=== PATIENT | male | born 1945 | race Two or more races ===

== ENCOUNTER → 2016-09-20 | Outpatient (CLI) | payer MEDICARE | END | disposition home or self-care (01) | LOC: Rad HDHVI 13:23 | PROVIDERS: ATTEND Internal Medicine Cardiovascular Disease | DX: I11.0 Hypertensive heart disease with heart failure (principal); I25.10 Atherosclerotic heart disease of native coronary artery without angina pectoris; E78.00 Pure hypercholesterolemia, unspecified; L97.929 Non-pressure chronic ulcer of unspecified part of left lower leg with unspecified severity | CPT/HCPCS: 93306 ==

== ENCOUNTER → 2016-10-19 | Outpatient (CLI) | payer MEDICARE | END | disposition home or self-care (01) | LOC: Rad HDHVI 11:44 | PROVIDERS: ATTEND Internal Medicine Cardiovascular Disease | DX: I51.7 Cardiomegaly (principal); E11.40 Type 2 diabetes mellitus with diabetic neuropathy, unspecified; L97.929 Non-pressure chronic ulcer of unspecified part of left lower leg with unspecified severity | CPT/HCPCS: 93926 ==

== ENCOUNTER → 2016-12-02 | Outpatient (CLI) | payer MEDICARE ==
[2016-12-02 10:45] VITALS: BP 122/74
[2016-12-02 11:15] VITALS: BP 126/76
[2016-12-02 12:49] LABS: Albumin 3.3 g/dL (3.4-5.0); BUN/Creatinine Ratio 17.9; Bilirubin, Total 0.3 mg/dL (0.2-1.0); Calcium 8.5 mg/dL (8.5-10.1); Potassium 3.8 mmol/L (3.5-5.1); Total Protein 7.1 g/dL (6.4-8.2)
== END | disposition home or self-care (01) ==
LOC: LAB 10:34
PROVIDERS: ATTEND Internal Medicine Cardiovascular Disease
DX: E78.00 Pure hypercholesterolemia, unspecified (principal); I10 Essential (primary) hypertension; E11.9 Type 2 diabetes mellitus without complications; R97.20 Elevated prostate specific antigen [PSA]
CPT/HCPCS: 36415; 80053; 80061; 83036; 84153; G0463

== ENCOUNTER → 2017-04-17 | Outpatient (CLI) | payer MEDICARE | END | disposition home or self-care (01) | LOC: Rad HDHVI 13:53 | PROVIDERS: ATTEND Internal Medicine Cardiovascular Disease | DX: E78.00 Pure hypercholesterolemia, unspecified (principal); R07.9 Chest pain, unspecified; J44.9 Chronic obstructive pulmonary disease, unspecified; Z95.5 Presence of coronary angioplasty implant and graft; Z87.891 Personal history of nicotine dependence | CPT/HCPCS: 93306 ==

== ENCOUNTER → 2017-07-13 | Outpatient (CLI) | payer MEDICARE ==
[2017-07-13 12:28] LABS: Basophils # (auto) 0.1 uL; Basophils % (auto) 1.2 % (0.0-2.0); Hemoglobin 11.4 g/dL (13.5-17.5); Lymphocytes # (auto) 1.8 uL; Mean Corpuscular Hgb Conc. 31.8 g/dL (32.0-36.0); Monocytes # (auto) 0.9 uL; Nucleated Red Blood Cells % 0.1 %; Red Cell Distribution Width 19.1 % (11.8-14.3)
[2017-07-13 12:30] LABS: Eosinophils # (auto) 0.6 uL; Eosinophils % (auto) 6.3 % (0.0-7.0); Lymphocytes % (auto) 20.2 % (10.0-50.0); Mean Corpuscular Hemoglobin 23.6 pg (28.0-32.0); Mean Corpuscular Volume 74.2 fL (80.0-100.0); Monocytes % (auto) 10.3 % (0.0-12.0); Neutrophils # (auto) 5.5 uL; Platelet Count (auto) 271 10^3/uL (140-450); Red Blood Cells 4.85 10^6/uL (4.5-5.90); White Blood Cell 8.9 10^3/uL (4.4-10.8)
[2017-07-13 12:39] LABS: Albumin 3.4 g/dL (3.4-5.0); BUN/Creatinine Ratio 16.2; Bilirubin, Direct 0.1 mg/dL (0-0.2); Bilirubin, Total 0.3 mg/dL (0.2-1.0); Calcium 8.8 mg/dL (8.5-10.1); Potassium 4.5 mmol/L (3.5-5.1); Total Protein 7.5 g/dL (6.4-8.2)
== END | disposition home or self-care (01) ==
LOC: LAB 09:54
PROVIDERS: ATTEND Internal Medicine Cardiovascular Disease
DX: I10 Essential (primary) hypertension (principal); E78.00 Pure hypercholesterolemia, unspecified; K74.1 Hepatic sclerosis; E11.9 Type 2 diabetes mellitus without complications; R97.20 Elevated prostate specific antigen [PSA]; E03.9 Hypothyroidism, unspecified; D64.9 Anemia, unspecified; E55.9 Vitamin D deficiency, unspecified; N39.0 Urinary tract infection, site not specified; J44.9 Chronic obstructive pulmonary disease, unspecified; Z95.1 Presence of aortocoronary bypass graft
CPT/HCPCS: 36415; 80048; 80061; 80076; 82306; 83036; 84153; 84443; 85025

== ENCOUNTER → 2017-10-25 | Outpatient (CLI) | payer MEDICARE | END | disposition home or self-care (01) | LOC: LAB 14:57 | PROVIDERS: ATTEND Internal Medicine Cardiovascular Disease | DX: I10 Essential (primary) hypertension (principal); I20.9 Angina pectoris, unspecified | CPT/HCPCS: 93306 ==

== ENCOUNTER → 2017-10-27 | Outpatient (CLI) | payer MEDICARE ==
[~2017-10-27] MED LIST: ADENOSINE 90 MG/30 ML INJ IV ONE; ADENOSINE 99 MG in GIVE UN-DILUTED 0 ML IV ONE
== END | disposition home or self-care (01) ==
LOC: Rad HDHVI 09:21
PROVIDERS: ATTEND Internal Medicine Cardiovascular Disease
DX: Z01.810 Encounter for preprocedural cardiovascular examination (principal); I10 Essential (primary) hypertension; E78.00 Pure hypercholesterolemia, unspecified; E11.9 Type 2 diabetes mellitus without complications; F17.200 Nicotine dependence, unspecified, uncomplicated; J44.9 Chronic obstructive pulmonary disease, unspecified; E66.9 Obesity, unspecified; I20.9 Angina pectoris, unspecified
CPT/HCPCS: 78452; 93005; 96374; 96375; A9500; J0153

== ENCOUNTER → 2018-03-05 | Outpatient (CLI) | payer MEDICARE ==
[~2018-03-05] MED LIST changes: -ADENOSINE 90 MG/30 ML INJ IV ONE; -ADENOSINE 99 MG in GIVE UN-DILUTED 0 ML IV ONE; +ASPI81TA27 PO; +CLIN1CAP4 PO; +CLOP75TA41 PO; +FLUT100I IN; +FURO40TA4 PO; +GABA100C9 PO; +GLIP-116 PO; +HYDR-531 PO; +INSU1.2I SC; +LEV50T PO; +LISI-646 PO; +METF-370 PO; +METO25TA4 PO; +PRE5T PO; +SIMV-8 PO; +TORS1TAB10 PO
[2018-03-05 09:55] VITALS: BP 126/69
[2018-03-05 10:19] VITALS: BP 146/69
[2018-03-05 12:51] LABS: Basophils # (auto) 0.1 uL; Eosinophils # (auto) 0.4 uL; Hemoglobin 11.5 g/dL (13.5-17.5); Monocytes # (auto) 0.8 uL; Nucleated Red Blood Cells % 0.1 %
[2018-03-05 12:55] LABS: Eosinophils % (auto) 5.2 % (0.0-7.0); Hematocrit 35.1 % (41.0-53.0); Lymphocytes # (auto) 2.1 uL; Lymphocytes % (auto) 27.5 % (10.0-50.0); Mean Corpuscular Hemoglobin 25.4 pg (28.0-32.0); Mean Corpuscular Hgb Conc. 32.9 g/dL (32.0-36.0); Mean Corpuscular Volume 77.2 fL (80.0-100.0); Monocytes % (auto) 10.2 % (0.0-12.0); Neutrophils # (auto) 4.4 uL; Neutrophils % (auto) 56.1 % (37.0-80.0); Platelet Count (auto) 241 10^3/uL (140-450); Red Blood Cells 4.54 10^6/uL (4.5-5.90); White Blood Cell 7.8 10^3/uL (4.4-10.8)
[2018-03-05 13:03] LABS: BUN/Creatinine Ratio 14.7; Calcium 8.5 mg/dL (8.5-10.1); INR 0.97 (0.9-1.15); Partial Thromboplastin Time 26.9 sec (23.78-33.04); Potassium 3.7 mmol/L (3.5-5.1); Prothrombin Time 10.4 sec (9.27-12.13)
== END | disposition home or self-care (01) ==
LOC: Rad HDHVI 09:46
PROVIDERS: ATTEND Internal Medicine Cardiovascular Disease
DX: Z01.812 Encounter for preprocedural laboratory examination (principal); I11.0 Hypertensive heart disease with heart failure; E11.21 Type 2 diabetes mellitus with diabetic nephropathy; I50.9 Heart failure, unspecified; R79.1 Abnormal coagulation profile; J44.9 Chronic obstructive pulmonary disease, unspecified; E78.00 Pure hypercholesterolemia, unspecified; E03.9 Hypothyroidism, unspecified; J98.11 Atelectasis; R91.8 Other nonspecific abnormal finding of lung field; D64.9 Anemia, unspecified; Z79.899 Other long term (current) drug therapy
CPT/HCPCS: 36415; 71046; 80048; 85025; 85610; 85730; 93005; G0463

== ENCOUNTER → 2018-03-22 | Outpatient (CLI) | payer MEDICARE ==
[2018-03-22] VITALS (8 sets, daily range): BP systolic 92–137; BP diastolic 58–72
[~2018-03-22] VITALS: Ht 1 cm; Wt 0.5 kg
[~2018-03-22] MED LIST changes: +FUROSEMIDE INJECTION 10 ML ONE; +FUROSEMIDE INJECTION 100 MG in SODIUM CHL 0.9% 100 ML IV SCH; -LISI-646 PO; +POTASSIUM CHL 20 Meq TABLET PO ONE
[2018-03-22 16:10] LABS: Potassium 4.2 mmol/L (3.5-5.1)
== END | disposition home or self-care (01) ==
LOC: CHF HDHVI 11:36
PROVIDERS: ATTEND Internal Medicine Cardiovascular Disease
DX: E87.6 Hypokalemia (principal); E87.70 Fluid overload, unspecified; E83.40 Disorders of magnesium metabolism, unspecified; R94.4 Abnormal results of kidney function studies; I11.0 Hypertensive heart disease with heart failure; I50.9 Heart failure, unspecified; I25.10 Atherosclerotic heart disease of native coronary artery without angina pectoris; J44.9 Chronic obstructive pulmonary disease, unspecified; E78.5 Hyperlipidemia, unspecified; E03.9 Hypothyroidism, unspecified; E78.00 Pure hypercholesterolemia, unspecified; E11.21 Type 2 diabetes mellitus with diabetic nephropathy; Z68.41 Body mass index [BMI] 40.0-44.9, adult; Z79.899 Other long term (current) drug therapy; Z87.891 Personal history of nicotine dependence
CPT/HCPCS: 36415; 82565; 83735; 84132; 84520; 96365; 96366; G0463; J1940

== ENCOUNTER → 2018-03-27 | Outpatient (CLI) | payer MEDICARE ==
[~2018-03-27] VITALS: Ht 30.5 cm; Wt 0.5 kg
[~2018-03-27] MED LIST changes: +FUROSEMIDE 100 MG/10ML VIAL IV ONE; -FUROSEMIDE INJECTION 100 MG in SODIUM CHL 0.9% 100 ML IV SCH; -POTASSIUM CHL 20 Meq TABLET PO ONE; +SODIUM CHLORIDE 0.9% 100 ML IV SCH
[2018-03-27 12:00] VITALS: BP 110/57
[2018-03-27 15:59] LABS: Basophils # (auto) 0.1 uL; Basophils % (auto) 0.9 % (0.0-2.0); Eosinophils # (auto) 0.4 uL; Lymphocytes # (auto) 1.9 uL; Neutrophils # (auto) 4.8 uL; Nucleated Red Blood Cells % 0.1 %
[2018-03-27 16:01] LABS: Eosinophils % (auto) 5.3 % (0.0-7.0); Hematocrit 36.2 % (41.0-53.0); Lymphocytes % (auto) 24.2 % (10.0-50.0); Mean Corpuscular Hgb Conc. 33.1 g/dL (32.0-36.0); Mean Corpuscular Volume 78.7 fL (80.0-100.0); Monocytes # (auto) 0.8 uL; Monocytes % (auto) 10.2 % (0.0-12.0); Neutrophils % (auto) 59.4 % (37.0-80.0); Platelet Count (auto) 281 10^3/uL (140-450); Red Cell Distribution Width 18.4 % (11.8-14.3); White Blood Cell 8.1 10^3/uL (4.4-10.8)
[2018-03-27 16:05] LABS: Potassium 4.5 mmol/L (3.5-5.1)
== END | disposition home or self-care (01) ==
LOC: Rad HDHVI 11:58
PROVIDERS: ATTEND Internal Medicine Cardiovascular Disease
DX: R06.02 Shortness of breath (principal); E11.65 Type 2 diabetes mellitus with hyperglycemia; D64.9 Anemia, unspecified; E87.6 Hypokalemia; R94.4 Abnormal results of kidney function studies; I11.0 Hypertensive heart disease with heart failure; I50.9 Heart failure, unspecified; I25.10 Atherosclerotic heart disease of native coronary artery without angina pectoris; E11.21 Type 2 diabetes mellitus with diabetic nephropathy; J44.9 Chronic obstructive pulmonary disease, unspecified; E78.5 Hyperlipidemia, unspecified; E03.9 Hypothyroidism, unspecified; E66.9 Obesity, unspecified; Z68.41 Body mass index [BMI] 40.0-44.9, adult; Z79.899 Other long term (current) drug therapy; Z87.891 Personal history of nicotine dependence; Z85.46 Personal history of malignant neoplasm of prostate
CPT/HCPCS: 36415; 82565; 84132; 84520; 85025; 93926; 96365; 96366; G0463; J1940

== ENCOUNTER → 2018-03-29 | Outpatient (CLI) | payer MEDICARE ==
[~2018-03-29] MED LIST changes: -FUROSEMIDE 100 MG/10ML VIAL IV ONE; -FUROSEMIDE INJECTION 10 ML ONE; +LIDOCAINE 1% (LOCAL ANESTH.) PF 5ml SDV ID ONE; +SODIUM CHLOR 0.9% PF (SALINE LOCK) 10ML VIAL/SYR IV SCH; -SODIUM CHLORIDE 0.9% 100 ML IV SCH
== END | disposition home or self-care (01) ==
LOC: XYW 14:40
PROVIDERS: ATTEND Internal Medicine Cardiovascular Disease
DX: Z45.2 Encounter for adjustment and management of vascular access device (principal); J44.9 Chronic obstructive pulmonary disease, unspecified; G47.30 Sleep apnea, unspecified; E11.65 Type 2 diabetes mellitus with hyperglycemia; F17.210 Nicotine dependence, cigarettes, uncomplicated; Z82.49 Family history of ischemic heart disease and other diseases of the circulatory system; Z82.5 Family history of asthma and other chronic lower respiratory diseases; Z80.0 Family history of malignant neoplasm of digestive organs; Z82.61 Family history of arthritis; Z88.0 Allergy status to penicillin; Z84.1 Family history of disorders of kidney and ureter; Z85.46 Personal history of malignant neoplasm of prostate
CPT/HCPCS: 36415; 36569; 71045; 80048; 82962; 83735; 85610; 96365; 96366; C1751; G0463; J1940; J7050

== ENCOUNTER → 2018-03-29 | Outpatient (CLI) | payer MEDICARE ==
[~2018-03-29] MED LIST changes: +FUROSEMIDE 100 MG/10ML VIAL IV ONE; +FUROSEMIDE INJECTION 10 ML ONE; -LIDOCAINE 1% (LOCAL ANESTH.) PF 5ml SDV ID ONE; -SODIUM CHLOR 0.9% PF (SALINE LOCK) 10ML VIAL/SYR IV SCH; +SODIUM CHLORIDE 0.9% 100 ML IV SCH
[2018-03-29 12:11] LABS: Calcium 8.9 mg/dL (8.5-10.1); Magnesium 2.1 mg/dL (1.6-2.6); Potassium 3.9 mmol/L (3.5-5.1)
[2018-03-29 13:10] VITALS: BP 118/57
== END | disposition home or self-care (01) ==
LOC: CHF HDHVI 09:27
PROVIDERS: ATTEND Internal Medicine Cardiovascular Disease
DX: E83.40 Disorders of magnesium metabolism, unspecified (principal); I11.0 Hypertensive heart disease with heart failure; I50.9 Heart failure, unspecified; I25.10 Atherosclerotic heart disease of native coronary artery without angina pectoris; J44.9 Chronic obstructive pulmonary disease, unspecified; E11.40 Type 2 diabetes mellitus with diabetic neuropathy, unspecified; E78.5 Hyperlipidemia, unspecified; E03.9 Hypothyroidism, unspecified; E66.01 Morbid (severe) obesity due to excess calories; Z68.41 Body mass index [BMI] 40.0-44.9, adult; Z87.891 Personal history of nicotine dependence
CPT/HCPCS: 36415; 80048; 82962; 83735; 85610; 96365; 96366; G0463

== ENCOUNTER → 2018-04-03 | Outpatient (CLI) | payer MEDICARE ==
[~2018-04-03] MED LIST changes: +FUROSEMIDE 20 MG/2 ML VIAL IV ONE; +FUROSEMIDE 20 MG/2 ML VIAL ONE; +SODIUM CHLORIDE 0.9% 1,000 ML IV SCH; -SODIUM CHLORIDE 0.9% 100 ML IV SCH
[2018-04-03 13:00] VITALS: BP 132/63
[2018-04-03 13:30] VITALS: BP 145/71
[2018-04-03 15:45] VITALS: BP 140/60
== END | disposition home or self-care (01) ==
LOC: CHF HDHVI 13:34
PROVIDERS: ATTEND Internal Medicine Cardiovascular Disease
DX: I11.0 Hypertensive heart disease with heart failure (principal); I50.9 Heart failure, unspecified; I25.10 Atherosclerotic heart disease of native coronary artery without angina pectoris; J44.9 Chronic obstructive pulmonary disease, unspecified; E78.5 Hyperlipidemia, unspecified; E11.65 Type 2 diabetes mellitus with hyperglycemia; E11.21 Type 2 diabetes mellitus with diabetic nephropathy; E03.9 Hypothyroidism, unspecified; G47.30 Sleep apnea, unspecified; E66.9 Obesity, unspecified; E78.00 Pure hypercholesterolemia, unspecified; E83.40 Disorders of magnesium metabolism, unspecified; Z87.891 Personal history of nicotine dependence; Z85.46 Personal history of malignant neoplasm of prostate; Z79.899 Other long term (current) drug therapy
CPT/HCPCS: 96365; 96366; 96375; G0463; J1642; J1940; 96376

== ENCOUNTER → 2018-04-05 | Outpatient (CLI) | payer MEDICARE ==
[~2018-04-05] VITALS: Ht 30.5 cm; Wt 117.0 kg
[~2018-04-05] MED LIST changes: -FUROSEMIDE 20 MG/2 ML VIAL IV ONE; -FUROSEMIDE 20 MG/2 ML VIAL ONE; -FUROSEMIDE INJECTION 10 ML ONE; -SODIUM CHLORIDE 0.9% 1,000 ML IV SCH; +SODIUM CHLORIDE 0.9% 100 ML IV ONE
[2018-04-05 11:00] VITALS: BP 123/59
[2018-04-05 11:30] VITALS: BP 129/59
[2018-04-05 12:00] VITALS: BP 114/69
[2018-04-05 12:03] LABS: Basophils # (auto) 0.1 uL; Hemoglobin 11.4 g/dL (13.5-17.5); Monocytes # (auto) 0.7 uL; Neutrophils # (auto) 4.6 uL; Nucleated Red Blood Cells % 0.1 %
[2018-04-05 12:07] LABS: Eosinophils # (auto) 0.4 uL; Eosinophils % (auto) 5.6 % (0.0-7.0); Lymphocytes # (auto) 1.9 uL; Lymphocytes % (auto) 24.8 % (10.0-50.0); Mean Corpuscular Hemoglobin 25.8 pg (28.0-32.0); Mean Corpuscular Hgb Conc. 32.7 g/dL (32.0-36.0); Mean Corpuscular Volume 78.7 fL (80.0-100.0); Monocytes % (auto) 8.7 % (0.0-12.0); Neutrophils % (auto) 59.9 % (37.0-80.0); Platelet Count (auto) 223 10^3/uL (140-450); Red Blood Cells 4.44 10^6/uL (4.5-5.90); Red Cell Distribution Width 18.3 % (11.8-14.3); White Blood Cell 7.7 10^3/uL (4.4-10.8)
[2018-04-05 12:30] VITALS: BP 129/65
[2018-04-05 12:59] LABS: BUN/Creatinine Ratio 27.1; Calcium 8.4 mg/dL (8.5-10.1); Potassium 4.1 mmol/L (3.5-5.1)
[2018-04-05 13:15] VITALS: BP 129/65
== END | disposition home or self-care (01) ==
LOC: CHF HDHVI 10:17
PROVIDERS: ATTEND Internal Medicine Cardiovascular Disease
DX: I11.0 Hypertensive heart disease with heart failure (principal); I50.9 Heart failure, unspecified; D64.9 Anemia, unspecified; E11.9 Type 2 diabetes mellitus without complications; J44.9 Chronic obstructive pulmonary disease, unspecified; E66.9 Obesity, unspecified; I25.10 Atherosclerotic heart disease of native coronary artery without angina pectoris; E78.5 Hyperlipidemia, unspecified; E03.9 Hypothyroidism, unspecified; E78.00 Pure hypercholesterolemia, unspecified; Z79.899 Other long term (current) drug therapy; Z68.41 Body mass index [BMI] 40.0-44.9, adult; Z87.891 Personal history of nicotine dependence; Z85.46 Personal history of malignant neoplasm of prostate
CPT/HCPCS: 36415; 80048; 83880; 85025; 96365; 96366; G0463; J1642; J1940

== ENCOUNTER → 2018-04-10 | Outpatient (CLI) | payer MEDICARE ==
[~2018-04-10] VITALS: Ht 30.5 cm; Wt 0.5 kg
[~2018-04-10] MED LIST changes: -FUROSEMIDE 100 MG/10ML VIAL IV ONE; +FUROSEMIDE INJECTION 10 ML ONE; +FUROSEMIDE INJECTION 100 MG in SODIUM CHL 0.9% 100 ML IV SCH; +POTASSIUM CHL 20 Meq TABLET PO ONE; -SODIUM CHLORIDE 0.9% 100 ML IV ONE
[2018-04-10 10:45] VITALS: BP 119/59
[2018-04-10 11:15] VITALS: BP 132/69
[2018-04-10 11:45] VITALS: BP 126/60
[2018-04-10 12:30] VITALS: BP 122/60
[2018-04-10 13:10] VITALS: BP 118/55
[2018-04-10 14:05] VITALS: BP 142/68
== END | disposition home or self-care (01) ==
LOC: CHF HDHVI 10:14
PROVIDERS: ATTEND Internal Medicine Cardiovascular Disease
DX: I11.0 Hypertensive heart disease with heart failure (principal); I50.9 Heart failure, unspecified; I25.10 Atherosclerotic heart disease of native coronary artery without angina pectoris; E87.70 Fluid overload, unspecified; E11.9 Type 2 diabetes mellitus without complications; J44.9 Chronic obstructive pulmonary disease, unspecified; E78.5 Hyperlipidemia, unspecified; Z79.899 Other long term (current) drug therapy; F17.200 Nicotine dependence, unspecified, uncomplicated; E78.00 Pure hypercholesterolemia, unspecified
CPT/HCPCS: 96365; 96366; G0463; J1642; J1940; J7040

== ENCOUNTER → 2018-04-12 | Outpatient (CLI) | payer MEDICARE ==
[~2018-04-12] MED LIST changes: +POTASSIUM CHL 10 Meq TABLET PO ONE
[2018-04-12 15:33] VITALS: BP 127/65
== END | disposition home or self-care (01) ==
LOC: CHF HDHVI 10:01
PROVIDERS: ATTEND Internal Medicine Cardiovascular Disease
DX: I11.0 Hypertensive heart disease with heart failure (principal); I50.9 Heart failure, unspecified; I25.10 Atherosclerotic heart disease of native coronary artery without angina pectoris; J44.9 Chronic obstructive pulmonary disease, unspecified; F17.200 Nicotine dependence, unspecified, uncomplicated; E78.00 Pure hypercholesterolemia, unspecified; E11.9 Type 2 diabetes mellitus without complications; E03.9 Hypothyroidism, unspecified; Z79.899 Other long term (current) drug therapy; Z68.41 Body mass index [BMI] 40.0-44.9, adult
CPT/HCPCS: 96365; 96366; G0463; J1642; J1940; J7040

== ENCOUNTER → 2018-04-17 | Outpatient (CLI) | payer MEDICARE ==
[2018-04-17 14:28] VITALS: BP 127/79
== END | disposition home or self-care (01) ==
LOC: CHF HDHVI 10:15
PROVIDERS: ATTEND Internal Medicine Cardiovascular Disease
DX: I11.0 Hypertensive heart disease with heart failure (principal); I50.9 Heart failure, unspecified; E87.70 Fluid overload, unspecified; E11.9 Type 2 diabetes mellitus without complications; I25.10 Atherosclerotic heart disease of native coronary artery without angina pectoris; J44.9 Chronic obstructive pulmonary disease, unspecified; E03.9 Hypothyroidism, unspecified; E78.00 Pure hypercholesterolemia, unspecified; E78.5 Hyperlipidemia, unspecified; Z68.41 Body mass index [BMI] 40.0-44.9, adult; Z87.891 Personal history of nicotine dependence; Z79.899 Other long term (current) drug therapy; Z85.46 Personal history of malignant neoplasm of prostate
CPT/HCPCS: 96365; 96366; G0463; J1642; J1940; J7040

== ENCOUNTER → 2018-04-19 | Outpatient (CLI) | payer MEDICARE ==
[~2018-04-19] MED LIST changes: +FUROSEMIDE 100 MG/10ML VIAL IV ONE; +FUROSEMIDE 40 MG/4 ML VIAL IV ONE; +FUROSEMIDE 40 MG/4 ML VIAL ONE; -FUROSEMIDE INJECTION 100 MG in SODIUM CHL 0.9% 100 ML IV SCH; -POTASSIUM CHL 10 Meq TABLET PO ONE; +SODIUM CHLORIDE 0.9% 1,000 ML IV SCH
[2018-04-19 10:20] VITALS: BP 115/68
[2018-04-19 10:50] VITALS: BP 132/69
[2018-04-19 11:15] VITALS: BP 128/74
[2018-04-19 12:21] LABS: Basophils # (auto) 0.1 uL; Eosinophils # (auto) 0.5 uL; Monocytes # (auto) 0.8 uL
[2018-04-19 12:25] LABS: Basophils % (auto) 0.9 % (0.0-2.0); Eosinophils % (auto) 4.6 % (0.0-7.0); Lymphocytes # (auto) 2.3 uL; Lymphocytes % (auto) 23.5 % (10.0-50.0); Mean Corpuscular Hgb Conc. 32.5 g/dL (32.0-36.0); Monocytes % (auto) 8.4 % (0.0-12.0); Neutrophils # (auto) 6.1 uL; Neutrophils % (auto) 62.6 % (37.0-80.0); Nucleated Red Blood Cells % 0.2 %; Platelet Count (auto) 239 10^3/uL (140-450); Red Blood Cells 4.62 10^6/uL (4.5-5.90); Red Cell Distribution Width 18.4 % (11.8-14.3); White Blood Cell 9.8 10^3/uL (4.4-10.8)
[2018-04-19 12:37] LABS: BUN/Creatinine Ratio 27.4; Calcium 8.7 mg/dL (8.5-10.1); Magnesium 2.1 mg/dL (1.6-2.6); Potassium 4.3 mmol/L (3.5-5.1)
[2018-04-19 12:45] VITALS: BP 119/67
[2018-04-19 14:15] VITALS: BP 125/65
== END | disposition home or self-care (01) ==
LOC: CHF HDHVI 10:22
PROVIDERS: ATTEND Internal Medicine Cardiovascular Disease
DX: I11.0 Hypertensive heart disease with heart failure (principal); I50.9 Heart failure, unspecified; D64.9 Anemia, unspecified; E83.40 Disorders of magnesium metabolism, unspecified; I25.10 Atherosclerotic heart disease of native coronary artery without angina pectoris; J44.9 Chronic obstructive pulmonary disease, unspecified; E78.5 Hyperlipidemia, unspecified; E03.9 Hypothyroidism, unspecified; I48.91 Unspecified atrial fibrillation; E78.00 Pure hypercholesterolemia, unspecified; E66.09 Other obesity due to excess calories; Z79.899 Other long term (current) drug therapy; Z68.41 Body mass index [BMI] 40.0-44.9, adult; Z85.46 Personal history of malignant neoplasm of prostate; Z87.891 Personal history of nicotine dependence
CPT/HCPCS: 36415; 80048; 82962; 83735; 85025; 96365; 96366; G0463; J1642; J1940; J7030

== ENCOUNTER → 2018-04-24 | Outpatient (CLI) | payer MEDICARE ==
[~2018-04-24] VITALS: Ht 30.5 cm; Wt 0.5 kg
[~2018-04-24] MED LIST changes: -FUROSEMIDE 100 MG/10ML VIAL IV ONE; -FUROSEMIDE 40 MG/4 ML VIAL IV ONE; +FUROSEMIDE IV SCH; -POTASSIUM CHL 20 Meq TABLET PO ONE; +SODIUM CHL 0.9% IV SCH; -SODIUM CHLORIDE 0.9% 1,000 ML IV SCH
[2018-04-24 11:00] VITALS: BP 142/70
[2018-04-24 11:30] VITALS: BP 155/69
[2018-04-24 12:26] LABS: Potassium 4.3 mmol/L (3.5-5.1)
[2018-04-24 13:30] VITALS: BP 98/55
== END | disposition home or self-care (01) ==
LOC: CHF HDHVI 10:21
PROVIDERS: ATTEND Internal Medicine Cardiovascular Disease
DX: I11.0 Hypertensive heart disease with heart failure (principal); I50.9 Heart failure, unspecified; E87.70 Fluid overload, unspecified; R53.83 Other fatigue; R94.4 Abnormal results of kidney function studies; E87.6 Hypokalemia; I25.10 Atherosclerotic heart disease of native coronary artery without angina pectoris; J44.9 Chronic obstructive pulmonary disease, unspecified; E78.5 Hyperlipidemia, unspecified; E03.9 Hypothyroidism, unspecified; E66.09 Other obesity due to excess calories; E78.00 Pure hypercholesterolemia, unspecified; E11.9 Type 2 diabetes mellitus without complications; I48.91 Unspecified atrial fibrillation; Z79.899 Other long term (current) drug therapy; Z85.46 Personal history of malignant neoplasm of prostate; Z87.891 Personal history of nicotine dependence
CPT/HCPCS: 36415; 82565; 84132; 84520; 96365; 96366; G0463; J1642; J1940; J7050

== ENCOUNTER → 2018-04-26 | Outpatient (CLI) | payer MEDICARE ==
[2018-04-26] VITALS (8 sets, daily range): BP systolic 107–136; BP diastolic 56–76
[~2018-04-26] MED LIST changes: +FUROSEMIDE 100 MG/10ML VIAL IV ONE; -FUROSEMIDE IV SCH; +POTASSIUM CHL 10 Meq TABLET PO ONE; +POTASSIUM CHL 20 Meq TABLET PO ONE; -SODIUM CHL 0.9% IV SCH; +SODIUM CHLORIDE 0.9% 250 ML IV ONE
== END | disposition home or self-care (01) ==
LOC: CHF HDHVI 10:03
PROVIDERS: ATTEND Internal Medicine Cardiovascular Disease
DX: E87.70 Fluid overload, unspecified (principal); R53.83 Other fatigue; I11.0 Hypertensive heart disease with heart failure; I50.9 Heart failure, unspecified; E11.21 Type 2 diabetes mellitus with diabetic nephropathy; E11.65 Type 2 diabetes mellitus with hyperglycemia; I25.10 Atherosclerotic heart disease of native coronary artery without angina pectoris; J44.9 Chronic obstructive pulmonary disease, unspecified; I48.91 Unspecified atrial fibrillation; E03.9 Hypothyroidism, unspecified; E78.5 Hyperlipidemia, unspecified; E78.00 Pure hypercholesterolemia, unspecified; E66.01 Morbid (severe) obesity due to excess calories; Z68.41 Body mass index [BMI] 40.0-44.9, adult; Z85.46 Personal history of malignant neoplasm of prostate; Z79.899 Other long term (current) drug therapy; Z87.891 Personal history of nicotine dependence
CPT/HCPCS: 96365; 96366; G0463; J1642; J1940; J7050

== ENCOUNTER → 2018-05-01 | Outpatient (CLI) | payer MEDICARE ==
[~2018-05-01] MED LIST changes: -FUROSEMIDE 100 MG/10ML VIAL IV ONE; -FUROSEMIDE 40 MG/4 ML VIAL ONE; +FUROSEMIDE INJECTION 100 MG in SODIUM CHL 0.9% 100 ML IV SCH; -SODIUM CHLORIDE 0.9% 250 ML IV ONE
[2018-05-01 10:30] VITALS: BP 110/56
[2018-05-01 11:00] VITALS: BP 122/62
[2018-05-01 11:30] VITALS: BP 112/56
[2018-05-01 12:00] VITALS: BP 114/58
[2018-05-01 12:30] VITALS: BP 103/58
[2018-05-01 13:00] VITALS: BP 102/55
== END | disposition home or self-care (01) ==
LOC: CHF HDHVI 10:00
PROVIDERS: ATTEND Internal Medicine Cardiovascular Disease
DX: R60.0 Localized edema (principal); E87.70 Fluid overload, unspecified; I11.0 Hypertensive heart disease with heart failure; I50.9 Heart failure, unspecified; E11.65 Type 2 diabetes mellitus with hyperglycemia; I25.10 Atherosclerotic heart disease of native coronary artery without angina pectoris; J44.9 Chronic obstructive pulmonary disease, unspecified; E78.00 Pure hypercholesterolemia, unspecified; E78.5 Hyperlipidemia, unspecified; E03.9 Hypothyroidism, unspecified; E66.9 Obesity, unspecified; Z68.41 Body mass index [BMI] 40.0-44.9, adult; Z79.899 Other long term (current) drug therapy; Z87.891 Personal history of nicotine dependence
CPT/HCPCS: 96365; 96366; G0463; J1642; J1940

== ENCOUNTER → 2018-05-03 | Outpatient (CLI) | payer MEDICARE ==
[2018-05-03 12:18] LABS: Mean Corpuscular Volume 80.6 fL (80.0-100.0); Red Cell Distribution Width 18.3 % (11.8-14.3)
[2018-05-03 12:35] LABS: BUN/Creatinine Ratio 23.9; Calcium 8.1 mg/dL (8.5-10.1); Potassium 3.8 mmol/L (3.5-5.1)
[2018-05-03 12:42] LABS: Basophils # (auto) 0.3 uL; Basophils % (auto) 3.9 % (0.0-2.0); Eosinophils # (auto) 0.4 uL; Eosinophils % (auto) 4.6 % (0.0-7.0); Hemoglobin 11.5 g/dL (13.5-17.5); Lymphocytes # (auto) 2.2 uL; Lymphocytes % (auto) 27.7 % (10.0-50.0); Mean Corpuscular Hemoglobin 25.8 pg (28.0-32.0); Mean Corpuscular Hgb Conc. 31.9 g/dL (32.0-36.0); Monocytes # (auto) 0.7 uL; Monocytes % (auto) 9.4 % (0.0-12.0); Neutrophils # (auto) 4.3 uL; Neutrophils % (auto) 54.4 % (37.0-80.0); Nucleated Red Blood Cells % 0.3 %; Platelet Count (auto) 215 10^3/uL (140-450); Red Blood Cells 4.47 10^6/uL (4.5-5.90); White Blood Cell 7.8 10^3/uL (4.4-10.8)
[2018-05-03 13:40] VITALS: BP 124/63
== END | disposition home or self-care (01) ==
LOC: CHF HDHVI 10:03
PROVIDERS: ATTEND Internal Medicine Cardiovascular Disease
DX: E87.70 Fluid overload, unspecified (principal); D64.9 Anemia, unspecified; R53.83 Other fatigue; C61 Malignant neoplasm of prostate; I11.0 Hypertensive heart disease with heart failure; I50.9 Heart failure, unspecified; I25.10 Atherosclerotic heart disease of native coronary artery without angina pectoris; J44.9 Chronic obstructive pulmonary disease, unspecified; E11.65 Type 2 diabetes mellitus with hyperglycemia; E11.40 Type 2 diabetes mellitus with diabetic neuropathy, unspecified; E11.21 Type 2 diabetes mellitus with diabetic nephropathy; E78.00 Pure hypercholesterolemia, unspecified; E78.5 Hyperlipidemia, unspecified; E03.9 Hypothyroidism, unspecified; E66.01 Morbid (severe) obesity due to excess calories; Z68.41 Body mass index [BMI] 40.0-44.9, adult; Z87.891 Personal history of nicotine dependence
CPT/HCPCS: 36415; 80048; 85025; 93701; 96365; 96366; G0463; J1642; J1940

== ENCOUNTER → 2018-05-08 | Outpatient (CLI) | payer MEDICARE ==
[2018-05-08] VITALS (7 sets, daily range): BP systolic 111–138; BP diastolic 58–88
== END | disposition home or self-care (01) ==
LOC: CHF HDHVI 10:18
PROVIDERS: ATTEND Internal Medicine Cardiovascular Disease
DX: E87.70 Fluid overload, unspecified (principal); I11.0 Hypertensive heart disease with heart failure; I50.9 Heart failure, unspecified; I25.10 Atherosclerotic heart disease of native coronary artery without angina pectoris; J44.9 Chronic obstructive pulmonary disease, unspecified; I48.91 Unspecified atrial fibrillation; E11.65 Type 2 diabetes mellitus with hyperglycemia; E11.21 Type 2 diabetes mellitus with diabetic nephropathy; E78.5 Hyperlipidemia, unspecified; E03.9 Hypothyroidism, unspecified; E78.00 Pure hypercholesterolemia, unspecified; E66.01 Morbid (severe) obesity due to excess calories; Z68.41 Body mass index [BMI] 40.0-44.9, adult; Z79.899 Other long term (current) drug therapy; Z87.891 Personal history of nicotine dependence; Z85.46 Personal history of malignant neoplasm of prostate
CPT/HCPCS: 96365; 96366; G0463; J1642; J1940

== ENCOUNTER → 2018-05-10 | Outpatient (CLI) | payer MEDICARE ==
[2018-05-10 10:30] VITALS: BP 111/66
[2018-05-10 11:00] VITALS: BP 109/58
[2018-05-10 11:30] VITALS: BP 132/69
[2018-05-10 12:00] VITALS: BP 124/70
[2018-05-10 12:30] VITALS: BP 110/69
[2018-05-10 13:30] VITALS: BP 126/84
== END | disposition home or self-care (01) ==
LOC: CHF HDHVI 09:59
PROVIDERS: ATTEND Internal Medicine Cardiovascular Disease
DX: I11.0 Hypertensive heart disease with heart failure (principal); I50.9 Heart failure, unspecified; E11.9 Type 2 diabetes mellitus without complications; I25.10 Atherosclerotic heart disease of native coronary artery without angina pectoris; J44.9 Chronic obstructive pulmonary disease, unspecified; E78.5 Hyperlipidemia, unspecified; E03.9 Hypothyroidism, unspecified; E78.00 Pure hypercholesterolemia, unspecified; E66.9 Obesity, unspecified; Z68.41 Body mass index [BMI] 40.0-44.9, adult; E11.40 Type 2 diabetes mellitus with diabetic neuropathy, unspecified; D64.9 Anemia, unspecified
CPT/HCPCS: 82962; 96365; 96366; G0463; J1642; J1940

== ENCOUNTER → 2018-05-15 | Outpatient (CLI) | payer MEDICARE ==
[~2018-05-15] MED LIST changes: -POTASSIUM CHL 10 Meq TABLET PO ONE
[2018-05-15 11:00] VITALS: BP 106/58
[2018-05-15 12:49] LABS: Basophils # (auto) 0.1 uL; Eosinophils # (auto) 0.5 uL; Mean Corpuscular Hemoglobin 26.8 pg (28.0-32.0); Monocytes # (auto) 0.8 uL
[2018-05-15 12:52] LABS: Basophils % (auto) 0.8 % (0.0-2.0); Eosinophils % (auto) 5.5 % (0.0-7.0); Hematocrit 37.5 % (41.0-53.0); Hemoglobin 12.5 g/dL (13.5-17.5); Lymphocytes # (auto) 2.2 uL; Lymphocytes % (auto) 24.4 % (10.0-50.0); Mean Corpuscular Hgb Conc. 33.3 g/dL (32.0-36.0); Mean Corpuscular Volume 80.4 fL (80.0-100.0); Monocytes % (auto) 9.3 % (0.0-12.0); Neutrophils # (auto) 5.3 uL; Nucleated Red Blood Cells % 0.1 %; Platelet Count (auto) 255 10^3/uL (140-450); Red Blood Cells 4.66 10^6/uL (4.5-5.90); Red Cell Distribution Width 17.4 % (11.8-14.3); White Blood Cell 8.9 10^3/uL (4.4-10.8)
[2018-05-15 13:26] LABS: BUN/Creatinine Ratio 21.4; Calcium 8.7 mg/dL (8.5-10.1); Magnesium 2.3 mg/dL (1.6-2.6); Potassium 4.4 mmol/L (3.5-5.1)
[2018-05-15 16:03] VITALS: BP 126/84
== END | disposition home or self-care (01) ==
LOC: CHF HDHVI 10:01
PROVIDERS: ATTEND Internal Medicine Cardiovascular Disease
DX: E87.70 Fluid overload, unspecified (principal); I11.0 Hypertensive heart disease with heart failure; I50.9 Heart failure, unspecified; I27.21 Secondary pulmonary arterial hypertension; D64.9 Anemia, unspecified; E83.40 Disorders of magnesium metabolism, unspecified; I48.91 Unspecified atrial fibrillation; I25.10 Atherosclerotic heart disease of native coronary artery without angina pectoris; E11.40 Type 2 diabetes mellitus with diabetic neuropathy, unspecified; E78.5 Hyperlipidemia, unspecified; E03.9 Hypothyroidism, unspecified; E66.01 Morbid (severe) obesity due to excess calories; E78.00 Pure hypercholesterolemia, unspecified; G47.30 Sleep apnea, unspecified; J44.9 Chronic obstructive pulmonary disease, unspecified; Z68.41 Body mass index [BMI] 40.0-44.9, adult; Z85.46 Personal history of malignant neoplasm of prostate; Z87.891 Personal history of nicotine dependence; Z79.899 Other long term (current) drug therapy
CPT/HCPCS: 36415; 80048; 83735; 85025; 96365; 96366; G0463; J1642; J1940

== ENCOUNTER → 2018-05-17 | Outpatient (CLI) | payer MEDICARE ==
[2018-05-17 13:25] VITALS: BP 125/69
== END | disposition home or self-care (01) ==
LOC: CHF HDHVI 09:49
PROVIDERS: ATTEND Internal Medicine Cardiovascular Disease
DX: I11.0 Hypertensive heart disease with heart failure (principal); I50.9 Heart failure, unspecified; I25.10 Atherosclerotic heart disease of native coronary artery without angina pectoris; R53.83 Other fatigue; E66.09 Other obesity due to excess calories; E78.5 Hyperlipidemia, unspecified; E03.9 Hypothyroidism, unspecified; E78.00 Pure hypercholesterolemia, unspecified; E66.9 Obesity, unspecified; E11.40 Type 2 diabetes mellitus with diabetic neuropathy, unspecified; E11.21 Type 2 diabetes mellitus with diabetic nephropathy; I48.91 Unspecified atrial fibrillation; G47.30 Sleep apnea, unspecified; J44.9 Chronic obstructive pulmonary disease, unspecified; Z85.46 Personal history of malignant neoplasm of prostate; Z79.899 Other long term (current) drug therapy; Z87.891 Personal history of nicotine dependence; Z68.41 Body mass index [BMI] 40.0-44.9, adult
CPT/HCPCS: 82962; 96365; 96366; G0463; J1642; J1940; J7040

== ENCOUNTER → 2018-05-22 | Outpatient (CLI) | payer MEDICARE ==
[~2018-05-22] MED LIST changes: +POTASSIUM CHL 10 Meq TABLET PO ONE
[2018-05-22 10:30] VITALS: BP 104/56
[2018-05-22 11:00] VITALS: BP 114/61
[2018-05-22 11:30] VITALS: BP 134/69
[2018-05-22 12:30] VITALS: BP 103/62
[2018-05-22 13:35] VITALS: BP 109/58
== END | disposition home or self-care (01) ==
LOC: CHF HDHVI 09:54
PROVIDERS: ATTEND Internal Medicine Cardiovascular Disease
DX: E87.70 Fluid overload, unspecified (principal); I11.0 Hypertensive heart disease with heart failure; I50.9 Heart failure, unspecified; I25.10 Atherosclerotic heart disease of native coronary artery without angina pectoris; J44.9 Chronic obstructive pulmonary disease, unspecified; E78.5 Hyperlipidemia, unspecified; E78.00 Pure hypercholesterolemia, unspecified; E03.9 Hypothyroidism, unspecified; E11.40 Type 2 diabetes mellitus with diabetic neuropathy, unspecified; E66.01 Morbid (severe) obesity due to excess calories; Z68.41 Body mass index [BMI] 40.0-44.9, adult; Z79.899 Other long term (current) drug therapy; Z87.891 Personal history of nicotine dependence
CPT/HCPCS: 36415; 82565; 84132; 84520; 96365; 96366; G0463; J1642; J1940

== ENCOUNTER → 2018-05-24 | Outpatient (CLI) | payer MEDICARE ==
[~2018-05-24] MED LIST changes: +FUROSEMIDE 20 MG/2 ML VIAL ONE; +FUROSEMIDE 40 MG/4 ML VIAL IV ONE
[2018-05-24 10:30] VITALS: BP 119/62
[2018-05-24 11:00] VITALS: BP 145/76
[2018-05-24 11:30] VITALS: BP 106/61
[2018-05-24 12:00] VITALS: BP 108/64
[2018-05-24 14:35] VITALS: BP 139/72
[2018-06-20 09:43] VITALS: BP 132/63
== END | disposition home or self-care (01) ==
LOC: CHF HDHVI 10:03
PROVIDERS: ATTEND Internal Medicine Cardiovascular Disease
DX: I11.0 Hypertensive heart disease with heart failure (principal); I50.9 Heart failure, unspecified; I25.10 Atherosclerotic heart disease of native coronary artery without angina pectoris; J44.9 Chronic obstructive pulmonary disease, unspecified; E78.5 Hyperlipidemia, unspecified; E03.9 Hypothyroidism, unspecified; E66.01 Morbid (severe) obesity due to excess calories; Z68.41 Body mass index [BMI] 40.0-44.9, adult; E78.00 Pure hypercholesterolemia, unspecified; E11.40 Type 2 diabetes mellitus with diabetic neuropathy, unspecified; I48.91 Unspecified atrial fibrillation; D64.9 Anemia, unspecified; E87.70 Fluid overload, unspecified; Z85.46 Personal history of malignant neoplasm of prostate; Z87.891 Personal history of nicotine dependence
CPT/HCPCS: 96365; 96366; G0463; J1642; J1940

== ENCOUNTER → 2018-05-29 | Outpatient (CLI) | payer MEDICARE ==
[~2018-05-29] MED LIST changes: +FUROSEMIDE 100 MG/10ML VIAL IV ONE; -FUROSEMIDE 20 MG/2 ML VIAL ONE; +FUROSEMIDE 40 MG/4 ML VIAL ONE; -FUROSEMIDE INJECTION 100 MG in SODIUM CHL 0.9% 100 ML IV SCH; -POTASSIUM CHL 10 Meq TABLET PO ONE; +SODIUM CHLORIDE 0.9% 1,000 ML IV SCH
[2018-05-29 11:00] VITALS: BP 107/55
[2018-05-29 11:30] VITALS: BP 105/45
[2018-05-29 13:50] VITALS: BP 106/51
== END | disposition home or self-care (01) ==
LOC: CHF HDHVI 10:29
PROVIDERS: ATTEND Internal Medicine Cardiovascular Disease
DX: E87.70 Fluid overload, unspecified (principal); D64.9 Anemia, unspecified; I25.10 Atherosclerotic heart disease of native coronary artery without angina pectoris; J44.9 Chronic obstructive pulmonary disease, unspecified; I11.0 Hypertensive heart disease with heart failure; I50.9 Heart failure, unspecified; E03.9 Hypothyroidism, unspecified; E78.5 Hyperlipidemia, unspecified; E11.40 Type 2 diabetes mellitus with diabetic neuropathy, unspecified; E78.00 Pure hypercholesterolemia, unspecified; I48.91 Unspecified atrial fibrillation; Z85.46 Personal history of malignant neoplasm of prostate; Z87.891 Personal history of nicotine dependence; E66.01 Morbid (severe) obesity due to excess calories; Z68.41 Body mass index [BMI] 40.0-44.9, adult
CPT/HCPCS: 96365; 96366; 96375; G0463; J1642; J1940

== ENCOUNTER → 2018-05-31 | Outpatient (CLI) | payer MEDICARE ==
[2018-05-31] VITALS (7 sets, daily range): BP systolic 102–153; BP diastolic 53–79
[~2018-05-31] MED LIST changes: -FUROSEMIDE 100 MG/10ML VIAL IV ONE; +FUROSEMIDE INJECTION 100 MG in SODIUM CHL 0.9% 100 ML IV SCH; -POTASSIUM CHL 20 Meq TABLET PO ONE; -SODIUM CHLORIDE 0.9% 1,000 ML IV SCH
== END | disposition home or self-care (01) ==
LOC: CHF HDHVI 10:09
PROVIDERS: ATTEND Internal Medicine Cardiovascular Disease
DX: E87.70 Fluid overload, unspecified (principal); E11.40 Type 2 diabetes mellitus with diabetic neuropathy, unspecified; E11.21 Type 2 diabetes mellitus with diabetic nephropathy; E11.65 Type 2 diabetes mellitus with hyperglycemia; I11.0 Hypertensive heart disease with heart failure; I50.9 Heart failure, unspecified; I25.10 Atherosclerotic heart disease of native coronary artery without angina pectoris; J44.9 Chronic obstructive pulmonary disease, unspecified; E78.5 Hyperlipidemia, unspecified; E03.9 Hypothyroidism, unspecified; E78.00 Pure hypercholesterolemia, unspecified; I48.91 Unspecified atrial fibrillation; E66.01 Morbid (severe) obesity due to excess calories; Z68.41 Body mass index [BMI] 40.0-44.9, adult; Z79.899 Other long term (current) drug therapy; Z87.891 Personal history of nicotine dependence
CPT/HCPCS: 96365; 96366; 96376; G0463; J1642; J1940; J7040

== ENCOUNTER → 2018-06-05 | Outpatient (CLI) | payer MEDICARE ==
[~2018-06-05] MED LIST changes: +POTASSIUM CHL 10 Meq TABLET PO ONE; +POTASSIUM CHL 20 Meq TABLET PO ONE
[2018-06-05 10:15] VITALS: BP 119/61
[2018-06-05 10:45] VITALS: BP 123/69
[2018-06-05 11:15] VITALS: BP 130/68
[2018-06-05 13:05] VITALS: BP 128/70
== END | disposition home or self-care (01) ==
LOC: CHF HDHVI 10:10
PROVIDERS: ATTEND Internal Medicine Cardiovascular Disease
DX: I25.10 Atherosclerotic heart disease of native coronary artery without angina pectoris (principal); C61 Malignant neoplasm of prostate; D64.9 Anemia, unspecified; I11.0 Hypertensive heart disease with heart failure; I50.9 Heart failure, unspecified; E11.40 Type 2 diabetes mellitus with diabetic neuropathy, unspecified; E11.21 Type 2 diabetes mellitus with diabetic nephropathy; E11.65 Type 2 diabetes mellitus with hyperglycemia; J44.9 Chronic obstructive pulmonary disease, unspecified; E87.70 Fluid overload, unspecified; E78.5 Hyperlipidemia, unspecified; E03.9 Hypothyroidism, unspecified; I48.91 Unspecified atrial fibrillation; E78.00 Pure hypercholesterolemia, unspecified; E66.01 Morbid (severe) obesity due to excess calories; Z68.41 Body mass index [BMI] 40.0-44.9, adult; Z79.899 Other long term (current) drug therapy; Z87.891 Personal history of nicotine dependence
CPT/HCPCS: 96365; 96366; 96376; G0463; J1642; J1940

== ENCOUNTER → 2018-06-07 | Outpatient (CLI) | payer MEDICARE ==
[~2018-06-07] MED LIST changes: -FUROSEMIDE 40 MG/4 ML VIAL IV ONE; -FUROSEMIDE 40 MG/4 ML VIAL ONE; -POTASSIUM CHL 10 Meq TABLET PO ONE
[2018-06-07 10:50] VITALS: BP 126/65
[2018-06-07 11:00] VITALS: BP 141/76
[2018-06-07 11:30] VITALS: BP 117/65
[2018-06-07 12:00] VITALS: BP 136/71
[2018-06-07 13:20] VITALS: BP 135/81
== END | disposition home or self-care (01) ==
LOC: CHF HDHVI 10:07
PROVIDERS: ATTEND Internal Medicine Cardiovascular Disease
DX: I11.0 Hypertensive heart disease with heart failure (principal); I50.9 Heart failure, unspecified; I25.10 Atherosclerotic heart disease of native coronary artery without angina pectoris; J44.9 Chronic obstructive pulmonary disease, unspecified; E87.70 Fluid overload, unspecified; D64.9 Anemia, unspecified; E11.40 Type 2 diabetes mellitus with diabetic neuropathy, unspecified; E78.5 Hyperlipidemia, unspecified; E03.9 Hypothyroidism, unspecified; E78.00 Pure hypercholesterolemia, unspecified; E66.01 Morbid (severe) obesity due to excess calories; Z68.41 Body mass index [BMI] 40.0-44.9, adult; Z87.891 Personal history of nicotine dependence
CPT/HCPCS: 96365; 96366; G0463; J1642; J1940

== ENCOUNTER → 2018-06-12 | Outpatient (CLI) | payer MEDICARE ==
[~2018-06-12] VITALS: Ht 30.5 cm; Wt 113.9 kg
[~2018-06-12] MED LIST changes: +CYANOCOBALAMIN (B-12) 1000 MCG/1 ML VIAL IM ONE; +CYANOCOBALAMIN (B-12) 1000 MCG/1 ML VIAL ONE; +POTASSIUM CHL 10 Meq TABLET PO ONE
[2018-06-12 10:30] VITALS: BP 125/55
[2018-06-12 11:00] VITALS: BP 120/67
[2018-06-12 11:30] VITALS: BP 125/65
[2018-06-12 12:00] VITALS: BP 116/53
[2018-06-12 12:10] LABS: Basophils # (auto) 0.1 uL; Eosinophils # (auto) 0.5 uL; Hematocrit 36.7 % (41.0-53.0); Hemoglobin 12.1 g/dL (13.5-17.5); Lymphocytes % (auto) 26.9 % (10.0-50.0); Mean Corpuscular Hemoglobin 27.9 pg (28.0-32.0); Mean Corpuscular Hgb Conc. 32.9 g/dL (32.0-36.0); Mean Corpuscular Volume 84.6 fL (80.0-100.0); Monocytes # (auto) 0.5 uL; Monocytes % (auto) 6.9 % (0.0-12.0); Neutrophils # (auto) 4.4 uL; Neutrophils % (auto) 58.2 % (37.0-80.0); Nucleated Red Blood Cells % 0.1 %; Platelet Count (auto) 207 10^3/uL (140-450); Red Blood Cells 4.34 10^6/uL (4.5-5.90); Red Cell Distribution Width 16.7 % (11.8-14.3); White Blood Cell 7.5 10^3/uL (4.4-10.8)
[2018-06-12 12:19] LABS: Magnesium 1.9 mg/dL (1.6-2.6); Potassium 3.9 mmol/L (3.5-5.1)
[2018-06-12 12:23] LABS: BUN/Creatinine Ratio 19.8; Calcium 8.8 mg/dL (8.5-10.1)
[2018-06-12 12:30] VITALS: BP 119/69
[2018-06-12 12:55] VITALS: BP 119/68
== END | disposition home or self-care (01) ==
LOC: CHF HDHVI 09:46
PROVIDERS: ATTEND Internal Medicine Cardiovascular Disease
DX: E83.40 Disorders of magnesium metabolism, unspecified (principal); I11.0 Hypertensive heart disease with heart failure; I50.9 Heart failure, unspecified; D64.9 Anemia, unspecified; I25.10 Atherosclerotic heart disease of native coronary artery without angina pectoris; J44.9 Chronic obstructive pulmonary disease, unspecified; E87.70 Fluid overload, unspecified; E78.5 Hyperlipidemia, unspecified; E03.9 Hypothyroidism, unspecified; E66.01 Morbid (severe) obesity due to excess calories; Z68.41 Body mass index [BMI] 40.0-44.9, adult; E78.00 Pure hypercholesterolemia, unspecified; E11.40 Type 2 diabetes mellitus with diabetic neuropathy, unspecified; I48.91 Unspecified atrial fibrillation; Z87.891 Personal history of nicotine dependence; Z85.46 Personal history of malignant neoplasm of prostate
CPT/HCPCS: 36415; 80048; 83735; 85025; 96365; 96366; 96372; G0463; J1642; J1940; J3420

== ENCOUNTER → 2018-06-14 | Outpatient (CLI) | payer MEDICARE ==
[2018-06-14] VITALS (7 sets, daily range): BP systolic 110–131; BP diastolic 49–75
[~2018-06-14] MED LIST changes: -CYANOCOBALAMIN (B-12) 1000 MCG/1 ML VIAL IM ONE; -CYANOCOBALAMIN (B-12) 1000 MCG/1 ML VIAL ONE
== END | disposition home or self-care (01) ==
LOC: CHF HDHVI 09:54
PROVIDERS: ATTEND Internal Medicine Cardiovascular Disease
DX: D64.9 Anemia, unspecified (principal); I11.0 Hypertensive heart disease with heart failure; I50.9 Heart failure, unspecified; I25.10 Atherosclerotic heart disease of native coronary artery without angina pectoris; J44.9 Chronic obstructive pulmonary disease, unspecified; E87.70 Fluid overload, unspecified; E78.5 Hyperlipidemia, unspecified; E03.9 Hypothyroidism, unspecified; E66.01 Morbid (severe) obesity due to excess calories; Z68.41 Body mass index [BMI] 40.0-44.9, adult; I89.1 Lymphangitis; E11.40 Type 2 diabetes mellitus with diabetic neuropathy, unspecified; Z87.891 Personal history of nicotine dependence; Z85.46 Personal history of malignant neoplasm of prostate; Z79.899 Other long term (current) drug therapy
CPT/HCPCS: 96365; 96366; G0463; J1642; J1940; J7040

== ENCOUNTER → 2018-06-19 | Outpatient (CLI) | payer MEDICARE ==
[~2018-06-19] VITALS: Ht 30.5 cm; Wt 0.5 kg
[~2018-06-19] MED LIST changes: -FUROSEMIDE INJECTION 100 MG in SODIUM CHL 0.9% 100 ML IV SCH; +FUROSEMIDE IV SCH; +KETOROLAC TROMETH 60MG/2ML VIAL IM ONE; +MAGNESIUM SULFATE 1GM/100ML 100 ML IV ONE; -POTASSIUM CHL 10 Meq TABLET PO ONE; +SODIUM CHL 0.9% IV SCH
[2018-06-19 12:03] LABS: Basophils # (auto) 0.1 uL; Eosinophils # (auto) 0.5 uL; Red Cell Distribution Width 16.4 % (11.8-14.3)
[2018-06-19 12:07] LABS: Basophils % (auto) 0.7 % (0.0-2.0); Eosinophils % (auto) 5.3 % (0.0-7.0); Hemoglobin 12.2 g/dL (13.5-17.5); Lymphocytes # (auto) 2.8 uL; Lymphocytes % (auto) 30.1 % (10.0-50.0); Mean Corpuscular Hemoglobin 26.7 pg (28.0-32.0); Mean Corpuscular Hgb Conc. 32.2 g/dL (32.0-36.0); Mean Corpuscular Volume 82.7 fL (80.0-100.0); Monocytes # (auto) 0.7 uL; Neutrophils # (auto) 5.2 uL; Neutrophils % (auto) 55.9 % (37.0-80.0); Platelet Count (auto) 201 10^3/uL (140-450); Red Blood Cells 4.59 10^6/uL (4.5-5.90); White Blood Cell 9.3 10^3/uL (4.4-10.8)
[2018-06-19 12:25] LABS: Potassium 4.3 mmol/L (3.5-5.1)
[2018-06-19 12:40] LABS: BUN/Creatinine Ratio 22.5; Calcium 8.9 mg/dL (8.5-10.1); Magnesium 2.1 mg/dL (1.6-2.6)
[2018-06-19 13:30] VITALS: BP 111/64
== END | disposition home or self-care (01) ==
LOC: CHF HDHVI 10:12
PROVIDERS: ATTEND Internal Medicine Cardiovascular Disease
DX: D64.9 Anemia, unspecified (principal); I10 Essential (primary) hypertension; R94.4 Abnormal results of kidney function studies; E87.6 Hypokalemia; E03.9 Hypothyroidism, unspecified; I25.10 Atherosclerotic heart disease of native coronary artery without angina pectoris; J44.9 Chronic obstructive pulmonary disease, unspecified; I50.9 Heart failure, unspecified; E11.40 Type 2 diabetes mellitus with diabetic neuropathy, unspecified; E11.65 Type 2 diabetes mellitus with hyperglycemia; E11.21 Type 2 diabetes mellitus with diabetic nephropathy; I27.21 Secondary pulmonary arterial hypertension; E66.01 Morbid (severe) obesity due to excess calories; Z68.41 Body mass index [BMI] 40.0-44.9, adult; Z85.46 Personal history of malignant neoplasm of prostate; Z87.891 Personal history of nicotine dependence; Z79.899 Other long term (current) drug therapy
CPT/HCPCS: 36415; 80048; 83735; 85025; 96365; 96366; 96368; 96372; G0463; J1642; J1885; J1940; J3475

== ENCOUNTER → 2018-06-21 | Outpatient (CLI) | payer MEDICARE ==
[~2018-06-21] VITALS: Ht 30.5 cm; Wt 113.4 kg
[2018-06-21] VITALS (7 sets, daily range): BP systolic 104–145; BP diastolic 54–75
[~2018-06-21] MED LIST changes: +FUROSEMIDE INJECTION 100 MG in SODIUM CHL 0.9% 100 ML IV SCH; -FUROSEMIDE IV SCH; -KETOROLAC TROMETH 60MG/2ML VIAL IM ONE; -MAGNESIUM SULFATE 1GM/100ML 100 ML IV ONE; +POTASSIUM CHL 10 Meq TABLET PO ONE; -SODIUM CHL 0.9% IV SCH
== END | disposition home or self-care (01) ==
LOC: CHF HDHVI 10:38
PROVIDERS: ATTEND Internal Medicine Cardiovascular Disease
DX: I11.0 Hypertensive heart disease with heart failure (principal); I50.9 Heart failure, unspecified; E87.70 Fluid overload, unspecified; E11.40 Type 2 diabetes mellitus with diabetic neuropathy, unspecified; E11.65 Type 2 diabetes mellitus with hyperglycemia; E11.21 Type 2 diabetes mellitus with diabetic nephropathy; E78.00 Pure hypercholesterolemia, unspecified; D51.3 Other dietary vitamin B12 deficiency anemia; E78.5 Hyperlipidemia, unspecified; I25.10 Atherosclerotic heart disease of native coronary artery without angina pectoris; I48.91 Unspecified atrial fibrillation; J44.9 Chronic obstructive pulmonary disease, unspecified; E83.40 Disorders of magnesium metabolism, unspecified; E03.9 Hypothyroidism, unspecified; I89.1 Lymphangitis; E66.01 Morbid (severe) obesity due to excess calories; G47.30 Sleep apnea, unspecified; Z85.46 Personal history of malignant neoplasm of prostate; Z68.41 Body mass index [BMI] 40.0-44.9, adult; Z87.891 Personal history of nicotine dependence; Z79.899 Other long term (current) drug therapy
CPT/HCPCS: 96365; 96366; G0463; J1642; J1940

== ENCOUNTER → 2018-06-26 | Outpatient (CLI) | payer MEDICARE ==
[~2018-06-26] MED LIST changes: +BUMETANIDE (0.25MG/ML) 4 ML VIAL ONE; +BUMETANIDE INJECTION 12.5 MG in GIVE UN-DILUTED 0 ML IV SCH; -FUROSEMIDE INJECTION 10 ML ONE; -FUROSEMIDE INJECTION 100 MG in SODIUM CHL 0.9% 100 ML IV SCH
[2018-06-26 10:15] VITALS: BP 110/54
[2018-06-26 13:25] VITALS: BP 125/53
[2018-06-28 10:45] VITALS: BP 105/54
[2018-06-28 11:15] VITALS: BP 121/58
== END | disposition home or self-care (01) ==
LOC: CHF HDHVI 10:09
PROVIDERS: ATTEND Internal Medicine Cardiovascular Disease
DX: I11.0 Hypertensive heart disease with heart failure (principal); I50.9 Heart failure, unspecified; E11.21 Type 2 diabetes mellitus with diabetic nephropathy; E11.40 Type 2 diabetes mellitus with diabetic neuropathy, unspecified; E87.70 Fluid overload, unspecified; D51.3 Other dietary vitamin B12 deficiency anemia; I48.91 Unspecified atrial fibrillation; I25.10 Atherosclerotic heart disease of native coronary artery without angina pectoris; E78.00 Pure hypercholesterolemia, unspecified; I27.29 Other secondary pulmonary hypertension; J44.9 Chronic obstructive pulmonary disease, unspecified; E78.5 Hyperlipidemia, unspecified; E03.9 Hypothyroidism, unspecified; E55.9 Vitamin D deficiency, unspecified; R94.4 Abnormal results of kidney function studies; I89.1 Lymphangitis; E83.40 Disorders of magnesium metabolism, unspecified; G47.30 Sleep apnea, unspecified; E66.01 Morbid (severe) obesity due to excess calories; Z68.41 Body mass index [BMI] 40.0-44.9, adult; Z85.46 Personal history of malignant neoplasm of prostate; Z79.899 Other long term (current) drug therapy; Z87.891 Personal history of nicotine dependence
CPT/HCPCS: 96365; 96366; G0463; J1642; J3490

== ENCOUNTER → 2018-06-28 | Outpatient (CLI) | payer MEDICARE ==
[2018-06-28] VITALS (7 sets, daily range): BP systolic 100–121; BP diastolic 50–62
[~2018-06-28] MED LIST changes: -POTASSIUM CHL 20 Meq TABLET PO ONE; +POTASSIUM CHL 20 Meq TABLET PO SCH
[2018-06-28 12:11] LABS: Potassium 3.7 mmol/L (3.5-5.1)
== END | disposition home or self-care (01) ==
LOC: CHF HDHVI 09:59
PROVIDERS: ATTEND Internal Medicine Cardiovascular Disease
DX: D51.9 Vitamin B12 deficiency anemia, unspecified (principal); E55.9 Vitamin D deficiency, unspecified; E87.6 Hypokalemia; E03.9 Hypothyroidism, unspecified; R94.4 Abnormal results of kidney function studies; E11.21 Type 2 diabetes mellitus with diabetic nephropathy; E11.40 Type 2 diabetes mellitus with diabetic neuropathy, unspecified; E11.65 Type 2 diabetes mellitus with hyperglycemia; E78.00 Pure hypercholesterolemia, unspecified; I11.0 Hypertensive heart disease with heart failure; I50.9 Heart failure, unspecified; D51.3 Other dietary vitamin B12 deficiency anemia; I25.10 Atherosclerotic heart disease of native coronary artery without angina pectoris; J44.9 Chronic obstructive pulmonary disease, unspecified; E83.40 Disorders of magnesium metabolism, unspecified; I89.1 Lymphangitis; I48.91 Unspecified atrial fibrillation; G47.30 Sleep apnea, unspecified; E66.01 Morbid (severe) obesity due to excess calories; Z79.899 Other long term (current) drug therapy; Z85.46 Personal history of malignant neoplasm of prostate; Z68.41 Body mass index [BMI] 40.0-44.9, adult; Z87.891 Personal history of nicotine dependence
CPT/HCPCS: 36415; 82306; 82565; 82607; 83036; 84132; 84443; 84520; 93701; 96365; 96366; G0463; J1642; J3490

== ENCOUNTER → 2018-07-03 | Outpatient (CLI) | payer MEDICARE ==
[2018-07-03] VITALS (8 sets, daily range): BP systolic 107–131; BP diastolic 49–62
[~2018-07-03] MED LIST changes: +CYANOCOBALAMIN (B-12) 1000 MCG/1 ML VIAL IM ONE; +CYANOCOBALAMIN (B-12) 1000 MCG/1 ML VIAL ONE; +POTASSIUM CHL 20 Meq TABLET PO ONE; -POTASSIUM CHL 20 Meq TABLET PO SCH
== END | disposition home or self-care (01) ==
LOC: CHF HDHVI 10:13
PROVIDERS: ATTEND Internal Medicine Cardiovascular Disease
DX: I11.0 Hypertensive heart disease with heart failure (principal); I50.9 Heart failure, unspecified; J44.9 Chronic obstructive pulmonary disease, unspecified; E11.21 Type 2 diabetes mellitus with diabetic nephropathy; E11.40 Type 2 diabetes mellitus with diabetic neuropathy, unspecified; I25.10 Atherosclerotic heart disease of native coronary artery without angina pectoris; E83.40 Disorders of magnesium metabolism, unspecified; I48.91 Unspecified atrial fibrillation; E03.9 Hypothyroidism, unspecified; E11.65 Type 2 diabetes mellitus with hyperglycemia; D51.9 Vitamin B12 deficiency anemia, unspecified; E78.00 Pure hypercholesterolemia, unspecified; E87.6 Hypokalemia; R94.4 Abnormal results of kidney function studies; E55.9 Vitamin D deficiency, unspecified; E78.5 Hyperlipidemia, unspecified; G47.30 Sleep apnea, unspecified; E66.01 Morbid (severe) obesity due to excess calories; Z68.41 Body mass index [BMI] 40.0-44.9, adult; Z85.46 Personal history of malignant neoplasm of prostate; Z87.891 Personal history of nicotine dependence; Z79.899 Other long term (current) drug therapy
CPT/HCPCS: 96365; 96366; 96372; G0463; J1642; J3420; J3490

== ENCOUNTER → 2018-07-05 | Outpatient (CLI) | payer MEDICARE ==
[2018-07-05] VITALS (8 sets, daily range): BP systolic 103–129; BP diastolic 45–65
[~2018-07-05] VITALS: Ht 30.5 cm; Wt 112.5 kg
[~2018-07-05] MED LIST changes: -BUMETANIDE (0.25MG/ML) 4 ML VIAL ONE; +BUMETANIDE INJECTION 10 ML ONE; -BUMETANIDE INJECTION 12.5 MG in GIVE UN-DILUTED 0 ML IV SCH; +BUMETANIDE IV SCH; -CYANOCOBALAMIN (B-12) 1000 MCG/1 ML VIAL IM ONE; -CYANOCOBALAMIN (B-12) 1000 MCG/1 ML VIAL ONE; +GIVE UN DILUTED IV SCH
== END | disposition home or self-care (01) ==
LOC: CHF HDHVI 10:08
PROVIDERS: ATTEND Internal Medicine Cardiovascular Disease
DX: I11.0 Hypertensive heart disease with heart failure (principal); I50.9 Heart failure, unspecified; E11.21 Type 2 diabetes mellitus with diabetic nephropathy; E11.40 Type 2 diabetes mellitus with diabetic neuropathy, unspecified; E66.01 Morbid (severe) obesity due to excess calories; R94.4 Abnormal results of kidney function studies; R53.83 Other fatigue; E03.9 Hypothyroidism, unspecified; I48.91 Unspecified atrial fibrillation; I25.10 Atherosclerotic heart disease of native coronary artery without angina pectoris; J44.9 Chronic obstructive pulmonary disease, unspecified; I27.21 Secondary pulmonary arterial hypertension; F32.9 Major depressive disorder, single episode, unspecified; E78.00 Pure hypercholesterolemia, unspecified; E78.5 Hyperlipidemia, unspecified; Z85.46 Personal history of malignant neoplasm of prostate; Z87.891 Personal history of nicotine dependence; Z79.899 Other long term (current) drug therapy; Z95.1 Presence of aortocoronary bypass graft; Z86.73 Personal history of transient ischemic attack (TIA), and cerebral infarction without residual deficits; Z68.41 Body mass index [BMI] 40.0-44.9, adult
CPT/HCPCS: 96365; 96366; G0463; J1642

== ENCOUNTER → 2018-07-10 | Outpatient (CLI) | payer MEDICARE ==
[~2018-07-10] MED LIST changes: -POTASSIUM CHL 20 Meq TABLET PO ONE; +POTASSIUM CHL 20 Meq TABLET PO SCH
[2018-07-10 10:30] VITALS: BP 109/54
[2018-07-10 11:00] VITALS: BP 115/58
[2018-07-10 11:30] VITALS: BP 113/56
[2018-07-10 12:00] VITALS: BP 107/50
[2018-07-10 12:08] LABS: Basophils # (auto) 0.1 uL; Basophils % (auto) 0.9 % (0.0-2.0); Eosinophils # (auto) 0.6 uL; Hemoglobin 11.7 g/dL (13.5-17.5); Mean Corpuscular Volume 82.4 fL (80.0-100.0); Nucleated Red Blood Cells % 0.1 %
[2018-07-10 12:10] LABS: Eosinophils % (auto) 6.2 % (0.0-7.0); Hematocrit 36.1 % (41.0-53.0); Lymphocytes # (auto) 2.4 uL; Lymphocytes % (auto) 26.5 % (10.0-50.0); Mean Corpuscular Hemoglobin 26.7 pg (28.0-32.0); Mean Corpuscular Hgb Conc. 32.4 g/dL (32.0-36.0); Monocytes # (auto) 0.7 uL; Monocytes % (auto) 7.8 % (0.0-12.0); Neutrophils # (auto) 5.3 uL; Neutrophils % (auto) 58.6 % (37.0-80.0); Platelet Count (auto) 206 10^3/uL (140-450); Red Blood Cells 4.38 10^6/uL (4.5-5.90)
[2018-07-10 12:18] LABS: BUN/Creatinine Ratio 21.7; Calcium 8.8 mg/dL (8.5-10.1); Magnesium 2.2 mg/dL (1.6-2.6); Potassium 4.4 mmol/L (3.5-5.1)
[2018-07-10 13:00] VITALS: BP 133/58
[2018-07-10 13:45] VITALS: BP 109/52
== END | disposition home or self-care (01) ==
LOC: CHF HDHVI 10:08
PROVIDERS: ATTEND Internal Medicine Cardiovascular Disease
DX: I11.0 Hypertensive heart disease with heart failure (principal); I50.9 Heart failure, unspecified; R53.83 Other fatigue; D64.9 Anemia, unspecified; F32.9 Major depressive disorder, single episode, unspecified; E11.21 Type 2 diabetes mellitus with diabetic nephropathy; E11.40 Type 2 diabetes mellitus with diabetic neuropathy, unspecified; R94.4 Abnormal results of kidney function studies; I48.91 Unspecified atrial fibrillation; E78.00 Pure hypercholesterolemia, unspecified; I25.10 Atherosclerotic heart disease of native coronary artery without angina pectoris; G47.30 Sleep apnea, unspecified; I27.21 Secondary pulmonary arterial hypertension; J44.9 Chronic obstructive pulmonary disease, unspecified; E03.9 Hypothyroidism, unspecified; E66.01 Morbid (severe) obesity due to excess calories; Z85.46 Personal history of malignant neoplasm of prostate; Z68.41 Body mass index [BMI] 40.0-44.9, adult; Z79.899 Other long term (current) drug therapy; Z87.891 Personal history of nicotine dependence; Z95.1 Presence of aortocoronary bypass graft; Z95.5 Presence of coronary angioplasty implant and graft; Z86.73 Personal history of transient ischemic attack (TIA), and cerebral infarction without residual deficits
CPT/HCPCS: 36415; 80048; 83735; 85025; 96365; 96366; G0463; J1642

== ENCOUNTER → 2018-07-12 | Outpatient (CLI) | payer MEDICARE ==
[~2018-07-12] VITALS: Ht 165.1 cm; Wt 112.5 kg
[~2018-07-12] MED LIST changes: -BUMETANIDE IV SCH; -GIVE UN DILUTED IV SCH; -POTASSIUM CHL 10 Meq TABLET PO ONE; +POTASSIUM CHL 20 Meq TABLET PO ONE; -POTASSIUM CHL 20 Meq TABLET PO SCH
[2018-07-12 10:15] VITALS: BP 120/53
[2018-07-12] MEDS: BUMETANIDE IV SCH (10:15)
[2018-07-12] MEDS: GIVE UN DILUTED IV SCH (10:15)
[2018-07-12 10:45] VITALS: BP 100/53
[2018-07-12 11:15] VITALS: BP 108/52
[2018-07-12 11:45] VITALS: BP 106/54
[2018-07-12 12:15] VITALS: BP 102/50
[2018-07-12 13:20] VITALS: BP 115/61
== END | disposition home or self-care (01) ==
LOC: CHF HDHVI 10:15
PROVIDERS: ATTEND Internal Medicine Cardiovascular Disease
DX: I11.0 Hypertensive heart disease with heart failure (principal); I50.9 Heart failure, unspecified; E66.01 Morbid (severe) obesity due to excess calories; E11.21 Type 2 diabetes mellitus with diabetic nephropathy; E11.40 Type 2 diabetes mellitus with diabetic neuropathy, unspecified; D64.9 Anemia, unspecified; J44.9 Chronic obstructive pulmonary disease, unspecified; I25.10 Atherosclerotic heart disease of native coronary artery without angina pectoris; I48.91 Unspecified atrial fibrillation; E03.9 Hypothyroidism, unspecified; F32.9 Major depressive disorder, single episode, unspecified; E78.00 Pure hypercholesterolemia, unspecified; G47.30 Sleep apnea, unspecified; I27.21 Secondary pulmonary arterial hypertension; E55.9 Vitamin D deficiency, unspecified; E78.5 Hyperlipidemia, unspecified; Z85.46 Personal history of malignant neoplasm of prostate; Z79.899 Other long term (current) drug therapy; Z87.891 Personal history of nicotine dependence; Z86.73 Personal history of transient ischemic attack (TIA), and cerebral infarction without residual deficits; Z95.5 Presence of coronary angioplasty implant and graft; Z95.1 Presence of aortocoronary bypass graft; Z68.41 Body mass index [BMI] 40.0-44.9, adult
CPT/HCPCS: 96365; 96366; G0463; J1642

== ENCOUNTER → 2018-07-19 | Outpatient (CLI) | payer MEDICARE ==
[2018-07-19] VITALS (9 sets, daily range): BP systolic 92–124; BP diastolic 45–93
[~2018-07-19] MED LIST changes: +BUMETANIDE (0.25MG/ML) 4 ML VIAL ONE; +BUMETANIDE IV SCH; +GIVE UN DILUTED IV SCH; +POTASSIUM CHL 10 Meq TABLET PO ONE
== END | disposition home or self-care (01) ==
LOC: CHF HDHVI 09:56
PROVIDERS: ATTEND Internal Medicine Cardiovascular Disease
DX: I11.0 Hypertensive heart disease with heart failure (principal); I50.9 Heart failure, unspecified; E66.01 Morbid (severe) obesity due to excess calories; D64.9 Anemia, unspecified; F32.9 Major depressive disorder, single episode, unspecified; E11.40 Type 2 diabetes mellitus with diabetic neuropathy, unspecified; E11.21 Type 2 diabetes mellitus with diabetic nephropathy; I25.10 Atherosclerotic heart disease of native coronary artery without angina pectoris; J44.9 Chronic obstructive pulmonary disease, unspecified; E78.5 Hyperlipidemia, unspecified; E03.9 Hypothyroidism, unspecified; I27.21 Secondary pulmonary arterial hypertension; E78.00 Pure hypercholesterolemia, unspecified; I48.91 Unspecified atrial fibrillation; Z85.46 Personal history of malignant neoplasm of prostate; G47.30 Sleep apnea, unspecified; Z79.899 Other long term (current) drug therapy; Z68.41 Body mass index [BMI] 40.0-44.9, adult; Z87.891 Personal history of nicotine dependence; Z86.73 Personal history of transient ischemic attack (TIA), and cerebral infarction without residual deficits; Z95.1 Presence of aortocoronary bypass graft; Z95.5 Presence of coronary angioplasty implant and graft
CPT/HCPCS: 96365; 96366; G0463; J1642; J3490

== ENCOUNTER → 2018-07-24 | Outpatient (CLI) | payer MEDICARE ==
[2018-07-24] VITALS (7 sets, daily range): BP systolic 104–129; BP diastolic 51–83
[~2018-07-24] MED LIST changes: +BUMETANIDE INJECTION 25 MG in GIVE UN-DILUTED 0 ML IV ONE; -BUMETANIDE IV SCH; -GIVE UN DILUTED IV SCH; -POTASSIUM CHL 10 Meq TABLET PO ONE
[2018-07-24 12:36] LABS: Basophils # (auto) 0.1 uL; Basophils % (auto) 0.6 % (0.0-2.0); Eosinophils # (auto) 0.5 uL; Eosinophils % (auto) 5.4 % (0.0-7.0); Hematocrit 36.8 % (41.0-53.0); Lymphocytes # (auto) 2.4 uL; Lymphocytes % (auto) 25.1 % (10.0-50.0); Mean Corpuscular Hemoglobin 27.3 pg (28.0-32.0); Mean Corpuscular Hgb Conc. 32.8 g/dL (32.0-36.0); Mean Corpuscular Volume 83.5 fL (80.0-100.0); Monocytes # (auto) 0.6 uL; Monocytes % (auto) 6.1 % (0.0-12.0); Neutrophils # (auto) 5.9 uL; Neutrophils % (auto) 62.8 % (37.0-80.0); Nucleated Red Blood Cells % 0.1 %; Platelet Count (auto) 177 10^3/uL (140-450); Red Cell Distribution Width 15.7 % (11.8-14.3); White Blood Cell 9.4 10^3/uL (4.4-10.8)
[2018-07-24 12:45] LABS: BUN/Creatinine Ratio 22.9; Calcium 8.7 mg/dL (8.5-10.1)
== END | disposition home or self-care (01) ==
LOC: CHF HDHVI 10:21
PROVIDERS: ATTEND Internal Medicine Cardiovascular Disease
DX: I11.0 Hypertensive heart disease with heart failure (principal); I50.9 Heart failure, unspecified; D64.9 Anemia, unspecified; I25.10 Atherosclerotic heart disease of native coronary artery without angina pectoris; E11.21 Type 2 diabetes mellitus with diabetic nephropathy; E11.40 Type 2 diabetes mellitus with diabetic neuropathy, unspecified; E11.65 Type 2 diabetes mellitus with hyperglycemia; J44.9 Chronic obstructive pulmonary disease, unspecified; E78.5 Hyperlipidemia, unspecified; F32.9 Major depressive disorder, single episode, unspecified; E03.9 Hypothyroidism, unspecified; E78.00 Pure hypercholesterolemia, unspecified; G47.30 Sleep apnea, unspecified; I27.21 Secondary pulmonary arterial hypertension; I48.91 Unspecified atrial fibrillation; E66.01 Morbid (severe) obesity due to excess calories; Z87.440 Personal history of urinary (tract) infections; Z86.73 Personal history of transient ischemic attack (TIA), and cerebral infarction without residual deficits; Z95.1 Presence of aortocoronary bypass graft; Z79.899 Other long term (current) drug therapy; Z87.891 Personal history of nicotine dependence; Z88.0 Allergy status to penicillin; Z95.5 Presence of coronary angioplasty implant and graft; Z85.46 Personal history of malignant neoplasm of prostate
CPT/HCPCS: 36415; 80048; 85025; 96365; 96366; G0463; J1642; J3490

== ENCOUNTER → 2018-07-31 | Outpatient (CLI) | payer MEDICARE ==
[2018-07-31] VITALS (7 sets, daily range): BP systolic 98–155; BP diastolic 53–77
[~2018-07-31] MED LIST changes: -BUMETANIDE INJECTION 25 MG in GIVE UN-DILUTED 0 ML IV ONE; +BUMETANIDE IV SCH; +GIVE UN DILUTED IV SCH
== END | disposition home or self-care (01) ==
LOC: CHF HDHVI 11:59
PROVIDERS: ATTEND Internal Medicine Cardiovascular Disease
DX: I11.0 Hypertensive heart disease with heart failure (principal); I50.9 Heart failure, unspecified; E66.01 Morbid (severe) obesity due to excess calories; E11.21 Type 2 diabetes mellitus with diabetic nephropathy; E11.40 Type 2 diabetes mellitus with diabetic neuropathy, unspecified; J44.9 Chronic obstructive pulmonary disease, unspecified; E78.5 Hyperlipidemia, unspecified; E03.9 Hypothyroidism, unspecified; F32.9 Major depressive disorder, single episode, unspecified; E78.00 Pure hypercholesterolemia, unspecified; I48.91 Unspecified atrial fibrillation; I27.21 Secondary pulmonary arterial hypertension; I51.7 Cardiomegaly; K74.1 Hepatic sclerosis; E66.9 Obesity, unspecified; G47.30 Sleep apnea, unspecified; I25.10 Atherosclerotic heart disease of native coronary artery without angina pectoris; Z86.73 Personal history of transient ischemic attack (TIA), and cerebral infarction without residual deficits; Z95.5 Presence of coronary angioplasty implant and graft; Z88.0 Allergy status to penicillin; Z79.899 Other long term (current) drug therapy; Z85.46 Personal history of malignant neoplasm of prostate; Z87.891 Personal history of nicotine dependence; Z87.440 Personal history of urinary (tract) infections; Z95.1 Presence of aortocoronary bypass graft; Z68.41 Body mass index [BMI] 40.0-44.9, adult; Z95.810 Presence of automatic (implantable) cardiac defibrillator
CPT/HCPCS: 96365; 96366; G0463; J1642; J3490

== ENCOUNTER → 2018-08-02 | Outpatient (CLI) | payer MEDICARE ==
[~2018-08-02] MED LIST changes: +BUMETANIDE (0.25MG/ML) 4 ML VIAL IV ONE; -BUMETANIDE IV SCH; -GIVE UN DILUTED IV SCH; +POTASSIUM CHL 10 Meq TABLET PO ONE; +SODIUM CHLORIDE 0.9% 100 ML IV SCH
[2018-08-02 10:20] VITALS: BP 103/53
[2018-08-02 11:00] VITALS: BP 112/54
[2018-08-02 11:30] VITALS: BP 134/59
[2018-08-02 12:00] VITALS: BP 117/50
[2018-08-02 12:30] VITALS: BP 121/59
[2018-08-02 13:45] VITALS: BP 106/65
== END | disposition home or self-care (01) ==
LOC: CHF HDHVI 10:22
PROVIDERS: ATTEND Internal Medicine Cardiovascular Disease
DX: I11.0 Hypertensive heart disease with heart failure (principal); I50.32 Chronic diastolic (congestive) heart failure; E78.5 Hyperlipidemia, unspecified; E11.40 Type 2 diabetes mellitus with diabetic neuropathy, unspecified; E11.21 Type 2 diabetes mellitus with diabetic nephropathy; I25.10 Atherosclerotic heart disease of native coronary artery without angina pectoris; I48.91 Unspecified atrial fibrillation; J44.9 Chronic obstructive pulmonary disease, unspecified; E03.9 Hypothyroidism, unspecified; E78.00 Pure hypercholesterolemia, unspecified; F32.9 Major depressive disorder, single episode, unspecified; E66.01 Morbid (severe) obesity due to excess calories; Z68.41 Body mass index [BMI] 40.0-44.9, adult; Z87.891 Personal history of nicotine dependence; Z79.899 Other long term (current) drug therapy; Z95.1 Presence of aortocoronary bypass graft; Z95.810 Presence of automatic (implantable) cardiac defibrillator; Z86.73 Personal history of transient ischemic attack (TIA), and cerebral infarction without residual deficits; Z85.46 Personal history of malignant neoplasm of prostate
CPT/HCPCS: 96365; 96366; G0463; J1642; J3490

== ENCOUNTER → 2018-08-06 | Outpatient (CLI) | payer MEDICARE ==
[~2018-08-06] MED LIST changes: -BUMETANIDE (0.25MG/ML) 4 ML VIAL IV ONE; -BUMETANIDE (0.25MG/ML) 4 ML VIAL ONE; -BUMETANIDE INJECTION 10 ML ONE; -POTASSIUM CHL 10 Meq TABLET PO ONE; -POTASSIUM CHL 20 Meq TABLET PO ONE; -SODIUM CHLORIDE 0.9% 100 ML IV SCH
[2018-08-06 16:06] LABS: Urine Blood Negative /uL (Negative)
== END | disposition home or self-care (01) ==
LOC: LAB 15:32
PROVIDERS: ATTEND Internal Medicine Cardiovascular Disease
DX: N39.0 Urinary tract infection, site not specified (principal)
CPT/HCPCS: 81003; 87086

== ENCOUNTER → 2018-08-07 | Outpatient (CLI) | payer MEDICARE ==
[~2018-08-07] MED LIST changes: +BUMETANIDE (0.25MG/ML) 4 ML VIAL ONE; +BUMETANIDE INJECTION 10 ML ONE; +BUMETANIDE IV ONE; +GIVE UN DILUTED IV ONE; +POTASSIUM CHL 10 Meq TABLET PO ONE
[2018-08-07 10:10] VITALS: BP 156/75
[2018-08-07 10:45] VITALS: BP 137/65
[2018-08-07 11:45] VITALS: BP 133/61
[2018-08-07 12:45] VITALS: BP 107/65
[2018-08-07 13:15] VITALS: BP 123/55
[2018-08-07 13:30] VITALS: BP 130/58
== END | disposition home or self-care (01) ==
LOC: CHF HDHVI 09:54
PROVIDERS: ATTEND Internal Medicine Cardiovascular Disease
DX: I11.0 Hypertensive heart disease with heart failure (principal); I50.9 Heart failure, unspecified; J44.9 Chronic obstructive pulmonary disease, unspecified; E11.21 Type 2 diabetes mellitus with diabetic nephropathy; E11.40 Type 2 diabetes mellitus with diabetic neuropathy, unspecified; I25.10 Atherosclerotic heart disease of native coronary artery without angina pectoris; I48.91 Unspecified atrial fibrillation; I27.21 Secondary pulmonary arterial hypertension; E03.9 Hypothyroidism, unspecified; E78.5 Hyperlipidemia, unspecified; E78.00 Pure hypercholesterolemia, unspecified; K74.1 Hepatic sclerosis; G47.30 Sleep apnea, unspecified; E66.01 Morbid (severe) obesity due to excess calories; F32.9 Major depressive disorder, single episode, unspecified; Z85.46 Personal history of malignant neoplasm of prostate; Z86.73 Personal history of transient ischemic attack (TIA), and cerebral infarction without residual deficits; Z95.810 Presence of automatic (implantable) cardiac defibrillator; Z95.1 Presence of aortocoronary bypass graft; Z95.5 Presence of coronary angioplasty implant and graft; Z79.899 Other long term (current) drug therapy; Z87.891 Personal history of nicotine dependence
CPT/HCPCS: 96365; 96366; G0463; J1642; J3490

== ENCOUNTER → 2018-08-09 | Outpatient (CLI) | payer MEDICARE ==
[~2018-08-09] VITALS: Ht 30.5 cm; Wt 114.1 kg
[2018-08-09] VITALS (8 sets, daily range): BP systolic 102–138; BP diastolic 52–64
[~2018-08-09] MED LIST changes: -GIVE UN DILUTED IV ONE; +SODIUM CHL 0.9% IV ONE
== END | disposition home or self-care (01) ==
LOC: CHF HDHVI 10:00
PROVIDERS: ATTEND Internal Medicine Cardiovascular Disease
DX: I11.0 Hypertensive heart disease with heart failure (principal); I50.9 Heart failure, unspecified; J44.9 Chronic obstructive pulmonary disease, unspecified; E11.40 Type 2 diabetes mellitus with diabetic neuropathy, unspecified; E11.21 Type 2 diabetes mellitus with diabetic nephropathy; I25.10 Atherosclerotic heart disease of native coronary artery without angina pectoris; E66.01 Morbid (severe) obesity due to excess calories; I27.21 Secondary pulmonary arterial hypertension; E03.9 Hypothyroidism, unspecified; E78.5 Hyperlipidemia, unspecified; E78.00 Pure hypercholesterolemia, unspecified; I48.91 Unspecified atrial fibrillation; G47.30 Sleep apnea, unspecified; F32.9 Major depressive disorder, single episode, unspecified; Z85.46 Personal history of malignant neoplasm of prostate; Z86.73 Personal history of transient ischemic attack (TIA), and cerebral infarction without residual deficits; Z95.1 Presence of aortocoronary bypass graft; Z87.891 Personal history of nicotine dependence
CPT/HCPCS: 96365; 96366; G0463; J1642; J3490

== ENCOUNTER → 2018-08-14 | Outpatient (CLI) | payer MEDICARE ==
[~2018-08-14] MED LIST changes: +BUMETANIDE INJECTION 12.5 MG in GIVE UN-DILUTED 0 ML IV SCH; -BUMETANIDE IV ONE; +POTASSIUM CHL 20 Meq TABLET PO ONE; -SODIUM CHL 0.9% IV ONE
[2018-08-14 10:30] VITALS: BP 113/52
[2018-08-14 11:00] VITALS: BP 110/50
[2018-08-14 12:06] LABS: Basophils # (auto) 0.1 uL; Eosinophils # (auto) 0.2 uL; Hemoglobin 11.8 g/dL (13.5-17.5); Mean Corpuscular Hgb Conc. 32.6 g/dL (32.0-36.0); Monocytes # (auto) 0.8 uL; Nucleated Red Blood Cells % 0.1 %; Red Cell Distribution Width 16.2 % (11.8-14.3)
[2018-08-14 12:08] LABS: Eosinophils % (auto) 2.4 % (0.0-7.0); Hematocrit 36.3 % (41.0-53.0); Lymphocytes % (auto) 29.3 % (10.0-50.0); Mean Corpuscular Hemoglobin 26.8 pg (28.0-32.0); Mean Corpuscular Volume 82.2 fL (80.0-100.0); Monocytes % (auto) 8.2 % (0.0-12.0); Neutrophils % (auto) 59.1 % (37.0-80.0); Platelet Count (auto) 272 10^3/uL (140-450); Red Blood Cells 4.41 10^6/uL (4.5-5.90); White Blood Cell 10.2 10^3/uL (4.4-10.8)
[2018-08-14 12:42] LABS: BUN/Creatinine Ratio 26.9; Calcium 8.7 mg/dL (8.5-10.1); Potassium 3.7 mmol/L (3.5-5.1)
[2018-08-14 13:05] VITALS: BP 116/53
== END | disposition home or self-care (01) ==
LOC: CHF HDHVI 10:34
PROVIDERS: ATTEND Internal Medicine Cardiovascular Disease
DX: D64.9 Anemia, unspecified (principal); E66.9 Obesity, unspecified; I11.0 Hypertensive heart disease with heart failure; I50.9 Heart failure, unspecified; E78.5 Hyperlipidemia, unspecified; I25.10 Atherosclerotic heart disease of native coronary artery without angina pectoris; J44.9 Chronic obstructive pulmonary disease, unspecified; E03.9 Hypothyroidism, unspecified; F32.9 Major depressive disorder, single episode, unspecified; E66.01 Morbid (severe) obesity due to excess calories; E78.00 Pure hypercholesterolemia, unspecified; E11.40 Type 2 diabetes mellitus with diabetic neuropathy, unspecified; E11.21 Type 2 diabetes mellitus with diabetic nephropathy; I48.91 Unspecified atrial fibrillation; Z85.46 Personal history of malignant neoplasm of prostate; Z79.899 Other long term (current) drug therapy; Z95.810 Presence of automatic (implantable) cardiac defibrillator; Z98.61 Coronary angioplasty status; Z87.440 Personal history of urinary (tract) infections; Z68.41 Body mass index [BMI] 40.0-44.9, adult; Z87.891 Personal history of nicotine dependence; Z95.1 Presence of aortocoronary bypass graft; Z86.73 Personal history of transient ischemic attack (TIA), and cerebral infarction without residual deficits
CPT/HCPCS: 36415; 80048; 85025; 96365; 96366; G0463; J1642

== ENCOUNTER → 2018-08-16 | Outpatient (CLI) | payer MEDICARE ==
[2018-08-16] VITALS (8 sets, daily range): BP systolic 104–129; BP diastolic 46–59
[~2018-08-16] MED LIST changes: -BUMETANIDE (0.25MG/ML) 4 ML VIAL ONE; -BUMETANIDE INJECTION 10 ML ONE; -BUMETANIDE INJECTION 12.5 MG in GIVE UN-DILUTED 0 ML IV SCH; +BUMETANIDE INJECTION 20 ML ONE; +BUMETANIDE INJECTION 25 MG in GIVE UN-DILUTED 0 ML IV ONE; -POTASSIUM CHL 20 Meq TABLET PO ONE
== END | disposition home or self-care (01) ==
LOC: CHF HDHVI 09:50
PROVIDERS: ATTEND Internal Medicine Cardiovascular Disease
DX: I11.0 Hypertensive heart disease with heart failure (principal); I50.32 Chronic diastolic (congestive) heart failure; E87.70 Fluid overload, unspecified; E11.9 Type 2 diabetes mellitus without complications; J44.9 Chronic obstructive pulmonary disease, unspecified; I25.10 Atherosclerotic heart disease of native coronary artery without angina pectoris; E78.5 Hyperlipidemia, unspecified; E03.9 Hypothyroidism, unspecified; F32.9 Major depressive disorder, single episode, unspecified; E66.01 Morbid (severe) obesity due to excess calories; I48.91 Unspecified atrial fibrillation; E78.00 Pure hypercholesterolemia, unspecified; E11.40 Type 2 diabetes mellitus with diabetic neuropathy, unspecified; E11.21 Type 2 diabetes mellitus with diabetic nephropathy; Z68.41 Body mass index [BMI] 40.0-44.9, adult; Z98.61 Coronary angioplasty status; Z79.899 Other long term (current) drug therapy; Z87.891 Personal history of nicotine dependence; Z95.1 Presence of aortocoronary bypass graft; Z85.46 Personal history of malignant neoplasm of prostate; Z87.440 Personal history of urinary (tract) infections; Z86.73 Personal history of transient ischemic attack (TIA), and cerebral infarction without residual deficits; Z95.810 Presence of automatic (implantable) cardiac defibrillator
CPT/HCPCS: 96365; 96366; G0463; J1642

== ENCOUNTER → 2018-08-21 | Outpatient (CLI) | payer MEDICARE ==
[~2018-08-21] MED LIST changes: +BUMETANIDE (0.25MG/ML) 4 ML VIAL ONE; +BUMETANIDE INJECTION 10 ML ONE; +BUMETANIDE INJECTION 12.5 MG in GIVE UN-DILUTED 0 ML IV SCH; -BUMETANIDE INJECTION 20 ML ONE; -BUMETANIDE INJECTION 25 MG in GIVE UN-DILUTED 0 ML IV ONE; +POTASSIUM CHL 20 Meq TABLET PO ONE
--- NOTE | 2018-08-21 10:00 | NUR ---
CHF PT TO CHF CLINIC FOR MD MCHUGH ORDERED DIURETIC THERAPY
--- NOTE | 2018-08-21 10:10 | NUR ---
CHF Initial PICC Line PICC line assessed before access for ordered medications per MD. Port accessed per protocol flushed with 10 ml 0.9% NS prior to administration of ordered medication. See e-MAR for medications given during this visit. BUMEX 3.5MG/100ML BAG RUN FIRST HR AT 43ML/HR STARTED AT 1010. THAN AFTER 1 HR DECREASE DOSE TO 21ML/HR FOR 2 MORE HRS.
--- NOTE | 2018-08-21 10:40 | NUR ---
CHF POTASSIUM CHLORIDE 30MEQ PO ADMINISTERED. PT UP TO BATHROOM X 1
--- NOTE | 2018-08-21 13:08 | NUR ---
CHF PT UP TO BATHROOM FOR A TOTAL OF 4 TIMES SINCE START OF THERAPY AT 1010.
[2018-08-21 13:30] VITALS: BP 108/65
--- NOTE | 2018-08-21 13:30 | NUR ---
CHF PICC Line meds Medication completed per MD order. See e-MAR for medications given during this visit. Patient tolerated medication well. PICC line flushed per protocol. Patient tolerated procedure well. Patient D/C'd stable with aftercare and follow up instructions per MD. PT UP TOTAL 5 TIMES TO BATH ROOM
== END | disposition home or self-care (01) ==
LOC: CHF HDHVI 10:16
PROVIDERS: ATTEND Internal Medicine Cardiovascular Disease
DX: I11.0 Hypertensive heart disease with heart failure (principal); I50.32 Chronic diastolic (congestive) heart failure; I25.10 Atherosclerotic heart disease of native coronary artery without angina pectoris; E11.40 Type 2 diabetes mellitus with diabetic neuropathy, unspecified; E11.21 Type 2 diabetes mellitus with diabetic nephropathy; J44.9 Chronic obstructive pulmonary disease, unspecified; E78.5 Hyperlipidemia, unspecified; E03.9 Hypothyroidism, unspecified; F32.9 Major depressive disorder, single episode, unspecified; E78.00 Pure hypercholesterolemia, unspecified; I48.91 Unspecified atrial fibrillation; E66.01 Morbid (severe) obesity due to excess calories; Z68.41 Body mass index [BMI] 40.0-44.9, adult; Z95.810 Presence of automatic (implantable) cardiac defibrillator; Z87.891 Personal history of nicotine dependence; Z98.61 Coronary angioplasty status; Z86.73 Personal history of transient ischemic attack (TIA), and cerebral infarction without residual deficits
CPT/HCPCS: 96365; 96366; G0463; J1642; J3490

== ENCOUNTER → 2018-08-23 | Outpatient (CLI) | payer MEDICARE ==
[~2018-08-23] MED LIST changes: +BUMETANIDE (0.25 MG/ML) INJ 10ML IV ONE; +BUMETANIDE (0.25MG/ML) 4 ML VIAL IV ONE; -BUMETANIDE INJECTION 12.5 MG in GIVE UN-DILUTED 0 ML IV SCH; -POTASSIUM CHL 20 Meq TABLET PO ONE; +POTASSIUM CHL 20 Meq TABLET PO SCH
--- NOTE | 2018-08-23 09:53 | NUR ---
CHF PT TO CHF CLINIC FOR MD MCINTYRE ORDERED LASIX DRIP,USE PICC LINE FOR CHF MANAGEMENT. Addendum: 08/23/18 at 1518 by Kandace Lynch RN [place] CLARIFICATION BUMEX DRIP 0.75MG BOLUS, THAN 0.75MG/HR DRIP. NO LASIX IV.
--- NOTE | 2018-08-23 10:05 | NUR ---
CHF Initial PICC Line PICC line assessed before access for ordered medications per MD. Port accessed per protocol flushed with 10 ml 0.9% NS prior to administration of ordered medication. See e-MAR for medications given during this visit. BUMEX DRIP 0.75MG BOLUS THAN 0.75MG/HR STARTED
[2018-08-23 10:10] VITALS: BP 114/51
--- NOTE | 2018-08-23 10:10 | NUR ---
CHF POTASSIUM CHLORIDE 30MEQ PO ADMINISTERED.
[2018-08-23 10:30] VITALS: BP 123/59
[2018-08-23 11:00] VITALS: BP 129/60
[2018-08-23 12:30] VITALS: BP 114/52
[2018-08-23 14:00] VITALS: BP 137/64
--- NOTE | 2018-08-23 14:00 | NUR ---
CHF IV BUMEX COMPLETE. IV removal IV DC'd with sterile technique, catheter fully intact. Pressure dressing applied to site. Patient tolerated procedure well. Discharged with aftercare instructions per MD. FOLLOW UP MONDAY. NOTE:
== END | disposition home or self-care (01) ==
LOC: CHF HDHVI 10:06
PROVIDERS: ATTEND Internal Medicine Cardiovascular Disease
DX: I11.0 Hypertensive heart disease with heart failure (principal); I50.32 Chronic diastolic (congestive) heart failure; E11.21 Type 2 diabetes mellitus with diabetic nephropathy; E11.40 Type 2 diabetes mellitus with diabetic neuropathy, unspecified; J44.9 Chronic obstructive pulmonary disease, unspecified; I27.21 Secondary pulmonary arterial hypertension; I48.91 Unspecified atrial fibrillation; E78.5 Hyperlipidemia, unspecified; E03.9 Hypothyroidism, unspecified; G89.29 Other chronic pain; E78.00 Pure hypercholesterolemia, unspecified; F32.9 Major depressive disorder, single episode, unspecified; E66.01 Morbid (severe) obesity due to excess calories; Z86.73 Personal history of transient ischemic attack (TIA), and cerebral infarction without residual deficits; I25.10 Atherosclerotic heart disease of native coronary artery without angina pectoris; Z79.899 Other long term (current) drug therapy; Z87.891 Personal history of nicotine dependence; Z85.46 Personal history of malignant neoplasm of prostate; Z95.0 Presence of cardiac pacemaker; Z95.1 Presence of aortocoronary bypass graft; Z68.41 Body mass index [BMI] 40.0-44.9, adult
CPT/HCPCS: 96365; 96366; G0463; J1642; J3490

== ENCOUNTER → 2018-08-27 | Outpatient (CLI) | payer MEDICARE ==
[2018-08-27] VITALS (7 sets, daily range): BP systolic 114–126; BP diastolic 53–82
[~2018-08-27] MED LIST changes: -BUMETANIDE (0.25 MG/ML) INJ 10ML IV ONE; -BUMETANIDE (0.25MG/ML) 4 ML VIAL IV ONE; +KETOROLAC TROMETH 60MG/2ML VIAL IM ONE; -POTASSIUM CHL 20 Meq TABLET PO SCH
== END | disposition home or self-care (01) ==
LOC: CHF HDHVI 08:45
PROVIDERS: ATTEND Internal Medicine Cardiovascular Disease
DX: I11.0 Hypertensive heart disease with heart failure (principal); I50.32 Chronic diastolic (congestive) heart failure; E11.40 Type 2 diabetes mellitus with diabetic neuropathy, unspecified; E11.21 Type 2 diabetes mellitus with diabetic nephropathy; J44.9 Chronic obstructive pulmonary disease, unspecified; I25.10 Atherosclerotic heart disease of native coronary artery without angina pectoris; I27.21 Secondary pulmonary arterial hypertension; E66.01 Morbid (severe) obesity due to excess calories; G89.29 Other chronic pain; E03.9 Hypothyroidism, unspecified; E78.00 Pure hypercholesterolemia, unspecified; E78.5 Hyperlipidemia, unspecified; G47.30 Sleep apnea, unspecified; K74.1 Hepatic sclerosis; I34.0 Nonrheumatic mitral (valve) insufficiency; I48.91 Unspecified atrial fibrillation; F32.9 Major depressive disorder, single episode, unspecified; Z85.46 Personal history of malignant neoplasm of prostate; Z86.73 Personal history of transient ischemic attack (TIA), and cerebral infarction without residual deficits; Z95.810 Presence of automatic (implantable) cardiac defibrillator; Z95.1 Presence of aortocoronary bypass graft; Z95.5 Presence of coronary angioplasty implant and graft; Z79.899 Other long term (current) drug therapy; Z87.891 Personal history of nicotine dependence
CPT/HCPCS: 96365; 96366; 96375; G0463; J1642; J1885; J3490

== ENCOUNTER → 2018-08-30 | Outpatient (CLI) | payer MEDICARE ==
[2018-08-30] VITALS (7 sets, daily range): BP systolic 103–123; BP diastolic 50–62
[~2018-08-30] MED LIST changes: +BUMETANIDE IV SCH; +GIVE UN DILUTED IV SCH; -KETOROLAC TROMETH 60MG/2ML VIAL IM ONE; +POTASSIUM CHL 20 Meq TABLET PO ONE
--- NOTE | 2018-08-30 09:50 | NUR ---
CHF PT TO CHF CLINIC FOR MD MCHUGH ORDERED BUMEX DRIP THERAPY FOR CHF MANAGEMENT. USE PICC FOR ACCESS.
--- NOTE | 2018-08-30 10:14 | NUR ---
CHF Initial PICC Line PICC line assessed before access for ordered medications per MD.Per protocol flushed with 10 ml 0.9% NS prior to administration of ordered medication. See e-MAR for medications given during this visit. BUMEX 0.75MG LOADING DOSE, THAN 0.75MG/HR IV STARTED.
--- NOTE | 2018-08-30 10:15 | NUR ---
CHF POTASSIUM CHLORIDE 30MEQ PO ADMINISTERED.
--- NOTE | 2018-08-30 11:50 | NUR ---
INCONTINENT OF URINE. UP TO RESTROOM AFTER INCONTINECE WITH IN ATTENDANCE.
--- NOTE | 2018-08-30 13:40 | NUR ---
CHF IV BUMEX [id number] PICC Line meds Medication completed per MD order. See e-MAR for medications given during this visit. Patient tolerated medication well. PICC line flushed per protocol. Patient tolerated procedure well. Patient D/C'd stable with aftercare and follow up instructions per MD. FOLLOW UP MONDAY FOR NEXT DIURETIC TX.
== END | disposition home or self-care (01) ==
LOC: CHF HDHVI 09:50
PROVIDERS: ATTEND Internal Medicine Cardiovascular Disease
DX: I50.9 Heart failure, unspecified (principal); E87.70 Fluid overload, unspecified; G89.29 Other chronic pain; I25.10 Atherosclerotic heart disease of native coronary artery without angina pectoris; I50.32 Chronic diastolic (congestive) heart failure; J44.9 Chronic obstructive pulmonary disease, unspecified; E78.5 Hyperlipidemia, unspecified; I11.0 Hypertensive heart disease with heart failure; E66.01 Morbid (severe) obesity due to excess calories; E03.9 Hypothyroidism, unspecified; I34.0 Nonrheumatic mitral (valve) insufficiency; E78.00 Pure hypercholesterolemia, unspecified; I48.91 Unspecified atrial fibrillation; G47.33 Obstructive sleep apnea (adult) (pediatric); E11.21 Type 2 diabetes mellitus with diabetic nephropathy; D51.9 Vitamin B12 deficiency anemia, unspecified; Z79.899 Other long term (current) drug therapy; Z85.46 Personal history of malignant neoplasm of prostate; Z87.891 Personal history of nicotine dependence; Z95.1 Presence of aortocoronary bypass graft; Z95.810 Presence of automatic (implantable) cardiac defibrillator; Z95.5 Presence of coronary angioplasty implant and graft; Z86.73 Personal history of transient ischemic attack (TIA), and cerebral infarction without residual deficits; Z68.41 Body mass index [BMI] 40.0-44.9, adult; Z87.440 Personal history of urinary (tract) infections
CPT/HCPCS: 96365; 96366; G0463; J1642; J3490

== ENCOUNTER → 2018-09-03 | Outpatient (CLI) | payer MEDICARE ==
[2018-09-03] VITALS (8 sets, daily range): BP systolic 105–127; BP diastolic 47–62
[~2018-09-03] MED LIST changes: +BUMETANIDE (0.25 MG/ML) INJ 10ML IV ONE; -BUMETANIDE IV SCH; -GIVE UN DILUTED IV SCH
--- NOTE | 2018-09-03 08:40 | NUR ---
CHF PT TO CHF CLINIC FOR MD MCHUGH ORDERED BUMEX DRIP THERAPY FOR CHF MANAGEMENT.M
--- NOTE | 2018-09-03 09:07 | NUR ---
CHF Initial PICC Line PICC line assessed before access for ordered medications per MD. Port accessed per protocol flushed with 10 ml 0.9% NS prior to administration of ordered medication. See e-MAR for medications given during this visit. BUMEX 0.75MG LOADING DOSE THAN 0.75MG /HR STARTED.
--- NOTE | 2018-09-03 09:11 | NUR ---
CHF POTASSIUM CHLORIDE 30MEQ PO ADMINISTERED.
[2018-09-03 12:10] LABS: Basophils # (auto) 0.1 uL; Eosinophils # (auto) 0.5 uL; Lymphocytes # (auto) 1.8 uL; Monocytes # (auto) 0.6 uL; Nucleated Red Blood Cells % 0.2 %; Red Cell Distribution Width 16.2 % (11.8-14.3)
[2018-09-03 12:12] LABS: Eosinophils % (auto) 5.7 % (0.0-7.0); Hematocrit 34.9 % (41.0-53.0); Hemoglobin 11.4 g/dL (13.5-17.5); Lymphocytes % (auto) 21.4 % (10.0-50.0); Mean Corpuscular Hgb Conc. 32.6 g/dL (32.0-36.0); Mean Corpuscular Volume 82.8 fL (80.0-100.0); Monocytes % (auto) 7.6 % (0.0-12.0); Neutrophils # (auto) 5.3 uL; Neutrophils % (auto) 64.3 % (37.0-80.0); Platelet Count (auto) 209 10^3/uL (140-450); Red Blood Cells 4.21 10^6/uL (4.5-5.90); White Blood Cell 8.2 10^3/uL (4.4-10.8)
--- NOTE | 2018-09-03 13:00 | NUR ---
CHF PICC Line meds Medication completed per MD order. See e-MAR for medications given during this visit. IV BUMEX COMPLETE. Patient tolerated medication well. PICC line flushed per protocol. Patient tolerated procedure well. Patient D/C'd stable with aftercare and follow up instructions per MD. FOLLOW UP MONDAY FOR CONTINUED IV DIURETIC THERAPY.
[2018-09-03 13:10] LABS: Potassium 3.6 mmol/L (3.5-5.1)
[2018-09-03 13:15] LABS: BUN/Creatinine Ratio 18.2; Calcium 8.1 mg/dL (8.5-10.1)
== END | disposition home or self-care (01) ==
LOC: CHF HDHVI 08:43
PROVIDERS: ATTEND Internal Medicine Cardiovascular Disease
DX: I11.0 Hypertensive heart disease with heart failure (principal); I50.32 Chronic diastolic (congestive) heart failure; E83.40 Disorders of magnesium metabolism, unspecified; D64.9 Anemia, unspecified; I25.10 Atherosclerotic heart disease of native coronary artery without angina pectoris; J44.9 Chronic obstructive pulmonary disease, unspecified; E78.5 Hyperlipidemia, unspecified; E03.9 Hypothyroidism, unspecified; F32.9 Major depressive disorder, single episode, unspecified; E66.01 Morbid (severe) obesity due to excess calories; G89.29 Other chronic pain; I27.21 Secondary pulmonary arterial hypertension; E78.00 Pure hypercholesterolemia, unspecified; E11.21 Type 2 diabetes mellitus with diabetic nephropathy; E11.40 Type 2 diabetes mellitus with diabetic neuropathy, unspecified; I48.91 Unspecified atrial fibrillation; G47.33 Obstructive sleep apnea (adult) (pediatric); E66.9 Obesity, unspecified; Z87.891 Personal history of nicotine dependence; Z95.1 Presence of aortocoronary bypass graft; Z95.810 Presence of automatic (implantable) cardiac defibrillator; Z86.73 Personal history of transient ischemic attack (TIA), and cerebral infarction without residual deficits; Z85.46 Personal history of malignant neoplasm of prostate; Z68.41 Body mass index [BMI] 40.0-44.9, adult; Z79.899 Other long term (current) drug therapy; Z87.440 Personal history of urinary (tract) infections; Z95.5 Presence of coronary angioplasty implant and graft
CPT/HCPCS: 36415; 80048; 83735; 85025; 96365; 96366; G0463; J1642; J3490

== ENCOUNTER → 2018-09-06 | Outpatient (CLI) | payer MEDICARE ==
[2018-09-06] VITALS (7 sets, daily range): BP systolic 114–134; BP diastolic 55–78
[~2018-09-06] MED LIST changes: -BUMETANIDE (0.25 MG/ML) INJ 10ML IV ONE; +BUMETANIDE (0.25MG/ML) 4 ML VIAL IV ONE
--- NOTE | 2018-09-06 13:20 | NUR ---
IN TO CLINIC WITH IN ATTENDANCE. RIGHT ARM PICC LINE INTACT AND USED FOR SCHEDULED DIURETIC INFUSION. FLUSHED AND MEDICATION ADMINISTERED AND TOLERATED WELL. SEE FREQUENT VITAL SIGNS. UP TO VOID APPROXIMATELY 5 TIMES. PT VOICED FRUSTRATION WITH NEEDING TO VOID OFTEN, BUT REMAINS COMPLIANT WITH REGIMEN. MEDICATION ADMINISTRATION BUMEX GTT AT 0.75MG/HR X 3 HOURS WITH LOAD OF 0.75 MG THE FIRST HOUR POTASSIUM 40 MEQ PO AT 1005 POTASSIUM 20 MEQ PO AT 1315 HEPARIN 150 UNITS IVP TO PICC LINE AT 1315 ALL CARE ADMINISTERED BY GILL ELLIS. Discharge Instructions See e-MAR for any mediations given with this visit. Patient education given on disease process. Patient verbalized understanding. Previous labs reviewed. Patient discharged in stable condition with after care instructions and follow up appointment.
== END | disposition home or self-care (01) ==
LOC: CHF HDHVI 09:55
PROVIDERS: ATTEND Internal Medicine Cardiovascular Disease
DX: I11.0 Hypertensive heart disease with heart failure (principal); I50.32 Chronic diastolic (congestive) heart failure; E11.40 Type 2 diabetes mellitus with diabetic neuropathy, unspecified; E11.21 Type 2 diabetes mellitus with diabetic nephropathy; E66.01 Morbid (severe) obesity due to excess calories; I25.10 Atherosclerotic heart disease of native coronary artery without angina pectoris; I48.91 Unspecified atrial fibrillation; J44.9 Chronic obstructive pulmonary disease, unspecified; E78.5 Hyperlipidemia, unspecified; E03.9 Hypothyroidism, unspecified; E78.00 Pure hypercholesterolemia, unspecified; G89.29 Other chronic pain; F32.9 Major depressive disorder, single episode, unspecified; Z68.41 Body mass index [BMI] 40.0-44.9, adult; Z87.891 Personal history of nicotine dependence; Z85.46 Personal history of malignant neoplasm of prostate; Z95.1 Presence of aortocoronary bypass graft; Z86.73 Personal history of transient ischemic attack (TIA), and cerebral infarction without residual deficits; Z95.810 Presence of automatic (implantable) cardiac defibrillator
CPT/HCPCS: 96365; 96366; G0463; J1642; J3490

== ENCOUNTER → 2018-09-13 | Outpatient (CLI) | payer MEDICARE ==
[~2018-09-13] MED LIST changes: -BUMETANIDE (0.25MG/ML) 4 ML VIAL IV ONE; +BUMETANIDE IV SCH; +GIVE UN DILUTED IV SCH
[2018-09-13 10:15] VITALS: BP 103/48
[2018-09-13 10:45] VITALS: BP 129/56
[2018-09-13 11:00] VITALS: BP 112/53
[2018-09-13 11:15] VITALS: BP 119/60
[2018-09-13 11:45] VITALS: BP 127/59
--- NOTE | 2018-09-13 13:00 | NUR ---
CHF MEDICATION ADMINISTRATION BUMEX 0.75MG/HR X 3 HOURS AND 0.75 MG LOAD START AT 1000/STOP AT 1305 (TOTAL GIVEN 3 MG) POTASSIUM 30 MEQ PO AT 1000 HEPARIN 150 UNITS IVP AT 1310
[2018-09-13 13:10] VITALS: BP 136/84
--- NOTE | 2018-09-13 13:10 | NUR ---
IN TO CLINIC FOR BUMEX INFUSION. RIGHT ARM PICC LINE INTACT AND USED FOR INFUSION. ATTEMPTED LAB DRAW FROM RED PORT PICC LINE, UNABLE TO DRAW DESPITE EXTENSIVE SALINE FLUSHING. VS WNL. TOLERATED WELL. SEE FREQUENT VITAL SIGNS. IN ATTENDANCE. REFUSES OXYGEN, SPO2 REMAINS AT 90-92 %.UP TO VOID 4 TIMES DURING INFUSION TOLERATED WELL. Discharge Instructions See e-MAR for any mediations given with this visit. Patient education given on disease process. Patient verbalized understanding. Previous labs reviewed. Patient discharged in stable condition with after care instructions and follow up appointment FOR Monday09/18/18
== END | disposition home or self-care (01) ==
LOC: CHF HDHVI 10:54
PROVIDERS: ATTEND Internal Medicine Cardiovascular Disease
DX: E87.70 Fluid overload, unspecified (principal); I11.0 Hypertensive heart disease with heart failure; I50.32 Chronic diastolic (congestive) heart failure; D64.9 Anemia, unspecified; I25.10 Atherosclerotic heart disease of native coronary artery without angina pectoris; J44.9 Chronic obstructive pulmonary disease, unspecified; E78.5 Hyperlipidemia, unspecified; F32.9 Major depressive disorder, single episode, unspecified; G89.29 Other chronic pain; E78.00 Pure hypercholesterolemia, unspecified; E11.40 Type 2 diabetes mellitus with diabetic neuropathy, unspecified; E11.21 Type 2 diabetes mellitus with diabetic nephropathy; I48.91 Unspecified atrial fibrillation; E03.9 Hypothyroidism, unspecified; E66.01 Morbid (severe) obesity due to excess calories; Z68.41 Body mass index [BMI] 40.0-44.9, adult; Z86.73 Personal history of transient ischemic attack (TIA), and cerebral infarction without residual deficits; Z98.61 Coronary angioplasty status; Z79.899 Other long term (current) drug therapy; Z85.46 Personal history of malignant neoplasm of prostate; Z87.891 Personal history of nicotine dependence; Z95.1 Presence of aortocoronary bypass graft; Z95.810 Presence of automatic (implantable) cardiac defibrillator
CPT/HCPCS: 96365; 96366; G0463; J1642; J3490

== ENCOUNTER → 2018-09-20 | Outpatient (CLI) | payer MEDICARE ==
[2018-09-20] VITALS (8 sets, daily range): BP systolic 99–138; BP diastolic 45–65
[~2018-09-20] VITALS: Ht 30.5 cm; Wt 114.4 kg
[~2018-09-20] MED LIST changes: +ALBUTEROL SULF 2.5 MG/0.5ML(0.5%) NEB SOLN ONE
--- NOTE | 2018-09-20 09:55 | NUR ---
CHF PT TO CHF CLINIC FOR MD MCHUGH ORDERED BUMEX 0.75MH LOADING DOSE, THAN 0.75MG HOURLY FOR THE NEXT 3 HOURS. CHF MANAGEMENT. SOB COMPLAINT AND COPD HX.
--- NOTE | 2018-09-20 10:05 | NUR ---
CHF Clinic Provider Clinic Provider DR. MCHUGH pt with new orders received and carried out. BUMEX 0.75MG LOADING DOSE , THAN CONTINUE 0.75MG /HR X 3 HRS. POTASSIUM CHLORIDE 30MEQ PO. MED NEB TX WITH ALBUTEROL per MD order.
--- NOTE | 2018-09-20 10:05 | NUR ---
CHF Initial PICC Line PICC line assessed before access for ordered medications per MD. Port accessed per protocol flushed with 10 ml 0.9% NS prior to administration of ordered medication. See e-MAR for medications given during this visit. BUMEX 0.75MG LOADING DOSE STARTED.
--- NOTE | 2018-09-20 10:10 | NUR ---
CHF POTASSIUM 30 MEQ PO ADMINISTERED.
--- NOTE | 2018-09-20 10:14 | NUR ---
CHF MED NEB TX WITH ALBUTEROL STARTED.
--- NOTE | 2018-09-20 10:25 | NUR ---
CHF MED NEB COMPLETE. PT STATES BREATHING BETTER SPO2 91%
--- NOTE | 2018-09-20 13:15 | NUR ---
CHF IV BUMEX COMPLETE. PICC Line meds Medication completed per MD order. See e-MAR for medications given during this visit. Patient tolerated medication well. PICC line flushed per protocol. Patient tolerated procedure well. Patient D/C'd stable with aftercare and follow up instructions per MD. FOLLOW UP NEXT MONDAY FOR CONTINUED IV THERAPY .
== END | disposition home or self-care (01) ==
LOC: CHF HDHVI 10:03
PROVIDERS: ATTEND Internal Medicine Cardiovascular Disease
DX: I11.0 Hypertensive heart disease with heart failure (principal); I50.42 Chronic combined systolic (congestive) and diastolic (congestive) heart failure; J44.9 Chronic obstructive pulmonary disease, unspecified; C61 Malignant neoplasm of prostate; E11.21 Type 2 diabetes mellitus with diabetic nephropathy; E11.41 Type 2 diabetes mellitus with diabetic mononeuropathy; I25.10 Atherosclerotic heart disease of native coronary artery without angina pectoris; E03.9 Hypothyroidism, unspecified; E78.5 Hyperlipidemia, unspecified; I27.21 Secondary pulmonary arterial hypertension; E78.00 Pure hypercholesterolemia, unspecified; E66.01 Morbid (severe) obesity due to excess calories; G47.33 Obstructive sleep apnea (adult) (pediatric); I48.91 Unspecified atrial fibrillation; G89.29 Other chronic pain; F32.9 Major depressive disorder, single episode, unspecified; Z86.73 Personal history of transient ischemic attack (TIA), and cerebral infarction without residual deficits; Z95.5 Presence of coronary angioplasty implant and graft; Z95.810 Presence of automatic (implantable) cardiac defibrillator; Z95.1 Presence of aortocoronary bypass graft; Z79.899 Other long term (current) drug therapy; Z79.891 Long term (current) use of opiate analgesic; Z68.41 Body mass index [BMI] 40.0-44.9, adult; Z87.891 Personal history of nicotine dependence
CPT/HCPCS: 94640; 96365; 96366; G0463; J1642; J3490; J7611

== ENCOUNTER → 2018-09-25 | Outpatient (CLI) | payer MEDICARE ==
[2018-09-25] VITALS (7 sets, daily range): BP systolic 113–131; BP diastolic 51–64
[~2018-09-25] MED LIST changes: -ALBUTEROL SULF 2.5 MG/0.5ML(0.5%) NEB SOLN ONE; +BUMETANIDE (0.25MG/ML) 4 ML VIAL IV ONE; -BUMETANIDE IV SCH; -GIVE UN DILUTED IV SCH
--- NOTE | 2018-09-25 10:00 | NUR ---
IN TO CLINIC FOR SCHEDULED INFUSION. IN ATTENDANCE. RIGHT ARM PICC SITE BENIGN. DRESSING INTACT. LAST CHANGED ON 09/19/18.
[2018-09-25] MEDS: SODIUM CHLORIDE 0.9% 100 ML IV SCH (10:08)
--- NOTE | 2018-09-25 10:08 | NUR ---
CHF Clinic Provider Clinic Provider DR. MCHUGH pt with new orders received and carried out. POTASSIUM CHLORIDE 30MEQ PO AND BUMEX 0.75MG LOADING DOSE, THAN BUMEX 0.75MG /HR X 3 HR started per MD order. USE PICC LINE.
--- NOTE | 2018-09-25 11:00 | NUR ---
CHF PT UP TO BATHROOM X 2
--- NOTE | 2018-09-25 12:00 | NUR ---
CHF PT HAS USED THE BATHROOM 2 MORE TIMES THIS HR.
--- NOTE | 2018-09-25 13:20 | NUR ---
CHF IV BUMEX COMPLETE. PICC Line meds Medication completed per MD order. See e-MAR for medications given during this visit. Patient tolerated medication well. PICC line flushed per protocol. Patient tolerated procedure well. Patient D/C'd stable with aftercare and follow up instructions per MD. FOLLOW UP MONDAY FOR MD ORDERED BUMEX DRIP THERAPY. PT VERB UNDERSTANDING.
== END | disposition home or self-care (01) ==
LOC: CHF HDHVI 10:10
PROVIDERS: ATTEND Internal Medicine Cardiovascular Disease
DX: I11.0 Hypertensive heart disease with heart failure (principal); I50.42 Chronic combined systolic (congestive) and diastolic (congestive) heart failure; I25.10 Atherosclerotic heart disease of native coronary artery without angina pectoris; R06.00 Dyspnea, unspecified; J44.9 Chronic obstructive pulmonary disease, unspecified; I27.21 Secondary pulmonary arterial hypertension; E11.621 Type 2 diabetes mellitus with foot ulcer; L97.921 Non-pressure chronic ulcer of unspecified part of left lower leg limited to breakdown of skin; G47.33 Obstructive sleep apnea (adult) (pediatric); G89.29 Other chronic pain; E78.00 Pure hypercholesterolemia, unspecified; E11.40 Type 2 diabetes mellitus with diabetic neuropathy, unspecified; E78.5 Hyperlipidemia, unspecified; E66.01 Morbid (severe) obesity due to excess calories; E03.9 Hypothyroidism, unspecified; F32.9 Major depressive disorder, single episode, unspecified; Z86.73 Personal history of transient ischemic attack (TIA), and cerebral infarction without residual deficits; Z87.891 Personal history of nicotine dependence; Z79.899 Other long term (current) drug therapy; Z85.46 Personal history of malignant neoplasm of prostate; Z87.440 Personal history of urinary (tract) infections; Z68.41 Body mass index [BMI] 40.0-44.9, adult; Z95.810 Presence of automatic (implantable) cardiac defibrillator
CPT/HCPCS: 96365; 96366; G0463; J1642; J3490

== ENCOUNTER → 2018-09-27 | Outpatient (CLI) | payer MEDICARE ==
[2018-09-27] VITALS (7 sets, daily range): BP systolic 108–130; BP diastolic 52–70
[~2018-09-27] VITALS: Ht 165.1 cm; Wt 115.2 kg
[~2018-09-27] MED LIST changes: -BUMETANIDE (0.25MG/ML) 4 ML VIAL IV ONE; +BUMETANIDE INJECTION 12.5 MG in GIVE UN-DILUTED 0 ML IV SCH; -POTASSIUM CHL 20 Meq TABLET PO ONE
--- NOTE | 2018-09-27 10:10 | NUR ---
IN TO CLINIC FOR SCHEDULED INFUSION. IN ATTENDANCE.LABS DRAWN AND SENT. RIGHT ARM PICC LINE USED FOR INFUSION AND REMAINS BENIGN POST INFUSION. VS WNL. TOLERATED INFUSION WELL. AFFECT BOISTEROUS AND CHEERFUL. UP TO VOID X 5 TIMES DURING INFUSION ADMINISTRATION. Discharge Instructions See e-MAR for any mediations given with this visit. Patient education given on disease process. Patient verbalized understanding. Previous labs reviewed. Patient discharged in stable condition with after care instructions and follow up appointment FOR MONDAY
[2018-09-27 13:05] LABS: Potassium 4.2 mmol/L (3.5-5.1)
[2018-09-27 13:10] LABS: Blood Urea Nitrogen 22 mg/dL (7-18); GFR African American > 60 mL/min; GFR Non-African American > 60 mL/min
== END | disposition home or self-care (01) ==
LOC: CHF HDHVI 10:08
PROVIDERS: ATTEND Internal Medicine Cardiovascular Disease
DX: I11.0 Hypertensive heart disease with heart failure (principal); I50.23 Acute on chronic systolic (congestive) heart failure; I50.32 Chronic diastolic (congestive) heart failure; R94.4 Abnormal results of kidney function studies; E87.6 Hypokalemia; E11.21 Type 2 diabetes mellitus with diabetic nephropathy; I25.10 Atherosclerotic heart disease of native coronary artery without angina pectoris; I48.91 Unspecified atrial fibrillation; J44.9 Chronic obstructive pulmonary disease, unspecified; E78.5 Hyperlipidemia, unspecified; E03.9 Hypothyroidism, unspecified; E11.40 Type 2 diabetes mellitus with diabetic neuropathy, unspecified; E78.00 Pure hypercholesterolemia, unspecified; E66.01 Morbid (severe) obesity due to excess calories; F32.9 Major depressive disorder, single episode, unspecified; G89.29 Other chronic pain; Z79.899 Other long term (current) drug therapy; Z87.891 Personal history of nicotine dependence; Z68.41 Body mass index [BMI] 40.0-44.9, adult; Z95.810 Presence of automatic (implantable) cardiac defibrillator; Z95.5 Presence of coronary angioplasty implant and graft; Z86.73 Personal history of transient ischemic attack (TIA), and cerebral infarction without residual deficits; Z85.46 Personal history of malignant neoplasm of prostate
CPT/HCPCS: 36415; 82565; 83880; 84132; 84520; 96365; 96366; G0463; J1642; J3490

== ENCOUNTER → 2018-10-02 | Outpatient (CLI) | payer MEDICARE ==
[2018-10-02] VITALS (7 sets, daily range): BP systolic 94–138; BP diastolic 51–62
[~2018-10-02] MED LIST changes: +BUMETANIDE (0.25 MG/ML) INJ 10ML IV ONE; -BUMETANIDE INJECTION 12.5 MG in GIVE UN-DILUTED 0 ML IV SCH; +POTASSIUM CHL 20 Meq TABLET PO ONE
--- NOTE | 2018-10-02 09:47 | NUR ---
CHF PT TO CHF CLINIC FOR MD MCHUGH ORDERED LASIX DRIP THERAPY FOR CHF MANAGEMENT. Addendum: 10/02/18 at 1552 by Kandace Lynch RN [place] CLARIFICATION MD MCHUGH ORDERED BUMEX DRIP.
[2018-10-02] MEDS: SODIUM CHLORIDE 0.9% 100 ML IV SCH (10:00)
--- NOTE | 2018-10-02 10:00 | NUR ---
CHF Initial PICC Line PICC line assessed before access for ordered medications per MD. Port accessed per protocol flushed with 10 ml 0.9% NS prior to administration of ordered medication. See e-MAR for medications given during this visit. LASIX 1;1 AT 30ML/HR STARTED. Addendum: 10/02/18 at 1552 by Kandace Lynch RN [place] CLARIFICATION BUMEX DRFAVIAN STARTED NOT LASIX DRIP.
--- NOTE | 2018-10-02 10:30 | NUR ---
CHF PT UP TO BATHROOM, STATES MEDICATION WORKING FAST TODAY.
--- NOTE | 2018-10-02 11:00 | NUR ---
CHF PT UP TO BATHROOM AGAIN
--- NOTE | 2018-10-02 11:40 | NUR ---
CHF PT UP TO BATHROOM FOR THE THIRD TIME.
--- NOTE | 2018-10-02 12:30 | NUR ---
CHF PT UP TO BATHROOM AGAIN.
--- NOTE | 2018-10-02 13:55 | NUR ---
CHF IV BUMEX COMPLETE . PICC Line meds Medication completed per MD order. See e-MAR for medications given during this visit. Patient tolerated medication well. PICC line flushed per protocol. Patient tolerated procedure well. Patient D/C'd stable with aftercare and follow up instructions per MD. Addendum: 10/02/18 at 1552 by Kandace Lynch RN [place] PT UP TO BATHROOM 2 MORE TIMES BEFORE LEAVING.
== END | disposition home or self-care (01) ==
LOC: CHF HDHVI 09:52
PROVIDERS: ATTEND Internal Medicine Cardiovascular Disease
DX: I50.9 Heart failure, unspecified (principal); I11.0 Hypertensive heart disease with heart failure; J44.9 Chronic obstructive pulmonary disease, unspecified; I25.10 Atherosclerotic heart disease of native coronary artery without angina pectoris; E03.9 Hypothyroidism, unspecified; E66.01 Morbid (severe) obesity due to excess calories; F32.9 Major depressive disorder, single episode, unspecified; E11.21 Type 2 diabetes mellitus with diabetic nephropathy; E11.40 Type 2 diabetes mellitus with diabetic neuropathy, unspecified; I27.21 Secondary pulmonary arterial hypertension; G47.33 Obstructive sleep apnea (adult) (pediatric); K74.1 Hepatic sclerosis; L97.821 Non-pressure chronic ulcer of other part of left lower leg limited to breakdown of skin; E78.00 Pure hypercholesterolemia, unspecified; Z68.41 Body mass index [BMI] 40.0-44.9, adult; Z79.899 Other long term (current) drug therapy; Z87.891 Personal history of nicotine dependence; Z95.810 Presence of automatic (implantable) cardiac defibrillator; Z85.46 Personal history of malignant neoplasm of prostate; Z86.73 Personal history of transient ischemic attack (TIA), and cerebral infarction without residual deficits; Z95.1 Presence of aortocoronary bypass graft
CPT/HCPCS: 96365; 96366; G0463; J1642; J3490

== ENCOUNTER → 2018-10-04 | Outpatient (CLI) | payer MEDICARE ==
[2018-10-04] VITALS (7 sets, daily range): BP systolic 123–151; BP diastolic 50–63
[~2018-10-04] MED LIST changes: +SODIUM CHLORIDE 0.9% 100 ML IV SCH
--- NOTE | 2018-10-04 09:45 | NUR ---
CHF PT TO CHF CLINIC FOR MD MCINTYRE ORDERED BUMEX DRIP THERAPY 0.75MG LOADING DOSE THAN HRLY X 3 HRS FOR CHF, MANAGEMENT.
--- NOTE | 2018-10-04 10:03 | NUR ---
CHF Initial PICC Line PICC line assessed before access for ordered medications per MD. Port accessed per protocol flushed with 10 ml 0.9% NS prior to administration of ordered medication. See e-MAR for medications given during this visit. BUMEX STARTED ORDERED.
--- NOTE | 2018-10-04 10:16 | NUR ---
CHF POTASSIUM ADMINISTERED ORDERED. PT TOLERATED WELL.
--- NOTE | 2018-10-04 13:40 | NUR ---
CHF IV BUMEX COMPLETE 1337 PICC Line meds Medication completed per MD order. See e-MAR for medications given during this visit. Patient tolerated medication well. PICC line flushed per protocol. Patient tolerated procedure well. Patient D/C'd stable with aftercare and follow up instructions per MD. FOLLOW UP NEXT WEEK SCHEDULED.
== END | disposition home or self-care (01) ==
LOC: CHF HDHVI 10:09
PROVIDERS: ATTEND Internal Medicine Cardiovascular Disease
DX: I11.0 Hypertensive heart disease with heart failure (principal); I50.9 Heart failure, unspecified; I25.10 Atherosclerotic heart disease of native coronary artery without angina pectoris; J44.9 Chronic obstructive pulmonary disease, unspecified; C61 Malignant neoplasm of prostate; E11.9 Type 2 diabetes mellitus without complications; I50.42 Chronic combined systolic (congestive) and diastolic (congestive) heart failure; E78.5 Hyperlipidemia, unspecified; E03.9 Hypothyroidism, unspecified; F32.9 Major depressive disorder, single episode, unspecified; E66.09 Other obesity due to excess calories; G89.29 Other chronic pain; E11.41 Type 2 diabetes mellitus with diabetic mononeuropathy; E11.621 Type 2 diabetes mellitus with foot ulcer; E11.40 Type 2 diabetes mellitus with diabetic neuropathy, unspecified; E11.21 Type 2 diabetes mellitus with diabetic nephropathy; G47.33 Obstructive sleep apnea (adult) (pediatric); Z79.899 Other long term (current) drug therapy; Z86.73 Personal history of transient ischemic attack (TIA), and cerebral infarction without residual deficits; Z87.891 Personal history of nicotine dependence; Z95.1 Presence of aortocoronary bypass graft; Z95.810 Presence of automatic (implantable) cardiac defibrillator
CPT/HCPCS: 96365; 96366; G0463; J1642; J3490

== ENCOUNTER → 2018-10-09 | Outpatient (CLI) | payer MEDICARE ==
[~2018-10-09] MED LIST changes: -BUMETANIDE (0.25 MG/ML) INJ 10ML IV ONE; +BUMETANIDE IV SCH; +GIVE UN DILUTED IV SCH; +SODIUM CHLORIDE 0.9% 1,000 ML IV SCH; -SODIUM CHLORIDE 0.9% 100 ML IV SCH
--- NOTE | 2018-10-09 09:50 | NUR ---
CHF PT TO CHF CLINIC FOR MD MCINTYRE ORDERED DIURETIC THERAPY USING BUMEX 0.75MG LOADING DOSE AND THAN HOURLY X 3 HRS.
--- NOTE | 2018-10-09 10:12 | NUR ---
CHF Initial PICC Line PICC line assessed before access for ordered medications per MD. Port accessed per protocol flushed with 10 ml 0.9% NS prior to administration of ordered medication. See e-MAR for medications given during this visit. Clinic Provider Clinic Provider DR. TRACY pt with new orders received and carried out. BUMEX gtt started at {0.75}mg LOADING DOSE, THAN HOURLY per MD order.
[2018-10-09 10:30] VITALS: BP 111/44
[2018-10-09 11:00] VITALS: BP 105/50
[2018-10-09 11:30] VITALS: BP 103/46
[2018-10-09 12:00] VITALS: BP 111/47
[2018-10-09 12:30] VITALS: BP 108/58
[2018-10-09 13:15] VITALS: BP 115/59
--- NOTE | 2018-10-09 13:15 | NUR ---
CHF PICC Line meds BUMEX COMPLETE. Medication completed per MD order. See e-MAR for medications given during this visit. Patient tolerated medication well. PICC line flushed per protocol. Patient tolerated procedure well. Patient D/C'd stable with aftercare and follow up instructions per MD. FOLLOW UP 10/11/18 CHF CLINIC.
== END | disposition home or self-care (01) ==
LOC: CHF HDHVI 10:01
PROVIDERS: ATTEND Internal Medicine Cardiovascular Disease
DX: I11.0 Hypertensive heart disease with heart failure (principal); I50.42 Chronic combined systolic (congestive) and diastolic (congestive) heart failure; J44.9 Chronic obstructive pulmonary disease, unspecified; I25.10 Atherosclerotic heart disease of native coronary artery without angina pectoris; E03.9 Hypothyroidism, unspecified; F32.9 Major depressive disorder, single episode, unspecified; E66.01 Morbid (severe) obesity due to excess calories; G47.33 Obstructive sleep apnea (adult) (pediatric); E11.21 Type 2 diabetes mellitus with diabetic nephropathy; E11.40 Type 2 diabetes mellitus with diabetic neuropathy, unspecified; E78.5 Hyperlipidemia, unspecified; G89.29 Other chronic pain; I48.91 Unspecified atrial fibrillation; Z95.5 Presence of coronary angioplasty implant and graft; Z87.440 Personal history of urinary (tract) infections; Z79.899 Other long term (current) drug therapy; Z87.891 Personal history of nicotine dependence; Z95.1 Presence of aortocoronary bypass graft; Z95.810 Presence of automatic (implantable) cardiac defibrillator; Z85.46 Personal history of malignant neoplasm of prostate
CPT/HCPCS: 96365; 96366; G0463; J1642; J7030

== ENCOUNTER → 2018-10-11 | Outpatient (CLI) | payer MEDICARE ==
[~2018-10-11] VITALS: Ht 165.1 cm; Wt 115.1 kg
[~2018-10-11] MED LIST changes: +BUMETANIDE INJECTION 25 MG in GIVE UN-DILUTED 0 ML IV ONE; -BUMETANIDE IV SCH; -GIVE UN DILUTED IV SCH; -POTASSIUM CHL 20 Meq TABLET PO ONE; -SODIUM CHLORIDE 0.9% 1,000 ML IV SCH
--- NOTE | 2018-10-11 09:45 | NUR ---
PATIENT IN CLINIC FOR BUMEX INFUSION, VERBAL ORDERS RECEIVED ENTERED.
[2018-10-11 10:05] VITALS: BP 131/63
[2018-10-11 10:45] VITALS: BP 130/67
[2018-10-11 11:45] VITALS: BP 128/63
[2018-10-11 12:15] VITALS: BP 123/62
[2018-10-11 14:00] VITALS: BP 131/68
--- NOTE | 2018-10-11 14:00 | NUR ---
CHF CLINIC Discharge Instructions See e-MAR for any mediations given with this visit. Patient education given on disease process. Patient verbalized understanding. Previous labs reviewed. Patient discharged in stable condition with after care instructions and follow up appointment MONDAY. NOTE BUMEX INFUSION [id number] ADMIN BY PELON ELLIS. POTASSIUM ADMIN BY BOOM ELLIS. HEPARIN ADMIN BY BOOM ELLIS.
== END | disposition home or self-care (01) ==
LOC: CHF HDHVI 09:53
PROVIDERS: ATTEND Internal Medicine Cardiovascular Disease
DX: I11.0 Hypertensive heart disease with heart failure (principal); I50.42 Chronic combined systolic (congestive) and diastolic (congestive) heart failure; I25.10 Atherosclerotic heart disease of native coronary artery without angina pectoris; I27.21 Secondary pulmonary arterial hypertension; J44.9 Chronic obstructive pulmonary disease, unspecified; I48.91 Unspecified atrial fibrillation; E11.40 Type 2 diabetes mellitus with diabetic neuropathy, unspecified; E11.21 Type 2 diabetes mellitus with diabetic nephropathy; E11.621 Type 2 diabetes mellitus with foot ulcer; L97.821 Non-pressure chronic ulcer of other part of left lower leg limited to breakdown of skin; G47.33 Obstructive sleep apnea (adult) (pediatric); G89.29 Other chronic pain; E78.00 Pure hypercholesterolemia, unspecified; E66.01 Morbid (severe) obesity due to excess calories; F32.9 Major depressive disorder, single episode, unspecified; Z79.899 Other long term (current) drug therapy; Z87.891 Personal history of nicotine dependence; Z95.1 Presence of aortocoronary bypass graft; Z95.810 Presence of automatic (implantable) cardiac defibrillator; Z68.41 Body mass index [BMI] 40.0-44.9, adult; Z86.73 Personal history of transient ischemic attack (TIA), and cerebral infarction without residual deficits; Z98.61 Coronary angioplasty status; Z85.46 Personal history of malignant neoplasm of prostate; Z87.440 Personal history of urinary (tract) infections
CPT/HCPCS: 96365; 96366; G0463; J1642; J3490

== ENCOUNTER → 2018-10-16 | Outpatient (CLI) | payer MEDICARE ==
[~2018-10-16] VITALS: Ht 30.5 cm; Wt 116.1 kg
[2018-10-16 10:30] VITALS: BP 111/40
[2018-10-16 11:00] VITALS: BP 128/59
[2018-10-16 11:30] VITALS: BP 128/59
[2018-10-16 12:06] LABS: Eosinophils % (auto) 5.7 % (0.0-7.0); Monocytes % (auto) 8.3 % (0.0-12.0); Neutrophils % (auto) 57.8 % (37.0-80.0); White Blood Cell 7.5 10^3/uL (4.4-10.8)
[2018-10-16 12:07] LABS: Basophils # (auto) 0.1 uL; Basophils % (auto) 1.2 % (0.0-2.0); Eosinophils # (auto) 0.4 uL; Hematocrit 35.3 % (41.0-53.0); Hemoglobin 11.4 g/dL (13.5-17.5); Magnesium 2.2 mg/dL (1.6-2.6); Mean Corpuscular Hgb Conc. 32.5 g/dL (32.0-36.0); Mean Corpuscular Volume 80.1 fL (80.0-100.0); Monocytes # (auto) 0.6 uL; Neutrophils # (auto) 4.4 uL; Nucleated Red Blood Cells % 0.2 %; Potassium 4.1 mmol/L (3.5-5.1); Red Cell Distribution Width 15.6 % (11.8-14.3)
[2018-10-16 12:08] LABS: Platelet Count (auto) 210 10^3/uL (140-450)
--- NOTE | 2018-10-16 13:18 | NUR ---
CHF CLINIC VISIT PT ALERT AND ORIENTED INITIAL ASSESSMENT COMPLETE PICC LINE SITE BENIGN DRESSING CLEAN DRY AND INTACT . PATIENT TOLERATED TREATMENT WELL. Clinic Provider into see pt with new orders received and carried out. Lasix gtt started at {30}mg/hr per MD order. up to bathroom 5x Discharge Instructions See e-MAR for any mediations given with this visit. Patient education given on disease process. Patient verbalized understanding. Previous labs reviewed. Patient discharged in stable condition with after care instructions and follow up appointment on 10/18/18 MEDICATION ADMINISTRATION BUMEX 3.5MG IN 114 ML (TOTAL 3 MG GIVEN) START AT 1010/STOP AT 1310 POTASSIUM 30 MEQ PO AT 1022 HEPARIN 150 UNITS IVP X2 TO PICC AT 1315
[2018-10-16 13:35] VITALS: BP 118/67
== END | disposition home or self-care (01) ==
LOC: CHF HDHVI 10:06
PROVIDERS: ATTEND Internal Medicine Cardiovascular Disease
DX: I11.0 Hypertensive heart disease with heart failure (principal); I50.9 Heart failure, unspecified; J44.9 Chronic obstructive pulmonary disease, unspecified; I50.42 Chronic combined systolic (congestive) and diastolic (congestive) heart failure; E83.40 Disorders of magnesium metabolism, unspecified; R94.4 Abnormal results of kidney function studies; E87.6 Hypokalemia; D64.9 Anemia, unspecified; I25.10 Atherosclerotic heart disease of native coronary artery without angina pectoris; E78.5 Hyperlipidemia, unspecified; E03.9 Hypothyroidism, unspecified; F32.9 Major depressive disorder, single episode, unspecified; E66.01 Morbid (severe) obesity due to excess calories; E11.21 Type 2 diabetes mellitus with diabetic nephropathy; E11.41 Type 2 diabetes mellitus with diabetic mononeuropathy; E11.40 Type 2 diabetes mellitus with diabetic neuropathy, unspecified; E11.22 Type 2 diabetes mellitus with diabetic chronic kidney disease; E11.621 Type 2 diabetes mellitus with foot ulcer; I48.91 Unspecified atrial fibrillation; G47.33 Obstructive sleep apnea (adult) (pediatric); Z79.891 Long term (current) use of opiate analgesic; Z79.899 Other long term (current) drug therapy; Z85.46 Personal history of malignant neoplasm of prostate; Z87.891 Personal history of nicotine dependence; Z95.1 Presence of aortocoronary bypass graft; Z95.810 Presence of automatic (implantable) cardiac defibrillator; Z86.73 Personal history of transient ischemic attack (TIA), and cerebral infarction without residual deficits
CPT/HCPCS: 36415; 82565; 83036; 83735; 84132; 84520; 85025; 96365; 96366; G0463; J1642; J3490

== ENCOUNTER → 2018-10-18 | Outpatient (CLI) | payer MEDICARE ==
[~2018-10-18] VITALS: Ht 165.1 cm; Wt 115.2 kg
[~2018-10-18] MED LIST changes: -BUMETANIDE INJECTION 25 MG in GIVE UN-DILUTED 0 ML IV ONE; +BUMETANIDE IV SCH; +GIVE UN DILUTED IV SCH; +POTASSIUM CHL 20 Meq TABLET PO ONE
--- NOTE | 2018-10-18 09:52 | NUR ---
in to clinic for SCHEDULED INFUSION. IN ATTENDANCE. AFFECT BOISTEROUS AND TALKATIVE. NO OXYGEN IN USE.
--- NOTE | 2018-10-18 10:19 | NUR ---
RIGHT ARM PICC LINE LABS DRAWN AND SENT. Clinic Provider Clinic Provider into see pt with new orders received and carried out. Lasix gtt started at {30}mg/hr per MD order. START INFUSION TO RIGHT ARM PICC LINE.
[2018-10-18 10:30] VITALS: BP 117/52
[2018-10-18 11:00] VITALS: BP 137/62
--- NOTE | 2018-10-18 11:30 | NUR ---
UP TO VOID PERIODICALLY. TOLERATING WELL. VISITING WITH OTHER PATIENTS.
[2018-10-18 12:00] VITALS: BP 115/75
[2018-10-18 12:30] VITALS: BP 126/54
[2018-10-18 13:00] VITALS: BP 102/56
[2018-10-18 13:40] VITALS: BP 117/61
--- NOTE | 2018-10-18 13:40 | NUR ---
TOLERATED WELL. VS WNL. UP TO VOID X MULTIPLE TIMES. IN ATTENDANCE. Discharge Instructions See e-MAR for any mediations given with this visit. Patient education given on disease process. Patient verbalized understanding. Previous labs reviewed. Patient discharged in stable condition with after care instructions and follow up appointment FOR 10/23/18 MEDICATION ADMINISTRATION BUMEX 3.5 MG IN 100 ML AT 0.75 MG/HR X 3 HOURS WITH LOAD OF 0.75 MG INITIAL HOUR K DUR 30 MEQ PO AT 1020 HEPARIN 150 UNITS IVP X 2 PICC LINE PORTS
== END | disposition home or self-care (01) ==
LOC: CHF HDHVI 10:03
PROVIDERS: ATTEND Internal Medicine Cardiovascular Disease
DX: I11.0 Hypertensive heart disease with heart failure (principal); I50.42 Chronic combined systolic (congestive) and diastolic (congestive) heart failure; I25.10 Atherosclerotic heart disease of native coronary artery without angina pectoris; J44.9 Chronic obstructive pulmonary disease, unspecified; E03.9 Hypothyroidism, unspecified; G89.29 Other chronic pain; E78.00 Pure hypercholesterolemia, unspecified; E78.5 Hyperlipidemia, unspecified; E11.41 Type 2 diabetes mellitus with diabetic mononeuropathy; F32.9 Major depressive disorder, single episode, unspecified; E66.01 Morbid (severe) obesity due to excess calories; Z68.41 Body mass index [BMI] 40.0-44.9, adult; Z87.891 Personal history of nicotine dependence; Z95.5 Presence of coronary angioplasty implant and graft; Z79.899 Other long term (current) drug therapy; Z95.810 Presence of automatic (implantable) cardiac defibrillator; Z85.46 Personal history of malignant neoplasm of prostate; Z95.1 Presence of aortocoronary bypass graft
CPT/HCPCS: 82306; 96365; 96366; G0463; J1642; J3490

== ENCOUNTER → 2018-10-23 | Outpatient (CLI) | payer MEDICARE ==
[~2018-10-23] MED LIST changes: +BUMETANIDE INJECTION 12.5 MG in GIVE UN-DILUTED 0 ML IV SCH; -BUMETANIDE IV SCH; -GIVE UN DILUTED IV SCH
--- NOTE | 2018-10-23 09:45 | NUR ---
IN TO CLINIC FOR SCHEDULED INFUSION. IN ATTENDANCE.
--- NOTE | 2018-10-23 10:16 | NUR ---
Clinic Provider Clinic Provider into see pt with new orders received and carried out. BUMEX GTT STARTED PER ORDER TO DUAL LUMEN PICC LINE IN RIGHT UPPER ARM. DRESSING DRY AND INTACT. SITE BENIGN.
[2018-10-23 10:30] VITALS: BP 116/52
--- NOTE | 2018-10-23 10:45 | NUR ---
AWAKE AND ALERT WITHOUT DISTRESS TOLERATING INFUSION WELL. VS WNL.
[2018-10-23 11:15] VITALS: BP 138/64
--- NOTE | 2018-10-23 11:15 | NUR ---
INFUSION ONGOING. UP TO VOID.
[2018-10-23 11:45] VITALS: BP 117/58
[2018-10-23 12:15] VITALS: BP 128/65
[2018-10-23 12:45] VITALS: BP 162/69
--- NOTE | 2018-10-23 12:55 | NUR ---
INFUSION COMPLETED. VS WNL. UP TO VOID X 4 TIMES DURING INFUSION.
[2018-10-23 13:03] VITALS: BP 128/62
--- NOTE | 2018-10-23 13:03 | NUR ---
CHF PICC Line meds Medication completed per MD order.. Patient tolerated procedure well. PICC LINE FLUSHED AND HEPARINIZED PER PROTOCOL. Patient D/C'd stable with aftercare and follow up APPOINTMENT FOR 10/25/18. MEDICATION ADMINISTRATION BUMEX GTT AT 0.75 MG/HR X 3 HOURS WITH LOADING DOSE FIRST HOUR OF 0.75 MG (TOTAL DOSE 3 MG OVER 3 HOURS) START 1016/STOP 1255 POTASSIUM 30 MEQ PO AT 1017 HEPARIN 150 UNITS IVP TO PICC LINE PORTS X 2
== END | disposition home or self-care (01) ==
LOC: CHF HDHVI 10:51
PROVIDERS: ATTEND Internal Medicine Cardiovascular Disease
DX: I11.0 Hypertensive heart disease with heart failure (principal); I50.42 Chronic combined systolic (congestive) and diastolic (congestive) heart failure; I25.10 Atherosclerotic heart disease of native coronary artery without angina pectoris; J44.9 Chronic obstructive pulmonary disease, unspecified; E66.01 Morbid (severe) obesity due to excess calories; E11.21 Type 2 diabetes mellitus with diabetic nephropathy; E11.40 Type 2 diabetes mellitus with diabetic neuropathy, unspecified; E78.5 Hyperlipidemia, unspecified; E03.9 Hypothyroidism, unspecified; I48.91 Unspecified atrial fibrillation; G89.29 Other chronic pain; F32.9 Major depressive disorder, single episode, unspecified; E78.00 Pure hypercholesterolemia, unspecified; Z95.810 Presence of automatic (implantable) cardiac defibrillator; Z68.41 Body mass index [BMI] 40.0-44.9, adult; Z85.46 Personal history of malignant neoplasm of prostate; Z87.891 Personal history of nicotine dependence; Z95.5 Presence of coronary angioplasty implant and graft; Z79.899 Other long term (current) drug therapy; Z95.1 Presence of aortocoronary bypass graft
CPT/HCPCS: 96365; 96366; J1642; J3490

== ENCOUNTER → 2018-10-25 | Outpatient (CLI) | payer MEDICARE ==
[2018-10-25] VITALS (7 sets, daily range): BP systolic 128–138; BP diastolic 59–79
[~2018-10-25] VITALS: Ht 30.5 cm; Wt 116.1 kg
[~2018-10-25] MED LIST changes: -BUMETANIDE INJECTION 12.5 MG in GIVE UN-DILUTED 0 ML IV SCH
[2018-10-25] MEDS: GIVE UN DILUTED IV SCH ×2 (10:00→14:10)
[2018-10-25] MEDS: BUMETANIDE IV SCH ×2 (10:00→14:10)
--- NOTE | 2018-10-25 11:00 | NUR ---
INFUSION ONGOING. VS WNL. VISITING. WITHOUT DISTRESS.
--- NOTE | 2018-10-25 14:00 | NUR ---
CHF INFUSION COMPLETED. PICC Line meds Medication completed per MD order. See e-MAR for medications given during this visit. Patient tolerated medication well. PICC line flushed per protocol. Dressing DRY AND INTACT AND SITE BENIGN. Patient tolerated procedure well. Patient D/C'd stable with IN ATTENDANCE and follow up APPOINTMENT FOR 10/30/18 MEDICATION ADMINISTRATION BUMEX GTT AT 1 MG/HR X 3 HOURS START AT 1019/STOP AT 1350 (TOTAL DOSE 3 MG) POTASSIUM 30 MEQ PO AT 1030 HEPARIN 150 UNITS IVP AT X 2 TO PICC LINE AT 1350
== END | disposition home or self-care (01) ==
LOC: CHF HDHVI 10:06
PROVIDERS: ATTEND Internal Medicine Cardiovascular Disease
DX: I11.0 Hypertensive heart disease with heart failure (principal); I50.42 Chronic combined systolic (congestive) and diastolic (congestive) heart failure; I25.10 Atherosclerotic heart disease of native coronary artery without angina pectoris; J44.9 Chronic obstructive pulmonary disease, unspecified; E78.5 Hyperlipidemia, unspecified; E03.9 Hypothyroidism, unspecified; E11.21 Type 2 diabetes mellitus with diabetic nephropathy; E11.40 Type 2 diabetes mellitus with diabetic neuropathy, unspecified; I48.91 Unspecified atrial fibrillation; G89.29 Other chronic pain; E78.00 Pure hypercholesterolemia, unspecified; F32.9 Major depressive disorder, single episode, unspecified; E66.01 Morbid (severe) obesity due to excess calories; Z79.899 Other long term (current) drug therapy; Z85.46 Personal history of malignant neoplasm of prostate; Z87.891 Personal history of nicotine dependence; Z95.1 Presence of aortocoronary bypass graft; Z86.73 Personal history of transient ischemic attack (TIA), and cerebral infarction without residual deficits; Z68.41 Body mass index [BMI] 40.0-44.9, adult; Z95.810 Presence of automatic (implantable) cardiac defibrillator
CPT/HCPCS: 96365; 96366; G0463; J1642; J3490

== ENCOUNTER → 2018-10-30 | Outpatient (CLI) | payer MEDICARE ==
[2018-10-30] VITALS (7 sets, daily range): BP systolic 110–127; BP diastolic 53–64
[~2018-10-30] MED LIST changes: +BUMETANIDE (0.25MG/ML) 4 ML VIAL IV ONE; -BUMETANIDE INJECTION 10 ML ONE; +BUMETANIDE ONE
[2018-10-30 11:48] LABS: Basophils # (auto) 0.1 uL; Basophils % (auto) 0.8 % (0.0-2.0); Eosinophils # (auto) 0.4 uL; Monocytes # (auto) 0.7 uL; White Blood Cell 7.3 10^3/uL (4.4-10.8)
[2018-10-30 11:56] LABS: Eosinophils % (auto) 5.8 % (0.0-7.0); Hematocrit 34.9 % (41.0-53.0); Hemoglobin 11.3 g/dL (13.5-17.5); Lymphocytes # (auto) 1.8 uL; Lymphocytes % (auto) 24.3 % (10.0-50.0); Mean Corpuscular Hgb Conc. 32.5 g/dL (32.0-36.0); Mean Corpuscular Volume 79.9 fL (80.0-100.0); Monocytes % (auto) 10.2 % (0.0-12.0); Neutrophils # (auto) 4.3 uL; Neutrophils % (auto) 58.9 % (37.0-80.0); Nucleated Red Blood Cells % 0.1 %; Platelet Count (auto) 189 10^3/uL (140-450); Red Blood Cells 4.37 10^6/uL (4.5-5.90); Red Cell Distribution Width 15.5 % (11.8-14.3)
[2018-10-30 12:09] LABS: Chloride 107 mmol/L (98-107); Potassium 4.4 mmol/L (3.5-5.1); Sodium 137 mmol/L (136-145)
[2018-10-30 12:17] LABS: Alanine Aminotransferase 18 U/L (16-61); Alkaline Phosphatase 63 U/L (45-117); Anion Gap 7 (5-15); Aspartate Aminotransferase 16 U/L (15-37); BUN/Creatinine Ratio 13.1; Bilirubin, Total 0.4 mg/dL (0.2-1.0); Blood Urea Nitrogen 11 mg/dL (7-18); Calcium 8.2 mg/dL (8.5-10.1); Carbon Dioxide 23 mmol/L (21-32); GFR African American 115 mL/min; GFR Non-African American 95 mL/min; Glucose 236 mg/dL (74-106); Total Protein 6.6 g/dL (6.4-8.2)
--- NOTE | 2018-10-30 13:45 | NUR ---
in to clinic for scheduled inFUSION. RIGHT ARM PICC LINE USED FOR INFUSION. LABS DRAWN AND SENT. PT REPORTS FEELING NAUSEATED AND FEELING POORLY SINCE LAST TREATMENT. VS WNL DURING TREATMENT WITH NO ABNORMALITY NOTED. PT DOZED AND VISITED WITH OTHER PATIENTS. AFFECT CHEERFUL AND COOPERATIVE. SEE FREQUENT VITAL SIGNS. Discharge Instructions See e-MAR for any mediations given with this visit. Patient education given on disease process. Patient verbalized understanding. Previous labs reviewed. Patient discharged in stable condition with after care instructions and follow up appointment. MEDICATION ADMINISTRATION BUMEX GTT AT 1 MG/HR X 3 HOURS START AT 1000/STOP AT 1340 (28.57 ML/HR) POTASSIUM 30 MEQ PO AT 1030 HEPARIN 150 UNITS IVP TO PICC LINE X 2
== END | disposition home or self-care (01) ==
LOC: CHF HDHVI 10:15
PROVIDERS: ATTEND Internal Medicine Cardiovascular Disease
DX: I11.0 Hypertensive heart disease with heart failure (principal); I50.9 Heart failure, unspecified; D64.9 Anemia, unspecified; R70.0 Elevated erythrocyte sedimentation rate; I25.10 Atherosclerotic heart disease of native coronary artery without angina pectoris; I50.42 Chronic combined systolic (congestive) and diastolic (congestive) heart failure; E78.5 Hyperlipidemia, unspecified; J44.9 Chronic obstructive pulmonary disease, unspecified; E03.9 Hypothyroidism, unspecified; F32.9 Major depressive disorder, single episode, unspecified; E66.01 Morbid (severe) obesity due to excess calories; E11.21 Type 2 diabetes mellitus with diabetic nephropathy; E11.621 Type 2 diabetes mellitus with foot ulcer; G47.33 Obstructive sleep apnea (adult) (pediatric); G89.29 Other chronic pain; E11.41 Type 2 diabetes mellitus with diabetic mononeuropathy; I48.91 Unspecified atrial fibrillation; Z87.891 Personal history of nicotine dependence; Z95.1 Presence of aortocoronary bypass graft; Z86.73 Personal history of transient ischemic attack (TIA), and cerebral infarction without residual deficits; Z79.891 Long term (current) use of opiate analgesic; Z95.810 Presence of automatic (implantable) cardiac defibrillator; Z85.46 Personal history of malignant neoplasm of prostate
CPT/HCPCS: 36415; 80053; 85025; 85652; 96365; 96366; G0463; J1642; J3490

== ENCOUNTER → 2018-11-01 | Outpatient (CLI) | payer MEDICARE ==
[2018-11-01] VITALS (7 sets, daily range): BP systolic 105–123; BP diastolic 49–62
[~2018-11-01] MED LIST changes: -BUMETANIDE (0.25MG/ML) 4 ML VIAL IV ONE; +BUMETANIDE INJECTION 10 ML ONE; +BUMETANIDE IV ONE; -BUMETANIDE ONE; -POTASSIUM CHL 20 Meq TABLET PO ONE; +SODIUM CHL 0.9% IV ONE
--- NOTE | 2018-11-01 09:35 | NUR ---
CHF PT ARRIVED AT CLINIC ALERT AND ORIENTED 0 DISTRESS FOR BUMEX DRIP THERAPY. DISCUSSED PLAN OF CARE VERBAL;IZED UNDERSTANDING
--- NOTE | 2018-11-01 10:01 | NUR ---
PICC Line meds Medication completed per MD order. See e-MAR for medications given during this visit. Patient tolerated medication well. PICC line flushed per protocol. Patient tolerated procedure well. Patient D/C'd stable with aftercare and follow up instructions per MD.
--- NOTE | 2018-11-01 13:45 | NUR ---
Discharge Instructions See e-MAR for any mediations given with this visit. Patient education given on disease process. Patient verbalized understanding. Previous labs reviewed. Patient discharged in stable condition with after care instructions and follow up appointment. PICC LINE FLUSHED WITH 100 UNITS PER PORT MEDICATIONS 1001 START TIME BUMEX DRIP 1335 STOP TIME BUMEX DRIP 1004 POTASSIUM 30 MEQ PO X 1 1340 HEPARIN 100 UNITS IVP PER PICC LINE PORT X 2 Addendum: 11/01/18 at 1606 by BERTA FERNANDEZ RN RN [place] 1001 start time bumex drip 3.5 mg/100ml NS, total dose 3mg ran over 3 hrs 1335 stop time bumex drip
== END | disposition home or self-care (01) ==
LOC: CHF HDHVI 09:53
PROVIDERS: ATTEND Internal Medicine Cardiovascular Disease
DX: I11.0 Hypertensive heart disease with heart failure (principal); I50.9 Heart failure, unspecified; J44.9 Chronic obstructive pulmonary disease, unspecified; C61 Malignant neoplasm of prostate; I25.10 Atherosclerotic heart disease of native coronary artery without angina pectoris; E03.9 Hypothyroidism, unspecified; E78.5 Hyperlipidemia, unspecified; F32.9 Major depressive disorder, single episode, unspecified; G89.29 Other chronic pain; E11.621 Type 2 diabetes mellitus with foot ulcer; E11.40 Type 2 diabetes mellitus with diabetic neuropathy, unspecified; E11.21 Type 2 diabetes mellitus with diabetic nephropathy; I50.42 Chronic combined systolic (congestive) and diastolic (congestive) heart failure; E11.41 Type 2 diabetes mellitus with diabetic mononeuropathy; I48.91 Unspecified atrial fibrillation; E66.01 Morbid (severe) obesity due to excess calories; Z68.41 Body mass index [BMI] 40.0-44.9, adult; Z79.899 Other long term (current) drug therapy; Z79.891 Long term (current) use of opiate analgesic; Z87.891 Personal history of nicotine dependence; Z95.1 Presence of aortocoronary bypass graft; Z86.73 Personal history of transient ischemic attack (TIA), and cerebral infarction without residual deficits
CPT/HCPCS: 96365; 96366; G0463; J1642; J3490

== ENCOUNTER → 2018-11-06 | Outpatient (CLI) | payer MEDICARE ==
[~2018-11-06] MED LIST changes: +BUMETANIDE (0.25 MG/ML) INJ 10ML IV ONE; -BUMETANIDE IV ONE; +POTASSIUM CHL 20 Meq TABLET PO ONE; -SODIUM CHL 0.9% IV ONE
--- NOTE | 2018-11-06 10:00 | NUR ---
PT ARRIVED AT CLINIC FOR BUMEX DRIP THERAPY. WIEGHED IN, V/S OBTAINED. PT ALERT ORIENTED 0 DISTRESS.
[2018-11-06 12:29] LABS: Potassium 4.1 mmol/L (3.5-5.1)
[2018-11-06 12:55] LABS: BUN/Creatinine Ratio 15.2; Bilirubin, Total 0.3 mg/dL (0.2-1.0); Calcium 8.4 mg/dL (8.5-10.1); Total Protein 6.9 g/dL (6.4-8.2)
[2018-11-06 13:27] VITALS: BP 121/75
--- NOTE | 2018-11-06 13:28 | NUR ---
Discharge Instructions See e-MAR for any mediations given with this visit. Patient education given on disease process. Patient verbalized understanding. Previous labs reviewed. Patient discharged in stable condition with after care instructions and follow up appointment. MEDICATIONS START TIME 1000 BUMEX DRIP STOP TIME 1318 POTASSIUM 30 MEQ PO X 3
== END | disposition home or self-care (01) ==
LOC: CHF HDHVI 09:58
PROVIDERS: ATTEND Internal Medicine Cardiovascular Disease
DX: D51.9 Vitamin B12 deficiency anemia, unspecified (principal); I11.0 Hypertensive heart disease with heart failure; I50.42 Chronic combined systolic (congestive) and diastolic (congestive) heart failure; J44.9 Chronic obstructive pulmonary disease, unspecified; I25.10 Atherosclerotic heart disease of native coronary artery without angina pectoris; I48.91 Unspecified atrial fibrillation; I27.21 Secondary pulmonary arterial hypertension; G89.29 Other chronic pain; E11.40 Type 2 diabetes mellitus with diabetic neuropathy, unspecified; E11.621 Type 2 diabetes mellitus with foot ulcer; L97.921 Non-pressure chronic ulcer of unspecified part of left lower leg limited to breakdown of skin; E78.5 Hyperlipidemia, unspecified; E03.9 Hypothyroidism, unspecified; F32.9 Major depressive disorder, single episode, unspecified; E66.01 Morbid (severe) obesity due to excess calories; G47.30 Sleep apnea, unspecified; Z87.440 Personal history of urinary (tract) infections; Z79.899 Other long term (current) drug therapy; Z87.891 Personal history of nicotine dependence; Z95.1 Presence of aortocoronary bypass graft; Z86.73 Personal history of transient ischemic attack (TIA), and cerebral infarction without residual deficits; Z68.41 Body mass index [BMI] 40.0-44.9, adult; Z95.810 Presence of automatic (implantable) cardiac defibrillator
CPT/HCPCS: 36415; 80053; 82607; 96365; 96366; G0463; J1642; J3490

== ENCOUNTER → 2018-11-08 | Outpatient (CLI) | payer MEDICARE ==
[~2018-11-08] MED LIST changes: -BUMETANIDE (0.25 MG/ML) INJ 10ML IV ONE; -POTASSIUM CHL 20 Meq TABLET PO ONE
[2018-11-08 10:05] VITALS: BP 143/58
[2018-11-08] MEDS: GIVE UN DILUTED IV SCH (10:05)
[2018-11-08] MEDS: POTASSIUM CHL 20 Meq TABLET PO SCH ×2 (10:05→14:52)
[2018-11-08] MEDS: BUMETANIDE IV SCH (10:05)
[2018-11-08 10:15] VITALS: BP 133/82
[2018-11-08 11:00] VITALS: BP 118/58
[2018-11-08 11:30] VITALS: BP 130/67
[2018-11-08 13:40] VITALS: BP 128/68
--- NOTE | 2018-11-08 13:40 | NUR ---
CHF RIGHT ARM PICC LINE FOR INFUSION. SITE BENIGN. CLINIC PROVIDER WITH ORDERS RECEIVED. BUMEX DRIP ADMINISTERED. TOLERATED INFUSION WELL . SEE FREQUENT VITAL SIGNS. IN ATTENDANCE. EDUCATION REGARDING MEDICATION AND DISEASE PROCESS AND LIFESTYLE WITH ARON RN WITH BOTH PATIENT AND . REPEAT BACK INSTRUCTIONS OBTAINED. PT TOLERATED INFUSION WELL. UP TO VOID EVERY 30 MINUTES DURING INFUSION. WEIGHT LOSS OF 5.4 POUNDS WITH IV DIURETIC THERAPY. PT TO SWITCH HOME MEDICATION TO LASIX TO ATTEMPT BETTER COMPLIANCE AND TOLERANCE. Discharge Instructions See e-MAR for any mediations given with this visit. Patient education given on disease process. Patient verbalized understanding. Previous labs reviewed. Patient discharged in stable condition with after care instructions and follow up appointment. MEDICATION ADMINISTRATION BUMEX GTT 3.5 MG IN 100 ML TO RUN AT 1 MG/HR X 3 HOURS (TOTAL 3 MG/86 ML) START AT 1005/STOP AT 1330 POTASSIUM 30 MEQ PO AT 1005 HEPARIN 150 UNITS IVP X 2 TO PICC LINE
== END | disposition home or self-care (01) ==
LOC: CHF HDHVI 09:55
PROVIDERS: ATTEND Internal Medicine Cardiovascular Disease
DX: I11.0 Hypertensive heart disease with heart failure (principal); I50.9 Heart failure, unspecified; I25.10 Atherosclerotic heart disease of native coronary artery without angina pectoris; E78.5 Hyperlipidemia, unspecified; I50.42 Chronic combined systolic (congestive) and diastolic (congestive) heart failure; J44.9 Chronic obstructive pulmonary disease, unspecified; E03.9 Hypothyroidism, unspecified; F32.9 Major depressive disorder, single episode, unspecified; E11.41 Type 2 diabetes mellitus with diabetic mononeuropathy; E11.21 Type 2 diabetes mellitus with diabetic nephropathy; E11.621 Type 2 diabetes mellitus with foot ulcer; E87.70 Fluid overload, unspecified; E66.01 Morbid (severe) obesity due to excess calories; E11.40 Type 2 diabetes mellitus with diabetic neuropathy, unspecified; I48.91 Unspecified atrial fibrillation; G89.29 Other chronic pain; G47.33 Obstructive sleep apnea (adult) (pediatric); Z68.41 Body mass index [BMI] 40.0-44.9, adult; Z79.891 Long term (current) use of opiate analgesic; Z79.899 Other long term (current) drug therapy; Z85.46 Personal history of malignant neoplasm of prostate; Z86.73 Personal history of transient ischemic attack (TIA), and cerebral infarction without residual deficits; Z95.1 Presence of aortocoronary bypass graft
CPT/HCPCS: 93701; 96365; 96366; G0463; J1642; J3490

== ENCOUNTER → 2018-11-13 | Outpatient (CLI) | payer MEDICARE ==
[2018-11-13] VITALS (7 sets, daily range): BP systolic 109–136; BP diastolic 60–75
[~2018-11-13] MED LIST changes: +POTASSIUM CHL 20 Meq TABLET PO ONE
[2018-11-13] MEDS: BUMETANIDE IV SCH ×2 (10:00→14:04)
[2018-11-13] MEDS: GIVE UN DILUTED IV SCH ×2 (10:00→14:04)
--- NOTE | 2018-11-13 13:45 | NUR ---
CHF IN TO CLINIC WITH IN ATTENDANCE. PICC LINE TO RIGHT ARM USED AND SITE BENIGN POST INFUSION. BUMEX INFUSION ADMINISTERED OVER 3 HOURS AND TOLERATED WELL. SEE FREQUENT VITAL SIGNS. UP TO VOID APPROXIMATELY EVERY 1/2 HOUR. PT USES INCONTINENCE PADS AND REPORTS GOOD RESULTS FROM DIURETIC THERAPY. Discharge Instructions See e-MAR for any mediations given with this visit. Patient education given on disease process. Patient verbalized understanding. Previous labs reviewed. Patient discharged in stable condition with after care instructions and follow up appointment FOR 11/15/18 MEDICATION ADMINISTRATION BUMEX GTT 3.5 MG IN 100 ML OVER 3 HOURS (TOTAL 86 ML ADMINISTERED = 3MG TOTAL) POTASSIUM 30 MEQ PO AT 1010 HEPARIN 150 UNITS IVP X 2 TO PICC LINE PORTS AT 1345
== END | disposition home or self-care (01) ==
LOC: CHF HDHVI 10:05
PROVIDERS: ATTEND Internal Medicine Cardiovascular Disease
DX: I11.0 Hypertensive heart disease with heart failure (principal); I50.42 Chronic combined systolic (congestive) and diastolic (congestive) heart failure; I25.10 Atherosclerotic heart disease of native coronary artery without angina pectoris; E78.5 Hyperlipidemia, unspecified; E03.9 Hypothyroidism, unspecified; F32.9 Major depressive disorder, single episode, unspecified; E66.01 Morbid (severe) obesity due to excess calories; G89.29 Other chronic pain; I27.21 Secondary pulmonary arterial hypertension; E11.40 Type 2 diabetes mellitus with diabetic neuropathy, unspecified; E11.621 Type 2 diabetes mellitus with foot ulcer; L97.921 Non-pressure chronic ulcer of unspecified part of left lower leg limited to breakdown of skin; G47.33 Obstructive sleep apnea (adult) (pediatric); Z85.46 Personal history of malignant neoplasm of prostate; Z68.41 Body mass index [BMI] 40.0-44.9, adult; Z79.899 Other long term (current) drug therapy; Z87.891 Personal history of nicotine dependence; Z87.440 Personal history of urinary (tract) infections; Z95.1 Presence of aortocoronary bypass graft; Z95.810 Presence of automatic (implantable) cardiac defibrillator; Z86.73 Personal history of transient ischemic attack (TIA), and cerebral infarction without residual deficits
CPT/HCPCS: 96365; 96366; G0463; J1642; J3490

== ENCOUNTER → 2018-11-15 | Outpatient (CLI) | payer MEDICARE ==
[~2018-11-15] MED LIST changes: +BUMETANIDE INJECTION 25 MG in GIVE UN-DILUTED 0 ML IV SCH; -POTASSIUM CHL 20 Meq TABLET PO ONE
--- NOTE | 2018-11-15 09:14 | NUR ---
CHF PT ARRIVAL TO CHF CLINIC O DISTRESS V/S OBTAINED
--- NOTE | 2018-11-15 10:10 | NUR ---
Darling Cath Insertion 20 gauge Darling Cath inserted using sterile technique in the upper chest with occlusive dressing over saucedo needle. Patient tolerated procedure well. Ordered labs drawn and sent. See e-MAR for medications given during this visit. Addendum: 11/15/18 at 1847 by BERTA FERNANDEZ RN RN [place] WRONG PATIENT PT HAS PICC LINE
[2018-11-15 14:00] VITALS: BP 130/63
--- NOTE | 2018-11-15 14:00 | NUR ---
Darling Cath Removal Quinn needle D/C'd after Heparin flush per protocol. See e-MAR for medications given during this visit. Sterile occlusive dressing to site. Patient tolerated procedure well. Site benign post infusion. Addendum: 11/15/18 at 1847 by BERTA FERNANDEZ RN RN [place] WRONG PATIENT PATIENT HAS PICC LINE CB
--- NOTE | 2018-11-15 14:16 | NUR ---
Discharge Instructions See e-MAR for any mediations given with this visit. Patient education given on disease process. Patient verbalized understanding. Previous labs reviewed. Patient discharged in stable condition with after care instructions and follow up appointment. MEDICATIONS 1020 START TIME BUMEX DRIP OVER 3 HRS 1410 STOP TIME BUMEX 1020 POTASSIUM 30 MEQ IVPB X 1 1475 HEPARIN 150 IV X 1
== END | disposition home or self-care (01) ==
LOC: CHF HDHVI 09:50
PROVIDERS: ATTEND Internal Medicine Cardiovascular Disease
DX: I11.0 Hypertensive heart disease with heart failure (principal); I50.42 Chronic combined systolic (congestive) and diastolic (congestive) heart failure; C61 Malignant neoplasm of prostate; I25.10 Atherosclerotic heart disease of native coronary artery without angina pectoris; I48.91 Unspecified atrial fibrillation; E78.5 Hyperlipidemia, unspecified; E11.621 Type 2 diabetes mellitus with foot ulcer; L97.921 Non-pressure chronic ulcer of unspecified part of left lower leg limited to breakdown of skin; E11.41 Type 2 diabetes mellitus with diabetic mononeuropathy; J44.9 Chronic obstructive pulmonary disease, unspecified; G47.33 Obstructive sleep apnea (adult) (pediatric); I27.21 Secondary pulmonary arterial hypertension; E03.9 Hypothyroidism, unspecified; E66.01 Morbid (severe) obesity due to excess calories; G89.29 Other chronic pain; E78.00 Pure hypercholesterolemia, unspecified; F32.9 Major depressive disorder, single episode, unspecified; Z95.5 Presence of coronary angioplasty implant and graft; Z87.891 Personal history of nicotine dependence; Z87.440 Personal history of urinary (tract) infections; Z79.899 Other long term (current) drug therapy; Z68.41 Body mass index [BMI] 40.0-44.9, adult; Z95.810 Presence of automatic (implantable) cardiac defibrillator; Z86.73 Personal history of transient ischemic attack (TIA), and cerebral infarction without residual deficits; Z95.1 Presence of aortocoronary bypass graft
CPT/HCPCS: 96365; 96366; G0463; J1642; J3490

== ENCOUNTER → 2018-11-20 | Outpatient (CLI) | payer MEDICARE ==
[2018-11-20] VITALS (7 sets, daily range): BP systolic 110–126; BP diastolic 46–82
[~2018-11-20] MED LIST changes: -BUMETANIDE INJECTION 25 MG in GIVE UN-DILUTED 0 ML IV SCH; +BUMETANIDE IV SCH; +GIVE UN DILUTED IV SCH; +POTASSIUM CHL 20 Meq TABLET PO ONE
--- NOTE | 2018-11-20 09:55 | NUR ---
Initial PICC Line PICC line [CB] assessed before access for ordered medications per MD. Port accessed per protocol flushed with 10 ml 0.9% NS prior to administration of ordered medication. See e-MAR for medications given during this visit. BY BERTA ELLIS
--- NOTE | 2018-11-20 09:55 | NUR ---
ARRIVAL NOTE PATIENT ARRIVED TO CHF CLINIC ALERT ORIENTED X4, NO DISTRESS NOTED, PT HAS RT UPPER ARM PICC LINE 2 LUMEN, PATENT WITH DRY CLEAN DRESSING, PATIENT AWARE OF PLAN OF CARE
--- NOTE | 2018-11-20 10:03 | NUR ---
BUMEX DRIP INITIATED VITAL SIGNS ARE TAKEN PER PROTOCOL
--- NOTE | 2018-11-20 10:05 | NUR ---
POTASSIUM PO GIVEN TO PT
[2018-11-20 12:00] LABS: Basophils # (auto) 0.1 uL; Eosinophils # (auto) 0.5 uL; Hematocrit 35.6 % (41.0-53.0); Hemoglobin 11.4 g/dL (13.5-17.5); Nucleated Red Blood Cells % 0.1 %
[2018-11-20 12:04] LABS: Basophils % (auto) 1.3 % (0.0-2.0); Eosinophils % (auto) 6.2 % (0.0-7.0); Lymphocytes # (auto) 2.1 uL; Lymphocytes % (auto) 27.1 % (10.0-50.0); Mean Corpuscular Hemoglobin 24.8 pg (28.0-32.0); Mean Corpuscular Hgb Conc. 31.9 g/dL (32.0-36.0); Mean Corpuscular Volume 77.5 fL (80.0-100.0); Monocytes # (auto) 0.8 uL; Monocytes % (auto) 10.2 % (0.0-12.0); Neutrophils # (auto) 4.2 uL; Neutrophils % (auto) 55.2 % (37.0-80.0); Platelet Count (auto) 234 10^3/uL (140-450); Red Cell Distribution Width 15.9 % (11.8-14.3); White Blood Cell 7.6 10^3/uL (4.4-10.8)
[2018-11-20 12:14] LABS: Potassium 3.9 mmol/L (3.5-5.1)
--- NOTE | 2018-11-20 14:29 | NUR ---
Discharge Instructions See e-MAR for any mediations given with this visit. Patient education given on disease process. Patient verbalized understanding. Previous labs reviewed. Patient discharged in stable condition with after care instructions and follow up appointment. START TIME OF BUMEX 3.5 MG /100ML/3HR STOP TIME OF BUMEX 1405 1005 POTASSIUM 30 MEQ PO GIVEN HEPARIN 150 UNITS X2 AT 1415
== END | disposition home or self-care (01) ==
LOC: CHF HDHVI 09:50
PROVIDERS: ATTEND Internal Medicine Cardiovascular Disease
DX: I11.0 Hypertensive heart disease with heart failure (principal); I50.42 Chronic combined systolic (congestive) and diastolic (congestive) heart failure; D64.9 Anemia, unspecified; R94.4 Abnormal results of kidney function studies; E87.6 Hypokalemia; I25.10 Atherosclerotic heart disease of native coronary artery without angina pectoris; I48.91 Unspecified atrial fibrillation; I27.21 Secondary pulmonary arterial hypertension; J44.9 Chronic obstructive pulmonary disease, unspecified; E11.41 Type 2 diabetes mellitus with diabetic mononeuropathy; E11.621 Type 2 diabetes mellitus with foot ulcer; L97.921 Non-pressure chronic ulcer of unspecified part of left lower leg limited to breakdown of skin; G47.33 Obstructive sleep apnea (adult) (pediatric); G89.29 Other chronic pain; E78.5 Hyperlipidemia, unspecified; E03.9 Hypothyroidism, unspecified; F32.9 Major depressive disorder, single episode, unspecified; E66.01 Morbid (severe) obesity due to excess calories; E78.00 Pure hypercholesterolemia, unspecified; Z95.810 Presence of automatic (implantable) cardiac defibrillator; Z87.891 Personal history of nicotine dependence; Z79.899 Other long term (current) drug therapy; Z68.41 Body mass index [BMI] 40.0-44.9, adult; Z86.73 Personal history of transient ischemic attack (TIA), and cerebral infarction without residual deficits; Z87.440 Personal history of urinary (tract) infections; Z95.1 Presence of aortocoronary bypass graft; Z95.5 Presence of coronary angioplasty implant and graft; Z85.46 Personal history of malignant neoplasm of prostate
CPT/HCPCS: 36415; 82565; 84132; 84520; 85025; 96365; 96366; G0463; J1642; J3490

== ENCOUNTER → 2018-11-22 | Outpatient (CLI) | payer MEDICARE ==
[~2018-11-22] VITALS: Ht 30.5 cm; Wt 113.0 kg
[~2018-11-22] MED LIST changes: -BUMETANIDE IV SCH; -GIVE UN DILUTED IV SCH
--- NOTE | 2018-11-22 09:50 | NUR ---
CHF PT ARRIVED TO CHF CLINIC FOR BUMEX THERAPY ALERT AND ORIENTED X 4 O DISTRESS, VITAL SIGNS STABLE 0 DISTRESS
--- NOTE | 2018-11-22 09:55 | NUR ---
Initial PICC Line PICC line [CB] assessed before access for ordered medications per MD. Port accessed per protocol flushed with 10 ml 0.9% NS prior to administration of ordered medication. See e-MAR for medications given during this visit.
[2018-11-22] MEDS: GIVE UN DILUTED IV SCH ×2 (10:00→13:59)
[2018-11-22] MEDS: BUMETANIDE IV SCH ×2 (10:00→13:59)
[2018-11-22 10:15] VITALS: BP 116/51
--- NOTE | 2018-11-22 10:20 | NUR ---
Clinic Provider Clinic Provider into see pt with new orders received and carried out. BUMEX gtt started at {1}mg/hr per MD order.
[2018-11-22 10:45] VITALS: BP 125/62
[2018-11-22 11:00] VITALS: BP 126/73
[2018-11-22 11:30] VITALS: BP 119/61
[2018-11-22 12:00] VITALS: BP 123/64
[2018-11-22 14:00] VITALS: BP 105/57
--- NOTE | 2018-11-22 14:00 | NUR ---
PICC Line meds Medication completed per MD order. See e-MAR for medications given during this visit. Patient tolerated medication well. PICC line flushed per protocol. Dressing chagned PRN via aseptic technique. Patient tolerated procedure well. Patient D/C'd stable with aftercare and follow up instructions per MD.
--- NOTE | 2018-11-22 14:07 | NUR ---
Discharge Instructions See e-MAR for any mediations given with this visit. Patient education given on disease process. Patient verbalized understanding. Previous labs reviewed. Patient discharged in stable condition with after care instructions and follow up appointment. MEDICATIONS BUMEX DRIP 1MG/HR X 3 HR START TIME 1000 BUMEX DRIP STOP TIME 1400
[2018-11-22 15:53] LABS: Urine Blood Negative /uL (Negative); Urine Specific Gravity 1.009 (1.001-1.035)
== END | disposition home or self-care (01) ==
LOC: CHF HDHVI 10:00
PROVIDERS: ATTEND Internal Medicine Cardiovascular Disease
DX: I11.0 Hypertensive heart disease with heart failure (principal); I50.42 Chronic combined systolic (congestive) and diastolic (congestive) heart failure; N39.0 Urinary tract infection, site not specified; I25.10 Atherosclerotic heart disease of native coronary artery without angina pectoris; J44.9 Chronic obstructive pulmonary disease, unspecified; E66.01 Morbid (severe) obesity due to excess calories; G89.29 Other chronic pain; E78.5 Hyperlipidemia, unspecified; G47.33 Obstructive sleep apnea (adult) (pediatric); E78.00 Pure hypercholesterolemia, unspecified; I27.21 Secondary pulmonary arterial hypertension; E11.40 Type 2 diabetes mellitus with diabetic neuropathy, unspecified; E11.41 Type 2 diabetes mellitus with diabetic mononeuropathy; E11.621 Type 2 diabetes mellitus with foot ulcer; L97.501 Non-pressure chronic ulcer of other part of unspecified foot limited to breakdown of skin; G47.30 Sleep apnea, unspecified; E03.9 Hypothyroidism, unspecified; Z68.41 Body mass index [BMI] 40.0-44.9, adult; Z85.46 Personal history of malignant neoplasm of prostate; Z79.899 Other long term (current) drug therapy; Z95.810 Presence of automatic (implantable) cardiac defibrillator; Z95.1 Presence of aortocoronary bypass graft; Z95.5 Presence of coronary angioplasty implant and graft; Z79.891 Long term (current) use of opiate analgesic
CPT/HCPCS: 81003; 87086; 96365; 96366; G0463; J1642; J3490

== ENCOUNTER → 2018-11-27 | Outpatient (CLI) | payer MEDICARE ==
[~2018-11-27] MED LIST changes: +BUMETANIDE IV SCH; +GIVE UN DILUTED IV SCH; -POTASSIUM CHL 20 Meq TABLET PO ONE
--- NOTE | 2018-11-27 09:55 | NUR ---
CHF PT ARRIVED TO CHF CLINIC FOR BUMEX THERAPY. PT ALERT ORIENTED 0 DISTRESS. V/S OBTAINED. EXPLAINED PLAN OF CARE PT VERBALIZED UNDERSTANDING
--- NOTE | 2018-11-27 09:55 | NUR ---
PICC Line meds Medication STARTED per MD order. See e-MAR for medications given during this visit. . PICC line ACCESSED PER PROTOCOL
[2018-11-27 10:15] VITALS: BP 126/55
[2018-11-27 10:45] VITALS: BP 115/64
[2018-11-27 11:15] VITALS: BP 112/52
[2018-11-27 11:45] VITALS: BP 113/52
[2018-11-27 11:52] LABS: Basophils # (auto) 0.1 uL; Eosinophils # (auto) 0.4 uL; Eosinophils % (auto) 5.3 % (0.0-7.0); Hemoglobin 11.3 g/dL (13.5-17.5); Nucleated Red Blood Cells % 0.1 %; White Blood Cell 8.1 10^3/uL (4.4-10.8)
[2018-11-27 11:54] LABS: Hematocrit 35.1 % (41.0-53.0); Lymphocytes # (auto) 1.8 uL; Mean Corpuscular Hgb Conc. 32.3 g/dL (32.0-36.0); Mean Corpuscular Volume 77.4 fL (80.0-100.0); Monocytes # (auto) 0.7 uL; Monocytes % (auto) 8.7 % (0.0-12.0); Neutrophils # (auto) 5.1 uL; Platelet Count (auto) 221 10^3/uL (140-450); Red Blood Cells 4.53 10^6/uL (4.5-5.90); Red Cell Distribution Width 16.2 % (11.8-14.3)
--- NOTE | 2018-11-27 12:00 | NUR ---
DOZING INTERMITTENTLY. DENIES PAIN. NO DISTRESS NOTED. UP TO VOID FREQUENTLY.
[2018-11-27 12:34] LABS: Potassium 4.1 mmol/L (3.5-5.1)
[2018-11-27 12:49] LABS: BUN/Creatinine Ratio 17.2; Calcium 8.7 mg/dL (8.5-10.1); Magnesium 1.9 mg/dL (1.6-2.6)
--- NOTE | 2018-11-27 13:08 | NUR ---
PICC LINE FLUSHED PICC LINE PER PROTOCOL, PACKED WITH HEPARIN, ALCOHOL IMPREGNATED CAPS APPLIED
[2018-11-27 13:15] VITALS: BP 120/71
--- NOTE | 2018-11-27 13:15 | NUR ---
Discharge Instructions See e-MAR for any mediations given with this visit. Patient education given on disease process. Patient verbalized understanding. Previous labs reviewed. Patient discharged in stable condition with after care instructions and follow up appointment. MEDICATIONS 1000 START TIME BUMEX DRIP 1MG/HR X 3HR 1305 STOP TIME LASIX DRIP 1142 POTASSIUM 30 MEQ PO X 1 1310 HEPARIN 150 UNITS IVP X 2
== END | disposition home or self-care (01) ==
LOC: CHF HDHVI 09:55
PROVIDERS: ATTEND Internal Medicine Cardiovascular Disease
DX: I11.0 Hypertensive heart disease with heart failure (principal); I50.23 Acute on chronic systolic (congestive) heart failure; I50.32 Chronic diastolic (congestive) heart failure; D64.9 Anemia, unspecified; E83.40 Disorders of magnesium metabolism, unspecified; I25.10 Atherosclerotic heart disease of native coronary artery without angina pectoris; I27.21 Secondary pulmonary arterial hypertension; I48.91 Unspecified atrial fibrillation; E11.41 Type 2 diabetes mellitus with diabetic mononeuropathy; E11.621 Type 2 diabetes mellitus with foot ulcer; L97.921 Non-pressure chronic ulcer of unspecified part of left lower leg limited to breakdown of skin; E78.00 Pure hypercholesterolemia, unspecified; F32.9 Major depressive disorder, single episode, unspecified; G89.29 Other chronic pain; G47.33 Obstructive sleep apnea (adult) (pediatric); E03.9 Hypothyroidism, unspecified; E66.01 Morbid (severe) obesity due to excess calories; E78.5 Hyperlipidemia, unspecified; Z95.5 Presence of coronary angioplasty implant and graft; Z79.899 Other long term (current) drug therapy; Z95.810 Presence of automatic (implantable) cardiac defibrillator; Z86.73 Personal history of transient ischemic attack (TIA), and cerebral infarction without residual deficits; Z87.891 Personal history of nicotine dependence; Z87.440 Personal history of urinary (tract) infections; Z68.41 Body mass index [BMI] 40.0-44.9, adult; Z95.1 Presence of aortocoronary bypass graft; Z85.46 Personal history of malignant neoplasm of prostate
CPT/HCPCS: 36415; 80048; 83735; 83880; 85025; 96365; 96366; G0463; J1642; J3490

== ENCOUNTER → 2018-11-29 | Outpatient (CLI) | payer MEDICARE ==
[~2018-11-29] MED LIST changes: -BUMETANIDE IV SCH; -GIVE UN DILUTED IV SCH
[2018-11-29 09:49] VITALS: BP 122/60
--- NOTE | 2018-11-29 09:49 | NUR ---
IN TO CLINIC FOR SCHEDULED INFUSION WITH IN ATTENDANCE. AFFECT COOPERATIVE. RIGHT ARM PICC USED FOR LAB DRAW. Initial PICC Line PICC line RIGHT ARM assessed before access for ordered medications per MD. Port accessed per protocol flushed with 10 ml 0.9% NS prior to administration of ordered medication. See e-MAR for medications given during this visit.
--- NOTE | 2018-11-29 10:15 | NUR ---
Clinic Provider Clinic Provider into see pt with new orders received and carried out. START BUMEX GTT AT 1 MG/HR X 3 HOURS
[2018-11-29 10:30] VITALS: BP 118/58
--- NOTE | 2018-11-29 11:30 | NUR ---
UP TO VOID PERIODICALLY. AFFECT COOPERATIVE. ASKING QUESTIONS ABOUT LABS AND OVERALL STATUS. QUESTIONS ANSWERED AND OFFERED DIABETIC TEACHING. REPETIITVE WITH QUESTIONS.
--- NOTE | 2018-11-29 12:30 | NUR ---
TOLERATING INFUSION WELL. AFFECT COOPERATIVE. VOICES COMPLAINTS OFTEN REGARDING PERCIEVED LIMITATIONS.
--- NOTE | 2018-11-29 13:45 | NUR ---
CHF INFUSION COMPLETED. UP TO VOID X 4 TIMES TOTAL. TOLERATED WELL. NO INCONTINENCE TODAY BUT URGENCY WAS EXPERIENCED. PICC Line meds Medication completed per MD order. See e-MAR for medications given during this visit. Patient tolerated medication well. PICC line flushed per protocol. Dressing chagned PRN via aseptic technique. Patient tolerated procedure well. Patient D/C'd stable with aftercare and follow up instructions per MD AND FOLLOW UP APPOINTMENT FOR 12/04/18 MEDICATION ADMINISTRATION BUMEX DRIP 1 MG/HR X 3 HOURS START AT 1015/STOP AT 1345 (TOTAL 3 MG DELIVERED) AT 28.67 ML/HR K DUR 30 MEQ PO AT 1015 HEPARIN 150 UNITS IVP TO PICC LINE X 2 AT 1345
== END | disposition home or self-care (01) ==
LOC: CHF HDHVI 09:50
PROVIDERS: ATTEND Internal Medicine Cardiovascular Disease
DX: I11.0 Hypertensive heart disease with heart failure (principal); I50.42 Chronic combined systolic (congestive) and diastolic (congestive) heart failure; E11.40 Type 2 diabetes mellitus with diabetic neuropathy, unspecified; I25.10 Atherosclerotic heart disease of native coronary artery without angina pectoris; I48.91 Unspecified atrial fibrillation; I27.21 Secondary pulmonary arterial hypertension; J44.9 Chronic obstructive pulmonary disease, unspecified; E78.5 Hyperlipidemia, unspecified; E03.9 Hypothyroidism, unspecified; F32.9 Major depressive disorder, single episode, unspecified; E66.01 Morbid (severe) obesity due to excess calories; E78.00 Pure hypercholesterolemia, unspecified; E11.621 Type 2 diabetes mellitus with foot ulcer; L97.901 Non-pressure chronic ulcer of unspecified part of unspecified lower leg limited to breakdown of skin; G47.33 Obstructive sleep apnea (adult) (pediatric); G89.29 Other chronic pain; Z85.46 Personal history of malignant neoplasm of prostate; Z95.5 Presence of coronary angioplasty implant and graft; Z87.440 Personal history of urinary (tract) infections; Z95.1 Presence of aortocoronary bypass graft; Z95.810 Presence of automatic (implantable) cardiac defibrillator; Z86.73 Personal history of transient ischemic attack (TIA), and cerebral infarction without residual deficits; Z87.891 Personal history of nicotine dependence; Z79.899 Other long term (current) drug therapy; Z68.41 Body mass index [BMI] 40.0-44.9, adult
CPT/HCPCS: 36415; 83036; 96365; 96366; G0463; J1642; J3490

== ENCOUNTER → 2018-12-04 | Outpatient (CLI) | payer MEDICARE ==
[~2018-12-04] MED LIST changes: +BUMETANIDE IV ONE; +GIVE UN DILUTED IV ONE
[2018-12-04 10:20] VITALS: BP 101/45
[2018-12-04 10:35] VITALS: BP 114/54
[2018-12-04 11:35] VITALS: BP 125/55
[2018-12-04 12:20] VITALS: BP 110/70
[2018-12-04 13:15] VITALS: BP 106/50
--- NOTE | 2018-12-04 13:15 | NUR ---
CHF CLINIC Discharge Instructions See e-MAR for any mediations given with this visit. Patient education given on disease process. Patient verbalized understanding. Previous labs reviewed. Patient discharged in stable condition with after care instructions and follow up appointment. NOTE BUMEX INFUSION [id number] ADMIN BY GILL ELLIS POTASSIUM PO ADMIN BY GILL ELLIS HEPARIN ADMIN BY PELON ELLIS
== END | disposition home or self-care (01) ==
LOC: CHF HDHVI 10:20
PROVIDERS: ATTEND Internal Medicine Cardiovascular Disease
DX: I11.0 Hypertensive heart disease with heart failure (principal); I50.42 Chronic combined systolic (congestive) and diastolic (congestive) heart failure; J44.9 Chronic obstructive pulmonary disease, unspecified; E11.621 Type 2 diabetes mellitus with foot ulcer; E11.41 Type 2 diabetes mellitus with diabetic mononeuropathy; E11.21 Type 2 diabetes mellitus with diabetic nephropathy; I25.10 Atherosclerotic heart disease of native coronary artery without angina pectoris; E78.5 Hyperlipidemia, unspecified; E03.9 Hypothyroidism, unspecified; F32.9 Major depressive disorder, single episode, unspecified; E66.01 Morbid (severe) obesity due to excess calories; G89.29 Other chronic pain; E78.00 Pure hypercholesterolemia, unspecified; I48.91 Unspecified atrial fibrillation; Z79.899 Other long term (current) drug therapy; Z87.891 Personal history of nicotine dependence; Z95.1 Presence of aortocoronary bypass graft; Z87.440 Personal history of urinary (tract) infections; Z85.46 Personal history of malignant neoplasm of prostate; Z95.810 Presence of automatic (implantable) cardiac defibrillator; Z95.5 Presence of coronary angioplasty implant and graft; Z86.73 Personal history of transient ischemic attack (TIA), and cerebral infarction without residual deficits
CPT/HCPCS: 96365; 96366; G0463; J1642; J3490

== ENCOUNTER → 2018-12-06 | Outpatient (CLI) | payer MEDICARE ==
[~2018-12-06] MED LIST changes: +BUMETANIDE INJECTION 25 MG in GIVE UN-DILUTED 0 ML IV SCH; -BUMETANIDE IV ONE; -GIVE UN DILUTED IV ONE; +POTASSIUM CHL 20 Meq TABLET PO SCH
--- NOTE | 2018-12-06 10:00 | NUR ---
IN TO CLINIC FOR SCHEDULED INFUSION. VS WNL. WITHOUT DISTRESS OR DISCOMFORT. RIGHT ARM PICC LINE TO BE USED FOR INFUSION. ACCESSED AND RED PORT USED FOR BUMEX GTT.
[2018-12-06 13:43] VITALS: BP 130/56
--- NOTE | 2018-12-06 13:43 | NUR ---
CHF CLINIC Discharge Instructions See e-MAR for any mediations given with this visit. Patient education given on disease process. Patient verbalized understanding. Previous labs reviewed. Patient discharged in stable condition with after care instructions and follow up appointment NEXT MONDAY. NOTE BUMEX [id number] ADMIN BY GILL ELLIS POTASSIUM PO ADMIN BY GILL ELLIS HEPARIN ADMIN BY GILL ELLIS
== END | disposition home or self-care (01) ==
LOC: CHF HDHVI 09:57
PROVIDERS: ATTEND Internal Medicine Cardiovascular Disease
DX: I11.0 Hypertensive heart disease with heart failure (principal); I50.42 Chronic combined systolic (congestive) and diastolic (congestive) heart failure; E11.41 Type 2 diabetes mellitus with diabetic mononeuropathy; E11.21 Type 2 diabetes mellitus with diabetic nephropathy; E11.621 Type 2 diabetes mellitus with foot ulcer; L97.501 Non-pressure chronic ulcer of other part of unspecified foot limited to breakdown of skin; J44.9 Chronic obstructive pulmonary disease, unspecified; I25.10 Atherosclerotic heart disease of native coronary artery without angina pectoris; E78.5 Hyperlipidemia, unspecified; E03.9 Hypothyroidism, unspecified; F32.9 Major depressive disorder, single episode, unspecified; E66.01 Morbid (severe) obesity due to excess calories; G89.29 Other chronic pain; E78.00 Pure hypercholesterolemia, unspecified; I48.91 Unspecified atrial fibrillation; Z79.899 Other long term (current) drug therapy; Z87.891 Personal history of nicotine dependence; Z87.440 Personal history of urinary (tract) infections; Z95.1 Presence of aortocoronary bypass graft; Z95.810 Presence of automatic (implantable) cardiac defibrillator; Z95.5 Presence of coronary angioplasty implant and graft; Z86.73 Personal history of transient ischemic attack (TIA), and cerebral infarction without residual deficits; Z85.46 Personal history of malignant neoplasm of prostate
CPT/HCPCS: 96365; 96366; G0463; J1642; J3490

== ENCOUNTER → 2018-12-11 | Outpatient (CLI) | payer MEDICARE ==
[~2018-12-11] MED LIST changes: -BUMETANIDE INJECTION 25 MG in GIVE UN-DILUTED 0 ML IV SCH; +BUMETANIDE IV ONE; +GIVE UN DILUTED IV ONE; -POTASSIUM CHL 20 Meq TABLET PO SCH
--- NOTE | 2018-12-11 09:45 | NUR ---
IN TO CLINIC FOR SCHEDULED INFUSION. BROUGHT IN ReceptorYLE SKIN SENSOR KIT AND ASKED FOR IT TO BE APPLIED. REVIEWED APPLICATION PROCESS WITH AND PATIENT. APPLIED TO RIGHT POSTERIOR ARM, SAME ARM ANTERIOR PICC LINE. TOLERATED WELL.
[2018-12-11 09:58] VITALS: BP 137/60
[2018-12-11 10:30] VITALS: BP 119/62
[2018-12-11 11:00] VITALS: BP 107/46
[2018-12-11 11:30] VITALS: BP 112/51
[2018-12-11 13:20] VITALS: BP 112/50
--- NOTE | 2018-12-11 13:20 | NUR ---
CHF CLINIC Discharge Instructions See e-MAR for any mediations given with this visit. Patient education given on disease process. Patient verbalized understanding. Previous labs reviewed. Patient discharged in stable condition with after care instructions and follow up appointment. NOTE BUMEX [id number] ADMIN BY PELON ELLIS. POTASSIUM PO ADMIN BY GILL ELLIS. HEPARIN ADMIN GILL ELLIS.
== END | disposition home or self-care (01) ==
LOC: CHF HDHVI 09:59
PROVIDERS: ATTEND Internal Medicine Cardiovascular Disease
DX: I11.0 Hypertensive heart disease with heart failure (principal); I50.42 Chronic combined systolic (congestive) and diastolic (congestive) heart failure; I25.10 Atherosclerotic heart disease of native coronary artery without angina pectoris; E78.5 Hyperlipidemia, unspecified; J44.9 Chronic obstructive pulmonary disease, unspecified; E03.9 Hypothyroidism, unspecified; F32.9 Major depressive disorder, single episode, unspecified; E66.01 Morbid (severe) obesity due to excess calories; G89.29 Other chronic pain; E11.41 Type 2 diabetes mellitus with diabetic mononeuropathy; E11.21 Type 2 diabetes mellitus with diabetic nephropathy; E11.621 Type 2 diabetes mellitus with foot ulcer; I48.91 Unspecified atrial fibrillation; G47.33 Obstructive sleep apnea (adult) (pediatric); Z79.899 Other long term (current) drug therapy; Z85.46 Personal history of malignant neoplasm of prostate; Z95.810 Presence of automatic (implantable) cardiac defibrillator; Z86.73 Personal history of transient ischemic attack (TIA), and cerebral infarction without residual deficits; Z87.891 Personal history of nicotine dependence; Z95.1 Presence of aortocoronary bypass graft; Z79.891 Long term (current) use of opiate analgesic
CPT/HCPCS: 93701; 96365; 96366; G0463; J1642; J3490

== ENCOUNTER → 2018-12-18 | Outpatient (CLI) | payer MEDICARE ==
[2018-12-18] VITALS (7 sets, daily range): BP systolic 101–122; BP diastolic 49–70
[~2018-12-18] MED LIST changes: +BUMETANIDE INJECTION 25 MG in GIVE UN-DILUTED 0 ML IV SCH; -BUMETANIDE IV ONE; -GIVE UN DILUTED IV ONE; +POTASSIUM CHL 20 Meq TABLET PO ONE
[2018-12-18 12:03] LABS: BUN/Creatinine Ratio 15.9; Calcium 8.5 mg/dL (8.5-10.1); Magnesium 2.1 mg/dL (1.6-2.6)
--- NOTE | 2018-12-18 13:23 | NUR ---
CHF IN TO CLINIC FOR FOR SCHEDULED INFUSION. IN ATTENDANCE. RIGHT ARM DOUBLE LUMEN PICC LINE IN PLACE. USED FOR INFUSION AND SITE BENIGN POST INFUSION. TOLERATED INFUSION WELL. WITHOUT DISTRESS AND WITHOUT COMPLAINT. VS WNL. UP TO VOID X 2 ONLY, OTHERWISE PT SLEPT DURING INFUSION. Discharge Instructions See e-MAR for any mediations given with this visit. Patient education given on disease process. Patient verbalized understanding. Previous labs reviewed. Patient discharged in stable condition with after care instructions and follow up appointment IN 2 DAYS. MEDICATION ADMINISTRATION BUMEX 1 MG /HR X 3 HOURS (TOTAL 3 MG) POTASSIUM 30 MEQ PO AT 0959 HEPARIN 150 UNITS IVP TO
== END | disposition home or self-care (01) ==
LOC: CHF HDHVI 09:43
PROVIDERS: ATTEND Internal Medicine Cardiovascular Disease
DX: I25.10 Atherosclerotic heart disease of native coronary artery without angina pectoris (principal); I11.0 Hypertensive heart disease with heart failure; I50.42 Chronic combined systolic (congestive) and diastolic (congestive) heart failure; E78.5 Hyperlipidemia, unspecified; D64.9 Anemia, unspecified; J44.9 Chronic obstructive pulmonary disease, unspecified; I48.91 Unspecified atrial fibrillation; E03.9 Hypothyroidism, unspecified; E78.00 Pure hypercholesterolemia, unspecified; E11.41 Type 2 diabetes mellitus with diabetic mononeuropathy; E11.21 Type 2 diabetes mellitus with diabetic nephropathy; F32.9 Major depressive disorder, single episode, unspecified; E66.01 Morbid (severe) obesity due to excess calories; G89.29 Other chronic pain; Z87.891 Personal history of nicotine dependence; Z95.1 Presence of aortocoronary bypass graft; Z95.5 Presence of coronary angioplasty implant and graft; Z79.891 Long term (current) use of opiate analgesic; Z79.899 Other long term (current) drug therapy; Z85.46 Personal history of malignant neoplasm of prostate; Z95.810 Presence of automatic (implantable) cardiac defibrillator; Z86.73 Personal history of transient ischemic attack (TIA), and cerebral infarction without residual deficits
CPT/HCPCS: 36415; 80048; 83735; 85025; 96365; 96366; G0463; J1642; J3490

== ENCOUNTER → 2018-12-25 | Outpatient (CLI) | payer MEDICARE ==
[~2018-12-25] MED LIST changes: +BUMETANIDE (0.25 MG/ML) INJ 10ML IV ONE; -BUMETANIDE INJECTION 25 MG in GIVE UN-DILUTED 0 ML IV SCH
--- NOTE | 2018-12-25 09:55 | NUR ---
CHF PT ARRIVED TO CHF CLINIC O DISTRESS O PAIN. V/S OBTAINED PT UPDATED ON PLAN OF CARE VERBALIZED UNDERSTANDING
--- NOTE | 2018-12-25 10:00 | NUR ---
Clinic Provider Clinic Provider updated on pt status pt with new orders received and carried out. Bumex gtt started at {1}mg/hr per MD order.
[2018-12-25 10:30] VITALS: BP 119/55
[2018-12-25 11:00] VITALS: BP 116/53
[2018-12-25 11:30] VITALS: BP 119/54
[2018-12-25 12:00] VITALS: BP 127/59
[2018-12-25 13:21] VITALS: BP 128/57
--- NOTE | 2018-12-25 13:21 | NUR ---
Discharge Instructions See e-MAR for any mediations given with this visit. Patient education given on disease process. Patient verbalized understanding. Previous labs reviewed. Patient discharged in stable condition with after care instructions and follow up appointment. MEDICATIONS 1012 START TIME BUMEX DRIP 1MG/HR X 3 HRS 1320 STOP TIME BUMEX DRIP 1321 POTASSIUM 30 MEQ PO X 1 1321 HEPARIN 150 UNITS IVP X 2 TO PICC LINE
== END | disposition home or self-care (01) ==
LOC: CHF HDHVI 11:11
PROVIDERS: ATTEND Internal Medicine Cardiovascular Disease
DX: I11.0 Hypertensive heart disease with heart failure (principal); I50.9 Heart failure, unspecified; E87.6 Hypokalemia; I25.10 Atherosclerotic heart disease of native coronary artery without angina pectoris; I50.42 Chronic combined systolic (congestive) and diastolic (congestive) heart failure; J44.9 Chronic obstructive pulmonary disease, unspecified; E78.5 Hyperlipidemia, unspecified; F32.9 Major depressive disorder, single episode, unspecified; E66.01 Morbid (severe) obesity due to excess calories; E03.9 Hypothyroidism, unspecified; G47.33 Obstructive sleep apnea (adult) (pediatric); E11.41 Type 2 diabetes mellitus with diabetic mononeuropathy; E11.21 Type 2 diabetes mellitus with diabetic nephropathy; E11.40 Type 2 diabetes mellitus with diabetic neuropathy, unspecified; E11.621 Type 2 diabetes mellitus with foot ulcer; I48.91 Unspecified atrial fibrillation; Z68.41 Body mass index [BMI] 40.0-44.9, adult; G89.29 Other chronic pain; Z79.899 Other long term (current) drug therapy; Z79.891 Long term (current) use of opiate analgesic; Z85.46 Personal history of malignant neoplasm of prostate; Z87.891 Personal history of nicotine dependence; Z95.810 Presence of automatic (implantable) cardiac defibrillator; Z86.73 Personal history of transient ischemic attack (TIA), and cerebral infarction without residual deficits
CPT/HCPCS: 96365; 96366; G0463; J1642; J3490

== ENCOUNTER → 2018-12-27 | Outpatient (CLI) | payer MEDICARE ==
[2018-12-27] VITALS (8 sets, daily range): BP systolic 112–140; BP diastolic 53–72
[~2018-12-27] MED LIST changes: +POTASSIUM CHL 10 Meq TABLET PO SCH; -POTASSIUM CHL 20 Meq TABLET PO ONE
--- NOTE | 2018-12-27 09:52 | NUR ---
CHF PT ARRIVED TO CHF CLINIC 0 DISTRESS, V/S OBTAINED . PT A/0 X 3.
--- NOTE | 2018-12-27 10:05 | NUR ---
Initial PICC Line PICC line assessed before access for ordered medications per MD. Port accessed per protocol flushed with 10 ml 0.9% NS prior to administration of ordered medication. See e-MAR for medications given during this visit.
--- NOTE | 2018-12-27 13:18 | NUR ---
Discharge Instructions See e-MAR for any mediations given with this visit. Patient education given on disease process. Patient verbalized understanding. Previous labs reviewed. Patient discharged in stable condition with after care instructions and follow up appointment. MEDICATIONS 1012 START TIME BUMEX DRIP 1MG/HR X 3 HR 1308 STOP TIME BUMEX DRIP 1309 POTASSIUM 30 meq PO X 1 1310 HEPARIN 150 UNITS IVP X 2 TO RENETTA CATH
== END | disposition home or self-care (01) ==
LOC: CHF HDHVI 09:53
PROVIDERS: ATTEND Internal Medicine Cardiovascular Disease
DX: I11.0 Hypertensive heart disease with heart failure (principal); I50.9 Heart failure, unspecified; J44.9 Chronic obstructive pulmonary disease, unspecified; I25.10 Atherosclerotic heart disease of native coronary artery without angina pectoris; I50.42 Chronic combined systolic (congestive) and diastolic (congestive) heart failure; E78.5 Hyperlipidemia, unspecified; E03.9 Hypothyroidism, unspecified; F32.9 Major depressive disorder, single episode, unspecified; E66.01 Morbid (severe) obesity due to excess calories; E11.41 Type 2 diabetes mellitus with diabetic mononeuropathy; E11.21 Type 2 diabetes mellitus with diabetic nephropathy; E11.40 Type 2 diabetes mellitus with diabetic neuropathy, unspecified; E11.621 Type 2 diabetes mellitus with foot ulcer; I48.91 Unspecified atrial fibrillation; Z68.41 Body mass index [BMI] 40.0-44.9, adult; G89.29 Other chronic pain; Z79.899 Other long term (current) drug therapy; Z87.891 Personal history of nicotine dependence; Z95.810 Presence of automatic (implantable) cardiac defibrillator; Z86.73 Personal history of transient ischemic attack (TIA), and cerebral infarction without residual deficits; Z95.1 Presence of aortocoronary bypass graft; Z85.46 Personal history of malignant neoplasm of prostate
CPT/HCPCS: 96365; 96366; G0463; J1642; J3490

== ENCOUNTER → 2019-01-01 | Outpatient (CLI) | payer MEDICARE ==
[2019-01-01] VITALS (8 sets, daily range): BP systolic 110–132; BP diastolic 48–65
[~2019-01-01] MED LIST changes: -POTASSIUM CHL 10 Meq TABLET PO SCH; +POTASSIUM CHL 20 Meq TABLET PO ONE; +SODIUM CHLORIDE 0.9% 100 ML IV ONE
--- NOTE | 2019-01-01 09:42 | NUR ---
CHF PT ARRIVED AT THE CHF CLINIC FOR DIURETIC THERAPY , ALERT AND ORIENTED , 0 DISTRESS, V/S OBTAINED
--- NOTE | 2019-01-01 09:42 | NUR ---
CHF PT ARRIVED AT THE CHF CLINIC IN 0 DISTRESS, V/S OBTAINED PT A/O X 3/ DISCUSSED PLAN OF CARE PT VERBALIZED UNDERSTANDING Addendum: 01/01/19 at 1252 by FAUSTO REYES MA CHARTED BY BERTA FERNANDEZ RN
--- NOTE | 2019-01-01 09:50 | NUR ---
Clinic Provider Clinic Provider UPDATED new orders received and carried out. BUMEX gtt started at {1}mg/hr per MD order.
--- NOTE | 2019-01-01 10:00 | NUR ---
Clinic Provider Clinic Provider UPDATED ABOUT pt new orders received and carried out. BUMEX gtt started at {1}MG/HR per MD order. Addendum: 01/01/19 at 1251 by FAUSTO REYES MA CHARTED BY BERTA FERNANDEZ RN
--- NOTE | 2019-01-01 10:00 | NUR ---
Initial PICC Line PICC line assessed before access for ordered medications per . Port accessed per protocol flushed with 10 ml 0.9% NS prior to administration of ordered medication. See e-MAR for medications given during this visit. Addendum: 01/01/19 at 1251 by FAUSTO REYES MA CHARTED BY BERTA FERNANDEZ RN
[2019-01-01 12:31] LABS: Basophils # (auto) 0.1 uL; Eosinophils # (auto) 0.5 uL; Hematocrit 34.4 % (41.0-53.0); Lymphocytes # (auto) 2.1 uL; Nucleated Red Blood Cells % 0.1 %
[2019-01-01 12:34] LABS: Basophils % (auto) 1.1 % (0.0-2.0); Eosinophils % (auto) 6.1 % (0.0-7.0); Hemoglobin 11.1 g/dL (13.5-17.5); Lymphocytes % (auto) 26.3 % (10.0-50.0); Mean Corpuscular Hgb Conc. 32.3 g/dL (32.0-36.0); Mean Corpuscular Volume 77.5 fL (80.0-100.0); Monocytes # (auto) 0.7 uL; Monocytes % (auto) 8.7 % (0.0-12.0); Neutrophils # (auto) 4.5 uL; Neutrophils % (auto) 57.8 % (37.0-80.0); Platelet Count (auto) 263 10^3/uL (140-450); Red Blood Cells 4.43 10^6/uL (4.5-5.90); White Blood Cell 7.8 10^3/uL (4.4-10.8)
[2019-01-01 12:55] LABS: Albumin 2.8 g/dL (3.4-5.0); BUN/Creatinine Ratio 17.9; Bilirubin, Total 0.2 mg/dL (0.2-1.0); Calcium 8.9 mg/dL (8.5-10.1); Magnesium 1.8 mg/dL (1.6-2.6); Total Protein 6.7 g/dL (6.4-8.2)
--- NOTE | 2019-01-01 13:40 | NUR ---
Discharge Instructions See e-MAR for any mediations given with this visit. Patient education given on disease process. Patient verbalized understanding. Previous labs reviewed. Patient discharged in stable condition with after care instructions and follow up appointment. MEDICATIONS 1006 START TIME BUMEX 1MG/HR X 3 HR 1315 STOP TIME BUMEX 1MG/HR 1007 POTASSIUM 30 MEQ PO X 1 1332 HEPARIN 300 UNITS
== END | disposition home or self-care (01) ==
LOC: CHF HDHVI 09:54
PROVIDERS: ATTEND Internal Medicine Cardiovascular Disease
DX: I11.0 Hypertensive heart disease with heart failure (principal); I50.23 Acute on chronic systolic (congestive) heart failure; I50.32 Chronic diastolic (congestive) heart failure; E83.40 Disorders of magnesium metabolism, unspecified; D64.9 Anemia, unspecified; E03.9 Hypothyroidism, unspecified; I25.10 Atherosclerotic heart disease of native coronary artery without angina pectoris; I48.91 Unspecified atrial fibrillation; F32.9 Major depressive disorder, single episode, unspecified; E66.01 Morbid (severe) obesity due to excess calories; E11.40 Type 2 diabetes mellitus with diabetic neuropathy, unspecified; E11.621 Type 2 diabetes mellitus with foot ulcer; L97.921 Non-pressure chronic ulcer of unspecified part of left lower leg limited to breakdown of skin; E78.00 Pure hypercholesterolemia, unspecified; G47.30 Sleep apnea, unspecified; G89.29 Other chronic pain; E78.5 Hyperlipidemia, unspecified; I27.21 Secondary pulmonary arterial hypertension; Z87.440 Personal history of urinary (tract) infections; Z68.41 Body mass index [BMI] 40.0-44.9, adult; Z79.899 Other long term (current) drug therapy; Z85.46 Personal history of malignant neoplasm of prostate; Z87.891 Personal history of nicotine dependence; Z95.1 Presence of aortocoronary bypass graft; Z86.73 Personal history of transient ischemic attack (TIA), and cerebral infarction without residual deficits; Z95.810 Presence of automatic (implantable) cardiac defibrillator
CPT/HCPCS: 36415; 80053; 83735; 83880; 84443; 85025; 96365; 96366; G0463; J1642; J3490

== ENCOUNTER → 2019-01-03 | Outpatient (CLI) | payer MEDICARE ==
[~2019-01-03] MED LIST changes: -BUMETANIDE (0.25 MG/ML) INJ 10ML IV ONE; +BUMETANIDE INJECTION 25 MG in GIVE UN-DILUTED 0 ML IV ONE; -POTASSIUM CHL 20 Meq TABLET PO ONE; -SODIUM CHLORIDE 0.9% 100 ML IV ONE
[2019-01-03 10:15] VITALS: BP 116/49
[2019-01-03 10:45] VITALS: BP 120/59
[2019-01-03 12:15] VITALS: BP 120/57
[2019-01-03 12:45] VITALS: BP 123/61
[2019-01-03 13:57] VITALS: BP 120/60
--- NOTE | 2019-01-03 13:57 | NUR ---
CHF IN TO CLINIC FOR SCHEDULED INFUSION. IN ATTENDANCE. RIGHT ARM DOUBLE LUMEN PICC LINE DRESSING INTACT AND USED FOR INFUSION. SITE BENIGN POST INFUSION. LINES FLUSHED AND HEPARINIZED POST INFUSION. UP TO VOID X 5 TIMES DURING 3 HOUR INFUSION TIME. VISITING WITH OTHER PATIENTS. VS WNL. FREESTYLE MARCIA SENSOR APPLIED TO LEFT ARM PER PT REQUEST. SKIN PREP COMPLETED WITH SOAP AND WATER, ALCOHOL AND THEN SKIN PREP , ONCE ALMOST DRY SENSOR APPLIED AND REINFORCED ON SKIN. ATTEMPTED DIABETIC TEACHING WITH CANDACE BUT PT RESPONDS WITH A RATIONALE FOR EATING SUGARY THINGS. "MY MADE ME EAT 2 PIECES OF CAKE", "ITS ONLY ONE LOLLIPOP". PT VERBALLY STATES THAT HE FOLLOWS HIS DIET AND RARELY EATS. TOLERATED DIURETIC THERAPY WELL. Discharge Instructions See e-MAR for any mediations given with this visit. Patient education given on disease process. Patient verbalized understanding. Previous labs reviewed. Patient discharged in stable condition with after care instructions and follow up appointment FOR Monday01/08/19. MEDICATION ADMINISTRATION BUMEX 3.5 MG IN 100 ML AT 1 MG/HR X 3 HOURS START AT 1011/STOP AT 1345 POTASSIUM 30 MEQ PO AT 1012 HEPARIN 150 UNITS IVP AT 1345 FOR PICC X 2
== END | disposition home or self-care (01) ==
LOC: CHF HDHVI 09:57
PROVIDERS: ATTEND Internal Medicine Cardiovascular Disease
DX: I11.0 Hypertensive heart disease with heart failure (principal); I50.42 Chronic combined systolic (congestive) and diastolic (congestive) heart failure; I25.10 Atherosclerotic heart disease of native coronary artery without angina pectoris; J44.9 Chronic obstructive pulmonary disease, unspecified; E78.5 Hyperlipidemia, unspecified; E03.9 Hypothyroidism, unspecified; F32.9 Major depressive disorder, single episode, unspecified; G47.33 Obstructive sleep apnea (adult) (pediatric); G89.29 Other chronic pain; E11.41 Type 2 diabetes mellitus with diabetic mononeuropathy; E11.21 Type 2 diabetes mellitus with diabetic nephropathy; E11.621 Type 2 diabetes mellitus with foot ulcer; E66.01 Morbid (severe) obesity due to excess calories; Z79.891 Long term (current) use of opiate analgesic; Z68.41 Body mass index [BMI] 40.0-44.9, adult; Z79.899 Other long term (current) drug therapy; Z85.46 Personal history of malignant neoplasm of prostate; Z87.891 Personal history of nicotine dependence; Z95.1 Presence of aortocoronary bypass graft; Z95.810 Presence of automatic (implantable) cardiac defibrillator; Z86.73 Personal history of transient ischemic attack (TIA), and cerebral infarction without residual deficits; Z95.5 Presence of coronary angioplasty implant and graft
CPT/HCPCS: 96365; 96366; G0463; J1642; J3490

== ENCOUNTER → 2019-01-08 | Outpatient (CLI) | payer MEDICARE ==
[2019-01-08] VITALS (7 sets, daily range): BP systolic 101–123; BP diastolic 49–82
[~2019-01-08] MED LIST changes: +BUMETANIDE (0.25MG/ML) 4 ML VIAL IV ONE; -BUMETANIDE INJECTION 25 MG in GIVE UN-DILUTED 0 ML IV ONE; +POTASSIUM CHL 20 Meq TABLET PO ONE
--- NOTE | 2019-01-08 09:44 | NUR ---
CHF PT ARRIVED TO THE CHF CLINIC 0 DISTRESS, V/S OBTAINED MD UPDATED ORDERS RECEIVED AND NOTED .
--- NOTE | 2019-01-08 11:00 | NUR ---
PT TOLERATING THERAPR WELL, UTILIZING THE BATHROOM FREQUENTLY 0 DISTRESS
--- NOTE | 2019-01-08 13:20 | NUR ---
Discharge Instructions See e-MAR for any mediations given with this visit. Patient education given on disease process. Patient verbalized understanding. Previous labs reviewed. Patient discharged in stable condition with after care instructions and follow up appointment. MEDICATIONS 1003 START TIME BUMEX DRIP 1MG/HR X 3 HR 1315 STOP TIME BUMEX DRIP 1003 POTASSIUM 30 MEQ PO X 1 1320 HEPARIN 300 UNITS IVP X 1
== END | disposition home or self-care (01) ==
LOC: CHF HDHVI 09:52
PROVIDERS: ATTEND Internal Medicine Cardiovascular Disease
DX: I11.0 Hypertensive heart disease with heart failure (principal); I50.42 Chronic combined systolic (congestive) and diastolic (congestive) heart failure; J44.9 Chronic obstructive pulmonary disease, unspecified; G89.29 Other chronic pain; I25.10 Atherosclerotic heart disease of native coronary artery without angina pectoris; E78.5 Hyperlipidemia, unspecified; E03.9 Hypothyroidism, unspecified; F32.9 Major depressive disorder, single episode, unspecified; E66.01 Morbid (severe) obesity due to excess calories; E11.41 Type 2 diabetes mellitus with diabetic mononeuropathy; E11.621 Type 2 diabetes mellitus with foot ulcer; E11.21 Type 2 diabetes mellitus with diabetic nephropathy; G47.33 Obstructive sleep apnea (adult) (pediatric); Z68.41 Body mass index [BMI] 40.0-44.9, adult; Z85.46 Personal history of malignant neoplasm of prostate; Z79.899 Other long term (current) drug therapy; Z87.891 Personal history of nicotine dependence; Z95.1 Presence of aortocoronary bypass graft; Z95.810 Presence of automatic (implantable) cardiac defibrillator; Z86.73 Personal history of transient ischemic attack (TIA), and cerebral infarction without residual deficits; Z79.891 Long term (current) use of opiate analgesic
CPT/HCPCS: 96365; 96366; G0463; J1642; J3490

== ENCOUNTER → 2019-01-10 | Outpatient (CLI) | payer MEDICARE ==
[2019-01-10] VITALS (8 sets, daily range): BP systolic 111–133; BP diastolic 47–86
[~2019-01-10] MED LIST changes: -BUMETANIDE (0.25MG/ML) 4 ML VIAL IV ONE; -BUMETANIDE (0.25MG/ML) 4 ML VIAL ONE; +BUMETANIDE 1mg/4ml VIAL (0.25mg/ml) ONE; +BUMETANIDE 2.5mg/10ml (0.25 mg/ml) INJ IV ONE; -POTASSIUM CHL 20 Meq TABLET PO ONE; +SODIUM CHLORIDE 0.9% 100 ML IV ONE
--- NOTE | 2019-01-10 09:48 | NUR ---
CHF PT ALERT AND ORIENTED ARRIVED AT CHF CLINIC FOR WEEKLY THERAPY. PT A/O X 3 0 DISTRESS V/S OBTAINED ORDERS RECEIVED AND NOTED
--- NOTE | 2019-01-10 13:30 | NUR ---
Discharge Instructions See e-MAR for any mediations given with this visit. Patient education given on disease process. Patient verbalized understanding. Previous labs reviewed. Patient discharged in stable condition with after care instructions and follow up appointment. MEDICATIONS 1000 START TIME BUMEX DRIP 1MG/HR 1315 STOP TIME BUMEX DRIP 1000 POTASSIUM 30 MEQ PO X 1 1320 HEPARIN 300 UNITS IVP DIVED BETWEEN 2 PICC LINE PORTS
== END | disposition home or self-care (01) ==
LOC: CHF HDHVI 09:59
PROVIDERS: ATTEND Internal Medicine Cardiovascular Disease
DX: I11.0 Hypertensive heart disease with heart failure (principal); I50.42 Chronic combined systolic (congestive) and diastolic (congestive) heart failure; C61 Malignant neoplasm of prostate; J44.9 Chronic obstructive pulmonary disease, unspecified; I25.10 Atherosclerotic heart disease of native coronary artery without angina pectoris; G89.4 Chronic pain syndrome; E78.5 Hyperlipidemia, unspecified; E03.9 Hypothyroidism, unspecified; F32.9 Major depressive disorder, single episode, unspecified; E66.01 Morbid (severe) obesity due to excess calories; E78.00 Pure hypercholesterolemia, unspecified; E11.41 Type 2 diabetes mellitus with diabetic mononeuropathy; E11.21 Type 2 diabetes mellitus with diabetic nephropathy; I48.91 Unspecified atrial fibrillation; G47.33 Obstructive sleep apnea (adult) (pediatric); E11.621 Type 2 diabetes mellitus with foot ulcer; Z79.891 Long term (current) use of opiate analgesic; Z79.899 Other long term (current) drug therapy; Z95.1 Presence of aortocoronary bypass graft; Z87.891 Personal history of nicotine dependence; Z95.810 Presence of automatic (implantable) cardiac defibrillator; Z95.5 Presence of coronary angioplasty implant and graft; Z86.73 Personal history of transient ischemic attack (TIA), and cerebral infarction without residual deficits
CPT/HCPCS: 96365; 96366; G0463; J1642; J3490

== ENCOUNTER → 2019-01-15 | Outpatient (CLI) | payer MEDICARE ==
[2019-01-15] VITALS (7 sets, daily range): BP systolic 108–130; BP diastolic 54–80
[~2019-01-15] MED LIST changes: +BUMETANIDE 1mg/4ml VIAL (0.25mg/ml) IV ONE; -BUMETANIDE 2.5mg/10ml (0.25 mg/ml) INJ IV ONE; +MAGNESIUM OXIDE 400 MG TAB ONE; +MAGNESIUM OXIDE 400 MG TAB PO ONE
--- NOTE | 2019-01-15 09:44 | NUR ---
CHF PT ALERT AND ORIENTED ARRIVED AT CHF CLINIC FOR WEEKLY THERAPY. V/S OBTAINED
--- NOTE | 2019-01-15 09:45 | NUR ---
Clinic Provider Clinic Provider into see pt with new orders received and carried out. BUMEX gtt started at {1}mg/hr per MD order.
--- NOTE | 2019-01-15 11:41 | NUR ---
PT TOLERATING THERAPY UP AND DOWN TO THE BATHROOM MULTIPLE TIMES
--- NOTE | 2019-01-15 13:18 | NUR ---
Discharge Instructions See e-MAR for any mediations given with this visit. Patient education given on disease process. Patient verbalized understanding. Previous labs reviewed. Patient discharged in stable condition with after care instructions and follow up appointment. medications 1015 START TIME BUMEX DRIP 1 MG/HR X 3 HR///STOP TIME 1255 1300 HEPARIN 300 UNTIS IVP TOTAL TO PICC LINE PORTS 1137 POTASSIUM 30MEQ PO X 1 1137 MAG OXIDE 400 MG PO X 1
== END | disposition home or self-care (01) ==
LOC: CHF HDHVI 10:02
PROVIDERS: ATTEND Internal Medicine Cardiovascular Disease
DX: I11.0 Hypertensive heart disease with heart failure (principal); I50.42 Chronic combined systolic (congestive) and diastolic (congestive) heart failure; E87.8 Other disorders of electrolyte and fluid balance, not elsewhere classified; E11.621 Type 2 diabetes mellitus with foot ulcer; L97.921 Non-pressure chronic ulcer of unspecified part of left lower leg limited to breakdown of skin; E11.40 Type 2 diabetes mellitus with diabetic neuropathy, unspecified; I48.91 Unspecified atrial fibrillation; I25.10 Atherosclerotic heart disease of native coronary artery without angina pectoris; I27.21 Secondary pulmonary arterial hypertension; J44.9 Chronic obstructive pulmonary disease, unspecified; E78.5 Hyperlipidemia, unspecified; E03.9 Hypothyroidism, unspecified; F32.9 Major depressive disorder, single episode, unspecified; E66.01 Morbid (severe) obesity due to excess calories; G47.33 Obstructive sleep apnea (adult) (pediatric); G89.4 Chronic pain syndrome; E78.00 Pure hypercholesterolemia, unspecified; Z68.41 Body mass index [BMI] 40.0-44.9, adult; Z95.5 Presence of coronary angioplasty implant and graft; Z79.899 Other long term (current) drug therapy; Z85.46 Personal history of malignant neoplasm of prostate; Z87.440 Personal history of urinary (tract) infections; Z87.891 Personal history of nicotine dependence; Z79.891 Long term (current) use of opiate analgesic; Z95.1 Presence of aortocoronary bypass graft; Z95.810 Presence of automatic (implantable) cardiac defibrillator; Z86.73 Personal history of transient ischemic attack (TIA), and cerebral infarction without residual deficits
CPT/HCPCS: 96365; 96366; G0463; J1642; J3490

== ENCOUNTER → 2019-01-17 | Outpatient (CLI) | payer MEDICARE ==
[~2019-01-17] MED LIST changes: -MAGNESIUM OXIDE 400 MG TAB ONE; -MAGNESIUM OXIDE 400 MG TAB PO ONE; +POTASSIUM CHL 20 Meq TABLET PO ONE; -SODIUM CHLORIDE 0.9% 100 ML IV ONE; +SODIUM CHLORIDE 0.9% 250 ML IV ONE
--- NOTE | 2019-01-17 09:47 | NUR ---
CHF PT ARRIVAED AT CHF CLINIC FOR WEEKLY BUMEX THERAPY. PT ALERT AND ORIENTED 0 DISTRESS. V/S OBTAINED LABS DRAWN
--- NOTE | 2019-01-17 09:50 | NUR ---
Clinic Provider Clinic Provider updated on pt with new orders received and carried out. Bumex gtt started at {1}mg/hr per MD order.
[2019-01-17 10:15] VITALS: BP 118/55
[2019-01-17 10:45] VITALS: BP 130/56
[2019-01-17 11:15] VITALS: BP 122/55
[2019-01-17 11:45] VITALS: BP 105/54
[2019-01-17 12:28] LABS: Basophils # (auto) 0.1 uL; Eosinophils # (auto) 0.6 uL; Neutrophils # (auto) 4.9 uL; Nucleated Red Blood Cells % 0.1 %
[2019-01-17 12:32] LABS: Basophils % (auto) 0.9 % (0.0-2.0); Eosinophils % (auto) 7.1 % (0.0-7.0); Hematocrit 33.9 % (41.0-53.0); Lymphocytes % (auto) 24.6 % (10.0-50.0); Mean Corpuscular Hemoglobin 24.8 pg (28.0-32.0); Mean Corpuscular Hgb Conc. 32.5 g/dL (32.0-36.0); Mean Corpuscular Volume 76.4 fL (80.0-100.0); Monocytes # (auto) 0.7 uL; Monocytes % (auto) 8.6 % (0.0-12.0); Neutrophils % (auto) 58.8 % (37.0-80.0); Platelet Count (auto) 239 10^3/uL (140-450); Red Blood Cells 4.43 10^6/uL (4.5-5.90); Red Cell Distribution Width 17.5 % (11.8-14.3); White Blood Cell 8.3 10^3/uL (4.4-10.8)
[2019-01-17 12:42] LABS: BUN/Creatinine Ratio 19.1; Calcium 9.1 mg/dL (8.5-10.1); Magnesium 2.3 mg/dL (1.6-2.6)
[2019-01-17 13:30] VITALS: BP 110/60
--- NOTE | 2019-01-17 13:40 | NUR ---
Discharge Instructions See e-MAR for any mediations given with this visit. Patient education given on disease process. Patient verbalized understanding. Previous labs reviewed. Patient discharged in stable condition with after care instructions and follow up appointment. MEDICATIONS 1010 BUMEX DRIP 1MG/HR STOP TIME 1330 1013 POTASSIUM 30 MEQ PO X 1 1330 HEAPRIN 300 UNITS IVP X 1
== END | disposition home or self-care (01) ==
LOC: CHF HDHVI 09:48
PROVIDERS: ATTEND Internal Medicine Cardiovascular Disease
DX: I11.0 Hypertensive heart disease with heart failure (principal); I50.42 Chronic combined systolic (congestive) and diastolic (congestive) heart failure; D64.9 Anemia, unspecified; E83.40 Disorders of magnesium metabolism, unspecified; R53.83 Other fatigue; R42 Dizziness and giddiness; I25.10 Atherosclerotic heart disease of native coronary artery without angina pectoris; J44.9 Chronic obstructive pulmonary disease, unspecified; I27.21 Secondary pulmonary arterial hypertension; I48.91 Unspecified atrial fibrillation; E78.5 Hyperlipidemia, unspecified; E03.9 Hypothyroidism, unspecified; E66.01 Morbid (severe) obesity due to excess calories; F32.9 Major depressive disorder, single episode, unspecified; G47.33 Obstructive sleep apnea (adult) (pediatric); G89.29 Other chronic pain; E11.41 Type 2 diabetes mellitus with diabetic mononeuropathy; E11.621 Type 2 diabetes mellitus with foot ulcer; L97.821 Non-pressure chronic ulcer of other part of left lower leg limited to breakdown of skin; E78.00 Pure hypercholesterolemia, unspecified; Z68.41 Body mass index [BMI] 40.0-44.9, adult; Z95.810 Presence of automatic (implantable) cardiac defibrillator; Z79.899 Other long term (current) drug therapy; Z85.46 Personal history of malignant neoplasm of prostate; Z95.1 Presence of aortocoronary bypass graft; Z87.891 Personal history of nicotine dependence; Z87.440 Personal history of urinary (tract) infections; Z79.891 Long term (current) use of opiate analgesic; Z86.73 Personal history of transient ischemic attack (TIA), and cerebral infarction without residual deficits
CPT/HCPCS: 36415; 80048; 83735; 85025; 96365; 96366; G0463; J1642; J3490; J7050

== ENCOUNTER → 2019-01-22 | Outpatient (CLI) | payer MEDICARE ==
[~2019-01-22] MED LIST changes: -SODIUM CHLORIDE 0.9% 250 ML IV ONE
--- NOTE | 2019-01-22 09:55 | NUR ---
CHF PT ARRIVED TO THE CHF CLINIC FOR BUMEX THERAPY. PT A/O X 3 0 DISTRESS. VITALS SIGNS OBTAINED 0 DISTRESS
[2019-01-22 10:00] VITALS: BP 103/50
[2019-01-22 10:30] VITALS: BP 116/48
[2019-01-22 11:00] VITALS: BP 132/60
[2019-01-22 11:30] VITALS: BP 121/60
--- NOTE | 2019-01-22 11:50 | NUR ---
FREESTYLE SENSOR CHANGE PATIENTS FREESTYLE SENSOR. REMOVED PTS OLD SENSORON LEFT ARM, POSTIONED NEW SENSOR IN NEW SPOT ON LEFT ARM. CLEANSED AESPETICALLY, PT TOLERATED WELL. MEDICATION INSULIN CHANGE PER MD ORDER. TOUJEO INSULIN 20 UNITS SQ 0830 AM. LANTUS CHANGED TO 24 UNITS SQ AT NOON. PT STAYS UP ALL NIGHT LONG AND NEEDED TIME CHANGE FOR MAXIMUM INSULIN AFFECT. DISCUSSED MEDICATION CHNAGE WITH PATIENT AND , THEY VERBALIZED UNDERSTANDING.
[2019-01-22 12:00] VITALS: BP 123/67
[2019-01-22 12:28] LABS: Basophils # (auto) 0.1 uL; Basophils % (auto) 0.9 % (0.0-2.0); Eosinophils # (auto) 0.4 uL; Monocytes # (auto) 0.7 uL; Neutrophils # (auto) 4.7 uL; White Blood Cell 7.9 10^3/uL (4.4-10.8)
[2019-01-22 12:30] LABS: Eosinophils % (auto) 5.5 % (0.0-7.0); Hematocrit 34.4 % (41.0-53.0); Hemoglobin 11.1 g/dL (13.5-17.5); Lymphocytes % (auto) 25.6 % (10.0-50.0); Mean Corpuscular Hemoglobin 24.9 pg (28.0-32.0); Mean Corpuscular Hgb Conc. 32.2 g/dL (32.0-36.0); Mean Corpuscular Volume 77.3 fL (80.0-100.0); Monocytes % (auto) 8.3 % (0.0-12.0); Neutrophils % (auto) 59.7 % (37.0-80.0); Platelet Count (auto) 241 10^3/uL (140-450); Red Blood Cells 4.45 10^6/uL (4.5-5.90); Red Cell Distribution Width 17.1 % (11.8-14.3)
[2019-01-22 12:37] LABS: Potassium 3.9 mmol/L (3.5-5.1)
[2019-01-22 13:00] VITALS: BP 130/60
--- NOTE | 2019-01-22 13:00 | NUR ---
Discharge Instructions See e-MAR for any mediations given with this visit. Patient education given on disease process. Patient verbalized understanding. Previous labs reviewed. Patient discharged in stable condition with after care instructions and follow up appointment. MEDICATIONS 1000 START TIME BUMEX DRIP 1MG/HR X 3 HR 1300 STOP TIME BUMEX DRIP 1300 HEPARIN 300 UNTIS IVP X 1
== END | disposition home or self-care (01) ==
LOC: CHF HDHVI 09:57
PROVIDERS: ATTEND Internal Medicine Cardiovascular Disease
DX: I11.0 Hypertensive heart disease with heart failure (principal); I50.42 Chronic combined systolic (congestive) and diastolic (congestive) heart failure; D64.9 Anemia, unspecified; E87.6 Hypokalemia; R94.4 Abnormal results of kidney function studies; I25.10 Atherosclerotic heart disease of native coronary artery without angina pectoris; J44.9 Chronic obstructive pulmonary disease, unspecified; G89.4 Chronic pain syndrome; E78.5 Hyperlipidemia, unspecified; E03.9 Hypothyroidism, unspecified; F32.9 Major depressive disorder, single episode, unspecified; E66.01 Morbid (severe) obesity due to excess calories; E78.00 Pure hypercholesterolemia, unspecified; I27.21 Secondary pulmonary arterial hypertension; E11.41 Type 2 diabetes mellitus with diabetic mononeuropathy; E11.21 Type 2 diabetes mellitus with diabetic nephropathy; G47.33 Obstructive sleep apnea (adult) (pediatric); E11.621 Type 2 diabetes mellitus with foot ulcer; Z68.41 Body mass index [BMI] 40.0-44.9, adult; Z79.891 Long term (current) use of opiate analgesic; Z85.46 Personal history of malignant neoplasm of prostate; Z87.891 Personal history of nicotine dependence; Z95.1 Presence of aortocoronary bypass graft; Z95.810 Presence of automatic (implantable) cardiac defibrillator; Z95.5 Presence of coronary angioplasty implant and graft; Z86.73 Personal history of transient ischemic attack (TIA), and cerebral infarction without residual deficits
CPT/HCPCS: 36415; 82565; 84132; 84520; 85025; 96365; 96366; G0463; J1642; J3490

== ENCOUNTER → 2019-01-24 | Outpatient (CLI) | payer MEDICARE ==
[~2019-01-24] VITALS: Ht 30.5 cm; Wt 0.5 kg
[2019-01-24] VITALS (7 sets, daily range): BP systolic 108–150; BP diastolic 56–68
[~2019-01-24] MED LIST changes: -BUMETANIDE 1mg/4ml VIAL (0.25mg/ml) IV ONE; +BUMETANIDE 2.5mg/10ml (0.25 mg/ml) INJ IV ONE; +InsuLIN REG 1unit/0.01ml Soln (100units/ml) IV ONE; +InsuLIN REG 1unit/0.01ml Soln (100units/ml) ONE; +SODIUM CHLORIDE 0.9% 100 ML IV ONE
--- NOTE | 2019-01-24 09:43 | NUR ---
CHF PT ARRIVED TO THE CHF CLINIC A/O X 3 0 DISTRESS. V/S OBTAINED . PT DID NOT FEEL WELL LAST TIME AFTER THERAPY, BLOOD SUGARS REPORTED TO BE BETTER. WILL CONTINUE TO MONITOR.
--- NOTE | 2019-01-24 13:40 | NUR ---
Discharge Instructions See e-MAR for any mediations given with this visit. Patient education given on disease process. Patient verbalized understanding. Previous labs reviewed. Patient discharged in stable condition with after care instructions and follow up appointment. MEDICATIONS 1010 START TIME BUMEX DRIP 1 MG /HR X 3 HR 1330 STOP TIME BUMEX DRIP 1010 POTASSIUM 30 MEQ PO X 1 1210 INSULIN 6 UNITS SUB Q X 1 1339 HEPARIN 300 UNITS IVP X 1 TO PICC LINE
== END | disposition home or self-care (01) ==
LOC: CHF HDHVI 09:53
PROVIDERS: ATTEND Internal Medicine Cardiovascular Disease
DX: I11.0 Hypertensive heart disease with heart failure (principal); I50.42 Chronic combined systolic (congestive) and diastolic (congestive) heart failure; E83.40 Disorders of magnesium metabolism, unspecified; D64.9 Anemia, unspecified; I25.10 Atherosclerotic heart disease of native coronary artery without angina pectoris; J44.9 Chronic obstructive pulmonary disease, unspecified; G89.4 Chronic pain syndrome; E78.5 Hyperlipidemia, unspecified; E03.9 Hypothyroidism, unspecified; F32.9 Major depressive disorder, single episode, unspecified; E66.01 Morbid (severe) obesity due to excess calories; E78.00 Pure hypercholesterolemia, unspecified; I27.21 Secondary pulmonary arterial hypertension; E11.41 Type 2 diabetes mellitus with diabetic mononeuropathy; E11.21 Type 2 diabetes mellitus with diabetic nephropathy; I48.91 Unspecified atrial fibrillation; G47.33 Obstructive sleep apnea (adult) (pediatric); E11.621 Type 2 diabetes mellitus with foot ulcer; Z79.891 Long term (current) use of opiate analgesic; Z79.899 Other long term (current) drug therapy; Z87.891 Personal history of nicotine dependence; Z95.1 Presence of aortocoronary bypass graft; Z95.810 Presence of automatic (implantable) cardiac defibrillator; Z95.5 Presence of coronary angioplasty implant and graft; Z86.73 Personal history of transient ischemic attack (TIA), and cerebral infarction without residual deficits; Z85.46 Personal history of malignant neoplasm of prostate; Z68.41 Body mass index [BMI] 40.0-44.9, adult
CPT/HCPCS: 96365; 96366; 96372; G0463; J1642; J1815; J3490

== ENCOUNTER → 2019-01-29 | Outpatient (CLI) | payer MEDICARE ==
[2019-01-29] VITALS (8 sets, daily range): BP systolic 103–125; BP diastolic 44–75
[~2019-01-29] MED LIST changes: +BUMETANIDE 1mg/4ml VIAL (0.25mg/ml) IV ONE; -BUMETANIDE 2.5mg/10ml (0.25 mg/ml) INJ IV ONE; -InsuLIN REG 1unit/0.01ml Soln (100units/ml) IV ONE; -InsuLIN REG 1unit/0.01ml Soln (100units/ml) ONE
--- NOTE | 2019-01-29 09:55 | NUR ---
CHF PT ARRIVED TO CHF CLINIC FOR WEEKLY THERAPY. PT ALERT AND ORIENTED X 3 , 0 DISTRESS. V/S OBTAINED
--- NOTE | 2019-01-29 10:00 | NUR ---
Clinic Provider Clinic Provider into see pt with new orders received and carried out. BUMEX gtt started at {1}MG/hr per MD order.
--- NOTE | 2019-01-29 11:55 | NUR ---
CHF PT TOLERATING THERAPY WELL MULTIPLE TRIPS TO THE BATHROOM, 0 PAIN
[2019-01-29 12:03] LABS: Basophils # (auto) 0.1 uL; Eosinophils # (auto) 0.5 uL; Hemoglobin 10.6 g/dL (13.5-17.5); Mean Corpuscular Hemoglobin 24.9 pg (28.0-32.0); Monocytes # (auto) 0.7 uL; Nucleated Red Blood Cells % 0.1 %
[2019-01-29 12:08] LABS: Eosinophils % (auto) 5.7 % (0.0-7.0); Hematocrit 33.2 % (41.0-53.0); Mean Corpuscular Hgb Conc. 31.9 g/dL (32.0-36.0); Mean Corpuscular Volume 78.1 fL (80.0-100.0); Monocytes % (auto) 7.8 % (0.0-12.0); Neutrophils # (auto) 5.7 uL; Neutrophils % (auto) 63.5 % (37.0-80.0); Platelet Count (auto) 186 10^3/uL (140-450); Red Blood Cells 4.25 10^6/uL (4.5-5.90); Red Cell Distribution Width 17.5 % (11.8-14.3)
[2019-01-29 12:35] LABS: BUN/Creatinine Ratio 17.2
--- NOTE | 2019-01-29 13:38 | NUR ---
Discharge Instructions See e-MAR for any mediations given with this visit. Patient education given on disease process. Patient verbalized understanding. Previous labs reviewed. Patient discharged in stable condition with after care instructions and follow up appointment. MEDICATIONS 1015 START TIME BUMEX DRIP 1MG/HR X 3 HR 1320 STOP TIME BUMEX DRIP 1335 POTASSIUM 30 MEQ PO X 1 1020 HEPARIN 150 UNITS IVP X 1 1335 HEPARIN 150 UNITS IVP X 1
== END | disposition home or self-care (01) ==
LOC: CHF HDHVI 10:31
PROVIDERS: ATTEND Internal Medicine Cardiovascular Disease
DX: I11.0 Hypertensive heart disease with heart failure (principal); I50.23 Acute on chronic systolic (congestive) heart failure; I50.32 Chronic diastolic (congestive) heart failure; E83.40 Disorders of magnesium metabolism, unspecified; D64.9 Anemia, unspecified; I25.10 Atherosclerotic heart disease of native coronary artery without angina pectoris; E11.621 Type 2 diabetes mellitus with foot ulcer; L97.929 Non-pressure chronic ulcer of unspecified part of left lower leg with unspecified severity; E11.40 Type 2 diabetes mellitus with diabetic neuropathy, unspecified; I48.91 Unspecified atrial fibrillation; J44.9 Chronic obstructive pulmonary disease, unspecified; G47.33 Obstructive sleep apnea (adult) (pediatric); G89.4 Chronic pain syndrome; E78.5 Hyperlipidemia, unspecified; E03.9 Hypothyroidism, unspecified; F32.9 Major depressive disorder, single episode, unspecified; E66.01 Morbid (severe) obesity due to excess calories; E78.00 Pure hypercholesterolemia, unspecified; I27.21 Secondary pulmonary arterial hypertension; Z68.41 Body mass index [BMI] 40.0-44.9, adult; Z79.899 Other long term (current) drug therapy; Z85.46 Personal history of malignant neoplasm of prostate; Z87.891 Personal history of nicotine dependence; Z79.891 Long term (current) use of opiate analgesic; Z95.810 Presence of automatic (implantable) cardiac defibrillator; Z95.1 Presence of aortocoronary bypass graft; Z86.73 Personal history of transient ischemic attack (TIA), and cerebral infarction without residual deficits
CPT/HCPCS: 36415; 80048; 83735; 85025; 96365; 96366; G0463; J1642; J3490

== ENCOUNTER → 2019-01-31 | Outpatient (CLI) | payer MEDICARE ==
[2019-01-31] VITALS (7 sets, daily range): BP systolic 100–126; BP diastolic 47–71
[~2019-01-31] MED LIST changes: -BUMETANIDE 1mg/4ml VIAL (0.25mg/ml) IV ONE; +BUMETANIDE 2.5mg/10ml (0.25 mg/ml) INJ IV ONE
--- NOTE | 2019-01-31 09:50 | NUR ---
CHF PT ARRIVED TO THE CHF CLINIC FOR WEEKLY DIURETIC THERAPY, A/O X 3 0 DISTRESS. V/S OBTAINED MD RIOS
--- NOTE | 2019-01-31 09:55 | NUR ---
Clinic Provider Clinic Provider into see pt with new orders BUMEX gtt started at {1}mg/hr per MD order.
--- NOTE | 2019-01-31 13:15 | NUR ---
Discharge Instructions See e-MAR for any mediations given with this visit. Patient education given on disease process. Patient verbalized understanding. Previous labs reviewed. Patient discharged in stable condition with after care instructions and follow up appointment. MEDICATION 1002 START TIME BUMEX DRIP 1MG/HR X 3 HR 1310 STOP TIME BUMEX DRIP 1228 POTASSIUM 30 MEQ PO X 1 1312 HEPARIN 300 UNITS IVP X 1
== END | disposition home or self-care (01) ==
LOC: CHF HDHVI 09:59
PROVIDERS: ATTEND Internal Medicine Cardiovascular Disease
DX: I11.0 Hypertensive heart disease with heart failure (principal); I50.42 Chronic combined systolic (congestive) and diastolic (congestive) heart failure; I25.10 Atherosclerotic heart disease of native coronary artery without angina pectoris; I48.91 Unspecified atrial fibrillation; J44.9 Chronic obstructive pulmonary disease, unspecified; E11.41 Type 2 diabetes mellitus with diabetic mononeuropathy; E11.21 Type 2 diabetes mellitus with diabetic nephropathy; E78.5 Hyperlipidemia, unspecified; E03.9 Hypothyroidism, unspecified; E78.00 Pure hypercholesterolemia, unspecified; G89.4 Chronic pain syndrome; F17.210 Nicotine dependence, cigarettes, uncomplicated; F32.9 Major depressive disorder, single episode, unspecified; E66.01 Morbid (severe) obesity due to excess calories; Z68.41 Body mass index [BMI] 40.0-44.9, adult; Z95.1 Presence of aortocoronary bypass graft; Z79.891 Long term (current) use of opiate analgesic; Z79.899 Other long term (current) drug therapy; Z95.810 Presence of automatic (implantable) cardiac defibrillator; Z86.73 Personal history of transient ischemic attack (TIA), and cerebral infarction without residual deficits
CPT/HCPCS: 96365; 96366; G0463; J1642; J3490

== ENCOUNTER → 2019-02-05 | Outpatient (CLI) | payer MEDICARE ==
[~2019-02-05] MED LIST changes: +SODIUM CHLORIDE 0.9% 1,000 ML IV SCH; -SODIUM CHLORIDE 0.9% 100 ML IV ONE
[2019-02-05 10:15] VITALS: BP 90/51
[2019-02-05 10:45] VITALS: BP 121/60
[2019-02-05 12:15] VITALS: BP 118/63
[2019-02-05 12:45] VITALS: BP 111/52
[2019-02-05 13:45] VITALS: BP 116/59
--- NOTE | 2019-02-05 13:45 | NUR ---
IN TO CLINIC FOR SCHEDULED INFUSION. WITHOUT DISTRESS OR DISCOMFORT. TOLERATED WELL. RIGHT ARM PICC LINE USED AND TOLERATED WELL, . UP TO VOID MANY TIMES AND TOLERATED WELL. Discharge Instructions See e-MAR for any mediations given with this visit. Patient education given on disease process. Patient verbalized understanding. Previous labs reviewed. Patient discharged in stable condition with after care instructions and follow up appointment FOR Monday02/07/19 MEDICATION ADMINISTRATION BUMEX GTT AT 1 MG/HR X 3 HOURS K DUR 30 MEQ PO AT 1005 HEPARIN 150 UNITS IVP TO RIGHT ARM PICC LINE
== END | disposition home or self-care (01) ==
LOC: CHF HDHVI 10:15
PROVIDERS: ATTEND Internal Medicine Cardiovascular Disease
DX: I11.0 Hypertensive heart disease with heart failure (principal); I50.42 Chronic combined systolic (congestive) and diastolic (congestive) heart failure; I25.10 Atherosclerotic heart disease of native coronary artery without angina pectoris; I48.91 Unspecified atrial fibrillation; J44.9 Chronic obstructive pulmonary disease, unspecified; E78.5 Hyperlipidemia, unspecified; E03.9 Hypothyroidism, unspecified; E11.21 Type 2 diabetes mellitus with diabetic nephropathy; E11.42 Type 2 diabetes mellitus with diabetic polyneuropathy; E78.00 Pure hypercholesterolemia, unspecified; E66.01 Morbid (severe) obesity due to excess calories; F32.9 Major depressive disorder, single episode, unspecified; G89.4 Chronic pain syndrome; Z79.899 Other long term (current) drug therapy; Z87.891 Personal history of nicotine dependence; Z95.5 Presence of coronary angioplasty implant and graft; Z95.810 Presence of automatic (implantable) cardiac defibrillator; Z86.73 Personal history of transient ischemic attack (TIA), and cerebral infarction without residual deficits; Z68.41 Body mass index [BMI] 40.0-44.9, adult; Z79.891 Long term (current) use of opiate analgesic; Z85.46 Personal history of malignant neoplasm of prostate
CPT/HCPCS: 96365; 96366; G0463; J1642; J3490; J7030

== ENCOUNTER → 2019-02-07 | Outpatient (CLI) | payer MEDICARE ==
[~2019-02-07] VITALS: Ht 30.5 cm; Wt 112.1 kg
[~2019-02-07] MED LIST changes: -POTASSIUM CHL 20 Meq TABLET PO ONE; -SODIUM CHLORIDE 0.9% 1,000 ML IV SCH; +SODIUM CHLORIDE 0.9% 100 ML IV ONE
--- NOTE | 2019-02-07 09:55 | NUR ---
CHF PT ARRIVED TO THE CHF CLINIC A/O X 3 O DISTRESS. V/S OBTAINED UPDATED
--- NOTE | 2019-02-07 10:05 | NUR ---
Clinic Provider Clinic Provider updated new orders received and carried out. Bumex gtt started at {1}mg/hr per MD order.
[2019-02-07 10:15] VITALS: BP 112/51
[2019-02-07 10:45] VITALS: BP 114/57
[2019-02-07 11:15] VITALS: BP 133/57
[2019-02-07 11:45] VITALS: BP 106/60
[2019-02-07 12:15] VITALS: BP 108/63
--- NOTE | 2019-02-07 13:51 | NUR ---
Discharge Instructions See e-MAR for any mediations given with this visit. Patient education given on disease process. Patient verbalized understanding. Previous labs reviewed. Patient discharged in stable condition with after care instructions and follow up appointment. MEDICATIONS 1015 START TIME BUMEX DRIP 1MG/HR X 3 HR STOP TIME 1336 1015 POTASSIUM 30 MEQ PO X 1 1342 HEPARIN 150 UNITS IVP X 2
[2019-02-07 14:15] VITALS: BP 116/73
== END | disposition home or self-care (01) ==
LOC: CHF HDHVI 10:23
PROVIDERS: ATTEND Internal Medicine Cardiovascular Disease
DX: I11.0 Hypertensive heart disease with heart failure (principal); I50.42 Chronic combined systolic (congestive) and diastolic (congestive) heart failure; E11.40 Type 2 diabetes mellitus with diabetic neuropathy, unspecified; I25.10 Atherosclerotic heart disease of native coronary artery without angina pectoris; I27.21 Secondary pulmonary arterial hypertension; I48.91 Unspecified atrial fibrillation; J44.9 Chronic obstructive pulmonary disease, unspecified; G89.4 Chronic pain syndrome; E78.5 Hyperlipidemia, unspecified; E78.00 Pure hypercholesterolemia, unspecified; E03.9 Hypothyroidism, unspecified; F32.9 Major depressive disorder, single episode, unspecified; E66.01 Morbid (severe) obesity due to excess calories; E11.21 Type 2 diabetes mellitus with diabetic nephropathy; Z68.41 Body mass index [BMI] 40.0-44.9, adult; Z79.899 Other long term (current) drug therapy; Z95.810 Presence of automatic (implantable) cardiac defibrillator; Z79.891 Long term (current) use of opiate analgesic; Z86.73 Personal history of transient ischemic attack (TIA), and cerebral infarction without residual deficits; Z95.1 Presence of aortocoronary bypass graft; Z87.891 Personal history of nicotine dependence; Z95.5 Presence of coronary angioplasty implant and graft; Z85.46 Personal history of malignant neoplasm of prostate
CPT/HCPCS: 93701; 96365; 96366; G0463; J1642; J3490

== ENCOUNTER → 2019-02-12 | Outpatient (CLI) | payer MEDICARE ==
[2019-02-12] VITALS (7 sets, daily range): BP systolic 114–132; BP diastolic 48–60
[~2019-02-12] MED LIST changes: +BUMETANIDE 1mg/4ml VIAL (0.25mg/ml) IV ONE; -BUMETANIDE 2.5mg/10ml (0.25 mg/ml) INJ IV ONE
--- NOTE | 2019-02-12 09:43 | NUR ---
CHF PT ARRIVED TO THE CHF CLINIC FOR WEEKLY THERAPY. PT IS ALERT AND ORIENTED X 3 . V/S OBTAINED MD RIOS
[2019-02-12 12:03] LABS: Basophils # (auto) 0.1 uL; Basophils % (auto) 1.5 % (0.0-2.0); Eosinophils # (auto) 0.6 uL; Hematocrit 34.9 % (41.0-53.0); Hemoglobin 11.2 g/dL (13.5-17.5); Lymphocytes # (auto) 2.2 uL; Lymphocytes % (auto) 27.4 % (10.0-50.0); Mean Corpuscular Hemoglobin 24.4 pg (28.0-32.0); Mean Corpuscular Hgb Conc. 32.1 g/dL (32.0-36.0); Monocytes # (auto) 0.6 uL; Monocytes % (auto) 7.8 % (0.0-12.0); Neutrophils # (auto) 4.5 uL; Neutrophils % (auto) 55.3 % (37.0-80.0); Nucleated Red Blood Cells % 0.1 %; Platelet Count (auto) 247 10^3/uL (140-450); Red Blood Cells 4.59 10^6/uL (4.5-5.90); Red Cell Distribution Width 17.8 % (11.8-14.3); White Blood Cell 8.1 10^3/uL (4.4-10.8)
[2019-02-12 12:20] LABS: Potassium 3.9 mmol/L (3.5-5.1)
[2019-02-12 12:28] LABS: BUN/Creatinine Ratio 15.2; Calcium 8.6 mg/dL (8.5-10.1); Magnesium 2.2 mg/dL (1.6-2.6)
--- NOTE | 2019-02-12 12:59 | NUR ---
PT TOLERATING THERAPY SARAVANAN, MULTIPLE TRIPS TO THE BATHROOM 0 DISTRESS
--- NOTE | 2019-02-12 13:50 | NUR ---
Discharge Instructions See e-MAR for any mediations given with this visit. Patient education given on disease process. Patient verbalized understanding. Previous labs reviewed. Patient discharged in stable condition with after care instructions and follow up appointment. MEDICATIONS 1006 BUMEX 1 MG/HR X 3 HR 1340 BUMEX 1MG/HR 1300 POTASSIUM 30 MEQ PO X1 1345 HEPARIN 150 UNITS 1VP X 2
== END | disposition home or self-care (01) ==
LOC: CHF HDHVI 09:50
PROVIDERS: ATTEND Internal Medicine Cardiovascular Disease
DX: I11.0 Hypertensive heart disease with heart failure (principal); I50.42 Chronic combined systolic (congestive) and diastolic (congestive) heart failure; D64.9 Anemia, unspecified; E83.40 Disorders of magnesium metabolism, unspecified; J44.9 Chronic obstructive pulmonary disease, unspecified; G89.4 Chronic pain syndrome; E11.41 Type 2 diabetes mellitus with diabetic mononeuropathy; E11.621 Type 2 diabetes mellitus with foot ulcer; L97.901 Non-pressure chronic ulcer of unspecified part of unspecified lower leg limited to breakdown of skin; I48.91 Unspecified atrial fibrillation; E78.5 Hyperlipidemia, unspecified; F32.9 Major depressive disorder, single episode, unspecified; E66.01 Morbid (severe) obesity due to excess calories; E78.00 Pure hypercholesterolemia, unspecified; I27.21 Secondary pulmonary arterial hypertension; G47.33 Obstructive sleep apnea (adult) (pediatric); Z68.41 Body mass index [BMI] 40.0-44.9, adult; Z79.899 Other long term (current) drug therapy; Z87.891 Personal history of nicotine dependence; Z86.73 Personal history of transient ischemic attack (TIA), and cerebral infarction without residual deficits; Z95.810 Presence of automatic (implantable) cardiac defibrillator; Z95.1 Presence of aortocoronary bypass graft; Z95.5 Presence of coronary angioplasty implant and graft
CPT/HCPCS: 36415; 80048; 83735; 85025; 96365; 96366; G0463; J1642; J3490

== ENCOUNTER → 2019-02-14 | Outpatient (CLI) | payer MEDICARE ==
[2019-02-14] VITALS (7 sets, daily range): BP systolic 107–128; BP diastolic 54–66
[~2019-02-14] VITALS: Ht 30.5 cm; Wt 113.4 kg
[~2019-02-14] MED LIST changes: -BUMETANIDE 1mg/4ml VIAL (0.25mg/ml) IV ONE; +BUMETANIDE 2.5mg/10ml (0.25 mg/ml) INJ IV ONE; +POTASSIUM CHL 10 Meq TABLET PO SCH; -SODIUM CHLORIDE 0.9% 100 ML IV ONE
--- NOTE | 2019-02-14 09:36 | NUR ---
CHF PT ARRIVED AT THE CHF CLINIC FOR ALFREDO ALCARAZ, A/O X 3 NO DISTRESS, V/S OBTAINED
--- NOTE | 2019-02-14 13:10 | NUR ---
INFUSION TOLERATED WELL. COMPLTED POST INFUSION PICC LINE CARE PER PROTOCOL.
--- NOTE | 2019-02-14 13:25 | NUR ---
NEW FREESTYLE SENSOR APPLIED TO LEFT ARM. TOLERATED WELL SKIN PREPPED AND SENSOR DEPLOYED ACCORDING TO TOP PRINTING PRESS OPERATOR INSTRUCTIONS. PT HAS DEMONSTRATED DIFFICULTY IN MAINTAINING A GOOD SEAL AND LASTING ADHESIVE OF THE SENSOR. DISCHARGED TO SELF CARE WITH IN ATTENDANCE. MEDICATION ADMINISTRATION BUMEX GTT 3.5 MG IN 100 0.9NS AT 28.7 ML HR X 3 HOURS (1 MG/HR) START AT 0957/STOP AT 1310 POTASSIUM 30 MEQ PO AT 0957 HEPARIN 150 UNITS IVP X 2 PORTS TO RIGHT ARM PICC LINE
== END | disposition home or self-care (01) ==
LOC: CHF HDHVI 09:48
PROVIDERS: ATTEND Internal Medicine Cardiovascular Disease
DX: I11.0 Hypertensive heart disease with heart failure (principal); I50.42 Chronic combined systolic (congestive) and diastolic (congestive) heart failure; I25.10 Atherosclerotic heart disease of native coronary artery without angina pectoris; I27.21 Secondary pulmonary arterial hypertension; I48.91 Unspecified atrial fibrillation; J44.9 Chronic obstructive pulmonary disease, unspecified; G89.4 Chronic pain syndrome; E78.5 Hyperlipidemia, unspecified; E03.9 Hypothyroidism, unspecified; E11.41 Type 2 diabetes mellitus with diabetic mononeuropathy; E78.00 Pure hypercholesterolemia, unspecified; E66.01 Morbid (severe) obesity due to excess calories; F32.9 Major depressive disorder, single episode, unspecified; Z87.891 Personal history of nicotine dependence; Z95.1 Presence of aortocoronary bypass graft; Z95.810 Presence of automatic (implantable) cardiac defibrillator; Z86.73 Personal history of transient ischemic attack (TIA), and cerebral infarction without residual deficits; Z79.891 Long term (current) use of opiate analgesic; Z95.5 Presence of coronary angioplasty implant and graft; Z79.899 Other long term (current) drug therapy; Z68.41 Body mass index [BMI] 40.0-44.9, adult; Z85.46 Personal history of malignant neoplasm of prostate
CPT/HCPCS: 96365; 96366; G0463; J1642; J3490

== ENCOUNTER → 2019-02-19 | Outpatient (CLI) | payer MEDICARE ==
[~2019-02-19] MED LIST changes: +KETOROLAC TROMETH 60MG/2ML VIAL IM ONE; +KETOROLAC TROMETH 60MG/2ML VIAL ONE; -POTASSIUM CHL 10 Meq TABLET PO SCH
--- NOTE | 2019-02-19 10:00 | NUR ---
CHF PT ARRIVED AT THE CHF CLINIC FOR THERAPY , A/O X3 , GENERALIZED ACHES AND PAINS . V/S OBTAINED
[2019-02-19 11:00] VITALS: BP 117/69
[2019-02-19 11:30] VITALS: BP 129/55
[2019-02-19 12:00] VITALS: BP 129/53
[2019-02-19 12:30] VITALS: BP 115/57
[2019-02-19 13:00] VITALS: BP 119/56
[2019-02-19 13:57] VITALS: BP 122/49
--- NOTE | 2019-02-19 13:57 | NUR ---
Discharge Instructions See e-MAR for any mediations given with this visit. Patient education given on disease process. Patient verbalized understanding. Previous labs reviewed. Patient discharged in stable condition with after care instructions and follow up appointment. MEDICATIONS 1030 START TIME bUMEX 1 GRAM IV X 3 HR 1350 STOP TIME BUMEX DRIP 1030 POTASSIUM 30 MEQ PO 1202 TORADOL 60 MG IM X 1 1353 HEPARIN 300 UNITS IVP X 1
== END | disposition home or self-care (01) ==
LOC: CHF HDHVI 10:39
PROVIDERS: ATTEND Internal Medicine Cardiovascular Disease
DX: I11.0 Hypertensive heart disease with heart failure (principal); I50.42 Chronic combined systolic (congestive) and diastolic (congestive) heart failure; I25.10 Atherosclerotic heart disease of native coronary artery without angina pectoris; I48.91 Unspecified atrial fibrillation; I27.21 Secondary pulmonary arterial hypertension; J44.9 Chronic obstructive pulmonary disease, unspecified; G89.4 Chronic pain syndrome; E78.5 Hyperlipidemia, unspecified; E11.41 Type 2 diabetes mellitus with diabetic mononeuropathy; E03.9 Hypothyroidism, unspecified; F32.9 Major depressive disorder, single episode, unspecified; E78.00 Pure hypercholesterolemia, unspecified; E66.01 Morbid (severe) obesity due to excess calories; Z68.41 Body mass index [BMI] 40.0-44.9, adult; Z79.899 Other long term (current) drug therapy; Z87.891 Personal history of nicotine dependence; Z95.810 Presence of automatic (implantable) cardiac defibrillator; Z95.5 Presence of coronary angioplasty implant and graft; Z79.891 Long term (current) use of opiate analgesic; Z86.73 Personal history of transient ischemic attack (TIA), and cerebral infarction without residual deficits
CPT/HCPCS: 96365; 96366; 96372; G0463; J1642; J1885; J3490

== ENCOUNTER → 2019-02-21 | Outpatient (CLI) | payer MEDICARE ==
[2019-02-21] VITALS (9 sets, daily range): BP systolic 110–129; BP diastolic 55–61
[~2019-02-21] MED LIST changes: +ASPI-404 PO; -ASPI81TA27 PO; +BUMETANIDE 1mg/4ml VIAL (0.25mg/ml) IV ONE; -BUMETANIDE 2.5mg/10ml (0.25 mg/ml) INJ IV ONE; -CLIN1CAP4 PO; +CLIN300C8 PO; +GABA-339 PO; -GLIP-116 PO; +GLIP10TA9 PO; +INSLANTI SC; -KETOROLAC TROMETH 60MG/2ML VIAL IM ONE; -KETOROLAC TROMETH 60MG/2ML VIAL ONE; +LEVO125T7 PO; +METO25TA36 PO; -METO25TA4 PO; +ONDANSETRON HCL 4 MG/2 ML VIAL IV ONE; +ONDANSETRON HCL 4 MG/2 ML VIAL ONE; +POTA10TA51 PO; +POTASSIUM CHL 20 Meq TABLET PO ONE; +SODIUM CHLORIDE 0.9% 100 ML IV SCH; +TEMA15CA PO
--- NOTE | 2019-02-21 09:00 | NUR ---
RIGHT ARM PICC LINE ACCESSED FOR INFUSION USE. SITE BENIGN. DRESSING D/I. CLINIC PROVIDER CONSULTED AND ORDERS RECIEVED. START INFUSION PER PROTOCOL.
--- NOTE | 2019-02-21 13:08 | NUR ---
Discharge Instructions See e-MAR for any mediations given with this visit. Patient education given on disease process. Patient verbalized understanding. Previous labs reviewed. Patient discharged in stable condition with after care instructions and follow up appointment. MEDICATIONS 0940 START TIME BUMEX DRIP 1MG/HR X 3 1259 STOP TIME BUMEX DRIP[ 1000 POTASSIUM 30 MEQ PO X 1 1300 ZOFRAN 4 MG IV X 1 1300 HEPARIN 300 UNITS IVP TO 2 PICC PORTS
== END | disposition home or self-care (01) ==
LOC: CHF HDHVI 09:35
PROVIDERS: ATTEND Internal Medicine Cardiovascular Disease
DX: I11.0 Hypertensive heart disease with heart failure (principal); I50.42 Chronic combined systolic (congestive) and diastolic (congestive) heart failure; I25.10 Atherosclerotic heart disease of native coronary artery without angina pectoris; I48.91 Unspecified atrial fibrillation; I27.21 Secondary pulmonary arterial hypertension; J44.9 Chronic obstructive pulmonary disease, unspecified; F32.9 Major depressive disorder, single episode, unspecified; G89.4 Chronic pain syndrome; E78.5 Hyperlipidemia, unspecified; E03.9 Hypothyroidism, unspecified; E78.00 Pure hypercholesterolemia, unspecified; E11.41 Type 2 diabetes mellitus with diabetic mononeuropathy; E11.21 Type 2 diabetes mellitus with diabetic nephropathy; E11.40 Type 2 diabetes mellitus with diabetic neuropathy, unspecified; E66.01 Morbid (severe) obesity due to excess calories; Z68.41 Body mass index [BMI] 40.0-44.9, adult; Z79.891 Long term (current) use of opiate analgesic; Z95.1 Presence of aortocoronary bypass graft; Z95.810 Presence of automatic (implantable) cardiac defibrillator; Z79.899 Other long term (current) drug therapy; Z95.5 Presence of coronary angioplasty implant and graft; Z86.73 Personal history of transient ischemic attack (TIA), and cerebral infarction without residual deficits; Z87.891 Personal history of nicotine dependence
CPT/HCPCS: 96365; 96366; 96375; G0463; J1642; J2405; J3490

== ENCOUNTER → 2019-02-26 | Outpatient (CLI) | payer MEDICARE ==
[2019-02-26] VITALS (8 sets, daily range): BP systolic 102–135; BP diastolic 54–66
[~2019-02-26] MED LIST changes: -BUMETANIDE 1mg/4ml VIAL (0.25mg/ml) IV ONE; +BUMETANIDE 2.5mg/10ml (0.25 mg/ml) INJ IV ONE; +IOHEXOL 350 MG/ML 100ML IJ ONE; +KETOROLAC TROMETH 60MG/2ML VIAL IM ONE; +KETOROLAC TROMETH 60MG/2ML VIAL ONE; -ONDANSETRON HCL 4 MG/2 ML VIAL IV ONE; -ONDANSETRON HCL 4 MG/2 ML VIAL ONE; +READI-CAT 2 (BARIUM SULF)(VANILLA SMOOTHIE) 450ML ONE; +SODIUM CHLORIDE 0.9% 100 ML IV ONE; -SODIUM CHLORIDE 0.9% 100 ML IV SCH
--- NOTE | 2019-02-26 09:49 | NUR ---
CHF PT ARRIVED TO THE CHF CLINIC FOR WEEKLY THERAPY, PT COMPLAIN OF ABDOMINAL CRAMPING. VS OBTAINED
[2019-02-26 12:12] LABS: Basophils # (auto) 0.1 uL; Lymphocytes # (auto) 2.3 uL; Red Blood Cells 4.81 10^6/uL (4.5-5.90); Red Cell Distribution Width 17.7 % (11.8-14.3)
[2019-02-26 12:15] LABS: Basophils % (auto) 0.8 % (0.0-2.0); Eosinophils # (auto) 0.6 uL; Eosinophils % (auto) 6.2 % (0.0-7.0); Hematocrit 35.9 % (41.0-53.0); Hemoglobin 11.6 g/dL (13.5-17.5); Mean Corpuscular Hgb Conc. 32.2 g/dL (32.0-36.0); Mean Corpuscular Volume 74.8 fL (80.0-100.0); Monocytes # (auto) 0.7 uL; Monocytes % (auto) 7.6 % (0.0-12.0); Neutrophils # (auto) 5.9 uL; Neutrophils % (auto) 61.4 % (37.0-80.0); Platelet Count (auto) 254 10^3/uL (140-450); White Blood Cell 9.7 10^3/uL (4.4-10.8)
--- NOTE | 2019-02-26 12:29 | NUR ---
GI PT COMPLAIN OF ABDOMINAL CRAMPING 5/10 BEEN PRESENT FOR OVER A WEEK. UPDATED MD ORDERS RECEIVED AND NOTED. CT ABD/PELVIS WITH CONTRAST. STAT LABS SENT
[2019-02-26 12:41] LABS: Calcium 9.1 mg/dL (8.5-10.1); Magnesium 2.1 mg/dL (1.6-2.6); Potassium 4.1 mmol/L (3.5-5.1)
--- NOTE | 2019-02-26 13:34 | NUR ---
Discharge Instructions See e-MAR for any mediations given with this visit. Patient education given on disease process. Patient verbalized understanding. Previous labs reviewed. Patient discharged in stable condition with after care instructions and follow up appointment. MEDICATIONS 0954 START TIME BUMEX DRIP 3.5MG/100ML RUN AT 1MG/HR X 3 HR 1310 STOP TIME BUMEX DRIP 1333 POTASSIUM 30 MEQ PO X 1 1333 TORADOL 60 MG IM X 1 LOT # [id number] EXP 10/25 1333 HEPARIN 150 UNITS IVP X 2 TO EACH PICC PORT
== END | disposition home or self-care (01) ==
LOC: CHF HDHVI 10:48
PROVIDERS: ATTEND Internal Medicine Cardiovascular Disease
DX: I11.0 Hypertensive heart disease with heart failure (principal); I50.42 Chronic combined systolic (congestive) and diastolic (congestive) heart failure; I25.10 Atherosclerotic heart disease of native coronary artery without angina pectoris; D64.9 Anemia, unspecified; E83.40 Disorders of magnesium metabolism, unspecified; C61 Malignant neoplasm of prostate; I48.91 Unspecified atrial fibrillation; K63.9 Disease of intestine, unspecified; K42.9 Umbilical hernia without obstruction or gangrene; R91.1 Solitary pulmonary nodule; K57.92 Diverticulitis of intestine, part unspecified, without perforation or abscess without bleeding; E11.51 Type 2 diabetes mellitus with diabetic peripheral angiopathy without gangrene; E11.621 Type 2 diabetes mellitus with foot ulcer; L97.921 Non-pressure chronic ulcer of unspecified part of left lower leg limited to breakdown of skin; J44.9 Chronic obstructive pulmonary disease, unspecified; G89.4 Chronic pain syndrome; E78.5 Hyperlipidemia, unspecified; E03.9 Hypothyroidism, unspecified; E78.00 Pure hypercholesterolemia, unspecified; G47.33 Obstructive sleep apnea (adult) (pediatric); E66.01 Morbid (severe) obesity due to excess calories; F32.9 Major depressive disorder, single episode, unspecified; Z95.5 Presence of coronary angioplasty implant and graft; Z87.891 Personal history of nicotine dependence; Z79.891 Long term (current) use of opiate analgesic; Z95.810 Presence of automatic (implantable) cardiac defibrillator; Z86.73 Personal history of transient ischemic attack (TIA), and cerebral infarction without residual deficits; Z68.41 Body mass index [BMI] 40.0-44.9, adult; Z79.899 Other long term (current) drug therapy
CPT/HCPCS: 36415; 74177; 80048; 83735; 85025; 96365; 96366; 96372; G0463; J1642; J1885; J3490; Q9967

== ENCOUNTER → 2019-02-28 | Outpatient (CLI) | payer MEDICARE ==
[2019-02-28] VITALS (8 sets, daily range): BP systolic 102–123; BP diastolic 48–64
[~2019-02-28] MED LIST changes: +BUMETANIDE 1mg/4ml VIAL (0.25mg/ml) IV ONE; -IOHEXOL 350 MG/ML 100ML IJ ONE; -KETOROLAC TROMETH 60MG/2ML VIAL IM ONE; -KETOROLAC TROMETH 60MG/2ML VIAL ONE; -READI-CAT 2 (BARIUM SULF)(VANILLA SMOOTHIE) 450ML ONE; +SODIUM CHLORIDE 0.9% 1,000 ML IV ONE; -SODIUM CHLORIDE 0.9% 100 ML IV ONE; +cefTRIAXone 1GM/50ML D5W 50 ML IV ONE
--- NOTE | 2019-02-28 09:50 | NUR ---
CHF PT ARRIVED AT THE CHF CLINIC FOR THERAPY, A/O X3 O DISTRESS V/S OBTAINED
--- NOTE | 2019-02-28 10:00 | NUR ---
Clinic Provider Clinic Provider into see pt with new orders received and carried out. BUMEX DRIP started at {1}mg/hr per MD order.
--- NOTE | 2019-02-28 13:50 | NUR ---
Discharge Instructions See e-MAR for any mediations given with this visit. Patient education given on disease process. Patient verbalized understanding. Previous labs reviewed. Patient discharged in stable condition with after care instructions and follow up appointment. MEDICATIONS 1015 BUMEX DRIP 1MG/HR X 3 HR 1315 STOP TIME BUMEX DRIP 1037 POTASSIUM 30 MEQ PO X 1 1345 HEPARIN 150 UNITS X 2 1VP TO PICK 1316 ROCEPHIN I GRAM IVPB 1347 ROCEPHIN 1 GRAM STOP TIME
== END | disposition home or self-care (01) ==
LOC: CHF HDHVI 09:55
PROVIDERS: ATTEND Internal Medicine Cardiovascular Disease
DX: I11.0 Hypertensive heart disease with heart failure (principal); I50.42 Chronic combined systolic (congestive) and diastolic (congestive) heart failure; I48.91 Unspecified atrial fibrillation; I25.10 Atherosclerotic heart disease of native coronary artery without angina pectoris; I27.21 Secondary pulmonary arterial hypertension; G89.4 Chronic pain syndrome; E11.40 Type 2 diabetes mellitus with diabetic neuropathy, unspecified; J44.9 Chronic obstructive pulmonary disease, unspecified; E78.5 Hyperlipidemia, unspecified; E03.9 Hypothyroidism, unspecified; E78.00 Pure hypercholesterolemia, unspecified; F32.9 Major depressive disorder, single episode, unspecified; Z95.5 Presence of coronary angioplasty implant and graft; E66.01 Morbid (severe) obesity due to excess calories; Z68.41 Body mass index [BMI] 40.0-44.9, adult; Z86.73 Personal history of transient ischemic attack (TIA), and cerebral infarction without residual deficits; Z95.1 Presence of aortocoronary bypass graft; Z79.899 Other long term (current) drug therapy; Z87.891 Personal history of nicotine dependence; Z95.810 Presence of automatic (implantable) cardiac defibrillator; Z79.891 Long term (current) use of opiate analgesic; Z85.46 Personal history of malignant neoplasm of prostate
CPT/HCPCS: 94618; 96365; 96366; 96367; G0463; J0696; J1642; J3490

== ENCOUNTER → 2019-03-01 | Outpatient (CLI) | payer MEDICARE ==
[~2019-03-01] MED LIST changes: -ASPI-404 PO; +ASPI81TA27 PO; -BUMETANIDE 1mg/4ml VIAL (0.25mg/ml) IV ONE; -BUMETANIDE 1mg/4ml VIAL (0.25mg/ml) ONE; -BUMETANIDE 2.5mg/10ml (0.25 mg/ml) INJ IV ONE; -BUMETANIDE INJECTION 10 ML ONE; +CLIN1CAP4 PO; -CLIN300C8 PO; -GABA-339 PO; +GLIP-116 PO; -GLIP10TA9 PO; -INSLANTI SC; -LEVO125T7 PO; -METO25TA36 PO; +METO25TA4 PO; -POTA10TA51 PO; -POTASSIUM CHL 10 Meq TABLET PO ONE; -POTASSIUM CHL 20 Meq TABLET PO ONE; -SODIUM CHLORIDE 0.9% 1,000 ML IV ONE; -TEMA15CA PO; -cefTRIAXone 1GM/50ML D5W 50 ML IV ONE
[2019-03-01 11:36] VITALS: BP 107/60
--- NOTE | 2019-03-01 12:00 | NUR ---
CHF IN TO CLINIC WITH IN ATTENDANCE AFTER HAVING RIGHT CHEST PORT PLACED. OCCLUSIVE DRESSING ON ANTERIOR RIGHT CHEST INTACT WITH DRY GAUZE UNDER TEGADERM. RIGHT ARM DOUBLE LUMEN PICC LINE REMOVED WITH SLOW GENTLE PRESSURE. TIP VERIFIED. CATHETER REMOVED WITHOUT INCIDENT. TOLERATED WELL. STERILE 2X2 PLACED OVER INSERTION SITE AND COVERED WITH TEGADERM. AFFECT CHEERFUL AND COOPERATIVE. DISCHERGED TO CARE OF .
== END | disposition home or self-care (01) ==
LOC: CHF HDHVI 11:35
PROVIDERS: ATTEND Internal Medicine Cardiovascular Disease
DX: I11.0 Hypertensive heart disease with heart failure (principal); I50.9 Heart failure, unspecified; E87.70 Fluid overload, unspecified
CPT/HCPCS: G0463

== ENCOUNTER → 2019-03-04 | Outpatient (CLI) | payer MEDICARE ==
[~2019-03-04] VITALS: Ht 30.5 cm; Wt 97.5 kg
[2019-03-04] VITALS (9 sets, daily range): BP systolic 101–134; BP diastolic 50–71
[~2019-03-04] MED LIST changes: +ASPI-404 PO; -ASPI81TA27 PO; +BUMETANIDE 1mg/4ml VIAL (0.25mg/ml) ONE; +BUMETANIDE 2.5mg/10ml (0.25 mg/ml) INJ IV ONE; +BUMETANIDE INJECTION 10 ML ONE; -CLIN1CAP4 PO; +CLIN300C8 PO; +GABA-339 PO; -GLIP-116 PO; +GLIP10TA9 PO; +INSLANTI SC; +LEVO125T7 PO; +METO25TA36 PO; -METO25TA4 PO; +POTA10TA51 PO; +POTASSIUM CHL 10 Meq TABLET PO ONE; +POTASSIUM CHL 20 Meq TABLET PO ONE; +SODIUM CHLORIDE 0.9% 100 ML IV SCH; +TEMA15CA PO
--- NOTE | 2019-03-04 09:35 | NUR ---
in to clinic for scheduled infusion. in attendance. without distress. reports neck soreness OVER WEEKEND POST PROCEDURE. RIGHT NECK SITE DRESSING DRY AND INTACT. RIGHT CHEST DRESSING PARTIALLY PEELED OFF BUT STILL COVERING WOUND SITE. DRESSING SITE CHANGED AND RIGHT CHEST PORT ACCESSED BY ARON ELLIS WITH STERILE TECHNIQUE. GOOD BLOOD RETURN. LABS DRAWN AND SENT.
--- NOTE | 2019-03-04 10:20 | NUR ---
TO BACK OFFICE FOR ECHOCARDIOGRAM.
--- NOTE | 2019-03-04 10:45 | NUR ---
RETURNED FROM ECHOCARDIOGRAM. IV MEDICATION RESUMED.
[2019-03-04 13:07] LABS: Calcium 8.8 mg/dL (8.5-10.1); Potassium 4.2 mmol/L (3.5-5.1)
[2019-03-04 13:12] LABS: BUN/Creatinine Ratio 15.7; Bilirubin, Total 0.2 mg/dL (0.2-1.0); Total Protein 6.8 g/dL (6.4-8.2)
--- NOTE | 2019-03-04 14:15 | NUR ---
CHF INFUSION COMPLETED. TOLERATED WELL. WITHOUT DISTRESS AND WITHOUT DISCOMFORT. RIGHT CHEST PORT [place] REMOVED AND SITE BENIGN POST USE. DISCHARGED TO CARE OF WITHOUT DISTRESS. VS WNL. CLEAN DRY DRESSINGS APPLIED TO RIGHT ANTERIOR CHEST AND TO RIGHT NECK SITE ALSO. MEDICATION ADMINISTRATION BUMEX 3.5 MG IN 100 ML START AT 0950/STOP AT 1400 (INTERRUPTED X 30 MINUTES FOR ECHOCARDIOGRAM) (1MG/HR X 3 HOURS) POTASSIUM 30 MEQ PO AT 1010 HEPARIN 500 UNITS IVP AT 1400 TO RIGHT CHEST PORT
[2019-03-04 22:46] LABS: Basophils # (auto) 0.1 uL; Monocytes # (auto) 0.8 uL
[2019-03-04 22:48] LABS: Basophils % (auto) 1.5 % (0.0-2.0); Eosinophils # (auto) 0.6 uL; Eosinophils % (auto) 6.2 % (0.0-7.0); Hematocrit 31.1 % (41.0-53.0); Hemoglobin 9.9 g/dL (13.5-17.5); Lymphocytes # (auto) 2.4 uL; Mean Corpuscular Hemoglobin 24.2 pg (28.0-32.0); Mean Corpuscular Hgb Conc. 31.8 g/dL (32.0-36.0); Monocytes % (auto) 9.4 % (0.0-12.0); Neutrophils % (auto) 55.9 % (37.0-80.0); Platelet Count (auto) 281 10^3/uL (140-450); Red Blood Cells 4.09 10^6/uL (4.5-5.90); Red Cell Distribution Width 18.2 % (11.8-14.3); White Blood Cell 8.9 10^3/uL (4.4-10.8)
== END | disposition home or self-care (01) ==
LOC: CHF HDHVI 10:03
PROVIDERS: ATTEND Internal Medicine Cardiovascular Disease
DX: I11.0 Hypertensive heart disease with heart failure (principal); I50.42 Chronic combined systolic (congestive) and diastolic (congestive) heart failure; D64.9 Anemia, unspecified; I25.10 Atherosclerotic heart disease of native coronary artery without angina pectoris; I27.21 Secondary pulmonary arterial hypertension; J44.9 Chronic obstructive pulmonary disease, unspecified; I48.91 Unspecified atrial fibrillation; G89.4 Chronic pain syndrome; E78.5 Hyperlipidemia, unspecified; E03.9 Hypothyroidism, unspecified; F32.9 Major depressive disorder, single episode, unspecified; E78.00 Pure hypercholesterolemia, unspecified; E11.40 Type 2 diabetes mellitus with diabetic neuropathy, unspecified; E66.01 Morbid (severe) obesity due to excess calories; Z68.41 Body mass index [BMI] 40.0-44.9, adult; Z79.899 Other long term (current) drug therapy; Z85.46 Personal history of malignant neoplasm of prostate; Z87.891 Personal history of nicotine dependence; Z79.891 Long term (current) use of opiate analgesic; Z95.1 Presence of aortocoronary bypass graft; Z95.810 Presence of automatic (implantable) cardiac defibrillator; Z95.5 Presence of coronary angioplasty implant and graft; Z86.73 Personal history of transient ischemic attack (TIA), and cerebral infarction without residual deficits
CPT/HCPCS: 36415; 80053; 83036; 85025; 93306; 96365; 96366; G0463; J1642; J3490

== ENCOUNTER → 2019-03-12 | Outpatient (CLI) | payer MEDICARE ==
[2019-03-12] VITALS (9 sets, daily range): BP systolic 104–115; BP diastolic 49–55
[~2019-03-12] MED LIST changes: -ASPI-404 PO; +ASPI81TA27 PO; -BUMETANIDE 2.5mg/10ml (0.25 mg/ml) INJ IV ONE; +BUMETANIDE IV ONE; +CLIN1CAP4 PO; -CLIN300C8 PO; -GABA-339 PO; +GIVE UN DILUTED IV ONE; +GLIP-116 PO; -GLIP10TA9 PO; -INSLANTI SC; -LEVO125T7 PO; -METO25TA36 PO; +METO25TA4 PO; -POTA10TA51 PO; -POTASSIUM CHL 20 Meq TABLET PO ONE; -SODIUM CHLORIDE 0.9% 100 ML IV SCH; -TEMA15CA PO
--- NOTE | 2019-03-12 10:00 | NUR ---
Darling Cath Insertion 20 gauge Darling Cath inserted by Bridget ELLIS using sterile technique in the R upper chest with occlusive dressing over saucedo needle. Patient tolerated procedure well. Ordered labs drawn and sent. See e-MAR for medications given during this visit.
--- NOTE | 2019-03-12 10:00 | NUR ---
Initial PICC Line PICC line CB assessed before access by Bridget ELLIS for ordered medications per MD. Port accessed per protocol flushed with 10 ml 0.9% NS prior to administration of ordered medication. See e-MAR for medications given during this visit. Addendum: 03/12/19 at 1210 by Soco Barr RN RN NOTE ON WRONG PATIENT
[2019-03-12 12:16] LABS: Basophils # (auto) 0.1 uL; Eosinophils # (auto) 0.5 uL; Mean Corpuscular Volume 75.1 fL (80.0-100.0)
[2019-03-12 12:18] LABS: Eosinophils % (auto) 5.8 % (0.0-7.0); Hematocrit 33.1 % (41.0-53.0); Hemoglobin 10.5 g/dL (13.5-17.5); Lymphocytes % (auto) 22.9 % (10.0-50.0); Mean Corpuscular Hemoglobin 23.7 pg (28.0-32.0); Mean Corpuscular Hgb Conc. 31.6 g/dL (32.0-36.0); Monocytes # (auto) 0.7 uL; Monocytes % (auto) 7.7 % (0.0-12.0); Neutrophils # (auto) 5.4 uL; Neutrophils % (auto) 62.6 % (37.0-80.0); Platelet Count (auto) 235 10^3/uL (140-450); Red Blood Cells 4.41 10^6/uL (4.5-5.90); Red Cell Distribution Width 17.5 % (11.8-14.3); White Blood Cell 8.6 10^3/uL (4.4-10.8)
[2019-03-12 12:38] LABS: Potassium 3.9 mmol/L (3.5-5.1)
[2019-03-12 12:45] LABS: Calcium 9.2 mg/dL (8.5-10.1); Magnesium 2.1 mg/dL (1.6-2.6)
[2019-03-12 12:50] LABS: BUN/Creatinine Ratio 20.2
--- NOTE | 2019-03-12 13:29 | NUR ---
Darling Cath Removal Quinn needle D/C'd after Heparin flush per protocol. See e-MAR for medications given during this visit. Sterile occlusive dressing to site. Patient tolerated procedure well. Site benign post infusion.
--- NOTE | 2019-03-12 13:43 | NUR ---
Discharge Instructions See e-MAR for any mediations given with this visit. Patient education given on disease process. Patient verbalized understanding. Previous labs reviewed. Patient discharged in stable condition with after care instructions and follow up appointment. MEDICATIONS 1015 START TIME BUMEX DRIP 1MG/HR X 3 HR STOP TIME 1320 POTASSIUM 30 MEQ PO X 1 HEPARIN 500 UNITS IVP X 1
[2019-03-12 16:06] LABS: Anion Gap 20.2 (5-15)
== END | disposition home or self-care (01) ==
LOC: CHF HDHVI 09:57
PROVIDERS: ATTEND Internal Medicine Cardiovascular Disease
DX: I11.0 Hypertensive heart disease with heart failure (principal); I50.42 Chronic combined systolic (congestive) and diastolic (congestive) heart failure; J44.9 Chronic obstructive pulmonary disease, unspecified; E83.40 Disorders of magnesium metabolism, unspecified; I25.10 Atherosclerotic heart disease of native coronary artery without angina pectoris; I48.91 Unspecified atrial fibrillation; I27.21 Secondary pulmonary arterial hypertension; G89.4 Chronic pain syndrome; E78.5 Hyperlipidemia, unspecified; E03.9 Hypothyroidism, unspecified; F32.9 Major depressive disorder, single episode, unspecified; E78.00 Pure hypercholesterolemia, unspecified; E11.40 Type 2 diabetes mellitus with diabetic neuropathy, unspecified; E11.21 Type 2 diabetes mellitus with diabetic nephropathy; E66.01 Morbid (severe) obesity due to excess calories; Z68.41 Body mass index [BMI] 40.0-44.9, adult; Z79.899 Other long term (current) drug therapy; Z87.891 Personal history of nicotine dependence; Z95.1 Presence of aortocoronary bypass graft; Z95.5 Presence of coronary angioplasty implant and graft; Z86.73 Personal history of transient ischemic attack (TIA), and cerebral infarction without residual deficits
CPT/HCPCS: 36415; 80048; 83735; 85025; 96365; 96366; G0463; J1642; J3490

== ENCOUNTER → 2019-03-14 | Outpatient (CLI) | payer MEDICARE ==
[2019-03-14] VITALS (7 sets, daily range): BP systolic 104–118; BP diastolic 36–54
[~2019-03-14] MED LIST changes: +ASPI-404 PO; -ASPI81TA27 PO; +BUMETANIDE 2.5mg/10ml (0.25 mg/ml) INJ IV ONE; -BUMETANIDE IV ONE; -CLIN1CAP4 PO; +CLIN300C8 PO; -GIVE UN DILUTED IV ONE; -GLIP-116 PO; +GLIP10TA9 PO; +METO25TA36 PO; -METO25TA4 PO; +POTASSIUM CHL 20 Meq TABLET PO ONE; +SODIUM CHLORIDE 0.9% 100 ML IV ONE
--- NOTE | 2019-03-14 09:40 | NUR ---
[facility] PT ARRIVED TO THE CHF CLINIC FOR THERAPY. A/O X 3 0 DISTRESS, VITAL SIGNS OBTAINED
--- NOTE | 2019-03-14 09:50 | NUR ---
Darling Cath Insertion 20 gauge Darling Cath inserted using sterile technique in the upper chest with occlusive dressing over saucedo needle. Patient tolerated procedure well. Ordered labs drawn and sent. See e-MAR for medications given during this visit.
--- NOTE | 2019-03-14 10:00 | NUR ---
PT IS PRE-OP FOR GUDELIA FOR 03/29 AND FOR PROCEDURE FOR 04/02.
--- NOTE | 2019-03-14 13:25 | NUR ---
Discharge Instructions See e-MAR for any mediations given with this visit. Patient education given on disease process. Patient verbalized understanding. Previous labs reviewed. Patient discharged in stable condition with after care instructions and follow up appointment. MEDICATIONS 0930 METALAZONE LASIX 60MG IVP X 1 1025 POTASSIUM 20 MEQ PO X 1 Addendum: 03/14/19 at 1329 by BERTA FERNANDEZ RN RN AR WRONG PATIENT
--- NOTE | 2019-03-14 13:29 | NUR ---
Discharge Instructions See e-MAR for any mediations given with this visit. Patient education given on disease process. Patient verbalized understanding. Previous labs reviewed. Patient discharged in stable condition with after care instructions and follow up appointment. MEDICATIONS 1000 START TIME BUMEX DRIP 1MG/HR X 3 1305 STOP TIME BUMEX DRIP POTASSIUM 30 MEQ PO X 1 HEPARIN 500 UNITS IVP X 1 TO RENETTA CATH
== END | disposition home or self-care (01) ==
LOC: CHF HDHVI 09:43
PROVIDERS: ATTEND Internal Medicine Cardiovascular Disease
DX: I11.0 Hypertensive heart disease with heart failure (principal); I50.42 Chronic combined systolic (congestive) and diastolic (congestive) heart failure; I25.10 Atherosclerotic heart disease of native coronary artery without angina pectoris; I48.91 Unspecified atrial fibrillation; I27.21 Secondary pulmonary arterial hypertension; J44.9 Chronic obstructive pulmonary disease, unspecified; G89.4 Chronic pain syndrome; E78.5 Hyperlipidemia, unspecified; E03.9 Hypothyroidism, unspecified; F32.9 Major depressive disorder, single episode, unspecified; E78.00 Pure hypercholesterolemia, unspecified; E11.40 Type 2 diabetes mellitus with diabetic neuropathy, unspecified; E66.01 Morbid (severe) obesity due to excess calories; Z68.41 Body mass index [BMI] 40.0-44.9, adult; Z79.891 Long term (current) use of opiate analgesic; Z85.46 Personal history of malignant neoplasm of prostate; Z87.891 Personal history of nicotine dependence; Z95.810 Presence of automatic (implantable) cardiac defibrillator; Z95.1 Presence of aortocoronary bypass graft; Z79.899 Other long term (current) drug therapy; Z86.73 Personal history of transient ischemic attack (TIA), and cerebral infarction without residual deficits; Z95.5 Presence of coronary angioplasty implant and graft
CPT/HCPCS: 96365; 96366; G0463; J1642; J3490

== ENCOUNTER → 2019-03-19 | Outpatient (CLI) | payer MEDICARE ==
[2019-03-19] VITALS (11 sets, daily range): BP systolic 106–124; BP diastolic 49–64
[~2019-03-19] MED LIST changes: +BUMETANIDE 1mg/4ml VIAL (0.25mg/ml) IV ONE; -BUMETANIDE 2.5mg/10ml (0.25 mg/ml) INJ IV ONE; +GABA-339 PO; +INSLANTI SC; +LEVO125T7 PO; +POTA10TA51 PO; -SODIUM CHLORIDE 0.9% 100 ML IV ONE; +SODIUM CHLORIDE 0.9% 100 ML IV SCH; +TEMA15CA PO
--- NOTE | 2019-03-19 09:54 | NUR ---
CHF PT ARRIVED AT THE CHF CLINIC FOR THERAPY AND ASSESSMENT. PT ALERT A/O X 3 0 DISTRESS. VSS
--- NOTE | 2019-03-19 10:00 | NUR ---
Darling Cath Insertion 20 gauge Darling Cath inserted using sterile technique in the upper chest with occlusive dressing over saucedo needle. Patient tolerated procedure well. Ordered labs drawn and sent. See e-MAR for medications given during this visit. PT HAD SUTURES REMOVED LAST MondayMARCH 15. SITE IS BENIGN NECK INCISION WAS OPEN TO AIR
--- NOTE | 2019-03-19 13:44 | NUR ---
Initial PICC Line PICC line assessed before access for ordered medications per . Port accessed per protocol flushed with 10 ml 0.9% NS prior to administration of ordered medication. See e-MAR for medications given during this visit. Addendum: 03/19/19 at 1422 by BERTA FERNANDEZ RN RN AK WRONG PATIENT
--- NOTE | 2019-03-19 13:47 | NUR ---
Discharge Instructions See e-MAR for any mediations given with this visit. Patient education given on disease process. Patient verbalized understanding. Previous labs reviewed. Patient discharged in stable condition with after care instructions and follow up appointment. MEDICATIONS 1008 START TIME BUMEX 3.5MG/100ML IV X 3 HRS 1345 STOP TIME BUMEX DRIP POTASSIUM 30 MEQ PO X 1 HEPARIN 500 UNITS IVP X 1
== END | disposition home or self-care (01) ==
LOC: CHF HDHVI 10:07
PROVIDERS: ATTEND Internal Medicine Cardiovascular Disease
DX: I11.0 Hypertensive heart disease with heart failure (principal); I50.42 Chronic combined systolic (congestive) and diastolic (congestive) heart failure; I25.10 Atherosclerotic heart disease of native coronary artery without angina pectoris; J44.9 Chronic obstructive pulmonary disease, unspecified; C61 Malignant neoplasm of prostate; I48.91 Unspecified atrial fibrillation; I27.21 Secondary pulmonary arterial hypertension; E11.21 Type 2 diabetes mellitus with diabetic nephropathy; E11.41 Type 2 diabetes mellitus with diabetic mononeuropathy; G89.4 Chronic pain syndrome; E78.5 Hyperlipidemia, unspecified; E03.9 Hypothyroidism, unspecified; F32.9 Major depressive disorder, single episode, unspecified; E78.00 Pure hypercholesterolemia, unspecified; E11.51 Type 2 diabetes mellitus with diabetic peripheral angiopathy without gangrene; E66.01 Morbid (severe) obesity due to excess calories; Z68.41 Body mass index [BMI] 40.0-44.9, adult; Z79.899 Other long term (current) drug therapy; Z95.810 Presence of automatic (implantable) cardiac defibrillator; Z86.73 Personal history of transient ischemic attack (TIA), and cerebral infarction without residual deficits; Z95.5 Presence of coronary angioplasty implant and graft; Z95.1 Presence of aortocoronary bypass graft; Z87.891 Personal history of nicotine dependence; Z79.891 Long term (current) use of opiate analgesic
CPT/HCPCS: 96365; 96366; G0463; J1642; J3490

== ENCOUNTER → 2019-03-21 | Outpatient (CLI) | payer MEDICARE ==
[2019-03-21] VITALS (10 sets, daily range): BP systolic 111–131; BP diastolic 44–61
[~2019-03-21] MED LIST changes: -BUMETANIDE 1mg/4ml VIAL (0.25mg/ml) IV ONE; +SODIUM CHLORIDE 0.9% 100 ML IV ONE; -SODIUM CHLORIDE 0.9% 100 ML IV SCH
--- NOTE | 2019-03-21 09:52 | NUR ---
CHF PT ARRIVED TO THE CHF CLINIC FOR WEEKLY F/U AND TREATMENT. PT A/O X 3 0 DISTRESS. VSS
--- NOTE | 2019-03-21 10:00 | NUR ---
Darling Cath Insertion 22 gauge Darling Cath inserted using sterile technique in the upper chest with occlusive dressing over saucedo needle. Patient tolerated procedure well. Ordered labs drawn and sent. See e-MAR for medications given during this visit. GOOD BLOOD RETURN
--- NOTE | 2019-03-21 12:09 | NUR ---
PT TOLERATING THERAPY WELL, O DISTRESS.
--- NOTE | 2019-03-21 13:06 | NUR ---
Discharge Instructions See e-MAR for any mediations given with this visit. Patient education given on disease process. Patient verbalized understanding. Previous labs reviewed. Patient discharged in stable condition with after care instructions and follow up appointment. MEDICATIONS 1007 START TIME BUMEX DRIP 3.5MG/100ML RUN AT 1 MG/HR X 3 HR 1309 STOP TIME BUMEX DRIP POTASSIUM 30 MEQ PO X 1 HEPARIN 500 UNITS IVP X 1 TO RENETTA CATH Addendum: 03/21/19 at 1346 by BERTA FERNANDEZ RN RN IN TIME PT LEFT [id number]
== END | disposition home or self-care (01) ==
LOC: CHF HDHVI 09:59
PROVIDERS: ATTEND Internal Medicine Cardiovascular Disease
DX: I11.0 Hypertensive heart disease with heart failure (principal); I50.42 Chronic combined systolic (congestive) and diastolic (congestive) heart failure; I25.10 Atherosclerotic heart disease of native coronary artery without angina pectoris; E11.21 Type 2 diabetes mellitus with diabetic nephropathy; J44.9 Chronic obstructive pulmonary disease, unspecified; I48.91 Unspecified atrial fibrillation; I27.21 Secondary pulmonary arterial hypertension; G89.4 Chronic pain syndrome; E78.5 Hyperlipidemia, unspecified; E03.9 Hypothyroidism, unspecified; F32.9 Major depressive disorder, single episode, unspecified; E78.00 Pure hypercholesterolemia, unspecified; E11.51 Type 2 diabetes mellitus with diabetic peripheral angiopathy without gangrene; E11.41 Type 2 diabetes mellitus with diabetic mononeuropathy; E66.01 Morbid (severe) obesity due to excess calories; Z68.41 Body mass index [BMI] 40.0-44.9, adult; Z95.5 Presence of coronary angioplasty implant and graft; Z86.73 Personal history of transient ischemic attack (TIA), and cerebral infarction without residual deficits; Z95.1 Presence of aortocoronary bypass graft; Z79.899 Other long term (current) drug therapy; Z85.46 Personal history of malignant neoplasm of prostate; Z79.891 Long term (current) use of opiate analgesic; Z87.891 Personal history of nicotine dependence; Z95.810 Presence of automatic (implantable) cardiac defibrillator
CPT/HCPCS: 96365; 96366; G0463; J1642; J3490

== ENCOUNTER → 2019-03-26 | Outpatient (CLI) | payer MEDICARE ==
[~2019-03-26] MED LIST changes: +BUMETANIDE 2.5mg/10ml (0.25 mg/ml) INJ IV ONE; -SODIUM CHLORIDE 0.9% 100 ML IV ONE; +SODIUM CHLORIDE 0.9% 100 ML IV SCH
--- NOTE | 2019-03-26 09:44 | NUR ---
CHF PT ARRIVED AT THE CHF CLINIC FOR TX/EVAL. PT IS A/O X 3 0 DISTRESS. V/S STABLE
[2019-03-26 12:05] LABS: Basophils # (auto) 0.1 uL; Hemoglobin 10.2 g/dL (13.5-17.5); Monocytes # (auto) 0.7 uL
[2019-03-26 12:09] LABS: Basophils % (auto) 0.9 % (0.0-2.0); Eosinophils # (auto) 0.4 uL; Eosinophils % (auto) 5.6 % (0.0-7.0); Hematocrit 31.6 % (41.0-53.0); Lymphocytes # (auto) 2.2 uL; Mean Corpuscular Hemoglobin 23.8 pg (28.0-32.0); Mean Corpuscular Hgb Conc. 32.3 g/dL (32.0-36.0); Mean Corpuscular Volume 73.7 fL (80.0-100.0); Monocytes % (auto) 9.1 % (0.0-12.0); Neutrophils # (auto) 4.3 uL; Neutrophils % (auto) 55.4 % (37.0-80.0); Platelet Count (auto) 260 10^3/uL (140-450); Red Blood Cells 4.29 10^6/uL (4.5-5.90); Red Cell Distribution Width 17.4 % (11.8-14.3); White Blood Cell 7.7 10^3/uL (4.4-10.8)
[2019-03-26 13:38] LABS: BUN/Creatinine Ratio 17.1; Calcium 8.2 mg/dL (8.5-10.1)
[2019-03-26 13:45] VITALS: BP 111/57
--- NOTE | 2019-03-26 13:55 | NUR ---
Discharge Instructions See e-MAR for any mediations given with this visit. Patient education given on disease process. Patient verbalized understanding. Previous labs reviewed. Patient discharged in stable condition with after care instructions and follow up appointment. MEDICATIONS 1000 START TIME BUMEX DRIP 1MG/HR X 3 HR 1330 STOP TIME BUMEX DRIP POTASSIUM 30 MEQ PO X 1 HEPARIN 500 UNITS IVP X 1
[2019-03-26 16:56] VITALS: BP 116/48
== END | disposition home or self-care (01) ==
LOC: CHF HDHVI 10:00
PROVIDERS: ATTEND Internal Medicine Cardiovascular Disease
DX: I11.0 Hypertensive heart disease with heart failure (principal); I50.42 Chronic combined systolic (congestive) and diastolic (congestive) heart failure; I25.10 Atherosclerotic heart disease of native coronary artery without angina pectoris; I27.21 Secondary pulmonary arterial hypertension; I48.91 Unspecified atrial fibrillation; J44.9 Chronic obstructive pulmonary disease, unspecified; D64.9 Anemia, unspecified; E03.9 Hypothyroidism, unspecified; F17.210 Nicotine dependence, cigarettes, uncomplicated; E78.00 Pure hypercholesterolemia, unspecified; E11.40 Type 2 diabetes mellitus with diabetic neuropathy, unspecified; E11.21 Type 2 diabetes mellitus with diabetic nephropathy; E11.51 Type 2 diabetes mellitus with diabetic peripheral angiopathy without gangrene; G89.29 Other chronic pain; E78.5 Hyperlipidemia, unspecified; F32.9 Major depressive disorder, single episode, unspecified; E66.01 Morbid (severe) obesity due to excess calories; Z68.41 Body mass index [BMI] 40.0-44.9, adult; Z95.810 Presence of automatic (implantable) cardiac defibrillator; Z95.5 Presence of coronary angioplasty implant and graft; Z79.4 Long term (current) use of insulin; Z79.84 Long term (current) use of oral hypoglycemic drugs; Z79.899 Other long term (current) drug therapy; Z95.1 Presence of aortocoronary bypass graft; Z85.46 Personal history of malignant neoplasm of prostate; Z79.891 Long term (current) use of opiate analgesic; Z86.73 Personal history of transient ischemic attack (TIA), and cerebral infarction without residual deficits
CPT/HCPCS: 36415; 80048; 85025; 96365; 96366; G0463; J1642; J3490

== ENCOUNTER → 2019-03-28 | Outpatient (CLI) | payer MEDICARE ==
[2019-03-28] VITALS (7 sets, daily range): BP systolic 99–126; BP diastolic 57–75
[~2019-03-28] VITALS: Ht 165.1 cm; Wt 117.0 kg
[~2019-03-28] MED LIST changes: +ALBUTEROL SULF 2.5 MG/0.5ML(0.5%) NEB SOLN NEB ONE; +SODIUM CHLORIDE 0.9% 100 ML IV ONE; -SODIUM CHLORIDE 0.9% 100 ML IV SCH
--- NOTE | 2019-03-28 09:33 | NUR ---
CHF PT ARRIVED AT CHF CLINIC FOR TX AND FOLLOW UP VSS A/O X 3
--- NOTE | 2019-03-28 12:55 | NUR ---
Discharge Instructions See e-MAR for any mediations given with this visit. Patient education given on disease process. Patient verbalized understanding. Previous labs reviewed. Patient discharged in stable condition with after care instructions and follow up appointment. MEDICATIONS BUMEX DRIP [id number] MED NEB X 1 POTASSIUM 40 MEQ X 1 HEPARIN 500 UNITS IVP X 1
== END | disposition home or self-care (01) ==
LOC: CHF HDHVI 09:46
PROVIDERS: ATTEND Internal Medicine Cardiovascular Disease
DX: I11.0 Hypertensive heart disease with heart failure (principal); I50.33 Acute on chronic diastolic (congestive) heart failure; J44.9 Chronic obstructive pulmonary disease, unspecified; E03.9 Hypothyroidism, unspecified; E78.00 Pure hypercholesterolemia, unspecified; E11.40 Type 2 diabetes mellitus with diabetic neuropathy, unspecified; I25.10 Atherosclerotic heart disease of native coronary artery without angina pectoris; E11.21 Type 2 diabetes mellitus with diabetic nephropathy; I50.22 Chronic systolic (congestive) heart failure; E78.5 Hyperlipidemia, unspecified; E66.01 Morbid (severe) obesity due to excess calories; E11.51 Type 2 diabetes mellitus with diabetic peripheral angiopathy without gangrene; I48.91 Unspecified atrial fibrillation; E11.621 Type 2 diabetes mellitus with foot ulcer; Z85.46 Personal history of malignant neoplasm of prostate; Z79.4 Long term (current) use of insulin; Z79.84 Long term (current) use of oral hypoglycemic drugs; Z87.891 Personal history of nicotine dependence; Z79.899 Other long term (current) drug therapy; Z95.9 Presence of cardiac and vascular implant and graft, unspecified; Z79.891 Long term (current) use of opiate analgesic; Z95.810 Presence of automatic (implantable) cardiac defibrillator; Z86.73 Personal history of transient ischemic attack (TIA), and cerebral infarction without residual deficits
CPT/HCPCS: 94640; 96365; 96366; G0463; J1642; J3490

== ENCOUNTER → 2019-03-29 | Outpatient (CLI) | payer MEDICARE ==
[~2019-03-29] MED LIST changes: -ALBUTEROL SULF 2.5 MG/0.5ML(0.5%) NEB SOLN NEB ONE; -BUMETANIDE 1mg/4ml VIAL (0.25mg/ml) ONE; -BUMETANIDE 2.5mg/10ml (0.25 mg/ml) INJ IV ONE; -BUMETANIDE INJECTION 10 ML ONE; -POTASSIUM CHL 10 Meq TABLET PO ONE; -POTASSIUM CHL 20 Meq TABLET PO ONE; -SODIUM CHLORIDE 0.9% 100 ML IV ONE
[2019-03-29 10:18] VITALS: BP 120/59
[2019-03-29 10:35] VITALS: BP 124/52
--- NOTE | 2019-03-29 10:35 | NUR ---
PRE-OP FOR GUDELIA FOR 04/02/19 Pre-Op Discharge Summary: See e-MAR for any medications given for this visit. Pre-op orders received and carried out per MD of EKG, LABS and chest xrays. Patient given a copy of EKG with instructions to go to [facility] out patient for further follow up care.
[2019-03-29 12:30] LABS: Basophils # (auto) 0.1 uL; Monocytes # (auto) 0.7 uL; Nucleated Red Blood Cells % 0.1 %
[2019-03-29 12:34] LABS: Basophils % (auto) 1.3 % (0.0-2.0); Eosinophils # (auto) 0.5 uL; Eosinophils % (auto) 5.9 % (0.0-7.0); Hematocrit 34.2 % (41.0-53.0); Hemoglobin 10.8 g/dL (13.5-17.5); Lymphocytes % (auto) 25.1 % (10.0-50.0); Mean Corpuscular Hgb Conc. 31.6 g/dL (32.0-36.0); Mean Corpuscular Volume 75.8 fL (80.0-100.0); Monocytes % (auto) 8.9 % (0.0-12.0); Neutrophils # (auto) 4.6 uL; Neutrophils % (auto) 58.8 % (37.0-80.0); Platelet Count (auto) 253 10^3/uL (140-450); Red Blood Cells 4.52 10^6/uL (4.5-5.90); Red Cell Distribution Width 17.3 % (11.8-14.3); White Blood Cell 7.9 10^3/uL (4.4-10.8)
[2019-03-29 12:41] LABS: Calcium 8.6 mg/dL (8.5-10.1); Potassium 4.2 mmol/L (3.5-5.1)
[2019-03-29 12:43] LABS: BUN/Creatinine Ratio 17.5
[2019-03-29 13:29] LABS: INR 0.95 (0.9-1.15); Partial Thromboplastin Time 25.4 sec (23.64-32.05)
== END | disposition home or self-care (01) ==
LOC: Rad HDHVI 10:01
PROVIDERS: ATTEND Internal Medicine Cardiovascular Disease
DX: Z01.812 Encounter for preprocedural laboratory examination (principal); I70.0 Atherosclerosis of aorta; D64.9 Anemia, unspecified; R79.1 Abnormal coagulation profile; E11.40 Type 2 diabetes mellitus with diabetic neuropathy, unspecified; E11.21 Type 2 diabetes mellitus with diabetic nephropathy; R42 Dizziness and giddiness; R06.02 Shortness of breath; M79.606 Pain in leg, unspecified; I25.10 Atherosclerotic heart disease of native coronary artery without angina pectoris; I73.9 Peripheral vascular disease, unspecified; I11.0 Hypertensive heart disease with heart failure; I50.9 Heart failure, unspecified
CPT/HCPCS: 36415; 71046; 80048; 85025; 85610; 85730; 93005; G0463

== ENCOUNTER 2019-04-02 11:54 | Day surgery (SDC) | payer MEDICARE ==
[~2019-04-02] VITALS: Ht 167.6 cm; Wt 115.7 kg
[~2019-04-02 11:54] MED LIST changes: -ASPI-404 PO; -CLIN300C8 PO; -FLUT100I IN; -FURO40TA4 PO; -GABA100C9 PO; -LEV50T PO; -PRE5T PO
[2019-04-02] MEDS ORDERED: MIDAZOLAM HCL 1MG/1ML-2 ML VIAL IV ONE (12:15)
== END 2019-04-02 15:45 | disposition home or self-care (01) ==
LOC: CATH 11:54
PROVIDERS: ATTEND Internal Medicine Cardiovascular Disease
DX: I08.1 Rheumatic disorders of both mitral and tricuspid valves (principal); I70.0 Atherosclerosis of aorta; E66.8 Other obesity; I11.0 Hypertensive heart disease with heart failure; I50.9 Heart failure, unspecified; E78.00 Pure hypercholesterolemia, unspecified; C61 Malignant neoplasm of prostate; E11.40 Type 2 diabetes mellitus with diabetic neuropathy, unspecified; J44.9 Chronic obstructive pulmonary disease, unspecified; E03.9 Hypothyroidism, unspecified; F17.210 Nicotine dependence, cigarettes, uncomplicated; G47.33 Obstructive sleep apnea (adult) (pediatric); Z88.0 Allergy status to penicillin; Z79.84 Long term (current) use of oral hypoglycemic drugs; Z79.4 Long term (current) use of insulin; Z79.899 Other long term (current) drug therapy; Z95.818 Presence of other cardiac implants and grafts; Z68.41 Body mass index [BMI] 40.0-44.9, adult
CPT/HCPCS: 93312; J1642; J2250; J7030; 99152

== ENCOUNTER → 2019-04-04 | Outpatient (CLI) | payer MEDICARE ==
[2019-04-04] VITALS (7 sets, daily range): BP systolic 101–125; BP diastolic 44–64
[~2019-04-04] MED LIST changes: +BUMETANIDE 1mg/4ml VIAL (0.25mg/ml) ONE; +BUMETANIDE 2.5mg/10ml (0.25 mg/ml) INJ IV ONE; +BUMETANIDE INJECTION 10 ML ONE; +POTASSIUM CHL 10 Meq TABLET PO ONE; +SODIUM CHLORIDE 0.9% 100 ML IV ONE
--- NOTE | 2019-04-04 09:46 | NUR ---
CHF PT AT CHF CLINIC FOPR THERAPY A/0 X 3 VSS, STATES HE FEELS BETTER
[2019-04-04 12:02] LABS: Basophils # (auto) 0.1 uL; Eosinophils # (auto) 0.4 uL; Hematocrit 32.4 % (41.0-53.0); Hemoglobin 10.3 g/dL (13.5-17.5); Monocytes # (auto) 0.8 uL; White Blood Cell 8.5 10^3/uL (4.4-10.8)
[2019-04-04 12:09] LABS: Eosinophils % (auto) 5.1 % (0.0-7.0); Lymphocytes # (auto) 2.1 uL; Lymphocytes % (auto) 24.5 % (10.0-50.0); Mean Corpuscular Hemoglobin 23.3 pg (28.0-32.0); Mean Corpuscular Hgb Conc. 31.7 g/dL (32.0-36.0); Mean Corpuscular Volume 73.4 fL (80.0-100.0); Monocytes % (auto) 9.7 % (0.0-12.0); Neutrophils # (auto) 5.1 uL; Neutrophils % (auto) 59.7 % (37.0-80.0); Platelet Count (auto) 230 10^3/uL (140-450); Red Blood Cells 4.42 10^6/uL (4.5-5.90); Red Cell Distribution Width 17.5 % (11.8-14.3)
[2019-04-04 12:16] LABS: Calcium 8.5 mg/dL (8.5-10.1); Potassium 3.9 mmol/L (3.5-5.1)
[2019-04-04 12:18] LABS: BUN/Creatinine Ratio 20.2
--- NOTE | 2019-04-04 13:20 | NUR ---
Discharge Instructions See e-MAR for any mediations given with this visit. Patient education given on disease process. Patient verbalized understanding. Previous labs reviewed. Patient discharged in stable condition with after care instructions and follow up appointment. MEDICATIONS BUMEX DRIP 1V [id number] POTASSIUM 40 MEQ PO X 1 HEPARIN 500 UNITS IVP X 1
== END | disposition home or self-care (01) ==
LOC: CHF HDHVI 09:51
PROVIDERS: ATTEND Internal Medicine Cardiovascular Disease
DX: I11.0 Hypertensive heart disease with heart failure (principal); I50.42 Chronic combined systolic (congestive) and diastolic (congestive) heart failure; D64.9 Anemia, unspecified; C61 Malignant neoplasm of prostate; I25.10 Atherosclerotic heart disease of native coronary artery without angina pectoris; I48.91 Unspecified atrial fibrillation; J44.9 Chronic obstructive pulmonary disease, unspecified; E11.41 Type 2 diabetes mellitus with diabetic mononeuropathy; E66.01 Morbid (severe) obesity due to excess calories; E11.51 Type 2 diabetes mellitus with diabetic peripheral angiopathy without gangrene; E11.21 Type 2 diabetes mellitus with diabetic nephropathy; E78.00 Pure hypercholesterolemia, unspecified; G89.4 Chronic pain syndrome; E78.5 Hyperlipidemia, unspecified; E03.9 Hypothyroidism, unspecified; F32.9 Major depressive disorder, single episode, unspecified; Z68.41 Body mass index [BMI] 40.0-44.9, adult; Z79.4 Long term (current) use of insulin; Z79.891 Long term (current) use of opiate analgesic; Z79.84 Long term (current) use of oral hypoglycemic drugs; Z79.899 Other long term (current) drug therapy; Z87.891 Personal history of nicotine dependence; Z95.810 Presence of automatic (implantable) cardiac defibrillator; Z95.5 Presence of coronary angioplasty implant and graft
CPT/HCPCS: 36415; 80048; 84153; 85025; 96365; 96366; G0463; J1642; J3490

== ENCOUNTER → 2019-04-09 | Outpatient (CLI) | payer MEDICARE ==
[~2019-04-09] VITALS: Ht 30.5 cm; Wt 118.2 kg
[2019-04-09] VITALS (8 sets, daily range): BP systolic 110–131; BP diastolic 44–61
[~2019-04-09] MED LIST changes: +POTASSIUM CHL 20 Meq TABLET PO ONE
[2019-04-09 12:38] LABS: Basophils # (auto) 0.1 uL; Calcium 8.4 mg/dL (8.5-10.1); Magnesium 2.2 mg/dL (1.6-2.6); Mean Corpuscular Volume 74.3 fL (80.0-100.0); Monocytes # (auto) 0.7 uL; Potassium 3.8 mmol/L (3.5-5.1); Red Cell Distribution Width 17.3 % (11.8-14.3); White Blood Cell 7.4 10^3/uL (4.4-10.8)
[2019-04-09 12:41] LABS: BUN/Creatinine Ratio 14.8; Eosinophils # (auto) 0.6 uL; Eosinophils % (auto) 7.7 % (0.0-7.0); Hemoglobin 10.1 g/dL (13.5-17.5); Lymphocytes % (auto) 27.7 % (10.0-50.0); Mean Corpuscular Hemoglobin 23.5 pg (28.0-32.0); Mean Corpuscular Hgb Conc. 31.6 g/dL (32.0-36.0); Monocytes % (auto) 9.1 % (0.0-12.0); Neutrophils % (auto) 54.5 % (37.0-80.0); Platelet Count (auto) 208 10^3/uL (140-450); Red Blood Cells 4.31 10^6/uL (4.5-5.90)
--- NOTE | 2019-04-09 13:00 | NUR ---
CHF CLINIC Discharge Instructions See e-MAR for any mediations given with this visit. Patient education given on disease process. Patient verbalized understanding. Previous labs reviewed. Patient discharged in stable condition with after care instructions and follow up appointment. NOTE BUMEX [id number] ADMIN BY BERTA ELLIS POTASSIUM ADMIN BY BERTA ELLIS HEPARIN ADMIN BY PELON ELLIS
== END | disposition home or self-care (01) ==
LOC: CHF HDHVI 10:05
PROVIDERS: ATTEND Internal Medicine Cardiovascular Disease
DX: I11.0 Hypertensive heart disease with heart failure (principal); I50.42 Chronic combined systolic (congestive) and diastolic (congestive) heart failure; I25.10 Atherosclerotic heart disease of native coronary artery without angina pectoris; D64.9 Anemia, unspecified; E83.40 Disorders of magnesium metabolism, unspecified; I27.21 Secondary pulmonary arterial hypertension; I48.91 Unspecified atrial fibrillation; R60.9 Edema, unspecified; J44.9 Chronic obstructive pulmonary disease, unspecified; G89.4 Chronic pain syndrome; E78.5 Hyperlipidemia, unspecified; E03.9 Hypothyroidism, unspecified; F32.9 Major depressive disorder, single episode, unspecified; F17.210 Nicotine dependence, cigarettes, uncomplicated; E78.00 Pure hypercholesterolemia, unspecified; E11.41 Type 2 diabetes mellitus with diabetic mononeuropathy; E11.21 Type 2 diabetes mellitus with diabetic nephropathy; E11.51 Type 2 diabetes mellitus with diabetic peripheral angiopathy without gangrene; E66.01 Morbid (severe) obesity due to excess calories; Z68.41 Body mass index [BMI] 40.0-44.9, adult; Z95.5 Presence of coronary angioplasty implant and graft; Z95.810 Presence of automatic (implantable) cardiac defibrillator; Z85.46 Personal history of malignant neoplasm of prostate; Z79.899 Other long term (current) drug therapy; Z95.1 Presence of aortocoronary bypass graft; Z79.84 Long term (current) use of oral hypoglycemic drugs; Z79.891 Long term (current) use of opiate analgesic; Z79.4 Long term (current) use of insulin; Z86.73 Personal history of transient ischemic attack (TIA), and cerebral infarction without residual deficits
CPT/HCPCS: 36415; 80048; 83735; 85025; 96365; 96366; G0463; J1642; J3490

== ENCOUNTER → 2019-04-11 | Outpatient (CLI) | payer MEDICARE ==
[2019-04-11] VITALS (9 sets, daily range): BP systolic 99–137; BP diastolic 47–86
[~2019-04-11] VITALS: Ht 30.5 cm; Wt 116.6 kg
[~2019-04-11] MED LIST changes: +BUMETANIDE 1mg/4ml VIAL (0.25mg/ml) IV ONE; -BUMETANIDE 2.5mg/10ml (0.25 mg/ml) INJ IV ONE; -POTASSIUM CHL 20 Meq TABLET PO ONE; -SODIUM CHLORIDE 0.9% 100 ML IV ONE; +SODIUM CHLORIDE 0.9% 100 ML IV SCH
--- NOTE | 2019-04-11 12:58 | NUR ---
Discharge Instructions See e-MAR for any mediations given with this visit. Patient education given on disease process. Patient verbalized understanding. Previous labs reviewed. Patient discharged in stable condition with after care instructions and follow up appointment. MEDICATIONS BUMEX DRIP [id number] POTASSIUM 40 MEQ PO X 1 NS 100 ML IV [id number] HEPARIN 500 UNITS IVP
== END | disposition home or self-care (01) ==
LOC: CHF HDHVI 09:59
PROVIDERS: ATTEND Internal Medicine Cardiovascular Disease
DX: I11.0 Hypertensive heart disease with heart failure (principal); I50.42 Chronic combined systolic (congestive) and diastolic (congestive) heart failure; I25.10 Atherosclerotic heart disease of native coronary artery without angina pectoris; I48.91 Unspecified atrial fibrillation; I27.21 Secondary pulmonary arterial hypertension; G89.4 Chronic pain syndrome; E03.9 Hypothyroidism, unspecified; F32.9 Major depressive disorder, single episode, unspecified; E78.00 Pure hypercholesterolemia, unspecified; E11.21 Type 2 diabetes mellitus with diabetic nephropathy; E11.51 Type 2 diabetes mellitus with diabetic peripheral angiopathy without gangrene; E11.41 Type 2 diabetes mellitus with diabetic mononeuropathy; J44.9 Chronic obstructive pulmonary disease, unspecified; E66.01 Morbid (severe) obesity due to excess calories; Z68.41 Body mass index [BMI] 40.0-44.9, adult; Z95.810 Presence of automatic (implantable) cardiac defibrillator; Z86.73 Personal history of transient ischemic attack (TIA), and cerebral infarction without residual deficits; Z79.899 Other long term (current) drug therapy; Z85.46 Personal history of malignant neoplasm of prostate; Z79.4 Long term (current) use of insulin; Z79.891 Long term (current) use of opiate analgesic; Z79.84 Long term (current) use of oral hypoglycemic drugs; Z87.891 Personal history of nicotine dependence; Z95.1 Presence of aortocoronary bypass graft; Z95.5 Presence of coronary angioplasty implant and graft
CPT/HCPCS: 96365; 96366; G0463; J1642; J3490

== ENCOUNTER → 2019-04-16 | Outpatient (CLI) | payer MEDICARE ==
[~2019-04-16] MED LIST changes: +POTASSIUM CHL 20 Meq TABLET PO ONE; +SODIUM CHLORIDE 0.9% 100 ML IV ONE; -SODIUM CHLORIDE 0.9% 100 ML IV SCH
[2019-04-16 12:15] LABS: Basophils # (auto) 0.1 uL; Basophils % (auto) 1.1 % (0.0-2.0); Hemoglobin 10.7 g/dL (13.5-17.5); Lymphocytes # (auto) 2.1 uL; Neutrophils # (auto) 4.9 uL; White Blood Cell 8.2 10^3/uL (4.4-10.8)
[2019-04-16 12:20] LABS: Potassium 3.9 mmol/L (3.5-5.1)
[2019-04-16 12:23] LABS: Eosinophils # (auto) 0.4 uL; Eosinophils % (auto) 5.3 % (0.0-7.0); Hematocrit 33.3 % (41.0-53.0); Lymphocytes % (auto) 25.6 % (10.0-50.0); Mean Corpuscular Hemoglobin 23.7 pg (28.0-32.0); Monocytes # (auto) 0.7 uL; Monocytes % (auto) 8.4 % (0.0-12.0); Neutrophils % (auto) 59.6 % (37.0-80.0); Nucleated Red Blood Cells % 0.1 %; Platelet Count (auto) 239 10^3/uL (140-450); Red Cell Distribution Width 17.3 % (11.8-14.3)
[2019-04-16 12:25] VITALS: BP 121/65
[2019-04-16 12:25] LABS: BUN/Creatinine Ratio 21.6; Magnesium 2.1 mg/dL (1.6-2.6)
--- NOTE | 2019-04-16 12:25 | NUR ---
Discharge Instructions See e-MAR for any mediations given with this visit. Patient education given on disease process. Patient verbalized understanding. Previous labs reviewed. Patient discharged in stable condition with after care instructions and follow up appointment. MEDICATIONS BUMEX DRIP 3.5MG/100NS [id number] POTASSIUM 40 MEQ PO X 1 HEPARIN 500 UNITS IVP X 1 NS 100 ML IV X 1 [id number]
== END | disposition home or self-care (01) ==
LOC: CHF HDHVI 09:58
PROVIDERS: ATTEND Internal Medicine Cardiovascular Disease
DX: I11.0 Hypertensive heart disease with heart failure (principal); I50.33 Acute on chronic diastolic (congestive) heart failure; I25.10 Atherosclerotic heart disease of native coronary artery without angina pectoris; K90.9 Intestinal malabsorption, unspecified; I48.91 Unspecified atrial fibrillation; I27.21 Secondary pulmonary arterial hypertension; R60.9 Edema, unspecified; J44.9 Chronic obstructive pulmonary disease, unspecified; E03.9 Hypothyroidism, unspecified; F17.210 Nicotine dependence, cigarettes, uncomplicated; E78.00 Pure hypercholesterolemia, unspecified; E11.21 Type 2 diabetes mellitus with diabetic nephropathy; E78.5 Hyperlipidemia, unspecified; E11.51 Type 2 diabetes mellitus with diabetic peripheral angiopathy without gangrene; F32.9 Major depressive disorder, single episode, unspecified; G89.4 Chronic pain syndrome; E11.41 Type 2 diabetes mellitus with diabetic mononeuropathy; E66.8 Other obesity; Z68.41 Body mass index [BMI] 40.0-44.9, adult; Z85.46 Personal history of malignant neoplasm of prostate; Z79.84 Long term (current) use of oral hypoglycemic drugs; Z79.4 Long term (current) use of insulin; Z79.891 Long term (current) use of opiate analgesic; Z86.73 Personal history of transient ischemic attack (TIA), and cerebral infarction without residual deficits; Z95.5 Presence of coronary angioplasty implant and graft; Z95.810 Presence of automatic (implantable) cardiac defibrillator; Z95.1 Presence of aortocoronary bypass graft; Z79.899 Other long term (current) drug therapy
CPT/HCPCS: 36415; 80048; 82306; 83735; 85025; 96365; 96366; G0463; J1642; J3490

== ENCOUNTER → 2019-04-18 | Outpatient (CLI) | payer MEDICARE ==
[~2019-04-18] VITALS: Ht 30.5 cm; Wt 0.5 kg
[2019-04-18] VITALS (7 sets, daily range): BP systolic 105–124; BP diastolic 49–82
[~2019-04-18] MED LIST changes: +SODIUM CHLORIDE 0.9% 1,000 ML IV ONE; -SODIUM CHLORIDE 0.9% 100 ML IV ONE
--- NOTE | 2019-04-18 12:41 | NUR ---
Discharge Instructions See e-MAR for any mediations given with this visit. Patient education given on disease process. Patient verbalized understanding. Previous labs reviewed. Patient discharged in stable condition with after care instructions and follow up appointment. MEDICATIONS BUMEX 3.5MG IV [id number] NS 100ML IV [id number] POTASSIUM 40 MEQ PO HEPARIN 500 UNITS IVP
== END | disposition home or self-care (01) ==
LOC: CHF HDHVI 09:55
PROVIDERS: ATTEND Internal Medicine Cardiovascular Disease
DX: I11.0 Hypertensive heart disease with heart failure (principal); I50.42 Chronic combined systolic (congestive) and diastolic (congestive) heart failure; R60.9 Edema, unspecified; I25.10 Atherosclerotic heart disease of native coronary artery without angina pectoris; I48.91 Unspecified atrial fibrillation; E78.5 Hyperlipidemia, unspecified; E03.9 Hypothyroidism, unspecified; F32.9 Major depressive disorder, single episode, unspecified; E66.8 Other obesity; E78.00 Pure hypercholesterolemia, unspecified; E11.41 Type 2 diabetes mellitus with diabetic mononeuropathy; E11.51 Type 2 diabetes mellitus with diabetic peripheral angiopathy without gangrene; E66.01 Morbid (severe) obesity due to excess calories; G47.33 Obstructive sleep apnea (adult) (pediatric); G89.4 Chronic pain syndrome; Z79.4 Long term (current) use of insulin; Z79.891 Long term (current) use of opiate analgesic; Z79.84 Long term (current) use of oral hypoglycemic drugs; Z79.899 Other long term (current) drug therapy; Z85.46 Personal history of malignant neoplasm of prostate; Z68.41 Body mass index [BMI] 40.0-44.9, adult; Z95.810 Presence of automatic (implantable) cardiac defibrillator; Z95.5 Presence of coronary angioplasty implant and graft; Z95.1 Presence of aortocoronary bypass graft; Z86.73 Personal history of transient ischemic attack (TIA), and cerebral infarction without residual deficits; Z87.891 Personal history of nicotine dependence
CPT/HCPCS: 96365; 96366; G0463; J1642; J3490

== ENCOUNTER → 2019-04-23 | Outpatient (CLI) | payer MEDICARE ==
[2019-04-23] VITALS (7 sets, daily range): BP systolic 104–124; BP diastolic 48–59
[~2019-04-23] MED LIST changes: -BUMETANIDE 1mg/4ml VIAL (0.25mg/ml) IV ONE; +BUMETANIDE 2.5mg/10ml (0.25 mg/ml) INJ IV ONE
--- NOTE | 2019-04-23 09:58 | NUR ---
CHF PT ARRIVED AT THE CHF CLINIC FOR WEEKLY THERAPY , A/O X 3 0 DISTRESS, VSS Clinic Provider Clinic Provider UPDATED new orders received and carried out. BUMEX gtt started at {1.5}mg/hr per MD order.
--- NOTE | 2019-04-23 10:00 | NUR ---
Darling Cath Insertion [20] gauge Darling Cath inserted using sterile technique in the [R] upper chest with occlusive dressing over saucedo needle. Patient tolerated procedure well. Ordered labs drawn and sent. See e-MAR for medications given during this visit.
[2019-04-23 12:12] LABS: Basophils # (auto) 0.1 uL; Basophils % (auto) 1.1 % (0.0-2.0); Eosinophils # (auto) 0.4 uL; Hematocrit 33.5 % (41.0-53.0); Nucleated Red Blood Cells % 0.1 %
[2019-04-23 12:15] LABS: Eosinophils % (auto) 5.1 % (0.0-7.0); Hemoglobin 10.5 g/dL (13.5-17.5); Lymphocytes % (auto) 23.4 % (10.0-50.0); Mean Corpuscular Hemoglobin 22.8 pg (28.0-32.0); Mean Corpuscular Hgb Conc. 31.3 g/dL (32.0-36.0); Mean Corpuscular Volume 72.7 fL (80.0-100.0); Monocytes # (auto) 0.7 uL; Monocytes % (auto) 8.7 % (0.0-12.0); Neutrophils # (auto) 5.3 uL; Neutrophils % (auto) 61.7 % (37.0-80.0); Platelet Count (auto) 254 10^3/uL (140-450); Red Blood Cells 4.61 10^6/uL (4.5-5.90); Red Cell Distribution Width 17.2 % (11.8-14.3); White Blood Cell 8.6 10^3/uL (4.4-10.8)
[2019-04-23 12:20] LABS: Potassium 3.9 mmol/L (3.5-5.1)
[2019-04-23 12:27] LABS: BUN/Creatinine Ratio 19.3; Calcium 8.6 mg/dL (8.5-10.1); Magnesium 2.3 mg/dL (1.6-2.6)
--- NOTE | 2019-04-23 12:48 | NUR ---
Discharge Instructions See e-MAR for any mediations given with this visit. Patient education given on disease process. Patient verbalized understanding. Previous labs reviewed. Patient discharged in stable condition with after care instructions and follow up appointment. MEDICATIONS BUMEX DRIP [id number] POTASSIUM PO X 1 HEPARIN 500 UNITS IVP Addendum: 04/23/19 at 1309 by BERTA FERNANDEZ RN RN TX PT GIVEN METALAZONE PRESCRIPTION 2.5 MG PO BID INSTRUCTED TO TAKE 2.5MG PO QAM 30 MIN BEFORE LASIX
== END | disposition home or self-care (01) ==
LOC: CHF HDHVI 10:03
PROVIDERS: ATTEND Internal Medicine Cardiovascular Disease
DX: I11.0 Hypertensive heart disease with heart failure (principal); I50.42 Chronic combined systolic (congestive) and diastolic (congestive) heart failure; E83.40 Disorders of magnesium metabolism, unspecified; D64.9 Anemia, unspecified; R60.0 Localized edema; I50.9 Heart failure, unspecified; I25.10 Atherosclerotic heart disease of native coronary artery without angina pectoris; G89.29 Other chronic pain; E78.5 Hyperlipidemia, unspecified; F32.9 Major depressive disorder, single episode, unspecified; E66.01 Morbid (severe) obesity due to excess calories; G47.33 Obstructive sleep apnea (adult) (pediatric); E78.00 Pure hypercholesterolemia, unspecified; E11.40 Type 2 diabetes mellitus with diabetic neuropathy, unspecified; E11.51 Type 2 diabetes mellitus with diabetic peripheral angiopathy without gangrene; I48.91 Unspecified atrial fibrillation; E11.41 Type 2 diabetes mellitus with diabetic mononeuropathy; J44.9 Chronic obstructive pulmonary disease, unspecified; E11.621 Type 2 diabetes mellitus with foot ulcer; Z79.4 Long term (current) use of insulin; Z79.891 Long term (current) use of opiate analgesic; Z79.84 Long term (current) use of oral hypoglycemic drugs; Z79.899 Other long term (current) drug therapy; Z85.46 Personal history of malignant neoplasm of prostate; Z86.73 Personal history of transient ischemic attack (TIA), and cerebral infarction without residual deficits; Z95.5 Presence of coronary angioplasty implant and graft; Z87.891 Personal history of nicotine dependence
CPT/HCPCS: 36415; 80048; 83735; 85025; 96365; 96366; G0463; J1642; J3490; J7030

== ENCOUNTER → 2019-04-25 | Outpatient (CLI) | payer MEDICARE ==
[2019-04-25] VITALS (7 sets, daily range): BP systolic 109–125; BP diastolic 54–79
[~2019-04-25] MED LIST changes: -SODIUM CHLORIDE 0.9% 1,000 ML IV ONE; +SODIUM CHLORIDE 0.9% 100 ML IV ONE
--- NOTE | 2019-04-25 10:00 | NUR ---
Darling Cath Insertion 20 NON CORING gauge Darling Cath inserted using sterile technique in the upper chest with occlusive dressing over saucedo needle. Patient tolerated procedure well. Ordered labs drawn and sent. See e-MAR for medications given during this visit. DONE BY GEORGIE ELLIS
--- NOTE | 2019-04-25 13:15 | NUR ---
Discharge Instructions See e-MAR for any mediations given with this visit. Patient education given on disease process. Patient verbalized understanding. Previous labs reviewed. Patient discharged in stable condition with after care instructions and follow up appointment. MEDS BUMEX DRIP [id number] POTASSIUM PO HEPARIN 500 UNITS IVP
== END | disposition home or self-care (01) ==
LOC: CHF HDHVI 11:05
PROVIDERS: ATTEND Internal Medicine Cardiovascular Disease
DX: I11.0 Hypertensive heart disease with heart failure (principal); I50.42 Chronic combined systolic (congestive) and diastolic (congestive) heart failure; E03.9 Hypothyroidism, unspecified; I25.10 Atherosclerotic heart disease of native coronary artery without angina pectoris; E78.5 Hyperlipidemia, unspecified; F32.9 Major depressive disorder, single episode, unspecified; E66.01 Morbid (severe) obesity due to excess calories; G47.33 Obstructive sleep apnea (adult) (pediatric); E11.40 Type 2 diabetes mellitus with diabetic neuropathy, unspecified; E11.51 Type 2 diabetes mellitus with diabetic peripheral angiopathy without gangrene; I48.91 Unspecified atrial fibrillation; G89.4 Chronic pain syndrome; E66.9 Obesity, unspecified; E78.00 Pure hypercholesterolemia, unspecified; I27.21 Secondary pulmonary arterial hypertension; Z79.899 Other long term (current) drug therapy; Z85.46 Personal history of malignant neoplasm of prostate; Z95.1 Presence of aortocoronary bypass graft; Z87.891 Personal history of nicotine dependence; Z79.4 Long term (current) use of insulin; Z79.891 Long term (current) use of opiate analgesic; Z79.84 Long term (current) use of oral hypoglycemic drugs; Z95.810 Presence of automatic (implantable) cardiac defibrillator; Z68.41 Body mass index [BMI] 40.0-44.9, adult; Z86.73 Personal history of transient ischemic attack (TIA), and cerebral infarction without residual deficits
CPT/HCPCS: 96365; 96366; G0463; J1642; J3490

== ENCOUNTER → 2019-04-30 | Outpatient (CLI) | payer MEDICARE ==
[~2019-04-30] MED LIST changes: +MAGNESIUM SULFATE 1GM/100ML 100 ML IV ONE; +MAGNESIUM SULFATE 1GM/100ML 100 ML IV SCH
[2019-04-30 10:15] VITALS: BP 106/59
--- NOTE | 2019-04-30 11:00 | NUR ---
CARDIAC PT HAVING EPISODES OF INCREASED HEART RATE , VSS EGK DONE SHOWES ATRIAL TACH. MD MCINTYRE UPDATED ORDERS RECIEVED AND NOTED
[2019-04-30 11:15] VITALS: BP 105/61
[2019-04-30 11:43] LABS: Basophils # (auto) 0.1 uL; Neutrophils # (auto) 6.8 uL
[2019-04-30 11:45] VITALS: BP 101/54
[2019-04-30 11:48] LABS: Basophils % (auto) 0.9 % (0.0-2.0); Eosinophils # (auto) 0.3 uL; Hematocrit 36.4 % (41.0-53.0); Hemoglobin 11.8 g/dL (13.5-17.5); Lymphocytes # (auto) 2.4 uL; Lymphocytes % (auto) 22.8 % (10.0-50.0); Mean Corpuscular Hemoglobin 23.1 pg (28.0-32.0); Mean Corpuscular Hgb Conc. 32.3 g/dL (32.0-36.0); Mean Corpuscular Volume 71.5 fL (80.0-100.0); Monocytes % (auto) 9.7 % (0.0-12.0); Neutrophils % (auto) 63.6 % (37.0-80.0); Nucleated Red Blood Cells % 0.1 %; Platelet Count (auto) 260 10^3/uL (140-450); Red Blood Cells 5.09 10^6/uL (4.5-5.90); Red Cell Distribution Width 17.2 % (11.8-14.3); White Blood Cell 10.7 10^3/uL (4.4-10.8)
[2019-04-30 11:54] LABS: Albumin 3.1 g/dL (3.4-5.0); BUN/Creatinine Ratio 27.4; Bilirubin, Total 0.3 mg/dL (0.2-1.0); Total Protein 7.6 g/dL (6.4-8.2)
[2019-04-30 11:58] LABS: Potassium 2.8 mmol/L (3.5-5.1)
--- NOTE | 2019-04-30 12:00 | NUR ---
EXTENSIVE DIABETIC REVIEW OF RECORDED GLUCOSE AND DISCUSSION WITH PATIENT AND . CLINIC PROVIDER CONSULTED AND ORDERS RECIEVED . NEW DIABETIC MANAGEMENT WRITTEN OUT FOR PATIENT AND . INSTRUCTED TO TAKE TOUJEO 24 UNITS DAILY LANTUS 34 UNITS DAILY LOW DOSE SLIDING SCALE OF HUMULIN R 150-200 = 2 UNITS 201-250=4 UNITS 251-300=6 UNITS 301-350=8 UNITS 351 OR MORE =10 UNITS SLIDING SCALE TO BE FOLLOWED 30 MINUTES BEFORE MEALS AND AT BEDTIME. NO MORE THAN 4 TIMES DAILY. REPEAT BACK INSTRUCTION OBTAINED. ADDITIONAL CLARIFICATION GIVEN LATER TO PTS VIA PHONE AND TEXT (AT 5 PM )
--- NOTE | 2019-04-30 12:10 | NUR ---
CARDIAC PT K CAME BACK AT 2.8 POTASSIUM 40 MEQ GIVEN
[2019-04-30 12:15] VITALS: BP 97/59
[2019-04-30 13:06] VITALS: BP 132/81
--- NOTE | 2019-04-30 13:06 | NUR ---
Discharge Instructions See e-MAR for any mediations given with this visit. Patient education given on disease process. Patient verbalized understanding. Previous labs reviewed. Patient discharged in stable condition with after care instructions and follow up appointment. MEDICATIONS BUMEX DRIP [id number] MAGNESIUM [id number] POTASSIUM PO HEPARIN 500 UNITS IVP X 1 Addendum: 04/30/19 at 1347 by BERTA FERNANDEZ RN RN DE PULLED POTASSIUM 80 MEQ IN TOTAL ONLY GAVE 70 MEQ TOTAL
== END | disposition home or self-care (01) ==
LOC: CHF HDHVI 10:25
PROVIDERS: ATTEND Internal Medicine Cardiovascular Disease
DX: I11.0 Hypertensive heart disease with heart failure (principal); I50.42 Chronic combined systolic (congestive) and diastolic (congestive) heart failure; R60.9 Edema, unspecified; D64.9 Anemia, unspecified; R00.0 Tachycardia, unspecified; I25.10 Atherosclerotic heart disease of native coronary artery without angina pectoris; I27.21 Secondary pulmonary arterial hypertension; I48.91 Unspecified atrial fibrillation; J44.9 Chronic obstructive pulmonary disease, unspecified; E78.5 Hyperlipidemia, unspecified; F32.9 Major depressive disorder, single episode, unspecified; E03.9 Hypothyroidism, unspecified; E78.00 Pure hypercholesterolemia, unspecified; E11.41 Type 2 diabetes mellitus with diabetic mononeuropathy; E11.21 Type 2 diabetes mellitus with diabetic nephropathy; E11.51 Type 2 diabetes mellitus with diabetic peripheral angiopathy without gangrene; G89.4 Chronic pain syndrome; E11.40 Type 2 diabetes mellitus with diabetic neuropathy, unspecified; E66.01 Morbid (severe) obesity due to excess calories; Z68.41 Body mass index [BMI] 40.0-44.9, adult; Z79.4 Long term (current) use of insulin; Z79.891 Long term (current) use of opiate analgesic; Z79.84 Long term (current) use of oral hypoglycemic drugs; Z79.899 Other long term (current) drug therapy; Z85.46 Personal history of malignant neoplasm of prostate; Z87.891 Personal history of nicotine dependence; Z95.1 Presence of aortocoronary bypass graft; Z95.5 Presence of coronary angioplasty implant and graft; Z95.810 Presence of automatic (implantable) cardiac defibrillator; Z86.73 Personal history of transient ischemic attack (TIA), and cerebral infarction without residual deficits
CPT/HCPCS: 36415; 80053; 82962; 83880; 85025; 93005; 96365; 96368; G0463; J1642; J3475; J3490; 96366

== ENCOUNTER → 2019-05-02 | Outpatient (CLI) | payer MEDICARE ==
[~2019-05-02] VITALS: Ht 30.5 cm; Wt 113.0 kg
[~2019-05-02] MED LIST changes: -MAGNESIUM SULFATE 1GM/100ML 100 ML IV ONE; -MAGNESIUM SULFATE 1GM/100ML 100 ML IV SCH
--- NOTE | 2019-05-02 09:57 | NUR ---
CHF PT ARRIVED TO THE CHF CLINIC FOR WEEKLY THERAPY A/0 X 3 0 DISTRESS V/S STABLE.
[2019-05-02 10:33] VITALS: BP 117/53
[2019-05-02] MEDS: POTASSIUM CHL 10 Meq TABLET PO SCH ×2 (11:07→12:58)
[2019-05-02 11:15] VITALS: BP 114/58
[2019-05-02 11:45] VITALS: BP 109/57
[2019-05-02 11:55] LABS: Potassium 2.8 mmol/L (3.5-5.1)
[2019-05-02 12:15] VITALS: BP 100/54
[2019-05-02 12:50] VITALS: BP 100/54
--- NOTE | 2019-05-02 12:50 | NUR ---
Discharge Instructions See e-MAR for any mediations given with this visit. Patient education given on disease process. Patient verbalized understanding. Previous labs reviewed. Patient discharged in stable condition with after care instructions and follow up appointment. VICTORINO GODINEZ [id number] POTASSIUM PO HEPARIN IVP Addendum: 05/02/19 at 1327 by BERTA FERNANDEZ RN RN ID PTS INFUSION STOPPED EARLIER DUE TO HYPOKALEMIA RELATED TO HOME DIURETIC THERAPY
== END | disposition home or self-care (01) ==
LOC: CHF HDHVI 10:24
PROVIDERS: ATTEND Internal Medicine Cardiovascular Disease
DX: I11.0 Hypertensive heart disease with heart failure (principal); I50.42 Chronic combined systolic (congestive) and diastolic (congestive) heart failure; E87.6 Hypokalemia; R94.4 Abnormal results of kidney function studies; I25.10 Atherosclerotic heart disease of native coronary artery without angina pectoris; R60.9 Edema, unspecified; E78.00 Pure hypercholesterolemia, unspecified; E11.21 Type 2 diabetes mellitus with diabetic nephropathy; G89.4 Chronic pain syndrome; E03.9 Hypothyroidism, unspecified; E78.5 Hyperlipidemia, unspecified; E66.01 Morbid (severe) obesity due to excess calories; Z68.41 Body mass index [BMI] 40.0-44.9, adult; Z79.4 Long term (current) use of insulin; Z79.891 Long term (current) use of opiate analgesic; Z79.84 Long term (current) use of oral hypoglycemic drugs; F32.9 Major depressive disorder, single episode, unspecified; Z79.899 Other long term (current) drug therapy; Z85.46 Personal history of malignant neoplasm of prostate; Z87.891 Personal history of nicotine dependence; Z95.1 Presence of aortocoronary bypass graft; Z95.810 Presence of automatic (implantable) cardiac defibrillator; Z86.73 Personal history of transient ischemic attack (TIA), and cerebral infarction without residual deficits; Z95.5 Presence of coronary angioplasty implant and graft
CPT/HCPCS: 36415; 82565; 84132; 84520; 96365; G0463; J1642; J3490

== ENCOUNTER → 2019-05-07 | Outpatient (CLI) | payer MEDICARE ==
[~2019-05-07] MED LIST changes: -BUMETANIDE 2.5mg/10ml (0.25 mg/ml) INJ IV ONE; +BUMETANIDE 2.5mg/10ml (0.25 mg/ml) INJ IV SCH; -POTASSIUM CHL 10 Meq TABLET PO ONE
--- NOTE | 2019-05-07 10:00 | NUR ---
CHF PT ARRIVED AT THE CHF CLINIC A/O X 3 VSS. ORDERS RECEIVED AND NOTED
[2019-05-07 10:12] VITALS: BP 114/56
[2019-05-07 10:30] VITALS: BP 100/56
[2019-05-07 11:00] VITALS: BP 128/62
--- NOTE | 2019-05-07 11:00 | NUR ---
BUMEX INFUSION ONGOING. TOLERATING WELL.
[2019-05-07 11:30] VITALS: BP 113/58
[2019-05-07 12:00] VITALS: BP 113/61
[2019-05-07 12:21] LABS: Basophils # (auto) 0.1 uL; Eosinophils # (auto) 0.5 uL; Hemoglobin 11.1 g/dL (13.5-17.5); Lymphocytes # (auto) 2.9 uL; Nucleated Red Blood Cells % 0.1 %; Red Cell Distribution Width 17.6 % (11.8-14.3)
[2019-05-07 12:29] LABS: Basophils % (auto) 0.9 % (0.0-2.0); Eosinophils % (auto) 4.4 % (0.0-7.0); Hematocrit 35.6 % (41.0-53.0); Lymphocytes % (auto) 27.9 % (10.0-50.0); Mean Corpuscular Hemoglobin 22.2 pg (28.0-32.0); Mean Corpuscular Hgb Conc. 31.2 g/dL (32.0-36.0); Mean Corpuscular Volume 71.3 fL (80.0-100.0); Monocytes % (auto) 9.7 % (0.0-12.0); Neutrophils # (auto) 5.9 uL; Neutrophils % (auto) 57.1 % (37.0-80.0); Platelet Count (auto) 265 10^3/uL (140-450); Red Blood Cells 4.99 10^6/uL (4.5-5.90); White Blood Cell 10.3 10^3/uL (4.4-10.8)
[2019-05-07 13:29] LABS: Potassium 3.2 mmol/L (3.5-5.1)
--- NOTE | 2019-05-07 13:30 | NUR ---
INFUSION COMPLETED. TOLERATED WELL. AFFECT CHEERFUL. AWAITING RETURN OF CHEMISTRY BEFORE DISCHARGE.
[2019-05-07 13:55] LABS: BUN/Creatinine Ratio 20.6
--- NOTE | 2019-05-07 14:00 | NUR ---
LABS RETURNED. CLINIC PROVIDER CONSULTED AND ORDERS RECEIVED. MEDICATED PER ORDER.
[2019-05-07 14:06] VITALS: BP 136/63
--- NOTE | 2019-05-07 14:14 | NUR ---
Darling Cath Removal Quinn needle D/C'd after Heparin flush per protocol. See e-MAR for medications given during this visit. Sterile occlusive dressing to site. Patient tolerated procedure well. Site benign post infusion. DISCHARGED TO SELF CARE WITH IN ATTENDANCE. MEDICATION ADMINISTRATION BUMEX GTT START AT 1013/STOP AT 1330 POTASSIUM PO AT 1400 HEPARIN IVP TO PORT AT 1410
== END | disposition home or self-care (01) ==
LOC: CHF HDHVI 10:25
PROVIDERS: ATTEND Internal Medicine Cardiovascular Disease
DX: I11.0 Hypertensive heart disease with heart failure (principal); I50.42 Chronic combined systolic (congestive) and diastolic (congestive) heart failure; I25.10 Atherosclerotic heart disease of native coronary artery without angina pectoris; I27.21 Secondary pulmonary arterial hypertension; D64.9 Anemia, unspecified; E83.40 Disorders of magnesium metabolism, unspecified; G89.4 Chronic pain syndrome; E78.5 Hyperlipidemia, unspecified; E03.9 Hypothyroidism, unspecified; E78.00 Pure hypercholesterolemia, unspecified; E11.21 Type 2 diabetes mellitus with diabetic nephropathy; E11.51 Type 2 diabetes mellitus with diabetic peripheral angiopathy without gangrene; F32.9 Major depressive disorder, single episode, unspecified; J44.9 Chronic obstructive pulmonary disease, unspecified; E11.41 Type 2 diabetes mellitus with diabetic mononeuropathy; E66.01 Morbid (severe) obesity due to excess calories; Z68.41 Body mass index [BMI] 40.0-44.9, adult; Z79.891 Long term (current) use of opiate analgesic; Z79.4 Long term (current) use of insulin; Z79.84 Long term (current) use of oral hypoglycemic drugs; Z79.899 Other long term (current) drug therapy; Z85.46 Personal history of malignant neoplasm of prostate; Z87.891 Personal history of nicotine dependence; Z95.1 Presence of aortocoronary bypass graft; Z95.5 Presence of coronary angioplasty implant and graft; Z95.810 Presence of automatic (implantable) cardiac defibrillator; Z86.73 Personal history of transient ischemic attack (TIA), and cerebral infarction without residual deficits
CPT/HCPCS: 36415; 80048; 83735; 85025; 96365; 96366; G0463; J1642; J3490

== ENCOUNTER → 2019-05-09 | Outpatient (CLI) | payer MEDICARE ==
[2019-05-09] VITALS (7 sets, daily range): BP systolic 103–127; BP diastolic 56–60
[~2019-05-09] MED LIST changes: -BUMETANIDE 1mg/4ml VIAL (0.25mg/ml) ONE; +BUMETANIDE 2.5mg/10ml (0.25 mg/ml) INJ IV ONE; -BUMETANIDE 2.5mg/10ml (0.25 mg/ml) INJ IV SCH; +POTASSIUM CHL 10 Meq TABLET PO ONE; -SODIUM CHLORIDE 0.9% 100 ML IV ONE
--- NOTE | 2019-05-09 10:05 | NUR ---
chf pt arrived at the CHF CLINIC FOR WEEKLY THERAPY AND F/U. A.O X 3 TIRED VSS
--- NOTE | 2019-05-09 10:10 | NUR ---
Clinic Provider Clinic Provider UPDATED ON PT with new orders received and carried out. BUMEX gtt started at {0.75}mg/hr per MD order.
[2019-05-09] MEDS: SODIUM CHLORIDE 0.9% 100 ML IV SCH (10:45)
--- NOTE | 2019-05-09 14:38 | NUR ---
Discharge Instructions See e-MAR for any mediations given with this visit. Patient education given on disease process. Patient verbalized understanding. Previous labs reviewed. Patient discharged in stable condition with after care instructions and follow up appointment. MEDICATIONS BUMEX DRIP [id number] POTASSIUM PO HEPARIN 500 UNITS IVP
== END | disposition home or self-care (01) ==
LOC: CHF HDHVI 10:11
PROVIDERS: ATTEND Internal Medicine Cardiovascular Disease
DX: I11.0 Hypertensive heart disease with heart failure (principal); I50.42 Chronic combined systolic (congestive) and diastolic (congestive) heart failure; I25.10 Atherosclerotic heart disease of native coronary artery without angina pectoris; J44.9 Chronic obstructive pulmonary disease, unspecified; E87.79 Other fluid overload; E87.6 Hypokalemia; E78.5 Hyperlipidemia, unspecified; E03.9 Hypothyroidism, unspecified; E66.9 Obesity, unspecified; G47.33 Obstructive sleep apnea (adult) (pediatric); E78.00 Pure hypercholesterolemia, unspecified; E11.41 Type 2 diabetes mellitus with diabetic mononeuropathy; E11.621 Type 2 diabetes mellitus with foot ulcer; E11.51 Type 2 diabetes mellitus with diabetic peripheral angiopathy without gangrene; I48.91 Unspecified atrial fibrillation; F32.9 Major depressive disorder, single episode, unspecified; G89.29 Other chronic pain; Z79.4 Long term (current) use of insulin; Z79.84 Long term (current) use of oral hypoglycemic drugs; Z79.891 Long term (current) use of opiate analgesic; Z85.46 Personal history of malignant neoplasm of prostate; Z87.891 Personal history of nicotine dependence; Z95.1 Presence of aortocoronary bypass graft; Z95.810 Presence of automatic (implantable) cardiac defibrillator; Z86.73 Personal history of transient ischemic attack (TIA), and cerebral infarction without residual deficits; Z79.899 Other long term (current) drug therapy
CPT/HCPCS: 36415; 84132; 96365; 96366; G0463; J1642

== ENCOUNTER → 2019-05-14 | Outpatient (CLI) | payer MEDICARE ==
[2019-05-14] VITALS (8 sets, daily range): BP systolic 101–136; BP diastolic 48–75
[~2019-05-14] MED LIST changes: +BUMETANIDE 1mg/4ml VIAL (0.25mg/ml) IV ONE; -BUMETANIDE 2.5mg/10ml (0.25 mg/ml) INJ IV ONE; +SODIUM CHLORIDE 0.9% 1,000 ML IV ONE
--- NOTE | 2019-05-14 10:00 | NUR ---
CHF ARRIVED AT THE CHF CLINIC FOR TX AND F/U/ PT A/O X 3 0 DISTRESS.
[2019-05-14 12:22] LABS: Potassium 3.4 mmol/L (3.5-5.1)
--- NOTE | 2019-05-14 13:16 | NUR ---
Discharge Instructions See e-MAR for any mediations given with this visit. Patient education given on disease process. Patient verbalized understanding. Previous labs reviewed. Patient discharged in stable condition with after care instructions and follow up appointment. MEDICATIONS BUMEX DRIP IN NS 100ML [id number] POTASSIUM PO HEPARIN IVP
== END | disposition home or self-care (01) ==
LOC: CHF HDHVI 10:08
PROVIDERS: ATTEND Internal Medicine Cardiovascular Disease
DX: I11.0 Hypertensive heart disease with heart failure (principal); I50.42 Chronic combined systolic (congestive) and diastolic (congestive) heart failure; R94.4 Abnormal results of kidney function studies; E87.6 Hypokalemia; I25.10 Atherosclerotic heart disease of native coronary artery without angina pectoris; J44.9 Chronic obstructive pulmonary disease, unspecified; G89.29 Other chronic pain; E78.5 Hyperlipidemia, unspecified; E03.9 Hypothyroidism, unspecified; E78.00 Pure hypercholesterolemia, unspecified; E11.41 Type 2 diabetes mellitus with diabetic mononeuropathy; E11.21 Type 2 diabetes mellitus with diabetic nephropathy; E11.51 Type 2 diabetes mellitus with diabetic peripheral angiopathy without gangrene; E66.9 Obesity, unspecified; G47.33 Obstructive sleep apnea (adult) (pediatric); I48.91 Unspecified atrial fibrillation; E11.621 Type 2 diabetes mellitus with foot ulcer; Z79.4 Long term (current) use of insulin; Z79.891 Long term (current) use of opiate analgesic; Z79.84 Long term (current) use of oral hypoglycemic drugs; Z85.46 Personal history of malignant neoplasm of prostate; Z87.891 Personal history of nicotine dependence; Z95.1 Presence of aortocoronary bypass graft; Z95.810 Presence of automatic (implantable) cardiac defibrillator; Z86.73 Personal history of transient ischemic attack (TIA), and cerebral infarction without residual deficits
CPT/HCPCS: 36415; 82565; 84132; 84520; 96365; 96366; G0463; J1642; J7030

== ENCOUNTER → 2019-05-16 | Outpatient (CLI) | payer MEDICARE ==
[2019-05-16] VITALS (7 sets, daily range): BP systolic 101–120; BP diastolic 54–73
[~2019-05-16] MED LIST changes: -BUMETANIDE 1mg/4ml VIAL (0.25mg/ml) IV ONE; +BUMETANIDE 2.5mg/10ml (0.25 mg/ml) INJ IV ONE; -SODIUM CHLORIDE 0.9% 1,000 ML IV ONE; +SODIUM CHLORIDE 0.9% 100 ML IV ONE
--- NOTE | 2019-05-16 09:47 | NUR ---
CHF PT ARRIVED AT THE CHF CLINIC FOR TREATMENT AND EVALUATION. A/O X 3 0 DISTRESS VSS
--- NOTE | 2019-05-16 11:00 | NUR ---
BUMEX INFUSION ONGOING. TOLERATING WELL. WITHOUT DISTRESS OR DISCOMFORT. UP TO VOID PRN.
--- NOTE | 2019-05-16 13:30 | NUR ---
CHF TOLERATED INFUSION WELL. RENETTA CATH DCD AND SITE BENIGN POST USE. DISCHARGED TO SELF CARE IN NO DISTRESS OR DISCOMFORT. MEDICATION ADMINISTRATION BUMEX GTT X 3 HOURS START AT 1010/STOP AT 1329 POTASSIUM PO AT 1030 HEPARIN TO PORT
== END | disposition home or self-care (01) ==
LOC: CHF HDHVI 09:50
PROVIDERS: ATTEND Internal Medicine Cardiovascular Disease
DX: I11.0 Hypertensive heart disease with heart failure (principal); I50.42 Chronic combined systolic (congestive) and diastolic (congestive) heart failure; I25.10 Atherosclerotic heart disease of native coronary artery without angina pectoris; J44.9 Chronic obstructive pulmonary disease, unspecified; E78.5 Hyperlipidemia, unspecified; E03.9 Hypothyroidism, unspecified; E66.9 Obesity, unspecified; G47.33 Obstructive sleep apnea (adult) (pediatric); G89.29 Other chronic pain; E78.00 Pure hypercholesterolemia, unspecified; E11.41 Type 2 diabetes mellitus with diabetic mononeuropathy; E11.21 Type 2 diabetes mellitus with diabetic nephropathy; E11.621 Type 2 diabetes mellitus with foot ulcer; E11.51 Type 2 diabetes mellitus with diabetic peripheral angiopathy without gangrene; I48.91 Unspecified atrial fibrillation; F32.9 Major depressive disorder, single episode, unspecified; Z79.4 Long term (current) use of insulin; Z79.84 Long term (current) use of oral hypoglycemic drugs; Z79.891 Long term (current) use of opiate analgesic; Z85.46 Personal history of malignant neoplasm of prostate; Z87.891 Personal history of nicotine dependence; Z95.1 Presence of aortocoronary bypass graft; Z95.810 Presence of automatic (implantable) cardiac defibrillator; Z86.73 Personal history of transient ischemic attack (TIA), and cerebral infarction without residual deficits; Z79.899 Other long term (current) drug therapy
CPT/HCPCS: 96365; 96366; G0463; J1642

== ENCOUNTER → 2019-05-21 | Outpatient (CLI) | payer MEDICARE ==
[2019-05-21] VITALS (9 sets, daily range): BP systolic 94–130; BP diastolic 51–65
--- NOTE | 2019-05-21 09:55 | NUR ---
CHF PT ARRIVED AT THE CHF CLINIC FOR TX/EVAL . PT A/O X 4 0 DISTRESS. VSS .
--- NOTE | 2019-05-21 10:00 | NUR ---
Clinic Provider Clinic Provider updated new orders received and carried out. Bumex 0.75mg/hr per MD order.
--- NOTE | 2019-05-21 13:30 | NUR ---
Discharge Instructions See e-MAR for any mediations given with this visit. Patient education given on disease process. Patient verbalized understanding. Previous labs reviewed. Patient discharged in stable condition with after care instructions and follow up appointment. MEDICATIONS BUMEX DRIP/100NS [id number] POTASSIUM PO HEPARIN 500 UNITS IVP
[2019-05-21 16:06] LABS: Potassium 3.2 mmol/L (3.5-5.1)
== END | disposition home or self-care (01) ==
LOC: CHF HDHVI 10:15
PROVIDERS: ATTEND Internal Medicine Cardiovascular Disease
DX: I11.0 Hypertensive heart disease with heart failure (principal); I50.42 Chronic combined systolic (congestive) and diastolic (congestive) heart failure; I25.10 Atherosclerotic heart disease of native coronary artery without angina pectoris; I48.91 Unspecified atrial fibrillation; I27.21 Secondary pulmonary arterial hypertension; R94.4 Abnormal results of kidney function studies; E87.6 Hypokalemia; J44.9 Chronic obstructive pulmonary disease, unspecified; E78.5 Hyperlipidemia, unspecified; E03.9 Hypothyroidism, unspecified; F32.9 Major depressive disorder, single episode, unspecified; E78.00 Pure hypercholesterolemia, unspecified; E11.41 Type 2 diabetes mellitus with diabetic mononeuropathy; E11.51 Type 2 diabetes mellitus with diabetic peripheral angiopathy without gangrene; E11.21 Type 2 diabetes mellitus with diabetic nephropathy; G89.4 Chronic pain syndrome; E66.01 Morbid (severe) obesity due to excess calories; Z68.41 Body mass index [BMI] 40.0-44.9, adult; Z85.46 Personal history of malignant neoplasm of prostate; Z87.891 Personal history of nicotine dependence; Z95.1 Presence of aortocoronary bypass graft; Z79.4 Long term (current) use of insulin; Z79.899 Other long term (current) drug therapy; Z79.891 Long term (current) use of opiate analgesic; Z79.84 Long term (current) use of oral hypoglycemic drugs; Z95.5 Presence of coronary angioplasty implant and graft; Z95.810 Presence of automatic (implantable) cardiac defibrillator; Z86.73 Personal history of transient ischemic attack (TIA), and cerebral infarction without residual deficits
CPT/HCPCS: 36415; 82565; 84132; 84520; 96365; 96366; G0463; J1642

== ENCOUNTER → 2019-05-23 | Outpatient (CLI) | payer MEDICARE ==
[~2019-05-23] MED LIST changes: -BUMETANIDE 2.5mg/10ml (0.25 mg/ml) INJ IV ONE; -BUMETANIDE INJECTION 10 ML ONE; -POTASSIUM CHL 10 Meq TABLET PO ONE; -POTASSIUM CHL 20 Meq TABLET PO ONE; +POTASSIUM EFFERVESENT TAB 25 MEQ ONE; +POTASSIUM EFFERVESENT TAB 25 MEQ PO ONE; -SODIUM CHLORIDE 0.9% 100 ML IV ONE
--- NOTE | 2019-05-23 10:00 | NUR ---
CHF PT ARRIVED AT THE CHF CLINIC FOR TX AND F/U. A/O X 4 0 DISTRESS VSS
[2019-05-23 10:40] VITALS: BP 111/57
--- NOTE | 2019-05-23 10:40 | NUR ---
Discharge Instructions See e-MAR for any mediations given with this visit. Patient education given on disease process. Patient verbalized understanding. Previous labs reviewed. Patient discharged in stable condition with after care instructions and follow up appointment. MEDS POTASSIUM PO HEPARIN 500 UNITS IVP Addendum: 05/23/19 at 1257 by BERTA FERRO RN [place] PT TOOK METOLAZONE TODAY WHEN ADVISED NOT TO. EXPLAINED TO PT AND THAT THEY ARE TO HOLD METOLAZONE UNTIL SEEN NEXT WEEK ON MONDAY. CALLED AND REMINDED PT AND
[2019-05-23 12:08] LABS: Basophils # (auto) 0.1 uL; Eosinophils # (auto) 0.4 uL; Hemoglobin 11.3 g/dL (13.5-17.5); Nucleated Red Blood Cells % 0.1 %; Red Cell Distribution Width 18.4 % (11.8-14.3)
[2019-05-23 12:10] LABS: Basophils % (auto) 1.4 % (0.0-2.0); Eosinophils % (auto) 4.1 % (0.0-7.0); Hematocrit 36.1 % (41.0-53.0); Lymphocytes # (auto) 2.9 uL; Lymphocytes % (auto) 27.5 % (10.0-50.0); Mean Corpuscular Hemoglobin 22.1 pg (28.0-32.0); Mean Corpuscular Hgb Conc. 31.2 g/dL (32.0-36.0); Mean Corpuscular Volume 70.9 fL (80.0-100.0); Monocytes # (auto) 0.9 uL; Platelet Count (auto) 279 10^3/uL (140-450); Red Blood Cells 5.09 10^6/uL (4.5-5.90); White Blood Cell 10.4 10^3/uL (4.4-10.8)
[2019-05-23 12:25] LABS: Potassium 3.2 mmol/L (3.5-5.1)
== END | disposition home or self-care (01) ==
LOC: CHF HDHVI 10:20
PROVIDERS: ATTEND Internal Medicine Cardiovascular Disease
DX: I11.0 Hypertensive heart disease with heart failure (principal); I50.42 Chronic combined systolic (congestive) and diastolic (congestive) heart failure; I25.10 Atherosclerotic heart disease of native coronary artery without angina pectoris; I48.91 Unspecified atrial fibrillation; D64.9 Anemia, unspecified; E87.6 Hypokalemia; R94.4 Abnormal results of kidney function studies; J44.9 Chronic obstructive pulmonary disease, unspecified; E78.5 Hyperlipidemia, unspecified; E03.9 Hypothyroidism, unspecified; F32.9 Major depressive disorder, single episode, unspecified; G89.29 Other chronic pain; E78.00 Pure hypercholesterolemia, unspecified; E11.41 Type 2 diabetes mellitus with diabetic mononeuropathy; E11.40 Type 2 diabetes mellitus with diabetic neuropathy, unspecified; E11.51 Type 2 diabetes mellitus with diabetic peripheral angiopathy without gangrene; E66.01 Morbid (severe) obesity due to excess calories; Z68.41 Body mass index [BMI] 40.0-44.9, adult; Z95.5 Presence of coronary angioplasty implant and graft; Z79.899 Other long term (current) drug therapy; Z79.4 Long term (current) use of insulin; Z79.891 Long term (current) use of opiate analgesic; Z79.84 Long term (current) use of oral hypoglycemic drugs; Z85.46 Personal history of malignant neoplasm of prostate; Z87.891 Personal history of nicotine dependence; Z95.1 Presence of aortocoronary bypass graft; Z95.810 Presence of automatic (implantable) cardiac defibrillator; Z86.73 Personal history of transient ischemic attack (TIA), and cerebral infarction without residual deficits
CPT/HCPCS: 36415; 82565; 84132; 84520; 85025; G0463; J1642

== ENCOUNTER → 2019-05-28 | Outpatient (CLI) | payer MEDICARE ==
[~2019-05-28] VITALS: Ht 30.5 cm; Wt 117.0 kg
[~2019-05-28] MED LIST changes: +MAGNESIUM SULFATE 1GM/100ML 100 ML IV ONE
--- NOTE | 2019-05-28 09:53 | NUR ---
CHF PT A/O X 3 0 DISTRESS. AT THE CLINIC FOR WEEKLY THERAPY. VSS. PT LABS DRAWN STAT TO ASSESS KIDNEY FUNCTION , HOLDING THERAPY AT THIS POINT TILL LABS RECEIVED. PT STATES HIS PSA IS ELEVATED TO 4.[address] UP WITH DR GODDARD ON MONDAY
[2019-05-28 11:13] LABS: BUN/Creatinine Ratio 19.1; Calcium 8.3 mg/dL (8.5-10.1); Magnesium 1.8 mg/dL (1.6-2.6); Potassium 3.6 mmol/L (3.5-5.1)
--- NOTE | 2019-05-28 11:32 | NUR ---
LABS BMP RECEIVED PT GIVEN POTASSIUM AND MAGNESIUM PT TO RETURN ON MONDAY
[2019-05-28 12:36] VITALS: BP 105/56
--- NOTE | 2019-05-28 12:36 | NUR ---
CHF INFUSION COMPLETED. TOLERATED WELL. WITHOUT DISTRESS. DISCHARGED TO SELF CARE WITH IN ATTENDANCE. MEDICATION ADMINISTRATION MAG RIDER START AT 1126/STOP AT 1236 POTASSIUM PO AT 1126 HEPARIN FLUSH AT 1238
== END | disposition home or self-care (01) ==
LOC: CHF HDHVI 10:04
PROVIDERS: ATTEND Internal Medicine Cardiovascular Disease
DX: I11.0 Hypertensive heart disease with heart failure (principal); I50.42 Chronic combined systolic (congestive) and diastolic (congestive) heart failure; R60.0 Localized edema; I25.10 Atherosclerotic heart disease of native coronary artery without angina pectoris; I48.91 Unspecified atrial fibrillation; J44.9 Chronic obstructive pulmonary disease, unspecified; E78.5 Hyperlipidemia, unspecified; E83.40 Disorders of magnesium metabolism, unspecified; E03.9 Hypothyroidism, unspecified; F32.9 Major depressive disorder, single episode, unspecified; E78.00 Pure hypercholesterolemia, unspecified; E11.41 Type 2 diabetes mellitus with diabetic mononeuropathy; E11.51 Type 2 diabetes mellitus with diabetic peripheral angiopathy without gangrene; G89.4 Chronic pain syndrome; E66.01 Morbid (severe) obesity due to excess calories; Z68.41 Body mass index [BMI] 40.0-44.9, adult; Z79.4 Long term (current) use of insulin; Z79.82 Long term (current) use of aspirin; Z79.84 Long term (current) use of oral hypoglycemic drugs; Z79.899 Other long term (current) drug therapy; Z85.46 Personal history of malignant neoplasm of prostate; Z87.891 Personal history of nicotine dependence; Z95.1 Presence of aortocoronary bypass graft; Z95.810 Presence of automatic (implantable) cardiac defibrillator; Z95.5 Presence of coronary angioplasty implant and graft; Z86.73 Personal history of transient ischemic attack (TIA), and cerebral infarction without residual deficits
CPT/HCPCS: 36415; 80048; 83735; 96365; G0463; J1642; J3475

== ENCOUNTER → 2019-05-30 | Outpatient (CLI) | payer MEDICARE ==
[~2019-05-30] MED LIST changes: -MAGNESIUM SULFATE 1GM/100ML 100 ML IV ONE; -POTASSIUM EFFERVESENT TAB 25 MEQ ONE; -POTASSIUM EFFERVESENT TAB 25 MEQ PO ONE
[2019-05-30 09:49] VITALS: BP 120/54
[2019-05-30 10:33] VITALS: BP 103/45
--- NOTE | 2019-05-30 10:33 | NUR ---
IN TO CLINIC FOR FOLLOWUP. PREVIOUS LABS AND STATUS REVIEWED. NOTED TO HAVE WEIGHT GAIN OF 3.6 LBS IN 2 DAYS. NO RESPIRATORY DISTRESS AND DENIES DISCOMFORT. VS WNL. PT CONTINUES TO RESPOND QUICKLY WITH ANY TEACHING EFFORTS . PT OFFERS HIS OWN RATIONALE FOR ANY ISSUES SUCH FLUID RESTRICTION, SALT RESTRICTION AND LOW FAT DIET. PT IS ON 3 DIURETICS FOR HOME USE. REVIEWED MEDICATION MANAGEMENT AND HOW HIS DIURETICS ARE ORDERED. BOTH HIM AND HIS REPEAT BACK INSTRUCTIONS. ATTEMPTED TO DRAW LABS FROM RIGHT CHEST PORT AFTER ACCESS, BUT PORT WILL NOT DRAW BLOOD. SCANT AMOUNT OF BLOOD ASPIRATED BUT NOT ENOUGH FOR SPECIMEN. LABS DRAWN PERIPHERALLY AND SENT.. DISCHARGED TO SELF CARE WITH IN ATTENDANCE. MEDICATION ADMINISTRATION HEPARIN 500 UNITS IIVP
[2019-05-30 12:14] LABS: Basophils # (auto) 0.1 uL; Basophils % (auto) 0.9 % (0.0-2.0); Eosinophils # (auto) 0.4 uL; Hemoglobin 10.3 g/dL (13.5-17.5); Mean Corpuscular Hemoglobin 22.5 pg (28.0-32.0); Monocytes # (auto) 0.8 uL; Red Cell Distribution Width 18.4 % (11.8-14.3)
[2019-05-30 12:16] LABS: Eosinophils % (auto) 4.9 % (0.0-7.0); Hematocrit 32.7 % (41.0-53.0); Lymphocytes # (auto) 1.9 uL; Lymphocytes % (auto) 22.5 % (10.0-50.0); Mean Corpuscular Hgb Conc. 31.6 g/dL (32.0-36.0); Mean Corpuscular Volume 71.4 fL (80.0-100.0); Monocytes % (auto) 9.5 % (0.0-12.0); Neutrophils # (auto) 5.3 uL; Neutrophils % (auto) 62.2 % (37.0-80.0); Nucleated Red Blood Cells % 0.1 %; Platelet Count (auto) 269 10^3/uL (140-450); Red Blood Cells 4.59 10^6/uL (4.5-5.90); White Blood Cell 8.5 10^3/uL (4.4-10.8)
[2019-05-30 12:18] LABS: Potassium 4.4 mmol/L (3.5-5.1)
[2019-05-30 12:23] LABS: BUN/Creatinine Ratio 14.4; Calcium 8.6 mg/dL (8.5-10.1); Magnesium 1.8 mg/dL (1.6-2.6)
== END | disposition home or self-care (01) ==
LOC: CHF HDHVI 09:57
PROVIDERS: ATTEND Internal Medicine Cardiovascular Disease
DX: I11.0 Hypertensive heart disease with heart failure (principal); I50.9 Heart failure, unspecified; E83.40 Disorders of magnesium metabolism, unspecified; D64.9 Anemia, unspecified
CPT/HCPCS: 36415; 80048; 83735; 83880; 85025; 96523; G0463; J1642

== ENCOUNTER → 2019-06-13 | Outpatient (CLI) | payer MEDICARE ==
[~2019-06-13] MED LIST changes: +CYANOCOBALAMIN (B-12) 1000 MCG/1 ML VIAL IM ONE; +CYANOCOBALAMIN (B-12) 1000 MCG/1 ML VIAL ONE; +FUROSEMIDE 40 MG/4 ML VIAL IV ONE; +FUROSEMIDE 40 MG/4 ML VIAL ONE; +ONDANSETRON HCL 4 MG/2 ML VIAL ONE; +POTASSIUM CHL 10 Meq TABLET PO ONE; +POTASSIUM CHL 20 Meq TABLET PO ONE
[2019-06-13 11:00] VITALS: BP 107/55
--- NOTE | 2019-06-13 11:00 | NUR ---
IN TO CLINIC WITH IN ATTENDANCE. PT HAS MULTIPLE COMPLAINTS BUT REPORTS THAT HE IS FEELING FINE AND ALSO NOTED THAT HIS WEIGHT IS DOWN. PT REPORTS BETTER COMPLIANCE WITH DIET AND REGIMEN. REVIEWED PREVIOUS LABS AND PT IS CURRENTLY IN PREPARATION FOR LUPRON SHOT TO COMBAT RESIDUAL PROSTATE CANCER. PT DOES NOT HAVE PROSTATE CURRENTLY AND IS S/P ABDOMINAL SURGERY 20 YEARS AGO FOR RADICAL PROSTATECTOMY AND SUFFERS WITH CHRONIC INCONTINENCE. STILL VERBALIZES OFTEN ABOUT MEDICAL CONDITION AND THE HURDLES HE FACES DAILY. CURRENTLY RIGHT CHEST PORT ACCESSED AND SITE IS BENIGN POST USE.CLINIC PROVIDER CONSULTED AND ORDERS RECIEVED AND CARRIED OUT. DISCHARGED TO SELF CARE IN NO DISTRESS OR DISCOMFORT. MEDICATION ADMINISTRATION LASIX 40 MG IVP 1 AT 1030 POTASSIUM 40 MEQ PO 1100 ZOFRAN 4 [facility] IVP VIT B12 1000 MCG IM TO LEFT AT 1037
[2019-06-13 14:53] LABS: Basophils # (auto) 0.1 uL; Eosinophils # (auto) 0.4 uL; Hematocrit 34.1 % (41.0-53.0); Hemoglobin 10.8 g/dL (13.5-17.5); Mean Corpuscular Hgb Conc. 31.6 g/dL (32.0-36.0); Monocytes # (auto) 0.8 uL; Monocytes % (auto) 9.1 % (0.0-12.0); Neutrophils # (auto) 5.8 uL; Red Blood Cells 4.68 10^6/uL (4.5-5.90)
[2019-06-13 14:55] LABS: Eosinophils % (auto) 4.6 % (0.0-7.0); Lymphocytes # (auto) 2.2 uL; Lymphocytes % (auto) 23.1 % (10.0-50.0); Mean Corpuscular Volume 72.9 fL (80.0-100.0); Neutrophils % (auto) 62.2 % (37.0-80.0); Platelet Count (auto) 260 10^3/uL (140-450); Red Cell Distribution Width 18.9 % (11.8-14.3); White Blood Cell 9.4 10^3/uL (4.4-10.8)
[2019-06-13 15:00] LABS: BUN/Creatinine Ratio 17.2; Calcium 9.1 mg/dL (8.5-10.1); Potassium 4.2 mmol/L (3.5-5.1)
[2019-06-13 15:03] LABS: Bilirubin, Total 0.2 mg/dL (0.2-1.0); Total Protein 7.2 g/dL (6.4-8.2)
== END | disposition home or self-care (01) ==
LOC: CHF HDHVI 09:53
PROVIDERS: ATTEND Internal Medicine Cardiovascular Disease
DX: I11.0 Hypertensive heart disease with heart failure (principal); I50.42 Chronic combined systolic (congestive) and diastolic (congestive) heart failure; R74.8 Abnormal levels of other serum enzymes; I25.10 Atherosclerotic heart disease of native coronary artery without angina pectoris; I48.91 Unspecified atrial fibrillation; E11.9 Type 2 diabetes mellitus without complications; K90.9 Intestinal malabsorption, unspecified; R11.0 Nausea; R53.83 Other fatigue; J44.9 Chronic obstructive pulmonary disease, unspecified; F32.9 Major depressive disorder, single episode, unspecified; G89.4 Chronic pain syndrome; E78.5 Hyperlipidemia, unspecified; E03.9 Hypothyroidism, unspecified; E78.00 Pure hypercholesterolemia, unspecified; E11.41 Type 2 diabetes mellitus with diabetic mononeuropathy; E11.51 Type 2 diabetes mellitus with diabetic peripheral angiopathy without gangrene; E11.21 Type 2 diabetes mellitus with diabetic nephropathy; E66.01 Morbid (severe) obesity due to excess calories; Z68.41 Body mass index [BMI] 40.0-44.9, adult; Z79.82 Long term (current) use of aspirin; Z79.4 Long term (current) use of insulin; Z79.899 Other long term (current) drug therapy; Z87.891 Personal history of nicotine dependence; Z95.1 Presence of aortocoronary bypass graft; Z95.810 Presence of automatic (implantable) cardiac defibrillator; Z95.5 Presence of coronary angioplasty implant and graft; Z86.73 Personal history of transient ischemic attack (TIA), and cerebral infarction without residual deficits
CPT/HCPCS: 36415; 80053; 82150; 82306; 82607; 83036; 83690; 85025; 96372; 96374; 96375; G0463; J1642; J1940; J2405; J3420

== ENCOUNTER → 2019-06-20 | Outpatient (CLI) | payer MEDICARE ==
[~2019-06-20] MED LIST changes: -CYANOCOBALAMIN (B-12) 1000 MCG/1 ML VIAL IM ONE; -CYANOCOBALAMIN (B-12) 1000 MCG/1 ML VIAL ONE; -ONDANSETRON HCL 4 MG/2 ML VIAL ONE; -POTASSIUM CHL 10 Meq TABLET PO ONE; -POTASSIUM CHL 20 Meq TABLET PO ONE; +POTASSIUM EFFERVESENT TAB 25 MEQ ONE; +POTASSIUM EFFERVESENT TAB 25 MEQ PO ONE
--- NOTE | 2019-06-20 10:40 | NUR ---
in with in attendance. PT VS WNL. AFFECT REMAINS VERY DOWNTRODDEN WITH MULTIPLE COMPLAINTS TO CURRENT HEALTH STATUS. [PT CONTINUES TO REPORT INCONTINENCE AND THAT HE "EATS VERY LITTLE AND DOESNT UNDERSTAND WHY HIS STOMACH IS BIG'. PREVIOUS LABS REVIEWED AND DISCUSSED WITH PATIENT. TEACHING WITH AND PATIENT REGARDING BLOOD SUGARS AND DIABETIC MANAGEMENT. MINIMALLY RECEPTIVE TO TEACHING. PT REPORTS THAT HIS SUGARS ARE "GOOD". CLINIC PROVIDER CONSULTED AND ORDERS RECIEVED. RIGHT CHEST PORT ACCESSED AND LABS DRAWN AND SENT. ADDITIONAL LASIX IVP ADMINISTERED. THEN FLUSHED WITH SALINE AND HEPARIN AND [place] DCD. SITE BENIGN. DISCHARGED TO SELF CARE IN NO OBSERVED DISTRESS WITH IN ATTENDANCE. MEDICATION ADMINISTRATION LASIX 40 MG IVP AT 1020 POTASSIUM EFFERVESCENT 25 MEQ PO AT 1025 HEPARIN 500 UNITS IVP AT 1030
[2019-06-20 11:57] LABS: Basophils # (auto) 0.1 uL; Basophils % (auto) 1.2 % (0.0-2.0); Eosinophils # (auto) 0.5 uL; Eosinophils % (auto) 5.2 % (0.0-7.0); Hemoglobin 10.9 g/dL (13.5-17.5); Lymphocytes # (auto) 2.2 uL; Lymphocytes % (auto) 23.7 % (10.0-50.0); Mean Corpuscular Hemoglobin 22.3 pg (28.0-32.0); Mean Corpuscular Hgb Conc. 31.2 g/dL (32.0-36.0); Mean Corpuscular Volume 71.3 fL (80.0-100.0); Monocytes # (auto) 0.9 uL; Monocytes % (auto) 9.9 % (0.0-12.0); Neutrophils # (auto) 5.5 uL; Platelet Count (auto) 262 10^3/uL (140-450); Red Blood Cells 4.92 10^6/uL (4.5-5.90); Red Cell Distribution Width 19.8 % (11.8-14.3); White Blood Cell 9.2 10^3/uL (4.4-10.8)
[2019-06-20 12:09] LABS: Potassium 4.3 mmol/L (3.5-5.1)
[2019-06-20 12:31] LABS: BUN/Creatinine Ratio 13.6; Calcium 8.8 mg/dL (8.5-10.1)
== END | disposition home or self-care (01) ==
LOC: CHF HDHVI 09:55
PROVIDERS: ATTEND Internal Medicine Cardiovascular Disease
DX: I11.0 Hypertensive heart disease with heart failure (principal); I50.42 Chronic combined systolic (congestive) and diastolic (congestive) heart failure; I25.10 Atherosclerotic heart disease of native coronary artery without angina pectoris; I48.91 Unspecified atrial fibrillation; J44.9 Chronic obstructive pulmonary disease, unspecified; G89.4 Chronic pain syndrome; D64.9 Anemia, unspecified; E78.5 Hyperlipidemia, unspecified; E03.9 Hypothyroidism, unspecified; F32.9 Major depressive disorder, single episode, unspecified; E78.00 Pure hypercholesterolemia, unspecified; E11.41 Type 2 diabetes mellitus with diabetic mononeuropathy; E11.21 Type 2 diabetes mellitus with diabetic nephropathy; E11.51 Type 2 diabetes mellitus with diabetic peripheral angiopathy without gangrene; E66.01 Morbid (severe) obesity due to excess calories; Z68.41 Body mass index [BMI] 40.0-44.9, adult; Z79.84 Long term (current) use of oral hypoglycemic drugs; Z79.82 Long term (current) use of aspirin; Z79.4 Long term (current) use of insulin; Z85.46 Personal history of malignant neoplasm of prostate; Z79.899 Other long term (current) drug therapy; Z87.891 Personal history of nicotine dependence; Z95.1 Presence of aortocoronary bypass graft; Z95.810 Presence of automatic (implantable) cardiac defibrillator; Z95.5 Presence of coronary angioplasty implant and graft; Z86.73 Personal history of transient ischemic attack (TIA), and cerebral infarction without residual deficits; Z79.891 Long term (current) use of opiate analgesic
CPT/HCPCS: 36415; 80048; 85025; 93701; 96374; G0463; J1642; J1940

== ENCOUNTER → 2019-06-27 | Outpatient (CLI) | payer MEDICARE ==
--- NOTE | 2019-06-27 09:55 | NUR ---
CHF PT ARRIVED AT THE CHF CLINIC FOR THERAPY AND F/U 0 DISTRESS VSS/
[2019-06-27 10:45] VITALS: BP 121/56
--- NOTE | 2019-06-27 10:45 | NUR ---
Discharge Instructions See e-MAR for any mediations given with this visit. Patient education given on disease process. Patient verbalized understanding. Previous labs reviewed. Patient discharged in stable condition with after care instructions and follow up appointment. MEDICATIONS LASIX IVP POTASSIUM PO HEPARIN IVP
[2019-06-27 16:09] LABS: Potassium 4.5 mmol/L (3.5-5.1)
[2019-06-27 16:54] LABS: Basophils # (auto) 0.1 uL; Eosinophils # (auto) 0.5 uL; Lymphocytes # (auto) 1.8 uL; Neutrophils % (auto) 59.7 % (37.0-80.0)
[2019-06-27 16:57] LABS: Basophils % (auto) 0.8 % (0.0-2.0); Hematocrit 34.4 % (41.0-53.0); Hemoglobin 10.8 g/dL (13.5-17.5); Lymphocytes % (auto) 22.9 % (10.0-50.0); Mean Corpuscular Hemoglobin 22.5 pg (28.0-32.0); Mean Corpuscular Hgb Conc. 31.4 g/dL (32.0-36.0); Mean Corpuscular Volume 71.6 fL (80.0-100.0); Monocytes # (auto) 0.8 uL; Monocytes % (auto) 10.6 % (0.0-12.0); Neutrophils # (auto) 4.8 uL; Platelet Count (auto) 262 10^3/uL (140-450); Red Cell Distribution Width 19.9 % (11.8-14.3)
== END | disposition home or self-care (01) ==
LOC: CHF HDHVI 11:10
PROVIDERS: ATTEND Internal Medicine Cardiovascular Disease
DX: I11.0 Hypertensive heart disease with heart failure (principal); I50.23 Acute on chronic systolic (congestive) heart failure; I25.10 Atherosclerotic heart disease of native coronary artery without angina pectoris; I48.91 Unspecified atrial fibrillation; E87.6 Hypokalemia; C61 Malignant neoplasm of prostate; D64.9 Anemia, unspecified; R94.4 Abnormal results of kidney function studies; J44.9 Chronic obstructive pulmonary disease, unspecified; R60.9 Edema, unspecified; G89.4 Chronic pain syndrome; E78.5 Hyperlipidemia, unspecified; E03.9 Hypothyroidism, unspecified; F32.9 Major depressive disorder, single episode, unspecified; E66.01 Morbid (severe) obesity due to excess calories; E78.00 Pure hypercholesterolemia, unspecified; E11.41 Type 2 diabetes mellitus with diabetic mononeuropathy; E11.21 Type 2 diabetes mellitus with diabetic nephropathy; Z79.899 Other long term (current) drug therapy; Z87.891 Personal history of nicotine dependence; Z95.1 Presence of aortocoronary bypass graft; Z95.810 Presence of automatic (implantable) cardiac defibrillator; Z95.5 Presence of coronary angioplasty implant and graft; Z86.73 Personal history of transient ischemic attack (TIA), and cerebral infarction without residual deficits; Z79.82 Long term (current) use of aspirin; Z79.4 Long term (current) use of insulin; Z79.891 Long term (current) use of opiate analgesic; Z79.84 Long term (current) use of oral hypoglycemic drugs
CPT/HCPCS: 36415; 82565; 83880; 84132; 84520; 85025; 96374; G0463; J1642; J1940

== ENCOUNTER → 2019-07-11 | Outpatient (CLI) | payer MEDICARE ==
[~2019-07-11] MED LIST changes: -FUROSEMIDE 40 MG/4 ML VIAL IV ONE; -FUROSEMIDE 40 MG/4 ML VIAL ONE; -POTASSIUM EFFERVESENT TAB 25 MEQ ONE; -POTASSIUM EFFERVESENT TAB 25 MEQ PO ONE
[2019-07-11 10:20] VITALS: BP 114/69
--- NOTE | 2019-07-11 10:20 | NUR ---
Discharge Instructions See e-MAR for any mediations given with this visit. Patient education given on disease process. Patient verbalized understanding. Previous labs reviewed. Patient discharged in stable condition with after care instructions and follow up appointment. MEDICATIONS HEPARIN IVP PT LABS DRAWN AND ADVISED TO RETURN TO CLINIC IN 2 WEEKS FOR CARDIODYNAMICS AND 6MWT. PT VWERBALIZED UNDERSTANDING
[2019-07-11 11:46] LABS: Basophils # (auto) 0.1 uL; Eosinophils # (auto) 0.4 uL; Hemoglobin 10.6 g/dL (13.5-17.5); Lymphocytes # (auto) 2.2 uL; Neutrophils # (auto) 5.1 uL; Red Cell Distribution Width 20.2 % (11.8-14.3)
[2019-07-11 11:51] LABS: Basophils % (auto) 1.1 % (0.0-2.0); Eosinophils % (auto) 4.9 % (0.0-7.0); Lymphocytes % (auto) 24.7 % (10.0-50.0); Mean Corpuscular Hemoglobin 22.3 pg (28.0-32.0); Mean Corpuscular Hgb Conc. 31.2 g/dL (32.0-36.0); Mean Corpuscular Volume 71.5 fL (80.0-100.0); Monocytes % (auto) 11.5 % (0.0-12.0); Neutrophils % (auto) 57.8 % (37.0-80.0); Platelet Count (auto) 270 10^3/uL (140-450); Red Blood Cells 4.75 10^6/uL (4.5-5.90); White Blood Cell 8.8 10^3/uL (4.4-10.8)
[2019-07-11 12:01] LABS: Potassium 4.3 mmol/L (3.5-5.1)
[2019-07-11 12:09] LABS: BUN/Creatinine Ratio 19.3
== END | disposition home or self-care (01) ==
LOC: CHF HDHVI 09:57
PROVIDERS: ATTEND Internal Medicine Cardiovascular Disease
DX: D64.9 Anemia, unspecified (principal); E83.40 Disorders of magnesium metabolism, unspecified; J44.9 Chronic obstructive pulmonary disease, unspecified; F17.200 Nicotine dependence, unspecified, uncomplicated; Z85.46 Personal history of malignant neoplasm of prostate; Z88.0 Allergy status to penicillin
CPT/HCPCS: 36415; 80048; 83735; 85025; G0463; J1642

== ENCOUNTER → 2019-07-25 | Outpatient (CLI) | payer MEDICARE ==
--- NOTE | 2019-07-25 10:00 | NUR ---
Discharge Instructions See e-MAR for any mediations given with this visit. Patient education given on disease process. Patient verbalized understanding. Previous labs reviewed. Patient discharged in stable condition with after care instructions and follow up appointment. MEDICATIONS HEPARIN 500 UNITS IVP Addendum: 07/25/19 at 1203 by BERTA FERRO RN NM PT ALSO HAD CARDIODYNAMICS DONE REVIEWED WITH PATIENT PATIENT VERBALIZED UNDERSTANDING MD CHATMAN PROVIDED PATIENT WITH STEVEN
[2019-07-25 11:53] VITALS: BP 122/62
[2019-07-25 15:58] LABS: Potassium 4.6 mmol/L (3.5-5.1)
== END | disposition home or self-care (01) ==
LOC: CHF HDHVI 10:09
PROVIDERS: ATTEND Internal Medicine Cardiovascular Disease
DX: I11.0 Hypertensive heart disease with heart failure (principal); I50.42 Chronic combined systolic (congestive) and diastolic (congestive) heart failure; C61 Malignant neoplasm of prostate; I25.10 Atherosclerotic heart disease of native coronary artery without angina pectoris; I48.91 Unspecified atrial fibrillation; R94.4 Abnormal results of kidney function studies; E87.6 Hypokalemia; J44.9 Chronic obstructive pulmonary disease, unspecified; F17.210 Nicotine dependence, cigarettes, uncomplicated; G89.4 Chronic pain syndrome; E78.5 Hyperlipidemia, unspecified; E03.9 Hypothyroidism, unspecified; F32.9 Major depressive disorder, single episode, unspecified; E66.01 Morbid (severe) obesity due to excess calories; E78.00 Pure hypercholesterolemia, unspecified; E11.41 Type 2 diabetes mellitus with diabetic mononeuropathy; E11.51 Type 2 diabetes mellitus with diabetic peripheral angiopathy without gangrene; Z79.82 Long term (current) use of aspirin; Z79.4 Long term (current) use of insulin; Z79.891 Long term (current) use of opiate analgesic; Z79.84 Long term (current) use of oral hypoglycemic drugs; Z79.899 Other long term (current) drug therapy; Z95.1 Presence of aortocoronary bypass graft; Z95.810 Presence of automatic (implantable) cardiac defibrillator; Z95.5 Presence of coronary angioplasty implant and graft; Z86.73 Personal history of transient ischemic attack (TIA), and cerebral infarction without residual deficits
CPT/HCPCS: 36415; 82565; 84132; 84520; 93701; G0463; J1642

== ENCOUNTER → 2019-07-30 | Outpatient (CLI) | payer MEDICARE ==
[~2019-07-30] MED LIST changes: +IOHEXOL 350 MG/ML 100ML IJ ONE
--- NOTE | 2019-07-30 11:50 | NUR ---
IV insertion IV access obtained, via clean sterile technique by inserting 20 gauge catheter at R FA after 1 attempt(s). IV secured properly. No trauma to site. Patient tolerated well. NOTE:
[2019-07-30 11:52] VITALS: BP 136/65
[2019-07-30 13:42] VITALS: BP 114/44
--- NOTE | 2019-07-30 13:42 | NUR ---
Discharge Instructions See e-MAR for any mediations given with this visit. Patient education given on disease process. Patient verbalized understanding. Previous labs reviewed. Patient discharged in stable condition with after care instructions and follow up appointment. IV REMOVED AND PRESSURE DRESSING APPLIED. INSTRUCTED TO NOT TAKE METFORMIN FOR 2 DAYS.
== END | disposition home or self-care (01) ==
LOC: Rad HDHVI 11:39
PROVIDERS: ATTEND Internal Medicine Cardiovascular Disease
DX: I65.23 Occlusion and stenosis of bilateral carotid arteries (principal); R94.4 Abnormal results of kidney function studies; R60.9 Edema, unspecified
CPT/HCPCS: 36415; 70491; 82565; Q9967; G0463

== ENCOUNTER → 2019-08-08 | Outpatient (CLI) | payer MEDICARE ==
[~2019-08-08] MED LIST changes: -IOHEXOL 350 MG/ML 100ML IJ ONE
[2019-08-08 10:35] VITALS: BP 112/52
--- NOTE | 2019-08-08 10:35 | NUR ---
Discharge Instructions See e-MAR for any mediations given with this visit. Patient education given on disease process. Patient verbalized understanding. Previous labs reviewed. Patient discharged in stable condition with after care instructions and follow up appointment. MEDICATIONS HEPARIN 500 UNITS IVP X 1
[2019-08-08 12:13] LABS: Basophils # (auto) 0.1 uL; Eosinophils # (auto) 0.4 uL; Hematocrit 33.7 % (41.0-53.0); Mean Corpuscular Hemoglobin 22.6 pg (28.0-32.0); Mean Corpuscular Hgb Conc. 31.6 g/dL (32.0-36.0); Monocytes # (auto) 0.8 uL; Neutrophils # (auto) 4.3 uL; Nucleated Red Blood Cells % 0.1 %
[2019-08-08 12:19] LABS: Basophils % (auto) 1.4 % (0.0-2.0); Eosinophils % (auto) 5.1 % (0.0-7.0); Hemoglobin 10.6 g/dL (13.5-17.5); Lymphocytes # (auto) 2.3 uL; Lymphocytes % (auto) 29.2 % (10.0-50.0); Mean Corpuscular Volume 71.7 fL (80.0-100.0); Monocytes % (auto) 9.6 % (0.0-12.0); Neutrophils % (auto) 54.7 % (37.0-80.0); Platelet Count (auto) 237 10^3/uL (140-450); Red Blood Cells 4.69 10^6/uL (4.5-5.90); White Blood Cell 7.9 10^3/uL (4.4-10.8)
[2019-08-08 12:24] LABS: Calcium 8.5 mg/dL (8.5-10.1); Potassium 4.6 mmol/L (3.5-5.1)
[2019-08-08 12:31] LABS: Albumin 3.2 g/dL (3.4-5.0); BUN/Creatinine Ratio 18.4; Bilirubin, Total 0.2 mg/dL (0.2-1.0); Magnesium 2.2 mg/dL (1.6-2.6); Total Protein 7.2 g/dL (6.4-8.2)
== END | disposition home or self-care (01) ==
LOC: CHF HDHVI 10:08
PROVIDERS: ATTEND Internal Medicine Cardiovascular Disease
DX: D64.9 Anemia, unspecified (principal); E83.40 Disorders of magnesium metabolism, unspecified; I10 Essential (primary) hypertension
CPT/HCPCS: 36415; 80053; 83735; 85025; G0463; J1642

== ENCOUNTER → 2019-08-22 | Outpatient (CLI) | payer MEDICARE ==
[~2019-08-22] MED LIST changes: +CYANOCOBALAMIN (B-12) 1000 MCG/1 ML VIAL IM ONE; +CYANOCOBALAMIN (B-12) 1000 MCG/1 ML VIAL ONE
[2019-08-22 10:40] VITALS: BP 110/63
--- NOTE | 2019-08-22 10:40 | NUR ---
CHF Clinic Discharge Instructions See e-MAR for any mediations given with this visit. Patient education given on disease process. Patient verbalized understanding. Previous labs reviewed. Patient discharged in stable condition with after care instructions and follow up appointment IN ONE MONTH. NOTE B12 IM R DELTOID ADMIN BY FAUSTO PEREA.
== END | disposition home or self-care (01) ==
LOC: CHF HDHVI 10:04
PROVIDERS: ATTEND Internal Medicine Cardiovascular Disease
DX: J44.9 Chronic obstructive pulmonary disease, unspecified (principal); I11.0 Hypertensive heart disease with heart failure; I50.9 Heart failure, unspecified; E11.9 Type 2 diabetes mellitus without complications
CPT/HCPCS: 96372; J3420

== ENCOUNTER → 2019-09-16 | Outpatient (CLI) | payer MEDICARE ==
[~2019-09-16] MED LIST changes: -CYANOCOBALAMIN (B-12) 1000 MCG/1 ML VIAL IM ONE; -CYANOCOBALAMIN (B-12) 1000 MCG/1 ML VIAL ONE; +FUROSEMIDE 100 MG/10ML VIAL IV ONE; +FUROSEMIDE 40 MG/4 ML VIAL ONE; +POTASSIUM CHL 10 Meq TABLET PO ONE; +TRIAMCINOLONE 40MG/ML 1ML VIAL ONE
--- NOTE | 2019-09-16 13:13 | NUR ---
CHF ARRIVED AT THE CHF CLINIC FROM BACK OFFICE FOR DIURETIC THERAPY TO BE INITIATED ONCE A WEEK TILL FURTHER NOTICE. PT IS A/O X 4 0 DISTRESS VSS
[2019-09-16 13:40] VITALS: BP 128/65
[2019-09-16 16:04] LABS: Basophils # (auto) 0.1 uL; Basophils % (auto) 0.9 % (0.0-2.0); Eosinophils # (auto) 0.3 uL; Eosinophils % (auto) 3.4 % (0.0-7.0); Hematocrit 34.2 % (41.0-53.0); Hemoglobin 10.6 g/dL (13.5-17.5); Lymphocytes # (auto) 2.3 uL; Lymphocytes % (auto) 24.6 % (10.0-50.0); Mean Corpuscular Hemoglobin 22.2 pg (28.0-32.0); Mean Corpuscular Hgb Conc. 31.1 g/dL (32.0-36.0); Mean Corpuscular Volume 71.2 fL (80.0-100.0); Monocytes # (auto) 0.8 uL; Monocytes % (auto) 8.9 % (0.0-12.0); Neutrophils # (auto) 5.8 uL; Neutrophils % (auto) 62.2 % (37.0-80.0); Platelet Count (auto) 296 10^3/uL (140-450); Red Cell Distribution Width 18.7 % (11.8-14.3); White Blood Cell 9.4 10^3/uL (4.4-10.8)
[2019-09-16 16:15] LABS: Magnesium 2.1 mg/dL (1.6-2.6); Potassium 4.4 mmol/L (3.5-5.1)
[2019-09-16 16:17] LABS: BUN/Creatinine Ratio 14.4
== END | disposition home or self-care (01) ==
LOC: CHF HDHVI 13:22
PROVIDERS: ATTEND Internal Medicine Cardiovascular Disease
DX: D64.9 Anemia, unspecified (principal); E11.9 Type 2 diabetes mellitus without complications; E83.40 Disorders of magnesium metabolism, unspecified; I50.9 Heart failure, unspecified; N40.0 Benign prostatic hyperplasia without lower urinary tract symptoms
CPT/HCPCS: 36415; 80048; 83036; 83735; 85025; 96374; G0463; J1642; J1940; J3301

== ENCOUNTER → 2019-09-26 | Outpatient (CLI) | payer MEDICARE ==
[~2019-09-26] MED LIST changes: +CYANOCOBALAMIN (B-12) 1000 MCG/1 ML VIAL IM ONE; +CYANOCOBALAMIN (B-12) 1000 MCG/1 ML VIAL ONE; -FUROSEMIDE 100 MG/10ML VIAL IV ONE; +FUROSEMIDE 40 MG/4 ML VIAL IV ONE; -POTASSIUM CHL 10 Meq TABLET PO ONE; +POTASSIUM CHL 20 Meq TABLET PO ONE; -TRIAMCINOLONE 40MG/ML 1ML VIAL ONE
[2019-09-26 11:15] VITALS: BP 121/49
--- NOTE | 2019-09-26 11:15 | NUR ---
Discharge Instructions See e-MAR for any mediations given with this visit. Patient education given on disease process. Patient verbalized understanding. Previous labs reviewed. Patient discharged in stable condition with after care instructions and follow up appointment. MEDICATIONS LASIX IVP HEPARIN IVP POTASSIUM PO VITAMIN B12 1000 MCG IM X 1 LOT # [id number] EXP 03/24
== END | disposition home or self-care (01) ==
LOC: CHF HDHVI 10:58
PROVIDERS: ATTEND Internal Medicine Cardiovascular Disease
DX: I11.0 Hypertensive heart disease with heart failure (principal); D64.9 Anemia, unspecified; I50.9 Heart failure, unspecified; E83.40 Disorders of magnesium metabolism, unspecified; E11.9 Type 2 diabetes mellitus without complications; J44.9 Chronic obstructive pulmonary disease, unspecified
CPT/HCPCS: 96372; 96374; G0463; J1642; J1940; J3420

== ENCOUNTER → 2019-10-08 | Outpatient (CLI) | payer MEDICARE ==
[~2019-10-08] MED LIST changes: -CYANOCOBALAMIN (B-12) 1000 MCG/1 ML VIAL IM ONE; -CYANOCOBALAMIN (B-12) 1000 MCG/1 ML VIAL ONE; +FUROSEMIDE 100 MG/10ML VIAL IV ONE; -FUROSEMIDE 40 MG/4 ML VIAL IV ONE; +POTASSIUM CHL 10 Meq TABLET PO ONE
--- NOTE | 2019-10-08 10:30 | NUR ---
Darling Cath Insertion 20 gauge Darlnig Cath inserted using sterile technique in the upper chest with occlusive dressing over saucedo needle. Patient tolerated procedure well. Ordered labs drawn and sent. See e-MAR for medications given during this visit.
[2019-10-08 10:49] VITALS: BP 102/57
--- NOTE | 2019-10-08 10:49 | NUR ---
Discharge Instructions See e-MAR for any mediations given with this visit. Patient education given on disease process. Patient verbalized understanding. Previous labs reviewed. Patient discharged in stable condition with after care instructions and follow up appointment. MEDICATIONS LASIX IVP HEPARIN IVP POTASSIUM PO
[2019-10-08 12:13] LABS: BUN/Creatinine Ratio 18.1; Calcium 8.8 mg/dL (8.5-10.1); Potassium 4.2 mmol/L (3.5-5.1)
== END | disposition home or self-care (01) ==
LOC: CHF HDHVI 10:18
PROVIDERS: ATTEND Internal Medicine Cardiovascular Disease
DX: I50.9 Heart failure, unspecified (principal); E87.70 Fluid overload, unspecified; Z79.899 Other long term (current) drug therapy
CPT/HCPCS: 36415; 80048; 83036; 83880; 96374; G0463; J1642; J1940

== ENCOUNTER → 2019-11-18 | Outpatient (CLI) | payer MEDICARE ==
[~2019-11-18] VITALS: Ht 30.5 cm; Wt 113.4 kg
[~2019-11-18] MED LIST changes: -FUROSEMIDE 100 MG/10ML VIAL IV ONE; -FUROSEMIDE 40 MG/4 ML VIAL ONE; -POTASSIUM CHL 10 Meq TABLET PO ONE; -POTASSIUM CHL 20 Meq TABLET PO ONE
[2019-11-18 10:45] VITALS: BP 102/68
[2019-11-18 15:57] LABS: Basophils # (auto) 0.1 10 ^3/uL (0-0.2); Eosinophils # (auto) 0.3 10 ^3/uL (0-0.8)
[2019-11-18 15:59] LABS: Basophils % (auto) 1.1 % (0.0-2.0); Hemoglobin 10.8 g/dL (13.5-17.5); Lymphocytes # (auto) 2.5 10 ^3/uL (0.4-5.4); Lymphocytes % (auto) 25.1 % (10.0-50.0); Mean Corpuscular Hemoglobin 23.3 pg (28.0-32.0); Mean Corpuscular Hgb Conc. 31.9 g/dL (32.0-36.0); Monocytes # (auto) 0.9 10 ^3/uL (0-1.3); Neutrophils # (auto) 6.1 10 ^3/uL (1.6-8.6); Neutrophils % (auto) 61.8 % (37.0-80.0); Platelet Count (auto) 287 10^3/uL (140-450); Red Blood Cells 4.66 10^6/uL (4.5-5.90); White Blood Cell 9.9 10^3/uL (4.4-10.8)
[2019-11-18 16:02] LABS: Red Cell Distribution Width 20.1 % (11.8-14.3)
[2019-11-18 16:08] LABS: BUN/Creatinine Ratio 18.6; Calcium 9.1 mg/dL (8.5-10.1); Potassium 4.7 mmol/L (3.5-5.1)
[2019-11-18 16:10] LABS: INR 1.03 (0.9-1.15); Partial Thromboplastin Time 25.6 sec (23.64-32.05)
== END | disposition home or self-care (01) ==
LOC: CHF HDHVI 09:59
PROVIDERS: ATTEND Internal Medicine Cardiovascular Disease
DX: Z01.812 Encounter for preprocedural laboratory examination (principal); I11.0 Hypertensive heart disease with heart failure; I50.9 Heart failure, unspecified; E11.9 Type 2 diabetes mellitus without complications; J44.9 Chronic obstructive pulmonary disease, unspecified; R60.9 Edema, unspecified
CPT/HCPCS: 36415; 80048; 85025; 85610; 85730; 93005; G0463; J1642; 71046

== ENCOUNTER 2019-11-21 06:55 | Day surgery (SDC) | payer MEDICARE ==
[~2019-11-21] VITALS: Ht 30.5 cm; Wt 0.5 kg
[2019-11-21] MEDS ORDERED: SODIUM CHL 0.9% 0 ML ONE (08:36)
[2019-11-21] MEDS ORDERED: MIDAZOLAM HCL 1MG/1ML-2 ML VIAL ONE (08:36)
[2019-11-21] MEDS ORDERED: ANGIOMAX 250 MG VIAL IV ONE (08:36)
[2019-11-21] MEDS ORDERED: LIDOCAINE 2%HCL (LOCAL ANESTH.) INJ 20ML MDV ONE ×2 (08:36→10:17)
[2019-11-21] MEDS ORDERED: fentaNYL CITRATE 100 MCG/2 ML VL ONE (08:36)
[2019-11-21] MEDS ORDERED: IODIXANOL 320MG/ML 100ML BTL IV ONE (08:37)
[2019-11-21] MEDS ORDERED: IOHEXOL 350 MG/ML 100ML IJ ONE (08:40)
[2019-11-21] MEDS ORDERED: SODIUM CHL 0.9% 500 ML IV ONE (11:00)
== END 2019-11-21 13:07 | disposition home or self-care (01) ==
LOC: CATH 06:55
PROVIDERS: ATTEND Internal Medicine Cardiovascular Disease
DX: I25.10 Atherosclerotic heart disease of native coronary artery without angina pectoris (principal); G89.4 Chronic pain syndrome; E11.40 Type 2 diabetes mellitus with diabetic neuropathy, unspecified; E11.21 Type 2 diabetes mellitus with diabetic nephropathy; M19.90 Unspecified osteoarthritis, unspecified site; E78.5 Hyperlipidemia, unspecified; J44.9 Chronic obstructive pulmonary disease, unspecified; G47.30 Sleep apnea, unspecified; I11.9 Hypertensive heart disease without heart failure; E66.8 Other obesity; F17.200 Nicotine dependence, unspecified, uncomplicated; Z86.73 Personal history of transient ischemic attack (TIA), and cerebral infarction without residual deficits; Z88.0 Allergy status to penicillin; Z79.84 Long term (current) use of oral hypoglycemic drugs; Z79.899 Other long term (current) drug therapy; Z68.42 Body mass index [BMI] 45.0-49.9, adult
CPT/HCPCS: 93460; 93571; C1751; C1760; C1894; J1644; J2250; J3010; J7030; Q9967; 99152

== ENCOUNTER → 2020-02-25 | Outpatient (CLI) | payer MEDICARE ==
[~2020-02-25] VITALS: Ht 30.5 cm; Wt 0.5 kg
[~2020-02-25] MED LIST changes: +CYANOCOBALAMIN (B-12) 1000 MCG/1 ML VIAL IM ONE; +CYANOCOBALAMIN (B-12) 1000 MCG/1 ML VIAL ONE; +SODIUM CHLORIDE 0.9% 500 ML IV ONE
[2020-02-25 11:42] VITALS: BP 123/59
[2020-02-25 14:20] VITALS: BP 120/58
[2020-02-25 16:37] LABS: Basophils # (auto) 0.1 10 ^3/uL (0-0.2); Eosinophils % (auto) 2.8 % (0.0-7.0); Hemoglobin 10.3 g/dL (13.5-17.5); Lymphocytes # (auto) 1.7 10 ^3/uL (0.4-5.4); Neutrophils # (auto) 5.9 10 ^3/uL (1.6-8.6)
[2020-02-25 16:38] LABS: Basophils % (auto) 1.7 % (0.0-2.0); Eosinophils # (auto) 0.3 10 ^3/uL (0-0.8); Hematocrit 33.5 % (41.0-53.0); Lymphocytes % (auto) 19.5 % (10.0-50.0); Mean Corpuscular Hgb Conc. 30.8 g/dL (32.0-36.0); Mean Corpuscular Volume 71.4 fL (80.0-100.0); Monocytes # (auto) 0.8 10 ^3/uL (0-1.3); Monocytes % (auto) 9.3 % (0.0-12.0); Neutrophils % (auto) 66.7 % (37.0-80.0); Platelet Count (auto) 357 10^3/uL (140-450); Red Blood Cells 4.69 10^6/uL (4.5-5.90); Red Cell Distribution Width 18.9 % (11.8-14.3); White Blood Cell 8.8 10^3/uL (4.4-10.8)
[2020-02-25 16:53] LABS: Albumin 2.8 g/dL (3.4-5.0); BUN/Creatinine Ratio 16.3; Calcium 8.2 mg/dL (8.5-10.1); Potassium 4.2 mmol/L (3.5-5.1)
[2020-02-25 16:57] LABS: Bilirubin, Total 0.2 mg/dL (0.2-1.0); Total Protein 7.1 g/dL (6.4-8.2)
== END | disposition home or self-care (01) ==
LOC: CHF HDHVI 11:46
PROVIDERS: ATTEND Internal Medicine Cardiovascular Disease
DX: E86.0 Dehydration (principal); D51.9 Vitamin B12 deficiency anemia, unspecified; I11.0 Hypertensive heart disease with heart failure; I50.23 Acute on chronic systolic (congestive) heart failure; E11.65 Type 2 diabetes mellitus with hyperglycemia; K90.9 Intestinal malabsorption, unspecified
CPT/HCPCS: 36415; 80053; 82306; 82607; 83036; 83735; 85025; 96360; 96361; 96372; G0463; J1642; J3420; J7040; 96366

== ENCOUNTER → 2020-03-05 | Outpatient (CLI) | payer MEDICARE ==
[~2020-03-05] VITALS: Ht 30.5 cm; Wt 112.5 kg
[~2020-03-05] MED LIST changes: -SODIUM CHLORIDE 0.9% 500 ML IV ONE
[2020-03-05 13:12] VITALS: BP 122/56
[2020-03-05 16:10] LABS: Basophils # (auto) 0.1 10 ^3/uL (0-0.2); Hemoglobin 10.1 g/dL (13.5-17.5); Lymphocytes # (auto) 1.9 10 ^3/uL (0.4-5.4); White Blood Cell 8.4 10^3/uL (4.4-10.8)
[2020-03-05 16:11] LABS: Basophils % (auto) 1.1 % (0.0-2.0); Eosinophils # (auto) 0.3 10 ^3/uL (0-0.8); Eosinophils % (auto) 3.8 % (0.0-7.0); Lymphocytes % (auto) 22.6 % (10.0-50.0); Mean Corpuscular Hemoglobin 21.6 pg (28.0-32.0); Mean Corpuscular Hgb Conc. 30.6 g/dL (32.0-36.0); Mean Corpuscular Volume 70.6 fL (80.0-100.0); Monocytes # (auto) 0.8 10 ^3/uL (0-1.3); Monocytes % (auto) 9.3 % (0.0-12.0); Neutrophils # (auto) 5.3 10 ^3/uL (1.6-8.6); Neutrophils % (auto) 63.2 % (37.0-80.0); Nucleated Red Blood Cells % 0.1 %; Platelet Count (auto) 298 10^3/uL (140-450); Red Blood Cells 4.67 10^6/uL (4.5-5.90); Red Cell Distribution Width 19.2 % (11.8-14.3)
[2020-03-05 16:28] LABS: BUN/Creatinine Ratio 17.1; Calcium 8.4 mg/dL (8.5-10.1)
== END | disposition home or self-care (01) ==
LOC: CHF HDHVI 11:42
PROVIDERS: ATTEND Internal Medicine Cardiovascular Disease
DX: I11.0 Hypertensive heart disease with heart failure (principal); I50.23 Acute on chronic systolic (congestive) heart failure; D64.9 Anemia, unspecified; E11.9 Type 2 diabetes mellitus without complications; E11.65 Type 2 diabetes mellitus with hyperglycemia
CPT/HCPCS: 36415; 80048; 85025; 96372; G0463; J1642; J3420

== ENCOUNTER → 2020-05-12 | Outpatient (CLI) | payer MEDICARE ==
[2020-05-12 10:00] VITALS: BP 114/54
[2020-05-12 10:27] VITALS: BP 102/41
[2020-05-12 12:08] LABS: Basophils # (auto) 0.1 10 ^3/uL (0-0.2); Eosinophils # (auto) 0.3 10 ^3/uL (0-0.8)
[2020-05-12 12:11] LABS: Basophils % (auto) 1.1 % (0.0-2.0); Eosinophils % (auto) 3.9 % (0.0-7.0); Hematocrit 32.1 % (41.0-53.0); Lymphocytes # (auto) 2.3 10 ^3/uL (0.4-5.4); Mean Corpuscular Hemoglobin 22.3 pg (28.0-32.0); Mean Corpuscular Hgb Conc. 31.1 g/dL (32.0-36.0); Mean Corpuscular Volume 71.6 fL (80.0-100.0); Monocytes # (auto) 0.7 10 ^3/uL (0-1.3); Monocytes % (auto) 8.5 % (0.0-12.0); Neutrophils # (auto) 4.5 10 ^3/uL (1.6-8.6); Neutrophils % (auto) 57.5 % (37.0-80.0); Platelet Count (auto) 313 10^3/uL (140-450); Red Blood Cells 4.49 10^6/uL (4.5-5.90); White Blood Cell 7.8 10^3/uL (4.4-10.8)
[2020-05-12 12:16] LABS: Red Cell Distribution Width 20.4 % (11.8-14.3)
[2020-05-12 12:20] LABS: Potassium 4.2 mmol/L (3.5-5.1)
[2020-05-12 12:29] LABS: BUN/Creatinine Ratio 18.5; Bilirubin, Total 0.2 mg/dL (0.2-1.0); Calcium 8.5 mg/dL (8.5-10.1); Magnesium 2.1 mg/dL (1.6-2.6); Total Protein 6.8 g/dL (6.4-8.2)
== END | disposition home or self-care (01) ==
LOC: CHF HDHVI 10:10
PROVIDERS: ATTEND Internal Medicine Cardiovascular Disease
DX: I11.0 Hypertensive heart disease with heart failure (principal); I50.33 Acute on chronic diastolic (congestive) heart failure; I50.22 Chronic systolic (congestive) heart failure; E11.42 Type 2 diabetes mellitus with diabetic polyneuropathy; R53.83 Other fatigue; K90.9 Intestinal malabsorption, unspecified; Z79.899 Other long term (current) drug therapy
CPT/HCPCS: 36415; 80053; 82306; 83735; 85025; 96372; G0463; J1642; J3420

== ENCOUNTER → 2020-05-26 | Outpatient (CLI) | payer MEDICARE ==
[~2020-05-26] MED LIST changes: -CYANOCOBALAMIN (B-12) 1000 MCG/1 ML VIAL IM ONE; -CYANOCOBALAMIN (B-12) 1000 MCG/1 ML VIAL ONE
[2020-05-26 15:57] LABS: Albumin 2.9 g/dL (3.4-5.0); Calcium 8.6 mg/dL (8.5-10.1); Potassium 4.4 mmol/L (3.5-5.1)
[2020-05-26 16:02] LABS: Bilirubin, Total 0.2 mg/dL (0.2-1.0); Total Protein 7.1 g/dL (6.4-8.2)
== END | disposition home or self-care (01) ==
LOC: LAB 12:00
PROVIDERS: ATTEND Internal Medicine
DX: E78.00 Pure hypercholesterolemia, unspecified (principal); I10 Essential (primary) hypertension; E11.9 Type 2 diabetes mellitus without complications
CPT/HCPCS: 36415; 80053; 80061; 83036

== ENCOUNTER → 2020-06-10 | Outpatient (CLI) | payer MEDICARE ==
[~2020-06-10] VITALS: Ht 30.5 cm; Wt 0.0 kg
[~2020-06-10] MED LIST changes: +CYANOCOBALAMIN (B-12) 1000 MCG/1 ML VIAL IM ONE; +CYANOCOBALAMIN (B-12) 1000 MCG/1 ML VIAL ONE; +MUPIROCIN 2% OINT 15gm or 22gm ONE; +MUPIROCIN 2% OINT 15gm or 22gm TOP ONE
--- NOTE | 2020-06-10 10:10 | NUR ---
Patient into clinic for scheduled lab draw from [facility] and monthly CHF f/u. Patient AAOx4, ambulatory, breathing even and unlabored. Patient weight down 2.5lbs, small abrasion, has general fatigue.
--- NOTE | 2020-06-10 10:30 | NUR ---
Scheduled Darling Cath Flush 20 gauge Quinn needle inserted using sterile technique in the R upper chest. Blood drawn for ordered labs. Darling Cath flushed with 20 mL's of 0.9% NS followed by 500 units per 5mL's Heparin. Quinn Needle D/C'd with sterile occlusive dressing to site. Patient tolerated procedure well. See e-MAR for medications given during this visit.
[2020-06-10 10:55] VITALS: BP 121/65
--- NOTE | 2020-06-10 10:55 | NUR ---
Discharge Instructions See e-MAR for any mediations given with this visit. Patient education given on disease process. Patient verbalized understanding. Previous labs reviewed. Patient discharged in stable condition with after care instructions and follow up appointment. Note B12 IM L deltoid admin by Jolynn PEREA. Heparin admin by Soco ELLIS.
[2020-06-10 12:01] LABS: Basophils # (auto) 0.1 10 ^3/uL (0-0.2); Eosinophils # (auto) 0.4 10 ^3/uL (0-0.8); Hemoglobin 10.1 g/dL (13.5-17.5); Neutrophils # (auto) 5.9 10 ^3/uL (1.6-8.6); White Blood Cell 9.5 10^3/uL (4.4-10.8)
[2020-06-10 12:05] LABS: Basophils % (auto) 0.5 % (0.0-2.0); Eosinophils % (auto) 3.7 % (0.0-7.0); Hematocrit 32.3 % (41.0-53.0); Lymphocytes # (auto) 2.5 10 ^3/uL (0.4-5.4); Lymphocytes % (auto) 26.1 % (10.0-50.0); Mean Corpuscular Hemoglobin 21.7 pg (28.0-32.0); Mean Corpuscular Hgb Conc. 31.4 g/dL (32.0-36.0); Mean Corpuscular Volume 69.1 fL (80.0-100.0); Monocytes # (auto) 0.7 10 ^3/uL (0-1.3); Monocytes % (auto) 7.8 % (0.0-12.0); Neutrophils % (auto) 61.9 % (37.0-80.0); Platelet Count (auto) 257 10^3/uL (140-450); Red Blood Cells 4.68 10^6/uL (4.5-5.90); Red Cell Distribution Width 19.3 % (11.8-14.3)
[2020-06-10 12:13] LABS: Calcium 8.8 mg/dL (8.5-10.1); Potassium 3.9 mmol/L (3.5-5.1)
[2020-06-10 12:18] LABS: Albumin 2.9 g/dL (3.4-5.0); BUN/Creatinine Ratio 15.7; Bilirubin, Total 0.2 mg/dL (0.2-1.0); Magnesium 2.1 mg/dL (1.6-2.6)
== END | disposition home or self-care (01) ==
LOC: CHF HDHVI 10:15
PROVIDERS: ATTEND Internal Medicine Cardiovascular Disease
DX: I11.0 Hypertensive heart disease with heart failure (principal); I50.23 Acute on chronic systolic (congestive) heart failure; I50.32 Chronic diastolic (congestive) heart failure; R53.83 Other fatigue; E78.00 Pure hypercholesterolemia, unspecified; E11.9 Type 2 diabetes mellitus without complications; Z79.899 Other long term (current) drug therapy
CPT/HCPCS: 36415; 80053; 82962; 83036; 83735; 85025; 96372; G0463; J1642; J3420

== ENCOUNTER 2020-10-03 18:00 | Inpatient (IN) | payer MEDICARE ==
[~2020-10-03] VITALS: Ht 167.6 cm; Wt 106.6 kg
[~2020-10-03 18:00] MED LIST changes: -CLOP75TA41 PO; +CLOP75TA70 PO; -CYANOCOBALAMIN (B-12) 1000 MCG/1 ML VIAL IM ONE; -CYANOCOBALAMIN (B-12) 1000 MCG/1 ML VIAL ONE; -MUPIROCIN 2% OINT 15gm or 22gm ONE; -MUPIROCIN 2% OINT 15gm or 22gm TOP ONE
[2020-10-03 19:10] LABS: Basophils # (auto) 0 10 ^3/uL (0-0.2); Basophils % (auto) 0.1 % (0.0-2.0); Eosinophils # (auto) 0 10 ^3/uL (0-0.8); Mean Corpuscular Hgb Conc. 30.9 g/dL (32.0-36.0); Neutrophils % (auto) 92.5 % (37.0-80.0); White Blood Cell 13.7 10^3/uL (4.4-10.8)
[2020-10-03 19:12] LABS: Hematocrit 32.9 % (41.0-53.0); Hemoglobin 10.2 g/dL (13.5-17.5); Lymphocytes # (auto) 0.4 10 ^3/uL (0.4-5.4); Lymphocytes % (auto) 2.8 % (10.0-50.0); Mean Corpuscular Hemoglobin 21.3 pg (28.0-32.0); Mean Corpuscular Volume 68.9 fL (80.0-100.0); Monocytes # (auto) 0.6 10 ^3/uL (0-1.3); Monocytes % (auto) 4.6 % (0.0-12.0); Neutrophils # (auto) 12.7 10 ^3/uL (1.6-8.6); Platelet Count (auto) 374 10^3/uL (140-450); Red Blood Cells 4.77 10^6/uL (4.5-5.90); Red Cell Distribution Width 23.2 % (11.8-14.3)
[2020-10-03 19:26] LABS: Albumin 2.4 g/dL (3.4-5.0); Anion Gap 14 (5-15); Blood Urea Nitrogen 38 mg/dL (7-18); Calcium 8.8 mg/dL (8.5-10.1); Carbon Dioxide 16 mmol/L (21-32); Chloride 99 mmol/L (98-107); Sodium 129 mmol/L (136-145)
[2020-10-03 19:30] LABS: Alanine Aminotransferase 20 U/L (16-61); Aspartate Aminotransferase 32 U/L (15-37); Bilirubin, Total 0.4 mg/dL (0.2-1.0); GFR African American 47 mL/min; GFR Non-African American 39 mL/min; Total Protein 7.5 g/dL (6.4-8.2)
[2020-10-03] MEDS ORDERED: SODIUM CHLORIDE 0.9% 1,000 ML IV ONE (19:30)
[2020-10-03] MEDS ORDERED: methylPREDNISolone SOD SUCC 125 MG/2 ML VL IV ONE (19:30)
[2020-10-03 19:35] LABS: Alkaline Phosphatase 84 U/L (45-117)
[2020-10-03] MEDS: cefTRIAXone 1GM/50ML D5W 50 ML IV ONE ×2 (20:05→22:05)
[2020-10-03 20:40] LABS: BUN/Creatinine Ratio 20.9; Glucose 522 mg/dL (74-106); Potassium 6.1 mmol/L (3.5-5.1)
[2020-10-03] MEDS ORDERED: SODIUM BICARBONATE 8.4 % INJ 50ML VIAL IV ONE (20:45)
[2020-10-03] MEDS ORDERED: InsuLIN REG 1unit/0.01ml Soln (100units/ml) IV ONE (20:45)
[2020-10-03] MEDS ORDERED: CALCIUM GLUC 4.65meq/50ml D5AE 50 ML IV ONE (20:45)
[2020-10-03 22:41] LABS: Lactic Acid w/Reflex 2.7 mmol/L (0.4-2.0)
[2020-10-03] MEDS ORDERED: SODIUM CHLORIDE 0.9% 500 ML IV ONE (23:00)
[2020-10-04] MEDS ORDERED: ALBUMIN 25% 50 ML IV ONE (00:30)
[2020-10-04] MEDS ORDERED: MORPHINE SULF INJ 2 MG/ML SYRINGE 1ML IV PRN (00:45)
[2020-10-04] MEDS ORDERED: DEXTROSE (50%) 50ML SYRG IV PRN (00:45)
[2020-10-04] MEDS ORDERED: ALBUTEROL SULF HFA 90MCG INH 200DOSE IN PRN (00:45)
[2020-10-04] MEDS ORDERED: ONDANSETRON HCL 4 MG/2 ML VIAL IV PRN (00:45)
[2020-10-04] MEDS ORDERED: ACETAMINOPHEN 500 MG TAB PO PRN (00:45)
[2020-10-04] MEDS ORDERED: HYDROcodone-ACET 5/325MG TAB PO PRN (00:45)
[2020-10-04] MEDS ORDERED: MORPHINE SULFATE 4 MG/ML SYR/VIAL IV PRN (00:45)
[2020-10-04] MEDS ORDERED: NITROGLYCERIN 0.4 MG SL TAB SL PRN (00:45)
[2020-10-04] MEDS ORDERED: DOCUSATE SOD 100 MG CAP PO PRN (00:45)
[2020-10-04] MEDS ORDERED: NOREPINEPHRINE 8 MG/250ML KIT 250 ML IV ONE (00:52)
[2020-10-04] MEDS: NOREPINEPHRINE 8 MG/250ML KIT 250 ML IV SCH (01:23)
[2020-10-04 02:02] LABS: Albumin 2.3 g/dL (3.4-5.0); BUN/Creatinine Ratio 23.4; Potassium 5.1 mmol/L (3.5-5.1)
[2020-10-04 02:06] LABS: Bilirubin, Total 0.4 mg/dL (0.2-1.0); Total Protein 7.1 g/dL (6.4-8.2)
[2020-10-04 03:15] VITALS: BP 133/58
[2020-10-04] MEDS: ACCU-CHEK COMFORT CURVE STRIP VI SCH ×5 (04:32→20:15)
[2020-10-04] MEDS: InsuLIN REG 1unit/0.01ml Soln (100units/ml) SC SCH ×5 (04:32→20:14)
[2020-10-04 06:15] VITALS: BP 120/66
[2020-10-04] MEDS: SODIUM CHLOR 0.9% PF (SALINE LOCK) 10ML VIAL/SYR IV SCH ×3 (06:22→22:29)
[2020-10-04] MEDS: INSULIN LANTUS (GLARGINE) 1 /0.01ml (100units/ml) SC SCH ×2 (06:52→22:26)
[2020-10-04] MEDS: DOXYCYCLINE 100MG/250ML 250 ML IV SCH ×2 (09:42→22:00)
[2020-10-04] MEDS: HEPARIN SODIUM (PORCINE) 5000 UNITS/ML 1ML VIAL SC SCH ×2 (09:43→22:29)
[2020-10-04] MEDS ORDERED: DexAMETHasone SOD PHOS 10MG/1ML VIAL INJ IV SCH (10:00)
[2020-10-04] MEDS ORDERED: ZINC SULFATE 220mg CAP or TAB PO SCH (10:00)
[2020-10-04] MEDS ORDERED: FAMOTIDINE (10MG/ML) 2ML VL IV SCH (10:00)
[2020-10-04] MEDS ORDERED: CHOLECALCIFEROL (VITD3) 2,000 UNIT CAP/TAB PO SCH (10:00)
[2020-10-04] MEDS ORDERED: ASCORBIC ACID 1,000 MG TAB PO SCH (10:00)
[2020-10-04] MEDS ORDERED: MULTIPLE VITAMIN TAB PO SCH (10:00)
[2020-10-04] MEDS ORDERED: BUDESONIDE (INHALATION) 180 MCG IH IN SCH (10:00)
[2020-10-04] MEDS ORDERED: ASPirin 81 mg TAB PO SCH (10:00)
[2020-10-04 10:40] VITALS: BP 115/44
[2020-10-04] MEDS ORDERED: ALPRAZolam 0.25 MG TAB PO PRN (11:30)
[2020-10-04] MEDS ORDERED: REMDESIVIR PER PHARMACY 0 ML IV SCH (11:45)
[2020-10-04 12:15] LABS: Protein, Urine 106.5 mg/dL (0.0-11.9)
[2020-10-04 12:22] LABS: Urine Bacteria FEW /hpf (None Seen); Urine Blood 1+ /uL (Negative); Urine Budding Yeast OCCASIONAL /hpf (None Seen); Urine Specific Gravity 1.024 (1.001-1.035); Urine WBC 2 /hpf (0 - 3)
[2020-10-04 14:12] VITALS: BP 109/62
[2020-10-04] MEDS ORDERED: REMDESIVIR 200 MG in NS 210ml LOADING DOSE ADULT IV ONE (15:00)
[2020-10-04 18:28] VITALS: BP 114/66
[2020-10-04 19:51] LABS: Albumin 2.3 g/dL (3.4-5.0); BUN/Creatinine Ratio 26.2; Calcium 9.2 mg/dL (8.5-10.1); Potassium 4.3 mmol/L (3.5-5.1)
[2020-10-04 19:53] LABS: Bilirubin, Total 0.4 mg/dL (0.2-1.0); Total Protein 7.3 g/dL (6.4-8.2)
[2020-10-04] MEDS ORDERED: dilTIAZem 25 MG/5 ML VIAL IV ONE ×3 (22:15→22:30)
[2020-10-04 22:54] VITALS: BP 119/54
[2020-10-04] MEDS ORDERED: ENOXAPARIN SOD 30 MG/0.3 ML SYRINGE IV ONE (23:15)
[2020-10-04] MEDS ORDERED: METOPROLOL SUCCINATE XL 50 MG TAB PO ONE (23:15)
[2020-10-05] MEDS ORDERED: ETOMIDATE (2MG/ML) 20ML VIAL IV ONE ×4 (00:27→03:15)
[2020-10-05] MEDS ORDERED: SUCCINYLCHOLINE CHLORIDE 20 MG/ML 10ML VIAL IV ONE ×4 (00:27→03:15)
[2020-10-05] MEDS ORDERED: MIDAZOLAM DRIP 50 mg/50mL 50 ML IV ONE (00:28)
[2020-10-05] MEDS: NOREPINEPHRINE 8 MG/250ML KIT 250 ML IV SCH (01:05)
[2020-10-05] MEDS ORDERED: PHENYLEPHRINE IV 250 ML IV ONE (01:22)
[2020-10-05] MEDS ORDERED: SODIUM BICARBONATE 8.4% INJ 50ML SYRINGE ONE ×2 (01:23→04:34)
[2020-10-05] MEDS ORDERED: fentaNYL Drip 2500mCg/250mlNS 250 ML IV ONE (01:29)
[2020-10-05 02:03] VITALS: BP 119/29
[2020-10-05] MEDS ORDERED: ROCURONIUM BROMIDE 1,000 MG in D5W 5% 150 ML IV SCH (02:30)
[2020-10-05] MEDS ORDERED: ATRACURIUM BESYLATE 1,000 MG in D5W 5% 150 ML IV SCH (02:45)
[2020-10-05] MEDS ORDERED: ATRACURIUM BESYLATE (10 MG/ ML) 10 ML VIAL ONE (02:58)
[2020-10-05] MEDS ORDERED: ALBUMIN 5% 250 ML IV ONE ×2 (02:58→03:15)
[2020-10-05] MEDS ORDERED: ROCURONIUM 10MG/ML 10ML VIAL IV ONE (03:00)
[2020-10-05] MEDS ORDERED: fentaNYL Drip 2500mCg/250mlNS 250 ML IV SCH (03:00)
[2020-10-05] MEDS ORDERED: SODIUM BICARBONATE 50ML VIAL 100 ML in SODIUM CHLORIDE 0.9% 1,000 ML IV ONE (03:00)
[2020-10-05] MEDS: InsuLIN REG 1unit/0.01ml Soln (100units/ml) SC SCH ×2 (03:11→04:40)
[2020-10-05] MEDS ORDERED: PHENYLEPHRINE IV 250 ML IV SCH (03:15)
[2020-10-05] MEDS ORDERED: MIDAZOLAM DRIP 50 mg/50mL 50 ML IV SCH (04:00)
[2020-10-05] MEDS ORDERED: SODIUM BICARBONATE 8.4 % INJ 50ML VIAL IV ONE (04:45)
[2020-10-05] MEDS: ACCU-CHEK COMFORT CURVE STRIP VI SCH ×2 (04:48)
[2020-10-05] MEDS ORDERED: VASOPRESSIN 50 UNITS in D5W 5% 247.5 ML IV SCH (05:15)
[2020-10-05] MEDS ORDERED: VASOPRESSIN 20 UNIT/ML ONE (05:34)
[2020-10-05] MEDS: SODIUM CHLOR 0.9% PF (SALINE LOCK) 10ML VIAL/SYR IV SCH (06:00)
[2020-10-05 06:20] VITALS: BP 76/15
[2020-10-05 06:56] LABS: Basophils # (auto) 0 10 ^3/uL (0-0.2); Basophils % (auto) 0.1 % (0.0-2.0); Eosinophils # (auto) 0 10 ^3/uL (0-0.8); Lymphocytes # (auto) 0.6 10 ^3/uL (0.4-5.4); Neutrophils % (auto) 91.3 % (37.0-80.0)
[2020-10-05 07:00] LABS: Hematocrit 32.9 % (41.0-53.0); Hemoglobin 9.7 g/dL (13.5-17.5); Lymphocytes % (auto) 2.2 % (10.0-50.0); Mean Corpuscular Hemoglobin 20.9 pg (28.0-32.0); Mean Corpuscular Hgb Conc. 29.4 g/dL (32.0-36.0); Monocytes # (auto) 1.6 10 ^3/uL (0-1.3); Monocytes % (auto) 6.4 % (0.0-12.0); Neutrophils # (auto) 23.4 10 ^3/uL (1.6-8.6); Nucleated Red Blood Cells % 1.3 %; Platelet Count (auto) 373 10^3/uL (140-450); Red Blood Cells 4.63 10^6/uL (4.5-5.90); White Blood Cell 25.6 10^3/uL (4.4-10.8)
[2020-10-05] MEDS ORDERED: IVERMECTIN 3 MG TAB PO ONE (07:00)
[2020-10-05 07:13] LABS: Albumin 2.1 g/dL (3.4-5.0); BUN/Creatinine Ratio 18.4; Bilirubin, Total 0.8 mg/dL (0.2-1.0); Calcium 8.9 mg/dL (8.5-10.1); Total Protein 6.8 g/dL (6.4-8.2)
[2020-10-05] MEDS ORDERED: SODIUM BICARBONATE 50ML VIAL 100 ML in SODIUM CHLORIDE 0.9% 1,000 ML IV SCH (07:15)
[2020-10-05 07:34] LABS: Red Cell Distribution Width 24.3 % (11.8-14.3)
[2020-10-05 08:45] VITALS: BP 43/11
[2020-10-05] MEDS ORDERED: VANCOMYCIN 1GM/250ML 250 ML IV SCH (10:00)
[2020-10-05] MEDS ORDERED: ENOXAPARIN SOD 80 MG/0.8ML SYRINGE SC SCH (10:00)
[2020-10-05] MEDS ORDERED: METOPROLOL SUCCINATE XL 50 MG TAB PO SCH (10:00)
[2020-10-05] MEDS ORDERED: EPINEPHrine HCL 1 MG/10 ML SYRG IV ONE ×2 (13:39→13:43)
[2020-10-05] MEDS ORDERED: CALCIUM CHLOR(10%) 100MG/ML 10ML SYRINGE IV ONE ×2 (13:39→13:43)
[2020-10-05] MEDS ORDERED: SODIUM BICARBONATE 8.4% INJ 50ML SYRINGE IV ONE ×2 (13:39→13:43)
[2020-10-05] MEDS ORDERED: REMDESIVIR 100mg 100 MG in SODIUM CHL 0.9% 230 ML IV SCH (15:00)
== END 2020-10-05 09:00 | DRG 871 ==
LOC: ER 18:03 → TELE 18:04
PROVIDERS: ADMIT Nurse Practitioner Family; ATTEND Internal Medicine
PROC: 5A09357 Assistance with Respiratory Ventilation, Less than 24 Consecutive Hours, Continuous Positive Airway Pressure (ICD-10-PCS; 2020-10-04)
PROC: XW033E5 Introduction of Remdesivir Anti-infective into Peripheral Vein, Percutaneous Approach, New Technology Group 5 (ICD-10-PCS; 2020-10-04)
PROC: 5A12012 Performance of Cardiac Output, Single, Manual (ICD-10-PCS; principal; 2020-10-05)
PROC: 5A1935Z Respiratory Ventilation, Less than 24 Consecutive Hours (ICD-10-PCS; 2020-10-05)
PROC: 0BH17EZ Insertion of Endotracheal Airway into Trachea, Via Natural or Artificial Opening (ICD-10-PCS; 2020-10-05)
DX: A41.89 Other specified sepsis (principal); U07.1 COVID-19; J12.82 Pneumonia due to coronavirus disease 2019; N18.6 End stage renal disease; J96.91 Respiratory failure, unspecified with hypoxia; G93.41 Metabolic encephalopathy; N17.0 Acute kidney failure with tubular necrosis; E87.1 Hypo-osmolality and hyponatremia; I13.2 Hypertensive heart and chronic kidney disease with heart failure and with stage 5 chronic kidney disease, or end stage renal disease; I50.32 Chronic diastolic (congestive) heart failure; E87.5 Hyperkalemia; I25.5 Ischemic cardiomyopathy; I46.9 Cardiac arrest, cause unspecified; E66.9 Obesity, unspecified; D64.9 Anemia, unspecified; E03.9 Hypothyroidism, unspecified; E11.22 Type 2 diabetes mellitus with diabetic chronic kidney disease; E11.40 Type 2 diabetes mellitus with diabetic neuropathy, unspecified; E11.65 Type 2 diabetes mellitus with hyperglycemia; I25.10 Atherosclerotic heart disease of native coronary artery without angina pectoris; Z91.14 Patient's other noncompliance with medication regimen; Z85.46 Personal history of malignant neoplasm of prostate; Z99.2 Dependence on renal dialysis; Z68.37 Body mass index [BMI] 37.0-37.9, adult
CPT/HCPCS: 36415; 36600; 71045; 80053; 81001; 82306; 82570; 82805; 82962; 83036; 83605; 83735; 84156; 84300; 84484; 85025; 85379; 87040; 87070; 87077; 87186; 87205; 87426; 93005; 93306; 94002; 94003; 94640; 94660; 96361; 96365; 96367; 96375; G0378; J0330; J0610; J0696; J1100; J1815; J2250; J3490; J7060